=== PATIENT | male | born 1960 | race Caucasian/White ===

== ENCOUNTER 2020-07-24 04:03 | Outpatient (CLI) | payer MEDICARE, SELFPAY ==
[2020-07-24 19:05] LABS: SARS-CoV-2 RNA PCR Negative
== END 2020-07-24 04:04 | disposition home or self-care (01) ==
LOC: ANHCOVIDDT 04:03
PROVIDERS: PCP Family Medicine; Visit Provider Internal Medicine Gastroenterology
DX: Z01.812 Encounter for preprocedural laboratory examination (principal); Z20.828 Contact with and (suspected) exposure to other viral communicable diseases
CPT/HCPCS: 87635; C9803; U0003

== ENCOUNTER 2020-07-26 02:56 | Day surgery (SDC) | payer MEDICARE, SELFPAY ==
[2020-07-19 09:53] VITALS: BMI 23.1
[2020-07-26 07:46] VITALS: BP 167/80; PULSE 61; RESP 18; TEMP 36.8; O2SAT 99; BMI 22.6
--- NOTE | 2020-07-26 07:49 | WPDANESEPPF ---
Anes - Initial Pre Proc Eval Procedure: Operation Date: 07/26/20 08:30 Proposed Procedures p Esophagogastroduodenoscopy - Rey Abdul MD Date/Time: 07/26/20 07:49 Surgeon: Rey Abdul MD Pre Op Diagnosis: abd pain Patient Data Age: 60 Gender: M Height: 1.73 m Weight: 67.7 kg Last Vital Signs Temp 36.8 C 07/26/20 07:46 Pulse 61 07/26/20 07:46 Resp 18 07/26/20 07:46 BP 167/80 H 07/26/20 07:46 Pulse Ox 99 07/26/20 07:46 Allergies Allergy/AdvReac Type Severity Reaction Status Date / Time No Known Allergies Allergy Verified 07/26/20 07:44 Home Medications Medication Instructions Recorded Confirmed Type tramadol 50 mg tablet 50 mg PO Q6-8H PRN #90 tablet 10/03/19 07/19/20 Rx diltiazem HCl 240 mg capsule,24 240 mg PO DAILY #90 cap 10/16/19 07/19/20 Rx hr,extended release rivaroxaban 20 mg tablet 20 mg PO DAILY #90 tablet 10/16/19 07/26/20 Rx umeclidinium 62.5 mcg-vilanterol 1 inhalation INHALATION Q24H #60 12/19/19 07/19/20 Rx 25 mcg/actuation powdr for each inhalation amiodarone 200 mg tablet 200 mg PO DAILY #90 tablet 01/24/20 07/19/20 Rx albuterol sulfate 2.5 mg INHALATION Q6H PRN 04/22/20 07/26/20 History albuterol sulfate 90 mcg/actuation 2 puff INHALATION Q6H PRN gm 04/22/20 07/19/20 History aerosol inhaler ondansetron HCl 4 mg tablet 4 mg PO Q8H PRN #90 tablet 07/11/20 07/19/20 Rx alprazolam 0.5 mg PO BID PRN 07/19/20 07/19/20 History mometasone 2 spray NASAL DAILY PRN 07/19/20 07/19/20 History Patient hx anesthesia problems: none Family hx anesthesia problems: none PMFSH Past Medical History Medical History (Updated 07/03/20 @ 11:35 by Rey Abdul MD) Atrial fibrillation Colon cancer screening COPD (chronic obstructive pulmonary disease) Dyspepsia External bleeding hemorrhoids Hemorrhoid Hyperlipidemia Hypertension Surgical History Surgical History H/O mitral valve replacement History of appendectomy History of hernia repair History of tonsillectomy Family History Family History Mother Family history of chronic obstructive pulmonary disease Social History Social History Smoking packs per day: 2 Smoking cigarettes per day: 40.0 Years smoked: 25 Smoking pack-years: 50.00 Smoking status: Former smoker Tobacco type: cigarettes Second hand tobacco smoke exposure: No Smoking end date: 10/04/02 Alcohol intake: current Drinks per week: 16 Alcohol use details: BEERS Substance use: never Substance use type: does not use Living arrangements: with family Gender identity (if verbalized by the patient): Male Spiritual care concerns: No Anes - Eval Final PreProcedure Day of Procedure 07/26/20 07:49 Patient weight: obese Heart: regular rate and rhythm Lungs: clear to auscultation and normal air movement Airway: Mallampati scale class II Neurological: alert and oriented Last oral intake: >/= 8 hours ASA classification: III Emergent: no Anesthetic plan: proceed Anesthesia type and monitoring: general GIVS Informed Consent: The patient's anesthetic plan and its attendant risks and benefits were discussed with the patient/family/POA. Questions were solicited and answers provided to the satisfaction of the patient/family/POA.
[2020-07-26] MEDS: LACTATED RINGERS 1,000 ML 150 ML IV CONT (07:57)
[2020-07-26] MEDS: AMPICILLIN 2 GM/NS 100 ML 2 GM/100 ML BAG IVPB (07:58)
[2020-07-26] MEDS: GENTAMICIN 80MG/SOD CHL 50 ML 80 MG/50 ML BAG 100 MG IVPB (08:29)
--- NOTE | 2020-07-26 08:41 | WPDHPUPDATE1 ---
History and Physical Update Update Date/Time: 07/26/20 08:41 History and Physical has been reviewed, including an updated exam of the patient. There are NO changes in the patient's condition. Risks, benefits, and alternatives have been discussed and questions answered. Patient agrees to proceed with procedure.
[2020-07-26 09:01] VITALS: BP 116/69; PULSE 52; RESP 16; O2SAT 98
[2020-07-26 09:11] VITALS: BP 144/83; PULSE 57; RESP 16; O2SAT 100
[2020-07-26 09:19] VITALS: BP 141/80; PULSE 57; RESP 18; O2SAT 100
== END 2020-07-26 09:33 | disposition home or self-care (01) ==
PROVIDERS: PCP Family Medicine; Visit Provider Internal Medicine Gastroenterology
PROC: 0DJ08ZZ Inspection of Upper Intestinal Tract, Via Natural or Artificial Opening Endoscopic (ICD-10-PCS; CPT 43235; principal; 2020-07-26 08:30)
DX: K22.70 Barrett's esophagus without dysplasia (principal); K44.9 Diaphragmatic hernia without obstruction or gangrene; K29.50 Unspecified chronic gastritis without bleeding; K21.9 Gastro-esophageal reflux disease without esophagitis; I48.91 Unspecified atrial fibrillation; I10 Essential (primary) hypertension; E78.5 Hyperlipidemia, unspecified; J44.9 Chronic obstructive pulmonary disease, unspecified; Z79.01 Long term (current) use of anticoagulants; Z95.4 Presence of other heart-valve replacement; Z87.891 Personal history of nicotine dependence
CPT/HCPCS: 43239; 88305; J0290; J1580; J2704; J7120

== ENCOUNTER 2020-08-27 06:52 | Outpatient (NON) | payer MEDICARE, SELFPAY ==
[2020-08-28 02:00] LABS: SARS-CoV-2 RNA PCR Negative
== END 2020-08-27 06:53 ==
LOC: ANHCOVIDDT 06:57
PROVIDERS: PCP Family Medicine; Visit Provider Family Medicine
DX: R68.89 Other general symptoms and signs (principal); Z20.828 Contact with and (suspected) exposure to other viral communicable diseases
CPT/HCPCS: 87635; C9803; U0003

== ENCOUNTER 2020-09-25 15:03 | Emergency (ER) | payer MEDICARE, SELFPAY ==
--- NOTE | ~2020-09-25 | XR_ITS ---
EXAMINATION: XR esophogram water soluble DATE: 09/25/2020 16:08 INFORMATION SYSTEMS OPERATOR INDICATION: Dysphagia TECHNIQUE: Water-soluble contrast was administered orally. Fluoroscopic images of the esophagus were obtained in various projections. The hypopharynx was also examined. Thereafter, overhead images of t he thoracic esophagrus were performed. Fluroscopy time 0.6Dap 2.1 FINDINGS: The esophagus is normal in caliber, without mucosal lesions or strictures. There is normal esophageal peristalsis. There is no hiatal hernia. No discreet episode of gastroesophageal reflux i s seen during the course of this study. IMPRESSION: 1. Normal esophagram. Reviewed, dictated and finalized at location A. RMATION SYSTEMS OPERATOR IMPRESSION: 1. Normal esophagram.
[2020-09-25 15:29] VITALS: BP 148/68; PULSE 65; RESP 18; TEMP 36.6; O2SAT 99
[2020-09-25 16:01] VITALS: BP 164/80
[2020-09-25] MEDS: LIDOCAINE HCL 2% VISC SOLN 15 ML UDC PO (16:35)
[2020-09-25 16:45] VITALS: O2SAT 100
--- NOTE | 2020-09-25 17:02 | PC.NURSE ---
Pt states he thinks he is feeling better. No drooling observed.
[2020-09-25 17:04] VITALS: O2SAT 100
--- NOTE | 2020-09-25 17:10 | ED.GENADULT ---
HPI - General Adult General Chief complaint: Unspecified Stated complaint: choking Time Seen by Provider: 09/25/20 15:15 History of Present Illness HPI narrative: Patient is a 60-year-old male who presents ER with pain with swallowing. Reports he is eating some salami and thinks he got stuck in the back of his throat. He has been able to swallow water and is able to belch. He has not had a food impaction in the past. Reports he feels discomfort in the back of his throat anytime he swallows. Related Data Home Medications Medication Instructions Recorded Confirmed albuterol sulfate 2.5 mg INHALATION Q6H PRN 04/22/20 07/26/20 albuterol sulfate 90 mcg/actuation 2 puff INHALATION Q6H PRN gm 04/22/20 07/19/20 aerosol inhaler alprazolam 0.5 mg PO BID PRN 07/19/20 07/19/20 mometasone 2 spray NASAL DAILY PRN 07/19/20 07/19/20 Allergies Allergy/AdvReac Type Severity Reaction Status Date / Time No Known Allergies Allergy Verified 09/25/20 15:36 Review of Systems Constitutional: Constitutional: Denies chills, Denies fever(s) and Denies weakness ENT: Reports dysphagia, Denies hoarseness and Denies mouth pain Respiratory: Respiratory: Denies cough, Denies dyspnea and Denies stridor PMF Past Medical History Medical History (Updated 09/25/20 @ 17:13 by Edgar Carey MD) Atrial fibrillation Colon cancer screening COPD (chronic obstructive pulmonary disease) Dyspepsia External bleeding hemorrhoids Hemorrhoid Hyperlipidemia Hypertension Surgical History Surgical History H/O mitral valve replacement History of appendectomy History of hernia repair History of tonsillectomy Family History Family History Mother Family history of chronic obstructive pulmonary disease Social History Social History Smoking packs per day: 2 Smoking cigarettes per day: 40.0 Years smoked: 25 Smoking pack-years: 50.00 Smoking status: Former smoker Tobacco type: cigarettes Second hand tobacco smoke exposure: No Smoking end date: 10/04/02 Alcohol intake: current Drinks per week: 16 Substance use: never Substance use type: does not use Gender identity (if verbalized by the patient): Male Spiritual care concerns: No Exam Narrative: Exam Narrative: GENERAL: Well-appearing, well-nourished, and in no acute distress. HEAD: Normocephalic, atraumatic. ENT: Mucous membranes moist. Lacks dentition. Tolerating oral secretions. NECK: Supple. CHEST: Clear to auscultation. No respiratory distress. HEART: Regular rate and rhythm. Normal peripheral pulses. ABDOMEN: Soft, nontender, nondistended. EXTREMITIES: Normal range of motion. No edema. NEURO: Alert and oriented x3. Course Course Emergency Course: Patient able to drink without issue. Symptoms improved with lidocaine. Vital Signs Vital signs: Vital Signs Temperature 97.8 F 09/25/20 15:29 Pulse Rate 65 09/25/20 15:29 Respiratory Rate 18 09/25/20 15:29 Blood Pressure 148/68 H 09/25/20 15:29 Pulse Oximetry 99 09/25/20 15:29 Temperature 97.8 F 09/25/20 15:29 Pulse Rate 65 09/25/20 15:29 Respiratory Rate 18 09/25/20 15:29 Blood Pressure 164/80 H 09/25/20 16:01 Pulse Oximetry 100 09/25/20 17:04 Medical Decision Making Vital Signs Vital Signs: Vital Signs Temperature 97.8 F 09/25/20 15:29 Pulse Rate 65 09/25/20 15:29 Respiratory Rate 18 09/25/20 15:29 Blood Pressure 148/68 H 09/25/20 15:29 Pulse Oximetry 99 09/25/20 15:29 Temperature 97.8 F 09/25/20 15:29 Pulse Rate 65 09/25/20 15:29 Respiratory Rate 18 09/25/20 15:29 Blood Pressure 164/80 H 09/25/20 16:01 Pulse Oximetry 100 09/25/20 17:04 Imaging Data Radiologist's impression: ITS Impressions Esophagus X-Ray 09/25/20 16:08 IMPRESSION: 1. Normal esophagra
[2020-09-25 17:40] VITALS: BP 134/74; PULSE 62; RESP 18; O2SAT 98
== END 2020-09-25 17:45 | disposition home or self-care (01) ==
PROVIDERS: Emergency Provider Emergency Medicine; PCP Family Medicine
DX: R07.0 Pain in throat (principal); I48.91 Unspecified atrial fibrillation; J44.9 Chronic obstructive pulmonary disease, unspecified; E78.5 Hyperlipidemia, unspecified; I10 Essential (primary) hypertension; Z95.2 Presence of prosthetic heart valve; Z87.891 Personal history of nicotine dependence
CPT/HCPCS: 74220; 99283

== ENCOUNTER → 2020-12-14 01:18 | Outpatient (CLI) | payer MEDICARE, SELFPAY ==
[2020-12-14 18:54] LABS: SARS-CoV-2 RNA PCR Negative
== END ==
PROVIDERS: PCP Family Medicine; Visit Provider Internal Medicine Gastroenterology
DX: Z01.812 Encounter for preprocedural laboratory examination (principal); Z20.822 Contact with and (suspected) exposure to COVID-19
CPT/HCPCS: C9803; U0003; U0005

== ENCOUNTER 2020-12-18 00:33 | Day surgery (SDC) | payer MEDICARE, SELFPAY ==
[2020-12-03 11:17] VITALS: BMI 22.1
[2020-12-18] MEDS: LACTATED RINGERS 1,000 ML 150 ML IV CONT (08:29)
[2020-12-18] MEDS: GENTAMICIN 80MG/SOD CHL 50 ML 80 MG/50 ML BAG 100 MG IVPB (08:30)
--- NOTE | 2020-12-18 08:30 | WPDANESEPPF ---
Anes - Initial Pre Proc Eval Procedure: Operation Date: 12/18/20 09:30 Proposed Procedures p Esophagogastroduodenoscopy - Rey Abdul MD Date/Time: 12/18/20 08:30 Surgeon: Rey Abdul MD Pre Op Diagnosis: Dysphagia Patient Data Age: 60 Gender: M Height: 1.73 m Weight: 66 kg Allergies Allergy/AdvReac Type Severity Reaction Status Date / Time No Known Allergies Allergy Verified 12/18/20 08:16 Home Medications Medication Instructions Recorded Confirmed Type diltiazem HCl 240 mg capsule,24 240 mg PO DAILY #90 cap 10/16/19 12/03/20 Rx hr,extended release rivaroxaban 20 mg tablet 20 mg PO DAILY #90 tablet 10/16/19 12/03/20 Rx umeclidinium 62.5 mcg-vilanterol 1 inhalation INHALATION Q24H #60 12/19/19 12/03/20 Rx 25 mcg/actuation powdr for each inhalation albuterol sulfate 2.5 mg INHALATION Q6H PRN 04/22/20 12/03/20 History albuterol sulfate 90 mcg/actuation 2 puff INHALATION Q6H PRN gm 04/22/20 12/03/20 History aerosol inhaler mometasone 2 spray NASAL DAILY PRN 07/19/20 12/03/20 History omeprazole 20 mg capsule,delayed 20 mg PO DAILY #30 cap 07/26/20 12/03/20 Rx release amiodarone 200 mg tablet See Rx Instructions .ROUTE 08/07/20 12/03/20 Rx .COMPLEX #90 tablet alprazolam 0.5 mg tablet 0.5 mg PO BID PRN #60 tablet 10/14/20 12/03/20 Rx losartan 100 mg tablet 100 mg PO DAILY #30 tablet 10/24/20 12/03/20 Rx tramadol 50 mg tablet 50 mg PO Q6-8H PRN #90 tablet 11/22/20 12/03/20 Rx Patient hx anesthesia problems: none Family hx anesthesia problems: none PMFSH Past Medical History Medical History (Updated 12/18/20 @ 08:31 by Ariel Wells MD) Alcohol abuse Atrial fibrillation Barretts esophagus Chronic anxiety Colon cancer screening COPD (chronic obstructive pulmonary disease) Current use of [facility] anticoagulation Dyspepsia Edentulous External bleeding hemorrhoids Gastritis Globus sensation Hemorrhoid Hyperlipidemia Hypertension Thoracic aortic aneurysm 4.4 cm Surgical History Surgical History (Reviewed 11/06/20 @ 13:29 by Nicole Burns [facility] [address]) H/O mitral valve replacement History of appendectomy History of hernia repair History of tonsillectomy Family History Family History Mother Family history of chronic obstructive pulmonary disease Social History Social History (Reviewed 11/06/20 @ 13:29 by Nicole Burns [facility]) Social History: Smoking packs per day: 2 Smoking cigarettes per day: 40.0 Years smoked: 25 Smoking pack-years: 50.00 Smoking status: Former smoker Tobacco type: cigarettes Second hand tobacco smoke exposure: No Smoking end date: 10/04/02 Alcohol intake: current Drinks per week: 8 Substance use: never Substance use type: does not use Living arrangements: with family Additional occupation/education comments: Disabled Gender identity (if verbalized by the patient): Male Spiritual care concerns: No Anes - Eval Final PreProcedure Day of Procedure 12/18/20 08:30 Patient weight: normal Heart: regular rate and rhythm Lungs: clear to auscultation and normal air movement Airway: Mallampati scale class II Neurological: alert and oriented Last oral intake: >/= 8 hours ASA classification: IV Emergent: no Anesthetic plan: proceed Anesthesia type and monitoring: general GIVS Informed Consent: The patient's anesthetic plan and its attendant risks and benefits were discussed with the patient/family/POA. Questions were solicited and answers provided to the satisfaction of the patient/family/POA.
[2020-12-18 08:31] VITALS: BP 161/79; PULSE 65; RESP 16; TEMP 36.5; O2SAT 99; BMI 22.4
[2020-12-18] MEDS: AMPICILLIN 2 GM/NS 100 ML 2 GM/100 ML BAG IVPB (08:57)
--- NOTE | 2020-12-18 09:55 | PM.HPGS ---
History of Present Illness History of Present Illness Consent: Risks, benefits, and alternatives have been discussed and questions answered. Patient agrees to proceed with procedure. Chief complaint: Dysphagia Narrative: Milton Minor is a 60 year old male with dysphagia but improved since last office visit, also using omeprazole helping gerd symptoms Review of Systems Constitutional: Constitutional: Denies headache(s) and Denies weakness Eyes: Eyes: Denies blurry vision ENT: Reports Normal hearing present, Denies headache(s) and Denies neck pain Cardiovascular: Cardiovascular: Denies chest pain and Denies dyspnea Respiratory: Respiratory: Denies dyspnea Gastrointestinal: Gastrointestinal: Reports no additional gastrointestinal complaints Genitourinary: Genitourinary: Denies dysuria Musculoskeletal: Musculoskeletal: Denies neck pain Integumentary/Breasts: Skin/Breast: Denies dry skin Neurologic: Reports Normal hearing present, Denies headache(s) and Denies weakness Psychiatric: Psychiatric: Denies anxiety Endocrine: Endocrine: Denies change in body appearance Hematologic/Lymphatic: Hematologic/Lymphatic: Denies easy bleeding Allergic/Immunologic: Allergic/Immunologic: Denies urticaria PMF Past Medical History Medical History (Updated 12/18/20 @ 08:31 by Ariel Wells MD) Alcohol abuse Atrial fibrillation Barretts esophagus Chronic anxiety Colon cancer screening COPD (chronic obstructive pulmonary disease) Current use of residential anticoagulation Dyspepsia Edentulous External bleeding hemorrhoids Gastritis Globus sensation Hemorrhoid Hyperlipidemia Hypertension Thoracic aortic aneurysm 4.4 cm Surgical History Surgical History H/O mitral valve replacement History of appendectomy History of hernia repair History of tonsillectomy Family History Family History Mother Family history of chronic obstructive pulmonary disease Social History Social History Social History: Smoking packs per day: 2 Smoking cigarettes per day: 40.0 Years smoked: 25 Smoking pack-years: 50.00 Smoking status: Former smoker Tobacco type: cigarettes Second hand tobacco smoke exposure: No Smoking end date: 10/04/02 Alcohol intake: current Drinks per week: 8 Substance use: never Substance use type: does not use Living arrangements: with family Additional occupation/education comments: Disabled Gender identity (if verbalized by the patient): Male Spiritual care concerns: No Meds Home Medications and Allergies Home Medications Medication Instructions Recorded Confirmed Type diltiazem HCl 240 mg capsule,24 240 mg PO DAILY #90 cap 10/16/19 12/03/20 Rx hr,extended release rivaroxaban 20 mg tablet 20 mg PO DAILY #90 tablet 10/16/19 12/03/20 Rx umeclidinium 62.5 mcg-vilanterol 1 inhalation INHALATION Q24H #60 12/19/19 12/03/20 Rx 25 mcg/actuation powdr for each inhalation albuterol sulfate 2.5 mg INHALATION Q6H PRN 04/22/20 12/03/20 History albuterol sulfate 90 mcg/actuation 2 puff INHALATION Q6H PRN gm 04/22/20 12/03/20 History aerosol inhaler mometasone 2 spray NASAL DAILY PRN 07/19/20 12/03/20 History omeprazole 20 mg capsule,delayed 20 mg PO DAILY #30 cap 07/26/20 12/03/20 Rx release amiodarone 200 mg tablet See Rx Instructions .ROUTE 08/07/20 12/03/20 Rx .COMPLEX #90 tablet alprazolam 0.5 mg tablet 0.5 mg PO BID PRN #60 tablet 10/14/20 12/03/20 Rx losartan 100 mg tablet 100 mg PO DAILY #30 tablet 10/24/20 12/03/20 Rx tramadol 50 mg tablet 50 mg PO Q6-8H PRN #90 tablet 11/22/20 12/03/20 Rx Allergies Allergy/AdvReac Type Severity Reaction Status Date / Time No Known Allergies Allergy Verified 12/18/20 08:16 Vital Signs Vital Signs - 24 hr
[2020-12-18] MEDS: BENZOCAINE (*SP) 60 ML SPRAY CAN (HURRICAINE) 1 SPRAY MUCOUS MEM (09:57)
[2020-12-18 10:08] VITALS: BP 123/76; PULSE 53; RESP 17; O2SAT 97
[2020-12-18 10:18] VITALS: BP 125/80; PULSE 53; RESP 15; O2SAT 96
[2020-12-18 10:28] VITALS: BP 130/75; PULSE 52; RESP 12; O2SAT 98
== END 2020-12-18 10:46 | disposition home or self-care (01) ==
PROVIDERS: PCP Internal Medicine; Visit Provider Internal Medicine Gastroenterology
PROC: 0DJ08ZZ Inspection of Upper Intestinal Tract, Via Natural or Artificial Opening Endoscopic (ICD-10-PCS; CPT 43235; principal; 2020-12-18 09:30)
DX: R13.10 Dysphagia, unspecified (principal); K21.00 Gastro-esophageal reflux disease with esophagitis, without bleeding; K22.70 Barrett's esophagus without dysplasia; K44.9 Diaphragmatic hernia without obstruction or gangrene; K29.50 Unspecified chronic gastritis without bleeding; I10 Essential (primary) hypertension; I71.2 Thoracic aortic aneurysm, without rupture; I48.91 Unspecified atrial fibrillation; E78.5 Hyperlipidemia, unspecified; J44.9 Chronic obstructive pulmonary disease, unspecified; F41.9 Anxiety disorder, unspecified; Z79.01 Long term (current) use of anticoagulants; Z79.51 Long term (current) use of inhaled steroids; Z87.891 Personal history of nicotine dependence
CPT/HCPCS: 43239; 88305; C9803; J0290; J1580; J2001; J2704; J7120; U0003; U0005

== ENCOUNTER 2021-02-05 07:30 | Outpatient (CLI) | payer MEDICARE, SELFPAY ==
--- NOTE | ~2021-02-05 | CT_ITS ---
EXAMINATION: CTA chest DATE: 02/05/2021 08:12 INDICATION: Thoracic aortic aneurysm without rupture TECHNIQUE: Computed tomographic angiography (CTA) of the chest was performed with 100 mL Omnipque-350 intravenous contrast. Maximum intensity projection 3D-reconstructions of the aorta and other arterie s were constructed by the technologist on a separate workstation. The dose-length product (DLP) was 2 99.20 mGy-cm. Automated exposure control and iterative reconstruction technique were employed. COMPARISON: 01/23/2019 FINDINGS: The ascending aorta measures 4.6 cm at the sinuses of Valsalva and 3.5 cm at the level of t he main pulmonary artery. There is no aortic dissection. There are surgical changes involving the diego ral and tricuspid valves. The heart size is normal. There are no pathologically enlarged thoracic lym ph nodes. There is scarring in the lung apices. Moderate emphysema is noted. The lungs are free of fo mahnaz airspace opacities. Right thyroid nodules measure up to 9 mm. IMPRESSION: 1. Ascending aorta measuring 4.6 cm at the sinuses of Valsalva, no dissection. Reviewed, dictated and finalized at location A.
[2021-02-05 14:52] LABS: Estimated Glomerular Filt Rate > 60
== END 2021-02-05 07:31 | disposition home or self-care (01) ==
LOC: ANHIMG 07:31
PROVIDERS: PCP Internal Medicine; Visit Provider Internal Medicine Cardiovascular Disease
DX: I71.2 Thoracic aortic aneurysm, without rupture (principal)
CPT/HCPCS: 71275; Q9967

== ENCOUNTER 2022-01-21 07:35 | Outpatient (CLI) | payer MEDICARE, MEDICAID, SELFPAY ==
--- NOTE | 2022-01-21 07:43 | ECHO_ITS ---
Patient Info Name: Milton Minor Age: 61 years : 1960 Gender: Male Ht: 68 in Wt: 155 lbs BSA: 1.84 m2 BP: 169 / 105 mmHg Technical Quality: Good Exam Date: 01/21/2022 8:13 AM Exam Location: [facility] Patient Status: Outpatient Admit Date: 01/21/2022 Staff Ordering Physician: John Park DO Communications Assistant: Ro Norton RDCS Attending Provider: John Park DO Exam Type: CA echo doppler color flow Study Info Indications Z95.2 - Presence of prosthetic heart valve Complete two-dimensional, color flow and Doppler transthoracic echocardiogram is performed. Summary 1. Complete two-dimensional, color flow and Doppler transthoracic echocardiogram is performed. 2. Left ventricular chamber dimension is normal. 3. Left ventricular systolic function is normal, estimated at 55-60%. 4. The left ventricular diastolic function is grade II diastolic dysfunction. 5. E/e' 33 is elevated. 6. Left atrial chamber dimension is moderately enlarged. 7. There is mild aortic valve sclerosis. 8. There is no stenosis of the bioprosthetic mitral valve. 9. Evidence of tricuspid valve repair and annuloplasty ring. 10. There is mild tricuspid valve regurgitation. 11. No pulmonary hypertension, estimated pulmonary arterial systolic pressure is 39 mmHg. 12. There is trace pulmonic regurgitation. 13. The aortic root size at the sinus of Valsalva is mildly dilated at 4.3 cm.. Left Ventricle E/e' 33 is elevated. Left ventricular chamber dimension is normal. Left ventricular systolic function is normal, estimated at 55-60%. The left ventricular diastolic function is grade II diastolic dysfunction. Right Ventricle Right ventricular chamber dimension is normal. Right ventricular systolic function is normal. Left Atria Left atrial chamber dimension is moderately enlarged. Right Atria Right atrial chamber dimension is normal. Aortic Valve The aortic valve is trileaflet. There is mild aortic valve sclerosis. There is no aortic valve stenosis. There is no aortic valve regurgitation. Pulmonic Valve There is trace pulmonic regurgitation. Mitral Valve There is no stenosis of the bioprosthetic mitral valve. There is no regurgitation of the bioprosthetic mitral valve. Tricuspid Valve The tricuspid valve leaflets are mildly thickened. Evidence of tricuspid valve repair and annuloplasty ring. There is mild tricuspid valve regurgitation. No pulmonary hypertension, estimated pulmonary arterial systolic pressure is 39 mmHg. Pericardium/Pleural There is no pericardial effusion. Inferior Vena Cava Normal inferior vena cava with >50% collapse upon inspiration consistent with normal right atrial pressure, 5 mmHg. Aorta The aortic root size at the sinus of Valsalva is mildly dilated at 4.3 cm.. Left Ventricular Outflow Tract Name Value Normal LVOT 2D LVOT Diameter 2.0 cm LVOT Doppler LVOT Peak Gradient 3 mmHg LVOT Mean Gradient 1 mmHg LVOT VTI 18 cm LVOT VTI/AV VTI Ratio 0.5 LV
== END 2022-01-21 07:36 | disposition home or self-care (01) ==
LOC: ANHCARD 07:38
PROVIDERS: Visit Provider Internal Medicine Cardiovascular Disease
DX: I36.1 Nonrheumatic tricuspid (valve) insufficiency (principal); Z95.2 Presence of prosthetic heart valve
CPT/HCPCS: 93306

== ENCOUNTER 2023-02-23 20:24 | Emergency (ER) | payer MEDICARE, MEDICAID, SELFPAY ==
--- NOTE | ~2023-02-23 | CT_ITS ---
EXAMINATION: CT abdomen pelvis w con DATE: 02/24/2023 00:47 INDICATION: Low abdominal pain. Nausea. TECHNIQUE: Computed tomography (CT) of the abdomen and pelvis was performed with 100 mL Omnipaque 350 intravenous contrast. Automated exposure control and iterative reconstruction technique were employe d. The dose-length product was 325.53 mGy-cm. COMPARISON: Chest CTA 02/05/2021 FINDINGS: The visualized portions of the lung bases demonstrate mild atelectasis. No pleural effusion . Cardiomegaly is noted. No pericardial effusion. There are surgical changes of the mitral and tricus pid valves. The liver and spleen are normal. There is a gallstone in the gallbladder, which is normal in size. The pancreas and adrenal glands are normal. There is cortical thinning of the kidneys. Ther e is mild bilateral hydronephrosis and hydroureter. The bladder is markedly distended. There is a div erticulum on the left side of the bladder. The prostate is moderately enlarged. There is a moderate v olume of stool in the colon. There are no dilated loops of bowel. There are changes of appendectomy. There is calcified atherosclerosis of the aorta and many of the other arteries. There are no patholog ically enlarged lymph nodes. There is no free intraperitoneal fluid. There are changes of bilateral i nguinal hernia repairs. There is severe lumbar spondylosis. There are chronic compression fractures o f L2 and L4. IMPRESSION: 1. Markedly distended bladder with mild bilateral hydronephrosis and hydroureter. 2. Cholelithiasis. Reviewed, dictated and finalized at location A. IMPRESSION: 1. Markedly distended bladder with mild bilateral hydronephrosis and hydrourete r. 2. Cholelithiasis.
--- NOTE | ~2023-02-23 | XR_ITS ---
EXAMINATION: XR chest 2V Exam Date/Time: 02/23/2023 20:57 CDT HISTORY: weakness, LIGHTHEADED FOR 1 DAY, COPD, HTN, SURGERY 2013 Comparison: CTA chest 02/05/2021. RESULT: Lines, tubes, and devices: Median sternotomy wires, one of which is fractured but remains in expecte d position. Valve replacements. Lungs and pleura: Left basilar scar/atelectasis, otherwise clear. Cardiomediastinal silhouette: Stable. Other: No acute osseous or upper abdominal finding. IMPRESSION: No acute cardiopulmonary process. Reviewed, dictated and finalized at location K.
--- NOTE | 2023-02-23 20:30 | ECG_ITS ---
Measurements Intervals [place] Rate: 83 P: 78 CO: 210 QRS: -21 QRSD: 153 T: 81 QT: 395 QTc: 466 Interpretive Statements SINUS RHYTHM WITH FIRST DEGREE AV BLOCK LEFT BUNDLE BRANCH BLOCK BASELINE ARTIFACT- I, AVR ABNORMAL ECG NO PREVIOUS ECG AVAILABLE FOR COMPARISON Electronically Signed On 02-24-2023 8:00:16 CDT by John Park D.O.
[2023-02-23 20:38] VITALS: BP 165/79; PULSE 84; RESP 14; TEMP 36.8; O2SAT 97
[2023-02-23 20:54] LABS: Basophils Percent Auto 0.5 % (0.2-1.2); Eosinophils Absolute Auto 0.1 K/mm3 (0-0.3); Eosinophils Percent Auto 1.7 % (0-4.4); Hemoglobin 13.4 g/dL (14.0-18.0); Immature Granulocyte Absolute 0.03 K/mm3 (0.00-0.031); Immature Granulocyte Percent A 0.4 % (0-0.5); Lymphocytes Absolute Auto 1.29 K/mm3 (0.9-3.2); Lymphocytes Percent Auto 15.9 % (18.3-44.2); Mean Corpuscular HGB Conc 36.2 g/dl (32-36); Mean Corpuscular Hemoglobin 32.1 pg (26-34); Mean Corpuscular Volume 88.7 fl (80-100); Mean Platelet Volume 7.9 fl (7.4-10.4); Monocytes Absolute Auto 1.3 K/mm3 (0.1-0.6); Monocytes Percent Auto 15.4 % (2.6-8.5); Neutrophils Absolute Auto 5.4 K/mm3 (1.3-6.7); Neutrophils Percent Auto 66.1 % (45.5-73.1); Platelet Count Result 208 k/mm3 (150-375); Red Blood Count 4.17 M/mm3 (4.6-6.20); Red Cell Distribution Width 12.5 % (11.5-14.5); White Blood Count 8.1 K/mm3 (4.5-10.0)
[2023-02-23 21:00] LABS: Alanine Aminotransferase 83 U/L (6-50); Albumin Level 4.7 g/dL (3.5-5.1); Alkaline Phosphatase 98 U/L (38-126); Anion Gap 9 mmol/L (8-16); Aspartate Amino Transferase 87 U/L (17-59); Bilirubin,Total 0.5 mg/dL (0.2-1.3); Blood Urea Nitrogen 10 mg/dL (9-20); Calcium 9.1 mg/dL (8.4-10.2); Carbon Dioxide 26 mmol/L (22-30); Chloride 94 mmol/L (98-107); Estimated CRCL calculation 70 ml/min; Estimated Glomerular Filt Rate > 60; Glucose 104 mg/dL (65-110); Potassium 3.9 mmol/L (3.4-5.0); Sodium 129 mmol/L (137-145)
[2023-02-23 23:26] LABS: Troponin I < 0.012 ng/mL (0.000-0.034)
[2023-02-23 23:35] VITALS: PULSE 86; RESP 17; O2SAT 99
[2023-02-23 23:49] VITALS: BP 180/93; PULSE 84; O2SAT 98
[2023-02-23 23:52] VITALS: PULSE 84
[2023-02-24] VITALS (9 sets, daily range): BP systolic 169; BP diastolic 74; PULSE 83–97; RESP 12–20; O2SAT 94–98
--- NOTE | 2023-02-24 00:08 | ED.GENADULT ---
HPI - General Adult General Chief complaint: Weakness Stated complaint: weakness Time Seen by Provider: 02/23/23 23:37 Source: patient Mode of arrival: ambulatory Limitations: no limitations History of Present Illness HPI narrative: This is a 63-year-old male with PMH of mitral valve repair, endocarditis, COPD, anxiety who presents to the ED with chief complaint of weakness onset x3 days. Patient states he is feeling generally weak and tired. Patient states they were camping on Wednesday night and he had to come home early because he was starting to not feel well. Reports he just does not feel right. He reports some lower abdominal discomfort. Also reports some nausea without vomiting. States his last bowel movement was 2 days ago. States he has been able to eat and drink but feels that he does not drink enough water. Denies chest pain, shortness of breath, cough,urinary symptoms, neurologic symptoms, LOC, bloody stools or dark stools. Denies viral URI symptoms. Related Data Home Medications Medication Instructions Recorded Confirmed albuterol sulfate 2.5 mg/3 mL 2.5 mg inhalation Q6H PRN 04/22/20 10/06/22 (0.083 %) solution for nebulization Shortness Of Breath Or Wheezing albuterol sulfate 90 mcg/actuation 2 puff inhalation Q6H PRN 04/22/20 10/06/22 aerosol inhaler Shortness Of Breath Or Wheezing mometasone 50 mcg/actuation nasal 2 spray intranasal DAILY PRN 07/19/20 10/06/22 spray Congestion atorvastatin 10 mg tablet 10 mg PO DAILY 10/06/22 10/06/22 prochlorperazine maleate 10 mg 10 mg PO Q8H PRN 10/06/22 10/06/22 tablet tiotropium 2.5 mcg-olodaterol 2.5 2 puff inhalation DAILY 10/06/22 10/06/22 mcg/actuation mist for inhalation (Stiolto Respimat) Allergies Allergy/AdvReac Type Severity Reaction Status Date / Time No Known Allergies Allergy Verified 02/23/23 20:27 Review of Systems Review of Systems: CONSTITUTIONAL: See HPI EYES: Denies visual changes, redness, or discharge. ENT: Denies rhinorrhea, congestion, sore throat, or otalgia. CARDIOVASCULAR: Denies chest pain, palpitations, or edema. RESPIRATORY: Denies cough or dyspnea. GASTROINTESTINAL: See HPI GENITOURINARY: Denies dysuria or hematuria. SKIN: Denies rash or itching. MUSCULOSKELETAL: Denies back pain, joint pain, or myalgia. NEUROLOGIC: Denies headache, numbness, dizziness, or weakness. PSYCHIATRIC: Denies anxiety or depression. [facility] Past Medical History Medical History Alcohol abuse Atrial fibrillation Barretts esophagus Chronic anxiety Colon cancer screening COPD (chronic obstructive pulmonary disease) Current use of careers adviser anticoagulation Dyspepsia Edentulous External bleeding hemorrhoids Gastritis Globus sensation Hemorrhoid Hyperlipidemia Hypertension Thoracic aortic aneurysm 4.4 cm Surgical History Surgical History H/O mitral valve replacement History of appendectomy History of hernia repair History of tonsillectomy Family History Family History Mother Family history of chronic obstructive pulmonary disease Social History Social History Social History: Smoking packs per day: 2 Smoking cigarettes per day: 40.0 Years smoked: 25 Smoking pack-years: 50.00 Smoking status: Former smoker Tobacco type: cigarettes Second hand tobacco smoke exposure: No Smoking end date: 10/04/02 Alcohol intake: current Drinks per week: 8 Alcohol use details: BEERS Substance use: never Substance use type: does not use Living arrangements: with family Occupation/Education: unemployed Additional occupation/education comments: Disabled Gender identity (if verbalized by the patient): Male Sexual Orientation (if Verbalized by the Patient): Straight or Heterosexual
[2023-02-24 00:18] LABS: Appearance Urine Clear (Clear); Bacteria Urine None Seen /hpf; Bilirubin Urine Negative (Negative); Color Urine Yellow (Yellow); Glucose Urine UA Negative (Negative); Ketones Urine Negative (Negative); Leukocyte Esterase Ur Negative LEU/UL (Negative); Nitrate Urine Negative (Negative); Non Pathogenic Casts 0-2; Protein Urine 1+ mg/dL (Negative); RBC Urine 0-2 /hpf (0-2); Specific Grav Ur 1.007 (1.001-1.035); Squamous Epithelial Cell Urine None seen /hpf (Few); Urobilinogen Urine 0.2 mg/dL (<2.0); WBC Urine 0-5 /hpf
[2023-02-24 00:21] LABS: Add Urine Microscopic? NO
[2023-02-24] MEDS: ONDANSETRON INJ 4 MG/2 ML VIAL IV PUSH (00:29)
[2023-02-24] MEDS: SODIUM CHLORIDE 0.9% IV 1,000 ML 999 ML IV CONT (00:30)
== END 2023-02-24 02:15 | disposition home or self-care (01) ==
PROVIDERS: Emergency Medicine; Emergency Provider Physician Assistant
DX: R53.1 Weakness (principal); J44.9 Chronic obstructive pulmonary disease, unspecified; I38 Endocarditis, valve unspecified; I48.91 Unspecified atrial fibrillation; E78.5 Hyperlipidemia, unspecified; I10 Essential (primary) hypertension; K22.70 Barrett's esophagus without dysplasia; F41.9 Anxiety disorder, unspecified; Z95.2 Presence of prosthetic heart valve; Z87.891 Personal history of nicotine dependence; Z79.01 Long term (current) use of anticoagulants
CPT/HCPCS: 36415; 71046; 74177; 80053; 81003; 84484; 85025; 93005; 96361; 96374; 99284; J2405; J7030; Q9967

== ENCOUNTER 2023-04-08 16:04 | Observation (INO) | payer MEDICARE, MEDICAID, SELFPAY ==
[2023-04-08] VITALS (9 sets, daily range): BP systolic 133–184; BP diastolic 92–104; PULSE 80–91; RESP 13–16; TEMP 36.2–36.7; O2SAT 97–99
--- NOTE | ~2023-04-08 | US_ITS ---
EXAMINATION: US carotid duplex BI DATE: 04/09/2023 09:24 INDICATION: Dizziness. TECHNIQUE: Grayscale, color Doppler, and pulsed Doppler images of the cervical carotid arteries were obtained. The degree of vessel stenosis is placed in one of the following categories: normal, <50%, 5 0-69%, >=70% but less than near-occlusion, near-occlusion, or total occlusion. Note that percent sten osis relative to normal distal artery lumen diameter is indirectly measured from velocity measurement s as described by Marciano, et al. Radiology 2003; 229:[id number]. COMPARISON: None. FINDINGS: RIGHT: The right common carotid artery (CCA) peak systolic velocity (PSV) is 59 cm/s. The right internal car otid artery (ICA) PSV is 62 cm/s. The right ICA end-diastolic velocity (EDV) is 14 cm/s. The right IC A/CCA PSV ratio is 1.1. Grayscale and color Doppler images yield an estimate of <50% diameter reducti on from plaque in the ICA. There is antegrade flow in the right vertebral artery. LEFT: The left CCA PSV is 57 cm/s. The left ICA PSV is 39 cm/s. The left ICA EDV is 9 cm/s. The left ICA/CC A PSV ratio is 0.7. Grayscale and color Doppler images yield an estimate of <50% diameter reduction f rom plaque in the ICA. There is antegrade flow in the left vertebral artery. IMPRESSION: 1. <50% stenosis in the right internal carotid artery. 2. <50% stenosis in the left internal carotid artery. Reviewed, dictated and finalized at location A.
--- NOTE | ~2023-04-08 | XR_ITS ---
XR chest 2V DATE: 04/08/2023 17:05 INDICATION: Dizziness TECHNIQUE: 2 views COMPARISON: 02/23/2023 PA and lateral chest FINDINGS: Status post sternotomy and mitral and tricuspid valve replacement. Heart size is within upp er normal range. Is mild aortic unfolding. No hilar or mediastinal enlargement. Bilateral hyperinflation, suggesting obstructive airways disease. Bibasilar discoid atelectasis or sc arring; otherwise no pulmonary consolidation, pleural effusion, pulmonary vascular congestion or pneu mothorax is detected. Osteopenia. IMPRESSION: Status post sternotomy and mitral and tricuspid valve replacement Bilateral hyperinflation suggesting obstructive airways disease Mild discoid atelectasis or scarring in the lung bases; otherwise no active pulmonary disease Reviewed, dictated and finalized at location A. IMPRESSION: Status post sternotomy and mitral and tricuspid valve replacement Bilateral hyperinflation suggesting obstructive airways disease Mild discoid atelectasis or scarring in the lung bases; otherwise no active pul monary disease
--- NOTE | ~2023-04-08 | CT_ITS ---
Non-contrast Head CT History: Dizziness Technique: Axial non-contrast imaging of the brain was performed. Dose reduction technique was used on this scan by utilizing automated exposure control and iterative reconstruction technique. The dose -length product (DLP) was 605.33 mGy-cm. Findings: There is no evidence of intracranial hemorrhage, mass lesion, or acute infarct. Brain par enchyma appears normal. The ventricles and subarachnoid spaces are normal in size. The calvarium ap pears normal. The visualized paranasal sinuses and mastoid air cells are clear. Impression: No significant abnormality seen. Reviewed, dictated and finalized at location . Impression: No significant abnormality seen.
--- NOTE | ~2023-04-08 | US_ITS ---
US abdomen limited DATE: 04/08/2023 19:16 INDICATION: Elevated liver enzymes TECHNIQUE: Real-time imaging of liver, gallbladder, pancreas COMPARISON: 02/20/2023 CT abdomen pelvis FINDINGS: No hepatic or pancreatic space-occupying mass lesion is detected. No bile duct or pancreati c duct dilatation. The common bile duct measures 4.3 mm, normal. Normal hepatopedal portal venous flow direction. No gallbladder wall thickening. There is a small stone in the neck of the gallbladder. Negative sonog raphic Rahman's sign. IMPRESSION: Small gallstone; no gallbladder wall thickening, negative sonographic Rahman sign Reviewed, dictated and finalized at Location A. Reviewed, dictated and finalized at location A. IMPRESSION: Small gallstone; no gallbladder wall thickening, negative sonograph ic Rahman sign
--- NOTE | 2023-04-08 16:50 | ECG_ITS ---
Measurements Intervals [place] Rate: 90 P: 82 HI: 184 QRS: -7 QRSD: 146 T: 119 QT: 362 QTc: 444 Interpretive Statements SINUS RHYTHM LEFT BUNDLE BRANCH BLOCK BASELINE ARTIFACT- II, III, AVR, AVL, AVF ABNORMAL ECG COMPARED TO ECG 02/23/2023 20:32:08 NO SIGNIFICANT CHANGES Electronically Signed On 04-08-2023 20:19:33 CDT by John Park D.O.
[2023-04-08 17:36] LABS: Basophils Absolute Auto 0.1 K/mm3 (0.0-0.1); Basophils Percent Auto 0.5 % (0.2-1.2); Eosinophils Percent Auto 0.3 % (0-4.4); Hematocrit 39.6 % (42.0-52.0); Hemoglobin 14.3 g/dL (14.0-18.0); Immature Granulocyte Absolute 0.04 K/mm3 (0.00-0.031); Immature Granulocyte Percent A 0.4 % (0-0.5); Lymphocytes Percent Auto 8.3 % (18.3-44.2); Mean Corpuscular HGB Conc 36.1 g/dl (32-36); Mean Corpuscular Hemoglobin 31.9 pg (26-34); Mean Corpuscular Volume 88.4 fl (80-100); Mean Platelet Volume 8.2 fl (7.4-10.4); Monocytes Absolute Auto 1.2 K/mm3 (0.1-0.6); Monocytes Percent Auto 10.6 % (2.6-8.5); Neutrophils Absolute Auto 8.7 K/mm3 (1.3-6.7); Neutrophils Percent Auto 79.9 % (45.5-73.1); Platelet Count Result 205 k/mm3 (150-375); Red Blood Count 4.48 M/mm3 (4.6-6.20); Red Cell Distribution Width 12.4 % (11.5-14.5); White Blood Count 10.8 K/mm3 (4.5-10.0)
[2023-04-08 17:43] LABS: Alanine Aminotransferase 217 U/L (6-50); Albumin Level 4.5 g/dL (3.5-5.1); Alkaline Phosphatase 103 U/L (38-126); Anion Gap 8 mmol/L (8-16); Aspartate Amino Transferase 123 U/L (17-59); Bilirubin,Total 0.6 mg/dL (0.2-1.3); Blood Urea Nitrogen 8 mg/dL (9-20); Calcium 9.1 mg/dL (8.4-10.2); Carbon Dioxide 26 mmol/L (22-30); Chloride 93 mmol/L (98-107); Estimated CRCL calculation 95 ml/min; Estimated Glomerular Filt Rate > 60; Glucose 120 mg/dL (65-110); Magnesium 1.8 mg/dL (1.6-2.3); Potassium 3.6 mmol/L (3.4-5.0); Sodium 127 mmol/L (137-145)
[2023-04-08 17:45] LABS: Prothrombin Time 23.9 Seconds (11.1-14.7)
[2023-04-08 17:46] LABS: Partial Thromboplastin Time 33.3 SECONDS (22.3-36.8)
[2023-04-08] MEDS: ONDANSETRON INJ 4 MG/2 ML VIAL IV PUSH (17:46)
[2023-04-08] MEDS: SODIUM CHLORIDE 0.9% IV 1,000 ML 999 ML IV CONT (18:25)
[2023-04-08 18:35] LABS: Appearance Urine Clear (Clear); Bilirubin Urine Negative (Negative); Blood Urine Negative (Negative); Color Urine Yellow (Yellow); Glucose Urine UA Negative (Negative); Ketones Urine Negative (Negative); Leukocyte Esterase Ur Negative LEU/UL (Negative); Nitrate Urine Negative (Negative); Protein Urine Negative (Negative); Specific Grav Ur 1.007 (1.001-1.035); Urobilinogen Urine 0.2 mg/dL (<2.0)
--- NOTE | 2023-04-08 18:42 | ED.DIZZY ---
HPI - Dizziness General Chief Complaint: Dizziness Stated Complaint: dizzy/lightheaded/htn Time Seen by Provider: 04/08/23 16:31 Source: patient, RN notes reviewed and old records reviewed Mode of arrival: ambulatory Limitations: no limitations History of Present Illness HPI Narrative: This is a 63 year old male who presents for evaluation of dizziness. Patient states that he developed dizziness today. He states he is dizzy at rest and he is unsure if worse with standing. He states it feels like he is off. He denies any difficulty walking. He reports nausea that has been worse over past 5 days. He reports chronic issues with nausea and GI complaints. He denies abdominal pain. He reports he had abdominal US today at [facility]. He is being followed there for gallstones and elevated lfts. He denies chest pain, shortness of breath, vomiting or diarrhea. He states his statin medications was stopped today as possible cause of his nausea and abnormal liver enzymes Related Data Home Medications Medication Instructions Recorded Confirmed albuterol sulfate 2.5 mg/3 mL 2.5 mg inhalation Q6H PRN 04/22/20 04/08/23 (0.083 %) solution for nebulization Shortness Of Breath Or Wheezing albuterol sulfate 90 mcg/actuation 2 puff inhalation Q6H PRN 04/22/20 04/08/23 aerosol inhaler Shortness Of Breath Or Wheezing mometasone 50 mcg/actuation nasal 2 spray intranasal DAILY PRN 07/19/20 04/08/23 spray Congestion prochlorperazine maleate 10 mg 10 mg PO Q8H PRN Nausea And 10/06/22 04/08/23 tablet Vomiting tiotropium 2.5 mcg-olodaterol 2.5 2 puff inhalation DAILY 10/06/22 04/08/23 mcg/actuation mist for inhalation (Stiolto Respimat) amiodarone 200 mg tablet 200 mg PO DAILY 04/08/23 04/08/23 cyclosporine 0.05 % eye drops in a 1 drp EACH EYE BID 04/08/23 04/08/23 dropperette (Restasis) diltiazem HCl 240 mg capsule,24 240 mg PO DAILY 04/08/23 04/08/23 hr,extended release methocarbamol 500 mg tablet 500 mg PO Q6H PRN muscle spasms 04/08/23 04/08/23 polyethylene glycol 17 g PO DAILY 04/08/23 04/08/23 Allergies Allergy/AdvReac Type Severity Reaction Status Date / Time No Known Allergies Allergy Verified 04/08/23 16:15 Review of Systems Constitutional: Constitutional: Denies weakness Cardiovascular: Cardiovascular: Denies syncope, Denies rapid heart rate, Denies irregular heart rhythm, Denies leg edema and Denies dyspnea Respiratory: Respiratory: Denies chest congestion, Denies hemoptysis, Denies excessive phlegm production and Denies dyspnea Gastrointestinal: Gastrointestinal: Denies abdominal pain, Denies hematochezia, Denies diarrhea, Reports nausea and Denies vomiting Genitourinary: Genitourinary: Denies hematuria, Denies dysuria, Denies penile discharge and Denies testicular pain Musculoskeletal: Musculoskeletal: Denies joint swelling, Denies loss of height and Denies muscle weakness Neurologic: Reports dizziness, Denies syncope, Denies headache(s), Denies focal weakness and Denies weakness PMFSH Past Medical History Medical History Alcohol abuse Atrial fibrillation Barretts esophagus Chronic anxiety Colon cancer screening COPD (chronic obstructive pulmonary disease) Current use of jail anticoagulation Dyspepsia Edentulous External bleeding hemorrhoids Gastritis Globus sensation Hemorrhoid Hyperlipidemia Hypertension Thoracic aortic aneurysm 4.4 cm Surgical History Surgical History H/O mitral valve replacement History of appendectomy History of hernia repair History of tonsillectomy Family History Family History Mother Family history of chronic obstructive pulmonary disease Social History Social History Social History: Smoking packs per day: 2 Smoking cigarettes per day: 40.
[2023-04-08 18:50] LABS: Add Urine Microscopic? NO
[2023-04-08] MEDS: ALPRAZolam (*CRX) 0.25 MG TABLET PO (19:58)
--- NOTE | 2023-04-08 21:41 | PM.IMHP ---
H&P: HPI History of Present Illness Date/Time: 04/08/23 21:41 Chief Complaint: Dizziness Narrative: This is a 63-year-old male patient who came in with complaints of dizziness. The patient has chronic nausea and vomiting and upset stomach for at least 3 years. The patient has been seeing a GI specialist elsewhere for elevated liver enzymes and chronic nausea. The patient stated that he has had endoscopies and reportedly they are negative. The patient reports any abdominal ultrasound today at [facility]. The patient has been following there for elevated liver enzymes and gallstones. The patient denies any chest pain or shortness of breath. The patient was recently taken off of his statin for possible causes of nausea and abnormal liver enzymes. His white counts 10.8. His sodium level was 127. Previous his sodium was 129. The patient stated that he used to drink alcohol but no longer drinks. AST is 123 and ALT is 217. Abdominal ultrasound shows small gallstone no gallbladder wall thickening negative sonographic Rahman sign. The patient was given Zofran and Xanax and IV fluids in the emergency room. The patient is being admitted to observation status on the date of service of 04/08/2023. Review of Systems Review of Systems: All systems reviewed & are unremarkable except as noted in HPI and below Constitutional: Constitutional: Reports as per HPI and Reports no additional constitutional complaints Eyes: Eyes: Reports as per HPI and Reports no additional eye complaints ENT: Reports system reviewed and no additional complaints, except as documented and Reports Normal hearing present Cardiovascular: Cardiovascular: Reports no additional cardiovascular complaints Respiratory: Respiratory: Reports no additional respiratory complaints and Reports no additional respiratory complaints Gastrointestinal: Gastrointestinal: Reports as per HPI and Reports no additional gastrointestinal complaints Musculoskeletal: Musculoskeletal: Reports no additional musculoskeletal complaints Integumentary/Breasts: Skin/Breast: Reports system reviewed and no additional complaints, except as docu and Reports as per HPI Neurologic: Reports system reviewed and no additional complaints, except as documented, Reports as per HPI and Reports Normal hearing present Psychiatric: Psychiatric: Reports no additional psychiatric complaints and Reports as per HPI Endocrine: Endocrine: Reports no additional endocrine complaints Hematologic/Lymphatic: Hematologic/Lymphatic: Reports no additional hematologic/lymphatic complaints Allergic/Immunologic: Allergic/Immunologic: Reports no additional allergic/immunologic complaints [facility] Past Medical History Medical History Alcohol abuse Atrial fibrillation Barretts esophagus Chronic anxiety Colon cancer screening COPD (chronic obstructive pulmonary disease) Current use of retirement anticoagulation Dyspepsia Edentulous External bleeding hemorrhoids Gastritis Globus sensation Hemorrhoid Hyperlipidemia Hypertension Thoracic aortic aneurysm 4.4 cm Surgical History Surgical History (Updated 04/08/23 @ 23:53 by Ellen Ji NP) H/O colonoscopy with polypectomy H/O mitral valve replacement History of appendectomy History of hernia repair History of tonsillectomy Family History Family History Mother Family history of chronic obstructive pulmonary disease Social History Social History (Updated 04/08/23 @ 23:54 by Ellen Ji NP) Social History: The patient is and lives with his . He is a former smoker. He is a former drinker. Patient is retired from [employer]. The patient has 2 children. His is the durable power of energy attorney for healthcare. Code status full code Smoking packs per day: 2 Smoking cigarettes per day: 40.0 Years smoked: 25 Smoking pack-y
[2023-04-08] MEDS: hydrALAZINE HCL 20 MG/ML VIAL 10 MG IV PUSH (22:49)
[2023-04-08] MEDS: ALPRAZolam (*CRX) 0.5 MG TABLET PO (23:58)
[2023-04-09] VITALS (14 sets, daily range): BP systolic 94–145; BP diastolic 63–88; PULSE 60–88; RESP 12–18; TEMP 35.7–36.2; O2SAT 96–99
--- NOTE | 2023-04-09 | ECHO_ITS ---
Patient Info Name: Milton Minor Age: 63 years : 1960 Gender: Male Ht: 68 in Wt: 146 lbs BSA: 1.78 m2 HR: 60 bpm BP: 136 / 77 mmHg Heart Rhythm: Sinus Rhythm Technical Quality: Good Exam Date: 04/09/2023 11:22 AM Exam Location: [facility] Patient Status: Outpatient Admit Date: 04/08/2023 Staff Ordering Physician: Ellen Ji NP Blade Sharpener: Mai Ferrari RDCS Attending Provider: Laurence Sidhu MD Referring Physician: Margy IRIZARRY; Exam Type: CA echo doppler color flow Study Info Indications - dizziness Complete two-dimensional, color flow and Doppler transthoracic echocardiogram is performed. Summary 1. Complete two-dimensional, color flow and Doppler transthoracic echocardiogram is performed. 2. Left ventricular chamber dimension is mildly enlarged. 3. Left ventricular systolic function is normal, estimated at 55-60%. 4. There is mild concentric increased left ventricular wall thickness. 5. The left ventricular diastolic function is abnormal. 6. E/e' 36 is significantly elevated. 7. Left atrial chamber dimension is moderately enlarged. 8. There is mild aortic valve sclerosis. 9. The bioprosthetic mitral valve leaflets not well seen. 10. There is mild stenosis of the bioprosthetic mitral valve with peak gradient 9 mmHg and mean gradient 5 mmHg. 11. Tricuspid valve repair and annuloplasty ring. 12. There is mild tricuspid valve regurgitation. 13. No pulmonary hypertension, estimated pulmonary arterial systolic pressure is 19 mmHg. 14. The aortic root size at the sinus of Valsalva is borderline dilated at 4.0 cm. Left Ventricle E/e' 36 is significantly elevated. Left ventricular chamber dimension is mildly enlarged. Left ventricular systolic function is normal, estimated at 55-60%. There is mild concentric increased left ventricular wall thickness. The left ventricular diastolic function is abnormal. Right Ventricle Right ventricular chamber dimension is normal. Right ventricular systolic function is normal. Left Atria Left atrial chamber dimension is moderately enlarged. Right Atria Right atrial chamber dimension is normal. Aortic Valve The aortic valve is trileaflet. There is mild aortic valve sclerosis. There is no aortic valve stenosis. There is no aortic valve regurgitation. Pulmonic Valve There is no pulmonic regurgitation. Mitral Valve The bioprosthetic mitral valve leaflets not well seen. There is mild stenosis of the bioprosthetic mitral valve with peak gradient 9 mmHg and mean gradient 5 mmHg. There is no regurgitation of the bioprosthetic mitral valve. Tricuspid Valve Tricuspid valve repair and annuloplasty ring. There is mild tricuspid valve regurgitation. No pulmonary hypertension, estimated pulmonary arterial systolic pressure is 19 mmHg. Pericardium/Pleural There is no pericardial effusion. Inferior Vena Cava Normal inferior vena cava with >50% collapse upon inspiration consistent with normal right atrial pressure, 5 mmHg. Aorta The aortic root size at the sinus of Valsalva is borderline dilated at 4.0 cm. Left Ventricular Outflow Tract Name Value Normal LVOT 2D LVOT Diameter 2.0 cm LVOT Doppler LVOT Peak Gradient
[2023-04-09 01:35] LABS: Anion Gap 5 mmol/L (8-16); Blood Urea Nitrogen 8 mg/dL (9-20); Calcium 8.7 mg/dL (8.4-10.2); Carbon Dioxide 28 mmol/L (22-30); Chloride 94 mmol/L (98-107); Estimated CRCL calculation 83 ml/min; Estimated Glomerular Filt Rate > 60; Glucose 107 mg/dL (65-110); Potassium 3.5 mmol/L (3.4-5.0); Sodium 127 mmol/L (137-145)
[2023-04-09 05:57] LABS: Basophils Percent Auto 0.5 % (0.2-1.2); Eosinophils Absolute Auto 0.1 K/mm3 (0-0.3); Eosinophils Percent Auto 0.6 % (0-4.4); Hematocrit 38.9 % (42.0-52.0); Hemoglobin 13.9 g/dL (14.0-18.0); Immature Granulocyte Absolute 0.03 K/mm3 (0.00-0.031); Immature Granulocyte Percent A 0.4 % (0-0.5); Lymphocytes Absolute Auto 0.91 K/mm3 (0.9-3.2); Mean Corpuscular HGB Conc 35.7 g/dl (32-36); Mean Corpuscular Hemoglobin 32.1 pg (26-34); Mean Corpuscular Volume 89.8 fl (80-100); Monocytes Absolute Auto 1.1 K/mm3 (0.1-0.6); Monocytes Percent Auto 13.8 % (2.6-8.5); Neutrophils Absolute Auto 6.1 K/mm3 (1.3-6.7); Neutrophils Percent Auto 73.7 % (45.5-73.1); Platelet Count Result 184 k/mm3 (150-375); Red Blood Count 4.33 M/mm3 (4.6-6.20); Red Cell Distribution Width 12.4 % (11.5-14.5); White Blood Count 8.2 K/mm3 (4.5-10.0)
[2023-04-09 06:05] LABS: Lactic Acid Reflex 0.8 mmol/L (0.7-2.0)
[2023-04-09 06:06] LABS: Alanine Aminotransferase 201 U/L (6-50); Albumin Level 4.2 g/dL (3.5-5.1); Alkaline Phosphatase 95 U/L (38-126); Anion Gap 7 mmol/L (8-16); Aspartate Amino Transferase 110 U/L (17-59); Bilirubin,Total 0.7 mg/dL (0.2-1.3); Blood Urea Nitrogen 8 mg/dL (9-20); Calcium 8.8 mg/dL (8.4-10.2); Carbon Dioxide 23 mmol/L (22-30); Chloride 95 mmol/L (98-107); Estimated CRCL calculation 83 ml/min; Estimated Glomerular Filt Rate > 60; Glucose 119 mg/dL (65-110); Magnesium 1.8 mg/dL (1.6-2.3); Potassium 3.7 mmol/L (3.4-5.0); Sodium 125 mmol/L (137-145)
[2023-04-09 06:18] LABS: Sodium Urine Random 106 meq/L
[2023-04-09 07:01] LABS: Thyroid Stimulating Hormone Reflex < 0.015 uIU/mL (0.465-4.68)
[2023-04-09 07:56] LABS: Free T4 Free Thyroxine Reflex 2.92 ng/dL (0.78-2.19)
[2023-04-09] MEDS: UMECLIDINIUM/VILANTEROL 62.5-25 MCG ELLIPTA 1 PUFF INHALATION (08:19)
[2023-04-09] MEDS: ONDANSETRON INJ 4 MG/2 ML VIAL IV PUSH ×2 (08:53→15:21)
[2023-04-09] MEDS: ALPRAZolam (*CRX) 0.5 MG TABLET PO ×2 (08:53→16:45)
--- NOTE | 2023-04-09 09:25 | PM.IMPN ---
Progress Note: A&P Assessment and Plan (1) Dizziness: Code(s): R42 - Dizziness and giddiness Status: Acute Assessment and Plan: Chest x-ray showing chronic findings acute findings. Carotid Dopplers showing less than 50% stenosis in the bilateral internal carotid arteries. Is normal antegrade flow the bilateral vertebral arteries. Echocardiogram has been ordered. UA is not consistent with UTI. He has a chronic hyponatremia although we only have 1 value from February to confirm this. Could be dehydration related. Could be related to the hyperthyroidism. Check B12 folate. Will check CT the brain. Further evaluation as course dictates. (2) Hyponatremia: Code(s): E87.1 - Hypo-osmolality and hyponatremia Status: Acute Assessment and Plan: Sodium was 129 in February. No prior sodium values to compare. Urine sodium is 106 to suggest SIADH. This could be related to his nausea. Hyperthyroidism also could be contributing to his hyponatremia. Patient states he no longer drinks alcohol. Patient has had a recent EGD for evaluation nausea. Continue Zofran as needed. He is on Protonix. Will fluid restrict. Check serial sodium levels. (3) Hyperthyroidism: Code(s): E05.90 - Thyrotoxicosis, unspecified without thyrotoxic crisis or storm Status: Acute Assessment and Plan: TSH is undetectable. Free T4 is 2.9 with upper limits of normal being 2.2. This is probably related to his amiodarone. He states that his doctor is aware of this finding and is monitoring this. This may be unrelated to his hyponatremia. Will hold on starting methimazole at this time. May be beneficial to wean down his amiodarone if felt appropriate by his regional marketing director. (4) Transaminitis: Code(s): R74.01 - Elevation of levels of liver transaminase levels Status: Acute Assessment and Plan: Patient with mildly elevated liver enzymes. Patient states he no longer drinks alcohol. He was on statin therapy but this has been stopped recently. The patient sees a GI specialist at [facility] and it was recommended that the patient stop taking his statin. Upper quadrant ultrasound shows small gallstones but no gallbladder wall thickening or other findings to suggest cholecystitis. Liver appears normal. Liver enzymes are trending downward. Continue to monitor. Check hepatitis panel (5) Benign essential HTN: Code(s): I10 - Essential (primary) hypertension Status: Acute Assessment and Plan: Patient's blood pressure was reviewed on 04/08 Blood pressure elevated at times but overall controlled. Will continue current medications. (6) PAF (paroxysmal atrial fibrillation): Code(s): I48.0 - Paroxysmal atrial fibrillation Status: Acute Assessment and Plan: EKG shows normal sinus rhythm with left bundle branch block. Bundle branch block is chronic. Echo is pending. Continue diltiazem and amiodarone. Continue Xarelto. (7) Hyperlipidemia: Code(s): E78.5 - Hyperlipidemia, unspecified Status: Acute Assessment and Plan: Patient recently taken off his statin therapy due elevated liver enzymes. Defer to his primary care doctor for further evaluation and treatment (8) COPD (chronic obstructive pulmonary disease): Qualifiers: COPD type: unspecified COPD Qualified Code(s): J44.9 - Chronic obstructive pulmonary disease, unspecified Code(s): J44.9 - Chronic obstructive pulmonary disease, unspecified Status: Acute Assessment and Plan: No wheezing. Continue to monitor. Continue Anoro. (9) Chronic anxiety: Code(s): F41.9 - Anxiety disorder, unspecified Status: Acute Assessment and Plan: Mood stable. He is complain of anxiety although appears calm. Continue with home alprazolam. (10) Thoracic aortic aneurysm: Code(s): I71.2 - Thoracic aortic aneurysm, without rupture Status: Acu
[2023-04-09 12:11] LABS: Sodium 125 mmol/L (137-145)
[2023-04-09] MEDS: PROCHLORPERAZINE MALEATE 5 MG TABLET 10 MG PO (12:15)
[2023-04-09] MEDS: cycloSPORINE 0.4 ML OPHTH SOLUTION 1 DROP EACH EYE ×2 (12:15→16:43)
[2023-04-09] MEDS: PANTOPRAZOLE SODIUM IV 40 MG VIAL IV PUSH ×2 (12:15→21:17)
[2023-04-09] MEDS: AMIODARONE HCL 200 MG TABLET PO (12:16)
[2023-04-09] MEDS: polyethylene glycoL 3350 17 GM POWD.PACK PO (12:16)
[2023-04-09 12:55] LABS: Hepatitis B Surface Antigen Negative (Negative)
[2023-04-09 13:01] LABS: HAV RESULT Negative (Negative); Hepatitis B Core IgM Result Negative (Negative)
[2023-04-09 13:13] LABS: Hepatitis C Virus Antibody Negative (Negative)
[2023-04-09 13:22] LABS: Folic Acid 16.4 ng/mL (2.76->20)
--- NOTE | 2023-04-09 14:05 | PCCCNOTE ---
On 04/09/23, the student, [Amanda Rodriguez], provided care and completed [facility] documentation on this patient. I have reviewed the student's documentation and agree with the findings.
[2023-04-09] MEDS: RIVAROXABAN 20 MG TABLET PO (16:43)
[2023-04-09 18:49] LABS: Sodium 128 mmol/L (137-145)
[2023-04-10] VITALS (10 sets, daily range): BP systolic 94–110; BP diastolic 61–72; PULSE 54–88; RESP 14–18; TEMP 36.3–36.8; O2SAT 97–98
[2023-04-10] MEDS: ALPRAZolam (*CRX) 0.5 MG TABLET PO ×2 (00:26→08:53)
[2023-04-10 00:42] LABS: Sodium 128 mmol/L (137-145)
[2023-04-10 06:33] LABS: Hematocrit 35.8 % (42.0-52.0); Hemoglobin 12.7 g/dL (14.0-18.0); Mean Corpuscular HGB Conc 35.5 g/dl (32-36); Mean Corpuscular Hemoglobin 31.8 pg (26-34); Mean Corpuscular Volume 89.5 fl (80-100); Mean Platelet Volume 8.3 fl (7.4-10.4); Platelet Count Result 165 k/mm3 (150-375); Red Cell Distribution Width 12.3 % (11.5-14.5); White Blood Count 7.9 K/mm3 (4.5-10.0)
[2023-04-10 06:50] LABS: Alanine Aminotransferase 183 U/L (6-50); Albumin Level 3.7 g/dL (3.5-5.1); Anion Gap 6 mmol/L (8-16); Aspartate Amino Transferase 93 U/L (17-59); Bilirubin,Total 0.6 mg/dL (0.2-1.3); Blood Urea Nitrogen 17 mg/dL (9-20); Calcium 8.6 mg/dL (8.4-10.2); Carbon Dioxide 25 mmol/L (22-30); Chloride 97 mmol/L (98-107); Estimated CRCL calculation 65 ml/min; Estimated Glomerular Filt Rate > 60; Glucose 104 mg/dL (65-110); Potassium 4.1 mmol/L (3.4-5.0); Sodium 128 mmol/L (137-145)
[2023-04-10 06:51] LABS: Alkaline Phosphatase 82 U/L (38-126)
[2023-04-10] MEDS: UMECLIDINIUM/VILANTEROL 62.5-25 MCG ELLIPTA 1 PUFF INHALATION (08:10)
[2023-04-10] MEDS: polyethylene glycoL 3350 17 GM POWD.PACK PO (08:41)
[2023-04-10] MEDS: PANTOPRAZOLE SODIUM IV 40 MG VIAL IV PUSH (08:41)
[2023-04-10] MEDS: cycloSPORINE 0.4 ML OPHTH SOLUTION 1 DROP EACH EYE (08:42)
[2023-04-10] MEDS: AMIODARONE HCL 200 MG TABLET PO (13:57)
--- NOTE | 2023-04-10 14:00 | PM.DS ---
DS: Admitting Diagnosis Discharge Date 04/10/23 Admitting Diagnosis Dizziness DS: Discharge Diagnosis Discharge Diagnosis (1) Dizziness: Code(s): R42 - Dizziness and giddiness Status: Acute (2) Hyponatremia: Code(s): E87.1 - Hypo-osmolality and hyponatremia Status: Acute (3) Hyperthyroidism: Code(s): E05.90 - Thyrotoxicosis, unspecified without thyrotoxic crisis or storm Status: Acute (4) Transaminitis: Code(s): R74.01 - Elevation of levels of liver transaminase levels Status: Acute (5) Benign essential HTN: Code(s): I10 - Essential (primary) hypertension Status: Acute (6) PAF (paroxysmal atrial fibrillation): Code(s): I48.0 - Paroxysmal atrial fibrillation Status: Acute (7) Hyperlipidemia: Code(s): E78.5 - Hyperlipidemia, unspecified Status: Acute Assessment and Plan: Patient recently taken off his statin therapy due elevated liver enzymes. Defer to his primary care doctor for further evaluation and treatment (8) COPD (chronic obstructive pulmonary disease): Qualifiers: COPD type: unspecified COPD Qualified Code(s): J44.9 - Chronic obstructive pulmonary disease, unspecified Code(s): J44.9 - Chronic obstructive pulmonary disease, unspecified Status: Acute (9) Chronic anxiety: Code(s): F41.9 - Anxiety disorder, unspecified Status: Acute (10) Thoracic aortic aneurysm: Code(s): I71.2 - Thoracic aortic aneurysm, without rupture Status: Acute (11) H/O mitral valve replacement: Code(s): Z95.2 - Presence of prosthetic heart valve Status: Acute DS: Summary Hospital Course Reason for hospitalization: 63yo male with hx of alcohol abuse, AFib, Barretts, COPD HTN and anxiety her for dizziness. Please see H&P for details. Hospital Course: Patient presents with dizziness. Chest x-ray showing chronic findings but no acute findings.? Carotid Dopplers showing less than 50% stenosis in the bilateral internal carotid arteries with normal antegrade flow the bilateral vertebral arteries.? Echo showing EF 55-60% with diastolic dysfunction and mild mitral stenosis.? UA is not consistent with UTI.? Sodium was 129 in February.? No prior sodium values to compare.? Urine sodium is 106 to suggest SIADH.? This could be related to his nausea.? Hyperthyroidism also could be contributing to his hyponatremia.?TSH is undetectable.? Free T4 is 2.9 with upper limits of normal being 2.2.? This is probably related to his amiodarone.? He states that his doctor is aware of this finding and is monitoring this.? This may be unrelated to his hyponatremia.? Will hold on starting methimazole at this time.? 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 He was placed on fluid restriction. Patient states he no longer drinks alcohol.? Patient has had a recent EGD for evaluation nausea.? He was treated with Zofran prm and Protonix.? Serial sodium levels low but stable at 128. Patient with mildly elevated liver enzymes.? He was on statin therapy but this was stopped recently.? The patient sees a GI specialist at [facility] and it was recommended that the patient stop taking his statin.? Upper quadrant ultrasound shows small gallstones but no gallbladder wall thickening or other findings to suggest cholecystitis.? Liver appears normal.? Liver enzymes are trending downward.?Hepatitis panel negative as well. EKG shows normal sinus rhythm with left bundle branch block.? Bundle branch block is chronic.? We continued his amiodarone but had to hold his diltiazem due to soft BP. SBP 90-110 off his diltiazem. He has lost about 12# recently which could be from the hyperthyroidism. The weight loss may be contributing to lower BP.?We continued Xarelto.?Patient feels much better. No longer dizzy. No longer nauseous and eating normally. He overall did well and was able to be discharged home on 04/10/23. h
[2023-04-11 21:36] LABS: Osmolality, Urine 325 mOsm/kg (50-1200)
== END 2023-04-10 16:00 | disposition home or self-care (01) ==
LOC: ANHED 19:05 → ANH3MEDSUR 04-09 04:25
PROVIDERS: Nurse Practitioner; Admitting Provider Hospitalist; Emergency Provider General Practice; Visit Provider Internal Medicine
DX: R42 Dizziness and giddiness (principal); E87.1 Hypo-osmolality and hyponatremia; E05.90 Thyrotoxicosis, unspecified without thyrotoxic crisis or storm; R74.01 Elevation of levels of liver transaminase levels; I10 Essential (primary) hypertension; I48.0 Paroxysmal atrial fibrillation; E78.5 Hyperlipidemia, unspecified; J44.9 Chronic obstructive pulmonary disease, unspecified; F41.9 Anxiety disorder, unspecified; I71.20 Thoracic aortic aneurysm, without rupture, unspecified; Z95.2 Presence of prosthetic heart valve; K80.20 Calculus of gallbladder without cholecystitis without obstruction; R06.02 Shortness of breath; R09.89 Other specified symptoms and signs involving the circulatory and respiratory systems; R11.2 Nausea with vomiting, unspecified; F10.10 Alcohol abuse, uncomplicated; R94.31 Abnormal electrocardiogram [ECG] [EKG]; Z79.01 Long term (current) use of anticoagulants; Z79.51 Long term (current) use of inhaled steroids; Z79.899 Other long term (current) drug therapy; Z87.891 Personal history of nicotine dependence
CPT/HCPCS: 36415; 70450; 71046; 76705; 80048; 80053; 80074; 81003; 82533; 82607; 82746; 83605; 83735; 83935; 84295; 84300; 84439; 84443; 85025; 85027; 85610; 85730; 93005; 93306; 93880; 94640; 96361; 96374; 96375; 96376; 99285; A9270; C9113; G0378; J0360; J2405; J7030

== ENCOUNTER 2023-04-12 10:19 | Outpatient (CLI) | payer MEDICARE, MEDICAID, SELFPAY ==
[2023-04-12 12:04] LABS: Thyroid Stimulating Hormone Reflex 0.327 uIU/mL (0.465-4.68)
[2023-04-12 13:25] LABS: Free T4 Free Thyroxine Reflex 0.77 ng/dL (0.78-2.19)
== END 2023-04-12 10:20 | disposition home or self-care (01) ==
PROVIDERS: Visit Provider Internal Medicine
DX: E05.90 Thyrotoxicosis, unspecified without thyrotoxic crisis or storm (principal)
CPT/HCPCS: 36415; 84439; 84443

== ENCOUNTER 2023-04-16 14:44 | Emergency (ER) | payer MEDICARE, MEDICAID, SELFPAY ==
[2023-04-16] VITALS (7 sets, daily range): BP systolic 112–177; BP diastolic 80–105; PULSE 89–102; RESP 11–18; TEMP 36.6; O2SAT 98–99
--- NOTE | 2023-04-16 15:21 | ECG_ITS ---
Measurements Intervals [place] Rate: 90 P: 92 RI: 202 QRS: -2 QRSD: 146 T: 84 QT: 376 QTc: 460 Interpretive Statements SINUS RHYTHM BORDERLINE AV CONDUCTION DELAY LEFT BUNDLE BRANCH BLOCK BASELINE ARTIFACT- I, II, AVR, AVF ABNORMAL ECG COMPARED TO ECG 04/08/2023 16:12:01 NO SIGNIFICANT CHANGES Electronically Signed On 04-16-2023 15:49:57 CDT by John Park D.O.
--- NOTE | 2023-04-16 15:21 | PC.NURSE ---
patient complaining of being lightheaded at this time. EKG obtained.
[2023-04-16 15:46] LABS: Basophils Percent Auto 0.4 % (0.2-1.2); Eosinophils Percent Auto 0.1 % (0-4.4); Hematocrit 38.5 % (42.0-52.0); Hemoglobin 13.8 g/dL (14.0-18.0); Immature Granulocyte Absolute 0.04 K/mm3 (0.00-0.031); Immature Granulocyte Percent A 0.5 % (0-0.5); Lymphocytes Absolute Auto 0.91 K/mm3 (0.9-3.2); Lymphocytes Percent Auto 10.9 % (18.3-44.2); Mean Corpuscular HGB Conc 35.8 g/dl (32-36); Mean Corpuscular Hemoglobin 31.7 pg (26-34); Mean Corpuscular Volume 88.3 fl (80-100); Mean Platelet Volume 8.4 fl (7.4-10.4); Monocytes Absolute Auto 1.2 K/mm3 (0.1-0.6); Monocytes Percent Auto 13.8 % (2.6-8.5); Neutrophils Absolute Auto 6.2 K/mm3 (1.3-6.7); Neutrophils Percent Auto 74.3 % (45.5-73.1); Platelet Count Result 190 k/mm3 (150-375); Red Blood Count 4.36 M/mm3 (4.6-6.20); Red Cell Distribution Width 12.4 % (11.5-14.5); White Blood Count 8.4 K/mm3 (4.5-10.0)
[2023-04-16 15:52] LABS: Alanine Aminotransferase 215 U/L (6-50); Albumin Level 4.5 g/dL (3.5-5.1); Alkaline Phosphatase 92 U/L (38-126); Anion Gap 8 mmol/L (8-16); Aspartate Amino Transferase 143 U/L (17-59); Bilirubin,Total 0.6 mg/dL (0.2-1.3); Blood Urea Nitrogen 10 mg/dL (9-20); Carbon Dioxide 23 mmol/L (22-30); Chloride 97 mmol/L (98-107); Estimated CRCL calculation 84 ml/min; Estimated Glomerular Filt Rate > 60; Glucose 126 mg/dL (65-110); Potassium 3.8 mmol/L (3.4-5.0); Sodium 128 mmol/L (137-145)
[2023-04-16] MEDS: ONDANSETRON INJ 4 MG/2 ML VIAL IV PUSH (17:37)
[2023-04-16] MEDS: SODIUM CHLORIDE 0.9% IV 1,000 ML 999 ML IV CONT (17:42)
--- NOTE | 2023-04-16 18:20 | ED.GENADULT ---
HPI - General Adult General Chief complaint: Recheck/Abnormal Lab/Rx Stated complaint: elevated bp Time Seen by Provider: 04/16/23 17:04 History of Present Illness HPI narrative: Patient is a 63-year-old male who presents ER with multiple concerns. Patient reports he mainly came in today because his blood pressure has been spiking high and he has been feeling shaky. He reports that he has known anxiety and he has been having increased stressors. He was recently diagnosed with H. pylori after having chronic nausea and epigastric discomfort over the last couple of years. He is prescribed multiple antibiotics and omeprazole however he was told to wait to take his antibiotics due to having some elevated liver enzymes. He reports that that has been chronic and he is being referred to a liver specialist. He also took some this meth yesterday and then today his stool was dark and he is concerned that he is bleeding internally. He has no chest pain or chest pressure. No hematemesis. No loss consciousness. Reports some chronic hyponatremia which has been stable. Recently he had his amiodarone discontinued in hopes that would improve his hyponatremia as well. Related Data Home Medications Medication Instructions Recorded Confirmed albuterol sulfate 2.5 mg/3 mL 2.5 mg inhalation Q6H PRN 04/22/20 04/12/23 (0.083 %) solution for nebulization Shortness Of Breath Or Wheezing albuterol sulfate 90 mcg/actuation 2 puff inhalation Q6H PRN 04/22/20 04/12/23 aerosol inhaler Shortness Of Breath Or Wheezing mometasone 50 mcg/actuation nasal 2 spray intranasal DAILY PRN 07/19/20 04/12/23 spray Congestion prochlorperazine maleate 10 mg 10 mg PO Q8H PRN Nausea And 10/06/22 04/12/23 tablet Vomiting tiotropium 2.5 mcg-olodaterol 2.5 2 puff inhalation DAILY 10/06/22 04/12/23 mcg/actuation mist for inhalation (Stiolto Respimat) cyclosporine 0.05 % eye drops in a 1 drp EACH EYE BID 04/08/23 04/12/23 dropperette (Restasis) diltiazem HCl 240 mg capsule,24 240 mg PO DAILY 04/08/23 04/12/23 hr,extended release methocarbamol 500 mg tablet 500 mg PO Q6H PRN muscle spasms 04/08/23 04/12/23 polyethylene glycol 17 g PO DAILY 04/08/23 04/12/23 Allergies Allergy/AdvReac Type Severity Reaction Status Date / Time No Known Allergies Allergy Verified 04/12/23 09:18 Review of Systems Review of Systems: All systems reviewed & are unremarkable except as noted in HPI and below Constitutional: Constitutional: Denies chills, Reports fatigue and Denies fever(s) ENT: Denies nasal congestion and Denies sore throat Cardiovascular: Cardiovascular: Denies chest pain, Denies rapid heart rate and Denies radiating jaw, neck or arm pain Respiratory: Respiratory: Denies cough and Denies dyspnea Gastrointestinal: Gastrointestinal: Reports abdominal pain, Reports heartburn, Denies diarrhea, Denies nausea and Denies vomiting Comments: Dark stools Neurologic: Reports dizziness, Denies syncope and Denies headache(s) Psychiatric: Psychiatric: Reports anxiety [facility] Past Medical History Medical History Alcohol abuse Atrial fibrillation Barretts esophagus Chronic anxiety Colon cancer screening COPD (chronic obstructive pulmonary disease) 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
[2023-04-16] MEDS: LORazepam INJ (*CRX) 2 MG/ML VIAL 0.5 MG IV PUSH (18:35)
== END 2023-04-16 19:31 | disposition home or self-care (01) ==
PROVIDERS: Emergency Medicine; Emergency Provider Emergency Medicine
DX: F41.9 Anxiety disorder, unspecified (principal); I48.91 Unspecified atrial fibrillation; J44.9 Chronic obstructive pulmonary disease, unspecified; E78.5 Hyperlipidemia, unspecified; K22.70 Barrett's esophagus without dysplasia; Z95.2 Presence of prosthetic heart valve; Z87.891 Personal history of nicotine dependence; Z79.01 Long term (current) use of anticoagulants; I44.7 Left bundle-branch block, unspecified; R94.31 Abnormal electrocardiogram [ECG] [EKG]
CPT/HCPCS: 36415; 80053; 85025; 93005; 96361; 96374; 96375; 99284; J2060; J2405; J7030

== ENCOUNTER 2023-04-19 07:53 | Outpatient (CLI) | payer MEDICARE, MEDICAID, SELFPAY ==
[2023-04-19 08:45] LABS: Alanine Aminotransferase 199 U/L (6-50); Albumin Level 4.1 g/dL (3.5-5.1); Alkaline Phosphatase 96 U/L (38-126); Anion Gap 7 mmol/L (8-16); Aspartate Amino Transferase 115 U/L (17-59); Bilirubin,Total 0.5 mg/dL (0.2-1.3); Blood Urea Nitrogen 8 mg/dL (9-20); Calcium 8.8 mg/dL (8.4-10.2); Carbon Dioxide 26 mmol/L (22-30); Chloride 96 mmol/L (98-107); Estimated Glomerular Filt Rate > 60; Glucose 102 mg/dL (65-110); Sodium 129 mmol/L (137-145)
== END 2023-04-19 07:54 | disposition home or self-care (01) ==
DX: R74.01 Elevation of levels of liver transaminase levels (principal)
CPT/HCPCS: 36415; 80053

== ENCOUNTER 2023-04-23 13:52 | Outpatient (CLI) | payer MEDICARE, MEDICAID, SELFPAY ==
[2023-04-23 16:58] LABS: Thyroid Stimulating Hormone < 0.015 uIU/mL (0.465-4.680); Total Triiodothyronine (T3) 1.87 NG/ML (0.97-1.69)
[2023-04-27 18:58] LABS: Thyrotropin Receptor Antibody <1.00 IU/L (<=2.00)
[2023-04-28 14:31] LABS: Thyroid Stimulating Immunoglob <89 % baseline (<140)
== END 2023-04-23 13:53 | disposition home or self-care (01) ==
PROVIDERS: Visit Provider Internal Medicine
DX: E05.90 Thyrotoxicosis, unspecified without thyrotoxic crisis or storm (principal)
CPT/HCPCS: 36415; 83519; 84443; 84445; 84480

== ENCOUNTER 2023-04-23 19:54 | Emergency (ER) | payer MEDICARE, MEDICAID, SELFPAY ==
[2023-04-23 19:55] VITALS: BP 176/89; PULSE 61; RESP 16; TEMP 36.6; O2SAT 98
--- NOTE | 2023-04-23 20:06 | ECG_ITS ---
Measurements Intervals [place] Rate: 59 P: 90 CA: 186 QRS: 11 QRSD: 137 T: 126 QT: 489 QTc: 485 Interpretive Statements SINUS BRADYCARDIA LEFT BUNDLE BRANCH BLOCK BASELINE ARTIFACT- I, II, III, AVR, AVL, AVF, V1-V6 ABNORMAL ECG COMPARED TO ECG 04/16/2023 15:24:33 SINUS BRADYCARDIA NOW PRESENT Electronically Signed On 04-23-2023 20:21:26 CDT by John Park D.O.
--- NOTE | 2023-04-23 20:54 | ED.GENADULT ---
HPI - General Adult General Chief complaint: Recheck/Abnormal Lab/Rx Stated complaint: high blood pressure Time Seen by Provider: 04/23/23 20:02 History of Present Illness HPI narrative: Patient is a 63-year-old male who presents to the ER with reports of elevated blood pressures. Patient been doing well throughout the day and has been taking some new antianxiety medication. He is currently on Ativan 3 times a day and is also taking propanolol. He got home a little late in the doctor's appointment and had an upset stomach. He is currently also being treated for H. pylori. He then became anxious and they decided to take his blood pressure. The systolic number was in the 200s. He is having no chest pain or chest pressure. He is not having any headache or change in vision. He ambulated with a steady gait and had no focal weakness of an arm or leg. Upon arrival here patient's blood pressures in the 170s, and on recheck it is gone down into the 140s systolic. Patient has no complaints at this time. Related Data Home Medications Medication Instructions Recorded Confirmed albuterol sulfate 2.5 mg/3 mL 2.5 mg inhalation Q6H PRN 04/22/20 04/12/23 (0.083 %) solution for nebulization Shortness Of Breath Or Wheezing albuterol sulfate 90 mcg/actuation 2 puff inhalation Q6H PRN 04/22/20 04/12/23 aerosol inhaler Shortness Of Breath Or Wheezing mometasone 50 mcg/actuation nasal 2 spray intranasal DAILY PRN 07/19/20 04/12/23 spray Congestion prochlorperazine maleate 10 mg 10 mg PO Q8H PRN Nausea And 10/06/22 04/12/23 tablet Vomiting tiotropium 2.5 mcg-olodaterol 2.5 2 puff inhalation DAILY 10/06/22 04/12/23 mcg/actuation mist for inhalation (Stiolto Respimat) cyclosporine 0.05 % eye drops in a 1 drp EACH EYE BID 04/08/23 04/12/23 dropperette (Restasis) diltiazem HCl 240 mg capsule,24 240 mg PO DAILY 04/08/23 04/12/23 hr,extended release methocarbamol 500 mg tablet 500 mg PO Q6H PRN muscle spasms 04/08/23 04/12/23 polyethylene glycol 17 g PO DAILY 04/08/23 04/12/23 lorazepam 1 mg tablet 1 mg PO QHS PRN 04/23/23 propranolol 10 mg tablet See Rx Instructions PO DAILY 04/23/23 Allergies Allergy/AdvReac Type Severity Reaction Status Date / Time No Known Allergies Allergy Verified 04/23/23 12:55 Review of Systems Review of Systems: All systems reviewed & are unremarkable except as noted in HPI and below Constitutional: Constitutional: Denies chills and Denies fever(s) Cardiovascular: Cardiovascular: Denies chest pain, Denies rapid heart rate and Denies radiating jaw, neck or arm pain Respiratory: Respiratory: Denies cough and Denies dyspnea Gastrointestinal: Gastrointestinal: Reports abdominal pain, Denies nausea and Denies vomiting Neurologic: Denies syncope, Denies headache(s), Denies focal weakness and Denies numbness Psychiatric: Psychiatric: Reports anxiety [facility] Past Medical History Medical History Alcohol abuse Atrial fibrillation Barretts esophagus Chronic anxiety Colon cancer screening COPD (chronic obstructive pulmonary disease) Current use of snf anticoagulation Dyspepsia Edentulous External bleeding hemorrhoids Gastritis Globus sensation Hemorrhoid Hyperlipidemia Hypertension Thoracic aortic aneurysm 4.4 cm Surgical History Surgical History H/O colonoscopy with polypectomy H/O mitral valve replacement History of appendectomy History of hernia repair History of tonsillectomy Family History Family History Mother Family history of chronic obstructive pulmonary disease Social History Social History Social History: The patient is and lives with his . He is a former smoker. He is a former drinker. Patient is retired from [employer]
[2023-04-23 21:10] VITALS: BP 131/83; PULSE 58; RESP 14; O2SAT 98
== END 2023-04-23 21:23 | disposition home or self-care (01) ==
PROVIDERS: Emergency Provider Emergency Medicine
DX: F41.9 Anxiety disorder, unspecified (principal); I10 Essential (primary) hypertension; I48.91 Unspecified atrial fibrillation; K22.70 Barrett's esophagus without dysplasia; J44.9 Chronic obstructive pulmonary disease, unspecified; E78.5 Hyperlipidemia, unspecified; Z95.2 Presence of prosthetic heart valve; Z87.891 Personal history of nicotine dependence; Z79.01 Long term (current) use of anticoagulants; I44.7 Left bundle-branch block, unspecified; R00.1 Bradycardia, unspecified
CPT/HCPCS: 36415; 83519; 84443; 84445; 84480; 93005; 99283

== ENCOUNTER 2023-05-03 08:41 | Outpatient (CLI) | payer MEDICARE, MEDICAID, SELFPAY ==
[2023-05-03 09:34] LABS: Alanine Aminotransferase 145 U/L (6-50); Albumin Level 4.1 g/dL (3.5-5.1); Alkaline Phosphatase 71 U/L (38-126); Anion Gap 7 mmol/L (8-16); Aspartate Amino Transferase 99 U/L (17-59); Bilirubin,Total 0.6 mg/dL (0.2-1.3); Blood Urea Nitrogen 16 mg/dL (9-20); Calcium 8.8 mg/dL (8.4-10.2); Carbon Dioxide 27 mmol/L (22-30); Chloride 94 mmol/L (98-107); Estimated Glomerular Filt Rate > 60; Glucose 159 mg/dL (65-110); Potassium 4.1 mmol/L (3.4-5.0); Sodium 128 mmol/L (137-145)
[2023-05-03 10:10] LABS: Free T4 Free Thyroxine 3.02 ng/mL (0.78-2.19)
[2023-05-06 03:53] LABS: Thyroid Peroxidase Antibodies <1 IU/mL (<9)
== END 2023-05-03 08:42 | disposition home or self-care (01) ==
PROVIDERS: Visit Provider Internal Medicine
DX: E05.90 Thyrotoxicosis, unspecified without thyrotoxic crisis or storm (principal); R94.6 Abnormal results of thyroid function studies; Z92.29 Personal history of other drug therapy; R74.01 Elevation of levels of liver transaminase levels
CPT/HCPCS: 36415; 80053; 84439; 86376

== ENCOUNTER 2023-05-07 07:40 | Outpatient (CLI) | payer MEDICARE, MEDICAID, SELFPAY ==
[2023-05-07 08:47] LABS: Sodium Urine Random 63 meq/L
[2023-05-07 08:57] LABS: Alanine Aminotransferase 141 U/L (6-50); Albumin Level 4.1 g/dL (3.5-5.1); Alkaline Phosphatase 63 U/L (38-126); Anion Gap 6 mmol/L (8-16); Aspartate Amino Transferase 109 U/L (17-59); Bilirubin,Total 0.8 mg/dL (0.2-1.3); Blood Urea Nitrogen 12 mg/dL (9-20); Carbon Dioxide 29 mmol/L (22-30); Chloride 94 mmol/L (98-107); Estimated Glomerular Filt Rate > 60; Glucose 105 mg/dL (65-110); Potassium 4.5 mmol/L (3.4-5.0); Sodium 129 mmol/L (137-145)
[2023-05-11 18:24] LABS: Osmolality, Urine 339 mOsm/kg (50-1200)
== END 2023-05-07 07:41 | disposition home or self-care (01) ==
PROVIDERS: Visit Provider Internal Medicine
DX: E87.1 Hypo-osmolality and hyponatremia (principal); R74.01 Elevation of levels of liver transaminase levels
CPT/HCPCS: 36415; 80053; 82533; 83935; 84300

== ENCOUNTER 2023-05-12 13:32 | Outpatient (CLI) | payer MEDICARE, MEDICAID, SELFPAY ==
--- NOTE | ~2023-05-12 | NM_ITS ---
EXAMINATION: NM thyroid scan w uptake DATE: 05/13/2023 15:02 INDICATION: Abnormal results of thyroid function studies. COMPARISON: None. TECHNIQUE: 0.403 mCi I-123 was administered orally. Scintigraphic images of the thyroid gland were o btained at 24 hours. Thyroid uptake was calculated by the technologist. FINDINGS: The thyroid uptake is 0.8% (normal 10-30%), with the right lobe measuring 0.4% uptake and the left 0. 4%. There is no focal area of decreased or increased activity to suggest hypofunctioning or hyperfunc tioning nodule. IMPRESSION: 1. Low 24-hour iodine uptake. This result may be seen with iodine overload (especially radiographic contrast), medication effects, subacute or autoimmune thyroiditis, hypothyroidism, or thyroid hormone therapy. Reviewed, dictated and finalized at location A. IMPRESSION: 1. Low 24-hour iodine uptake. This result may be seen with iodine overload (es pecially radiographic contrast), medication effects, subacute or autoimmune thy roiditis, hypothyroidism, or thyroid hormone therapy.
== END 2023-05-12 13:33 | disposition home or self-care (01) ==
PROVIDERS: Visit Provider Internal Medicine
DX: R94.6 Abnormal results of thyroid function studies (principal); Z92.29 Personal history of other drug therapy
CPT/HCPCS: 78014; A9516

== ENCOUNTER 2023-05-27 10:21 | Outpatient (CLI) | payer MEDICARE, MEDICAID, SELFPAY ==
[2023-05-27 16:59] LABS: Sodium 128 mmol/L (137-145)
[2023-05-27 17:15] LABS: Free T4 Free Thyroxine 4.14 ng/mL (0.78-2.19)
== END 2023-05-27 10:22 | disposition home or self-care (01) ==
LOC: ANHWCLAB 10:23
PROVIDERS: Visit Provider Internal Medicine
DX: E05.90 Thyrotoxicosis, unspecified without thyrotoxic crisis or storm (principal); E87.1 Hypo-osmolality and hyponatremia
CPT/HCPCS: 36415; 84295; 84439; 84480

== ENCOUNTER 2023-07-07 09:31 | Outpatient (CLI) | payer MEDICARE, MEDICAID, SELFPAY ==
[2023-07-07 10:44] LABS: Sodium 127 mmol/L (137-145)
[2023-07-07 10:51] LABS: Alanine Aminotransferase 74 U/L (6-50); Albumin Level 3.8 g/dL (3.5-5.1); Alkaline Phosphatase 82 U/L (38-126); Anion Gap 7 mmol/L (8-16); Aspartate Amino Transferase 106 U/L (17-59); Bilirubin,Total 0.8 mg/dL (0.2-1.3); Blood Urea Nitrogen 14 mg/dL (9-20); Calcium 8.9 mg/dL (8.4-10.2); Carbon Dioxide 24 mmol/L (22-30); Chloride 97 mmol/L (98-107); Cholesterol 180 mg/dL (0-200); Estimated Glomerular Filt Rate > 60; Glucose 98 mg/dL (65-110); HDL Direct 71 mg/dL; Magnesium 1.9 mg/dL (1.6-2.3); Potassium 4.8 mmol/L (3.4-5.0); Sodium 128 mmol/L (137-145); Triglycerides 71 mg/dL (<150)
[2023-07-07 11:02] LABS: LDL Cholesterol Direct 86 mg/dL
[2023-07-07 11:19] LABS: Thyroid Stimulating Hormone < 0.015 uIU/mL (0.465-4.680); Total Triiodothyronine (T3) 2.64 NG/ML (0.97-1.69)
[2023-07-07 11:24] LABS: Free T4 Free Thyroxine 4.47 ng/mL (0.78-2.19)
== END 2023-07-07 09:32 | disposition home or self-care (01) ==
PROVIDERS: Referring Provider Internal Medicine; Visit Provider Internal Medicine Cardiovascular Disease
DX: R94.6 Abnormal results of thyroid function studies (principal); E05.90 Thyrotoxicosis, unspecified without thyrotoxic crisis or storm; E87.1 Hypo-osmolality and hyponatremia; Z01.810 Encounter for preprocedural cardiovascular examination; I10 Essential (primary) hypertension
CPT/HCPCS: 36415; 80053; 80061; 83735; 84295; 84439; 84443; 84480

== ENCOUNTER 2023-07-27 08:48 | Outpatient (CLI) | payer MEDICARE, MEDICAID, SELFPAY ==
--- NOTE | 2023-07-27 | EST_ITS ---
Patient Info Name: Milton Minor Age: 63 years : 1960 Gender: Male Ht: 68 in Wt: 139 lbs BSA: 1.74 m2 HR: 48 bpm BP: 150 / 79 mmHg Heart Rhythm: Sinus Rhythm Exam Date: 07/27/2023 9:42 AM Exam Location: [facility] Patient Status: Outpatient Admit Date: 07/27/2023 Staff Ordering Physician: John Park DO Attending Provider: John Park DO Exercise Technologist: Sofia Perez CT Exercise Physician: John Park DO Exam Type: [place] stress haroon w NM Study Info Indications R06.09 - Other forms of dyspnea A regadenoson stress test was performed. Summary 1. 1. Negative lexiscan stress test for ischemic ST changes by ECG criteria. 2. 2. Baseline hypertension. 3. 3. Nuclear scan to follow and will be reported separately. Please correlate with it. 4. 4. Patient informed of the above results. Protocol: Lexiscan Stress ECG Details Stage: REST Duration (min): 1 min : 58 sec HR (bpm): 56 SBP (mmHg): 150 DBP (mmHg): 79 Stage: REST Duration (min): 10 min : 6 sec HR (bpm): 57 SBP (mmHg): 150 DBP (mmHg): 79 Stage: STAGE 1 Duration (min): 1 min : 0 sec HR (bpm): 57 SBP (mmHg): 172 DBP (mmHg): 88 Stage: RECOVERY Duration (min): 1 min : 0 sec HR (bpm): 66 SBP (mmHg): 172 DBP (mmHg): 88 Stage: RECOVERY Duration (min): 2 min : 0 sec HR (bpm): 66 SBP (mmHg): 172 DBP (mmHg): 88 Stage: RECOVERY Duration (min): 3 min : 0 sec HR (bpm): 64 SBP (mmHg): 131 DBP (mmHg): 83 Stage: RECOVERY Duration (min): 3 min : 15 sec HR (bpm): 63 SBP (mmHg): 131 DBP (mmHg): 83 Rest HR: 57 bpm Peak HR: 67 bpm Rest Sys BP: 150 mmHg Peak Sys BP: 172 mmHg Max Pred HR: 156 bpm % Max Pred HR: 43 % Target HR: 133 bpm Max RPP: 11,524 bpm*mmHg Termination Reason: Completed protocol Cardiac Symptoms: Shortness of breath Total Time: 1 min : 0 sec Rest Baker BP: 79 mmHg Peak Baker BP: 88 mmHg Total Dose: 0.4 mg Resting ECG Sinus bradycardia, IVCD, delayed precordial R/S transition, ST-T wave abnormality in inferior and lateral leads- consider ischemia. Stress ECG No further ST abnormality. Arrhythmias None. Report Signatures
--- NOTE | ~2023-07-27 | NM_ITS ---
EXAMINATION: NM haroon stress w perfusion DATE: 07/27/2023 10:48 INDICATION: Other forms of dyspnea TECHNIQUE: Rest images were obtained following intravenous administration of 9.2 mCi Tc99m tetrofosmi n (Myoview). The patient was infused intravenously with Lexiscan (Regadenoson). Then, 30.5 mCi Tc99m tetrofosmin (Myoview) was administered intravenously, and stress images were obtained in both supine and prone positions. Data was reconstructed into short axis and horizontal and vertical long axis SPE CT images. Gated SPECT images were also obtained. COMPARISON: None. FINDINGS: There is a large moderate severity nonreversible perfusion defect consistent with infarct i nvolving the apical lateral, mid anterolateral and mid basal lateral segments. There is a second smal l mild nonreversible infarct involving the apical septal segment. No reversible ischemia. There is no rmal left ventricular chamber size, wall motion and ejection fraction. Left ventricular ejection fra ction measures 52%. IMPRESSION: 1. Moderate-sized moderate severity infarct in the left anterior descending coronary artery distribut ion involving the apical lateral, mid anterolateral and mid inferolateral segments and second small m ild infarct at the apical septal segment. No reversible ischemia. 2. Left ventricular ejection fraction measuring >70%. Reviewed, dictated and finalized at location A. IMPRESSION: 1. Moderate-sized moderate severity infarct in the left anterior descending cor onary artery distribution involving the apical lateral, mid anterolateral and m id inferolateral segments and second small mild infarct at the apical septal se gment. No reversible ischemia. 2. Left ventricular ejection fraction measuring >70%.
== END 2023-07-27 08:49 | disposition home or self-care (01) ==
LOC: ANHCARD 08:53
PROVIDERS: Visit Provider Internal Medicine Cardiovascular Disease
DX: R06.09 Other forms of dyspnea (principal)
CPT/HCPCS: 78452; 93017; A9502; J2785

== ENCOUNTER 2023-08-02 07:50 | Outpatient (CLI) | payer MEDICARE, MEDICAID, SELFPAY ==
--- NOTE | ~2023-08-02 | US_ITS ---
EXAMINATION: US thyroid DATE: 08/02/2023 08:29 INDICATION: Personal history of other drug therapy. Hypothyroidism. TECHNIQUE: Multiple ultrasound images of the thyroid were obtained. COMPARISON: None. FINDINGS: The right thyroid lobe measures 4.7 x 1.8 x 1.9 cm. The left thyroid lobe measures 5.2 x 2.2 x 2.0 c m. In the right thyroid lobe, there is an 8 mm cyst (TI-RADS TR1). In the right thyroid lobe, there is a 7 mm solid, very hypoechoic, wider than tall nodule with smooth margin without echogenic foci (T R4). In the left thyroid lobe, there is a 6 mm mixed cystic and solid, isoechoic, wider than tall nod ule with smooth margin without echogenic foci (TR2). IMPRESSION: 1. Small thyroid nodules, likely not clinically significant. No follow-up is needed. Reviewed, dictated and finalized at location E. IMPRESSION: 1. Small thyroid nodules, likely not clinically significant. No follow-up is ne eded.
== END 2023-08-02 07:51 | disposition home or self-care (01) ==
PROVIDERS: Visit Provider Internal Medicine
DX: E87.1 Hypo-osmolality and hyponatremia (principal); E05.90 Thyrotoxicosis, unspecified without thyrotoxic crisis or storm; Z92.29 Personal history of other drug therapy; E04.2 Nontoxic multinodular goiter
CPT/HCPCS: 76536

== ENCOUNTER 2023-09-10 09:56 | Outpatient (CLI) | payer MEDICARE, MEDICAID, SELFPAY ==
[2023-09-10 10:25] LABS: Alanine Aminotransferase 35 U/L (6-50); Albumin Level 3.9 g/dL (3.5-5.1); Alkaline Phosphatase 92 U/L (38-126); Aspartate Amino Transferase 60 U/L (17-59); Bilirubin,Total 0.8 mg/dL (0.2-1.3)
[2023-09-10 10:56] LABS: Thyroid Stimulating Hormone < 0.015 uIU/mL (0.465-4.680)
[2023-09-10 11:56] LABS: Free T4 Free Thyroxine 2.32 ng/mL (0.78-2.19)
== END 2023-09-10 09:57 | disposition home or self-care (01) ==
PROVIDERS: Visit Provider Internal Medicine
DX: E05.90 Thyrotoxicosis, unspecified without thyrotoxic crisis or storm (principal); Z92.29 Personal history of other drug therapy
CPT/HCPCS: 36415; 80076; 84439; 84443

== ENCOUNTER 2023-11-25 11:57 | Emergency (ER) | payer MEDICARE, MEDICAID, SELFPAY ==
[2023-11-25 12:10] VITALS: BP 143/75; PULSE 54; RESP 16; TEMP 36.2; O2SAT 98
--- NOTE | 2023-11-25 12:14 | ED.SKABFB ---
HPI - Skin/Abscess/Foreign Bdy General Chief complaint: Skin/Abscess/Foreign Body Stated complaint: Skin Irriation Source: patient Mode of arrival: ambulatory Limitations: no limitations History of Present Illness HPI narrative: 63-year-old male presented for complaint of itching and dry skin over body surface for about 2 weeks. He states he had changed his soap, and has since thrown it out about a week ago. Denies lip, tongue, or throat swelling, shortness of breath or wheezing. Denies changes to detergent, lotion, or any other exposures. No one else in the house or any contacts with similar symptoms. Using CeraVe ointment which relieves the symptoms. Related Data Home Medications Medication Instructions Recorded Confirmed tiotropium 2.5 mcg-olodaterol 2.5 2 puff inhalation DAILY 10/06/22 11/25/23 mcg/actuation mist for inhalation (Stiolto Respimat) propranolol 10 mg tablet See Rx Instructions PO DAILY 04/23/23 11/25/23 alprazolam 0.5 mg tablet (Xanax) 0.5 mg PO DAILY PRN anxiety] 07/28/23 11/25/23 Allergies Allergy/AdvReac Type Severity Reaction Status Date / Time No Known Allergies Allergy Verified 11/25/23 12:05 Review of Systems Review of Systems: CONSTITUTIONAL: Denies body aches, fever, chills, or sweats. EYES: Denies visual changes, redness, or discharge. ENT: Denies rhinorrhea, congestion CARDIOVASCULAR: Denies chest pain, palpitations, or edema. RESPIRATORY: Denies cough or dyspnea. GASTROINTESTINAL: Denies abdominal pain, nausea, vomiting, or diarrhea. SKIN: reports itchy dry skin MUSCULOSKELETAL: Denies back pain, joint pain, or myalgia. NEUROLOGIC: Denies headache, numbness, tingling, or weakness. [facility] Past Medical History Medical History Alcohol abuse Atrial fibrillation Barretts esophagus Chronic anxiety Colon cancer screening COPD (chronic obstructive pulmonary disease) Current use of penitentiary anticoagulation Dyspepsia Edentulous External bleeding hemorrhoids Gastritis Globus sensation Hemorrhoid Hyperlipidemia Hypertension Hyperthyroidism Thoracic aortic aneurysm 4.4 cm Surgical History Surgical History H/O colonoscopy with polypectomy H/O mitral valve replacement History of appendectomy History of hernia repair History of tonsillectomy Family History Family History Mother Family history of chronic obstructive pulmonary disease Social History Social History Social History: The patient is and lives with his . He is a former smoker. He is a former drinker. Patient is retired from [employer]. The patient has 2 children. 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 Code status full code Smoking packs per day: 2 Smoking cigarettes per day: 40.0 Years smoked: 25 Smoking pack-years: 50.00 Smoking status: Former smoker Tobacco type: cigarettes Second hand tobacco smoke exposure: No Smoking end date: 10/04/02 Alcohol intake: current Drinks per week: 8 Alcohol use details: BEERS Substance use: never Substance use type: does not use Lack of Transportation: No Lack of Food: Never True Current Housing: I Have Housing Concerned About Future Housing: No Difficulty Paying Gas/Electric Bills: No Difficulty Paying for Meds: No Currently Unemployed: No Education: High School Diploma/GED Difficulty w/ Childcare or Family Care: No Living arrangements: with family Occupation/Education: unemployed Additional occupation/education comments: Disabled Gender identity (if verbalized by the patient): Male Sexual Orientation (if Verbalized by the Patient): Straight or Heterosexual Spiritual care concerns: No Comments At time of signature, I have reviewed and agree with n
== END 2023-11-25 12:30 | disposition home or self-care (01) ==
PROVIDERS: Emergency Provider Nurse Practitioner Family
DX: L85.3 Xerosis cutis (principal); I48.91 Unspecified atrial fibrillation; J44.9 Chronic obstructive pulmonary disease, unspecified; E78.5 Hyperlipidemia, unspecified; I10 Essential (primary) hypertension; Z79.899 Other long term (current) drug therapy; Z87.891 Personal history of nicotine dependence
CPT/HCPCS: 99213; G0463

== ENCOUNTER 2023-12-13 10:33 | Outpatient (CLI) | payer MEDICARE, MEDICAID, SELFPAY ==
[2023-12-13 13:24] LABS: Alanine Aminotransferase 27 U/L (6-50); Albumin Level 4.3 g/dL (3.5-5.1); Alkaline Phosphatase 85 U/L (38-126); Anion Gap 6 mmol/L (8-16); Aspartate Amino Transferase 56 U/L (17-59); Bilirubin,Total 0.7 mg/dL (0.2-1.3); Blood Urea Nitrogen 11 mg/dL (9-20); Calcium 8.9 mg/dL (8.4-10.2); Carbon Dioxide 23 mmol/L (22-30); Chloride 92 mmol/L (98-107); Estimated Glomerular Filt Rate > 60; Glucose 102 mg/dL (65-110); Potassium 3.9 mmol/L (3.4-5.0); Sodium 121 mmol/L (137-145)
== END 2023-12-13 10:34 | disposition home or self-care (01) ==
LOC: ANHWCLAB 10:34
PROVIDERS: Visit Provider Internal Medicine
DX: I48.91 Unspecified atrial fibrillation (principal); E05.90 Thyrotoxicosis, unspecified without thyrotoxic crisis or storm
CPT/HCPCS: 36415; 80053; 84439; 84443

== ENCOUNTER 2023-12-22 10:20 | Outpatient (CLI) | payer MEDICARE, MEDICAID, SELFPAY ==
[2023-12-22 11:53] LABS: Anion Gap 6 mmol/L (8-16); Blood Urea Nitrogen 13 mg/dL (9-20); Calcium 9.1 mg/dL (8.4-10.2); Carbon Dioxide 24 mmol/L (22-30); Chloride 99 mmol/L (98-107); Estimated Glomerular Filt Rate > 60; Glucose 89 mg/dL (65-110); Sodium 129 mmol/L (137-145)
[2023-12-24 22:29] LABS: Osmolality, Urine 488 mOsm/kg (50-1200)
== END 2023-12-22 10:21 | disposition home or self-care (01) ==
PROVIDERS: Visit Provider Internal Medicine
DX: E87.1 Hypo-osmolality and hyponatremia (principal)
CPT/HCPCS: 36415; 80048; 83935

== ENCOUNTER 2024-01-17 14:22 | Outpatient (CLI) | payer MEDICARE, MEDICAID, SELFPAY ==
[2024-01-17 17:11] LABS: Creatinine Urine 43.1 mg/dL; Total Protein Urine Random 13 mg/dL
[2024-01-17 17:17] LABS: Sodium Urine Random 11 meq/L
[2024-01-17 17:26] LABS: Free T4 Free Thyroxine 1.36 ng/mL (0.78-2.19)
[2024-01-17 17:31] LABS: Albumin Level 4.5 g/dL (3.5-5.1); Anion Gap 5 mmol/L (4-12); Blood Urea Nitrogen 11 mg/dL (9-20); Calcium 9.1 mg/dL (8.4-10.2); Carbon Dioxide 26 mmol/L (22-30); Chloride 88 mmol/L (98-107); Estimated Glomerular Filt Rate > 60; Glucose 92 mg/dL (65-110); Phosphorus 4.1 mg/dL (2.5-4.5); Potassium 4.8 mmol/L (3.4-5.0); Sodium 119 mmol/L (137-145)
[2024-01-17 21:41] LABS: Cortisol Random 9.56 ug/dL
[2024-01-19 13:59] LABS: Alpha 1 Globulin 0.3; Alpha 2 Globulin 0.7; Beta 1 Globulin 0.5; Gamma Globulin 0.8; Protein, Total 6.7
[2024-01-19 14:23] LABS: Creatinine, Random Urine 42 mg/dL (20-320); Total Protein/Creatinine Ratio 95 mg/g creat (25-148)
[2024-01-19 15:08] LABS: Osmolality, Urine 194 mOsm/kg (50-1200)
== END 2024-01-17 14:23 | disposition home or self-care (01) ==
LOC: ANHWCLAB 14:24
PROVIDERS: Referring Provider Internal Medicine Nephrology; Visit Provider Internal Medicine
DX: E87.1 Hypo-osmolality and hyponatremia (principal); I48.91 Unspecified atrial fibrillation
CPT/HCPCS: 36415; 80069; 82533; 82570; 83930; 83935; 84155; 84156; 84165; 84166; 84300; 84439; 84443; 84481

== ENCOUNTER 2024-03-08 09:48 | Outpatient (CLI) | payer MEDICARE, MEDICAID, SELFPAY ==
[2024-03-08 13:31] LABS: Free T4 Free Thyroxine 0.64 ng/mL (0.78-2.19)
[2024-03-08 13:34] LABS: Total Triiodothyronine (T3) 0.89 NG/ML (0.97-1.69)
== END 2024-03-08 09:49 | disposition home or self-care (01) ==
LOC: ANHWCLAB 09:54
PROVIDERS: Visit Provider Internal Medicine
DX: E05.90 Thyrotoxicosis, unspecified without thyrotoxic crisis or storm (principal); R94.6 Abnormal results of thyroid function studies; I48.91 Unspecified atrial fibrillation; Z92.29 Personal history of other drug therapy
CPT/HCPCS: 36415; 84439; 84443; 84480

== ENCOUNTER 2024-04-19 13:28 | Outpatient (RCR) | payer MEDICARE, MEDICAID, SELFPAY ==
[2024-04-19 20:30] LABS: Albumin Level 4.3 g/dL (3.5-5.1); Anion Gap 10 mmol/L (4-12); Blood Urea Nitrogen 14 mg/dL (9-20); Calcium 8.9 mg/dL (8.4-10.2); Carbon Dioxide 26 mmol/L (22-30); Chloride 87 mmol/L (98-107); Estimated Glomerular Filt Rate > 60; Glucose 111 mg/dL (65-110); Phosphorus 4.2 mg/dL (2.5-4.5); Potassium 4.9 mmol/L (3.4-5.0); Sodium 123 mmol/L (137-145)
[2024-04-19 20:34] LABS: Free T4 Free Thyroxine 1.24 ng/mL (0.78-2.19)
== END 2024-07-18 23:59 | disposition home or self-care (01) ==
LOC: ANHGOSHLAB 13:28
PROVIDERS: Internal Medicine Nephrology; Visit Provider Internal Medicine
DX: I48.91 Unspecified atrial fibrillation (principal); E87.1 Hypo-osmolality and hyponatremia; E05.90 Thyrotoxicosis, unspecified without thyrotoxic crisis or storm
CPT/HCPCS: 36415; 80069; 84439; 84443

== ENCOUNTER 2024-06-19 11:33 | Outpatient (CLI) | payer MEDICARE, MEDICAID, SELFPAY ==
[2024-06-19 13:38] LABS: Total Triiodothyronine (T3) 0.89 NG/ML (0.97-1.69)
[2024-06-19 13:54] LABS: Free T4 Free Thyroxine 0.99 ng/mL (0.78-2.19)
== END 2024-06-19 11:34 | disposition home or self-care (01) ==
LOC: ANHGOSHLAB 11:35
PROVIDERS: Visit Provider Internal Medicine
DX: I48.91 Unspecified atrial fibrillation (principal); E87.1 Hypo-osmolality and hyponatremia; E05.90 Thyrotoxicosis, unspecified without thyrotoxic crisis or storm; Z92.29 Personal history of other drug therapy
CPT/HCPCS: 36415; 84439; 84443; 84480

== ENCOUNTER 2024-08-23 10:07 | Outpatient (CLI) | payer MEDICARE, MEDICAID, SELFPAY ==
[2024-08-23 16:53] LABS: Free T4 Free Thyroxine 1.33 ng/mL (0.78-2.19)
[2024-08-24 15:44] LABS: Triiodothyronine T3 Free 3.7 pg/mL (2.3-4.2)
== END 2024-08-23 10:08 | disposition home or self-care (01) ==
LOC: ANHGOSHLAB 10:09
PROVIDERS: Visit Provider Internal Medicine
DX: E05.90 Thyrotoxicosis, unspecified without thyrotoxic crisis or storm (principal); I48.0 Paroxysmal atrial fibrillation; I48.91 Unspecified atrial fibrillation
CPT/HCPCS: 36415; 84439; 84443; 84481

== ENCOUNTER 2024-08-26 09:09 | Emergency (ER) | payer MEDICARE, MEDICAID, SELFPAY ==
[2024-08-26 09:17] VITALS: BP 122/75; PULSE 59; RESP 16; TEMP 36.4; O2SAT 98
--- NOTE | 2024-08-26 10:06 | ED_ITS ---
HPI - URI/Sore Throat General Chief Complaint: Upper Respiratory Infection Stated Complaint: Cough Time Seen by Provider: 08/26/24 10:06 Source: patient Mode of arrival: ambulatory Limitations: no limitations History of Present Illness HPI Narrative: 64 yo M with hx of COPD presents today with c/o cough for 1 wk. Using inhalers more than usual. Used neb machine last night. Afebrile. States i got bronchitis . Pt states he feels good, no fever, bodyaches or chills. just can't stop coughing. Feels more SOB than usual. All systems reviewed and negative except as noted above. Related Data Home Medications Medication Instructions Recorded Confirmed tiotropium 2.5 mcg-olodaterol 2.5 2 puff inhalation DAILY 10/06/22 08/26/24 mcg/actuation mist for inhalation (Stiolto Respimat) alprazolam 0.5 mg tablet (Xanax) 0.5 mg PO DAILY PRN anxiety] 07/28/23 08/26/24 omeprazole 20 mg capsule,delayed 40 mg PO BID 01/06/24 08/26/24 release propranolol 80 mg capsule,24 80 mg PO DAILY 01/06/24 08/26/24 hr,extended release methimazole 5 mg tablet See Rx Instructions .Route .COMPLEX 03/10/24 08/26/24 scopolamine base 1 mg over 3 days 1 mg transdermal DIRECTED 08/26/24 08/26/24 transdermal patch Allergies Allergy/AdvReac Type Severity Reaction Status Date / Time No Known Allergies Allergy Verified 08/26/24 09:29 Review of Systems Review of Systems: CONSTITUTIONAL: Denies fever, chills, or sweats. EYES: Denies visual changes, redness, or discharge. ENT: Denies rhinorrhea, congestion, sore throat, or otalgia. CARDIOVASCULAR: Denies chest pain, palpitations, or edema. RESPIRATORY: Reports cough and dyspnea with exertion. GASTROINTESTINAL: Denies abdominal pain, nausea, vomiting, or diarrhea. GENITOURINARY: Denies dysuria or hematuria. SKIN: Denies rash or itching. MUSCULOSKELETAL: Denies back pain, joint pain, or myalgia. NEUROLOGIC: Denies headache, numbness, or weakness. PSYCHIATRIC: Denies anxiety or depression. All other systems reviewed are negative, except as documented in HPI. [facility] Past Medical History Medical History Alcohol abuse Atrial fibrillation Barretts esophagus Chronic anxiety Colon cancer screening COPD (chronic obstructive pulmonary disease) Current use of [facility] anticoagulation Dyspepsia Edentulous External bleeding hemorrhoids Gastritis Globus sensation Hemorrhoid Hyperlipidemia Hypertension Hyperthyroidism Thoracic aortic aneurysm 4.4 cm Surgical History Surgical History H/O colonoscopy with polypectomy H/O mitral valve replacement History of appendectomy History of hernia repair History of tonsillectomy Family History Family History Mother Family history of chronic obstructive pulmonary disease Social History Social History Social History: The patient is and lives with his . He is a former smoker. He is a former drinker. Patient is retired from [employer]. The patient has 2 children. His is the durable power of insurance attorney for healthcare. Code status full code Smoking packs per day: 2 Smoking cigarettes per day: 40.0 Years smoked: 25 Smoking pack-years: 50.00 Smoking status: Former smoker Tobacco type: cigarettes Second hand tobacco smoke exposure: No Smoking end date: 10/04/02 Alcohol intake: current Drinks per week: 8 Alcohol use details: BEERS Substance use: never Substance use type: does not use Lack of Transportation: No Lack of Food: Never True Current Housing: I Have Housing Concerned About Future Housing: No Difficulty Paying Gas/Electric Bills: No Difficulty Paying for Meds: No Currently Unemployed: No Education: High School Diploma/GED Difficulty w/ Childcare or Family Care: No Living arrangements: with family Occupation/Education: unemployed Additional occupation/education comments: Disabled Gender identity (if verbalized by the patient): Male Sexual Orientation (if Verbalized by the Patient): Straight or Heterosexual Spiritual care concerns: No Comments At time of signature, agree with nursing past medical, surgical, social and family history. There is no relevant family history pertinent to the presenting complaint. Exam Narrative: GENERAL: This is a well-nourished, well-developed patient, in no apparent distress. HEAD: normocephalic, atraumatic. EYES: PERRL. Sclera clear/white. Vision is grossly intact. EARS: External ears normal, auditory canals clear and without drainage, TMs normal without perforation. Hearing grossly intact. NOSE: External nose normal with no obvious nasal discharge, nares without redness, no rhinorrhea. THROAT: Mucous membranes moist, posterior pharynx clear. NECK: Neck supple, non-tender without lymphadenopathy, masses or thyromegaly. CARDIOVASCULAR: Regular rate and rhythm without murmurs, gallops, or rubs. RESPIRATORY: Decreased throughout all lung [place]. Breath sounds equal bilaterally. No wheezes, rales, or rhonchi. SKIN: warm, Dry, intact with no suspicious lesions or rash, good texture and turgor. NEURO: awake, alert, and oriented to person, place and time. There were no obvious focal neurologic abnormalities. EXTREMITIES: No joint tenderness, effusion, or edema noted. Course Course Level of Care: Express Care Visit Vital Signs Vital signs: Vital Signs Temperature 36.4 C 08/26/24 09:17 Pulse Rate 59 L 08/26/24 09:17 Respiratory Rate 16 08/26/24 09:17 Blood Pressure 122/75 08/26/24 09:17 Pulse Oximetry 98 08/26/24 09:17 Temperature 36.4 C 08/26/24 09:17 Pulse Rate 59 L 08/26/24 09:17 Respiratory Rate 16 08/26/24 09:17 Blood Pressure 122/75 08/26/24 09:17 Pulse Oximetry 98 08/26/24 09:17 Reviewed MDM - URI/Sore Throat MDM Narrative Medical decision making narrative: Will prescribe antibiotic today due to patient's comorbidities. Patient is aware of diagnosis, understands and agrees to treatment plan. Anticipatory guidance given. Patient agrees to follow-up as directed and is aware of reasons to seek care at the emergency department. Portions of this record may have been created with voice recognition software Differential Diagnosis Differential diagnosis: Likely upper respiratory infection, viral infection, bronchitis and other (COPD exacerbation, pneumonia) Discharge Plan Discharge Clinical Impression: COPD with acute exacerbation Patient Disposition: Home, Self-Care Condition: Stable Instructions: Antibiotic Form, COPD (Chronic Obstructive Pulmonary Disease) (ED) Additional Instructions: Take medications as prescribed. Continue using inhalers as prescribed. Drink plenty of water and rest. See your doctor if symptoms not improving. For any worsening of symptoms go to the ER. Prescriptions: New doxycycline hyclate 100 mg capsule 100 mg PO BID 7 Days Qty: 14 0RF prednisone 20 mg tablet 40 mg PO DAILY 5 Days Qty: 10 0RF No Action scopolamine base 1 mg over 3 days patch 3 day 1 mg transdermal DIRECTED alprazolam [Xanax] 0.5 mg tablet 0.5 mg PO DAILY PRN (Reason: anxiety]) Stiolto Respimat 2.5-2.5 mcg/actuation mist 2 puff inhalation DAILY methimazole 5 mg tablet See Rx Instructions .ROUTE .COMPLEX Dose Instruction: TAKE 2 TABLETS BY MOUTH EVERY MORNING AND 2 TABLETS EVERY EVENING Rx Instructions: 5 mg one tablet m- propranolol 80 mg capsule,extended release 24hr 80 mg PO DAILY omeprazole 20 mg capsule,delayed release(DR/EC) 40 mg PO BID losartan 100 mg tablet See Rx Instructions .ROUTE .COMPLEX Qty: 90 2RF Dose Instruction: TAKE 1 TABLET BY MOUTH DAILY Rx Instructions: TAKE 1 TABLET BY MOUTH DAILY Multaq 400 mg tablet See Rx Instructions .ROUTE .COMPLEX Qty: 180 2RF Dose Instruction: TAKE 1 TABLET BY MOUTH EVERY 12 HOURS Rx Instructions: TAKE 1 TABLET BY MOUTH EVERY 12 HOURS Xarelto 20 mg tablet See Rx Instructions .ROUTE .COMPLEX Qty: 90 2RF Dose Instruction: TAKE 1 TABLET BY MOUTH DAILY Rx Instructions: TAKE 1 TABLET BY MOUTH DAILY Follow-up/Referrals: PHYSICIAN,REACH LIFT TRUCK DRIVER [Primary Care Provider] - Time of Disposition: 10:13
== END 2024-08-26 10:16 | disposition home or self-care (01) ==
PROVIDERS: Emergency Provider Nurse Practitioner Family
DX: J44.1 Chronic obstructive pulmonary disease with (acute) exacerbation (principal); J44.9 Chronic obstructive pulmonary disease, unspecified; E78.5 Hyperlipidemia, unspecified; I10 Essential (primary) hypertension; I48.91 Unspecified atrial fibrillation; Z87.891 Personal history of nicotine dependence; Z79.899 Other long term (current) drug therapy
CPT/HCPCS: 99213; G0463

== ENCOUNTER 2024-10-16 09:58 | Inpatient (IN) | payer MEDICARE, MEDICAID, SELFPAY ==
[2024-10-16] VITALS (26 sets, daily range): BP systolic 79–125; BP diastolic 45–80; PULSE 58–99; RESP 8–20; TEMP 36.5–36.6; O2SAT 89–100; BMI 23.0
--- NOTE | ~2024-10-16 | XR_ITS ---
Exam: Abdominal obstructive series HISTORY: Ileus/small-bowel obstruction COMPARISON: 10/21/2024 TECHNIQUE: Multiple upright views of the abdomen FINDINGS: Nasogastric tube extends below the left hemidiaphragm. Bilateral pleural effusions, large on the right and small on the left. Sternal wires and mediastinal clips are identified, the wires are midline and intact. The heart is enlarged, unchanged. Dilated loops of colon and likely small bowel without visualization of the pelvis for further evaluat ion. IMPRESSION: Limited view of the abdomen for which cross-sectional imaging is recommended, IV contrast enhanced (i f patient is clinically able) evaluation of the abdomen and pelvis. Reviewed, dictated and finalized at location A. ATOR REPAIRER APPRENTICE IMPRESSION: Limited view of the abdomen for which cross-sectional imaging is recommended, I V contrast enhanced (if patient is clinically able) evaluation of the abdomen a nd pelvis.
--- NOTE | ~2024-10-16 | XR_ITS ---
EXAMINATION: XR abdomen obstructive series DATE: 10/21/2024 10:53 INDICATION: Septic shock. TECHNIQUE: Upright and supine views of the abdomen on 3 radiographs were obtained. COMPARISON: CT abdomen and pelvis 02/24/2023, abdomen radiograph 10/20/2024 FINDINGS: The transverse colon is distended. The small bowel is normal in caliber. There are surgical clips from inguinal hernia repairs. There is a catheter in the bladder. The nasogastric tube tip is in the stomach. There are changes of heart valve replacement. There is a moderate-sized right pleural effusion. There are airspace opacities in the lungs bilaterally. IMPRESSION: 1. Distended transverse colon, likely adynamic ileus. 2. Stable moderate-sized right pleural effusion. 3. Diffuse lung disease, consistent with pulmonary edema versus pneumonia. Reviewed, dictated and finalized at location A. L SHARPENER
--- NOTE | ~2024-10-16 | XR_ITS ---
XR chest 1V portable 10/19/2024 18:02 Indication: Difficulty breathing Procedure: AP portable chest Comparison: 10/16/2024 Findings: Status post median sternotomy for CABG. Cardiomegaly. Diffuse bilateral airspace disease wh ich may represent edema or pneumonia. Small right pleural effusion. Trace left pleural effusion. Impression: 1: Cardiomegaly with diffuse bilateral airspace disease, edema versus pneumonia. 2: Bilateral pleural effusions, right greater than left. Reviewed, dictated and finalized at location A. ASSESSMENT ANALYST Impression: 1: Cardiomegaly with diffuse bilateral airspace disease, edema versus pneumonia . 2: Bilateral pleural effusions, right greater than left.
--- NOTE | ~2024-10-16 | XR_ITS ---
EXAMINATION: XR abdomen gastric tube insert DATE: 10/20/2024 11:15 INDICATION: Nasogastric tube placement. TECHNIQUE: A semiupright view of the abdomen was obtained. COMPARISON: None. FINDINGS: The lower abdomen is not included. The transverse colon is distended. There is dilated smal l bowel in left abdomen. The nasogastric tube tip is in the stomach. There is a small right pleural e ffusion. IMPRESSION: 1. Nasogastric tube tip in the stomach. 2. Distended transverse colon and small bowel, consistent with adynamic ileus or less likely obstruct ion. 3. Small right pleural effusion. Reviewed, dictated and finalized at location A. MBLER CARDS AND ANNOUNCEMENTS IMPRESSION: 1. Nasogastric tube tip in the stomach. 2. Distended transverse colon and small bowel, consistent with adynamic ileus o r less likely obstruction. 3. Small right pleural effusion.
--- NOTE | ~2024-10-16 | XR_ITS ---
CHEST RADIOGRAPH CLINICAL HISTORY: Pneumonia, mechanical ventilator . COMPARISON: 10/21/2024 TECHNIQUE: Single portable view of the chest. FINDINGS Sternal wires and mediastinal clips are identified, the wires are midline and intact. Small bore catheter originating in the right upper extremity with its tip projecting over the cavoatr ial junction. Endotracheal tube is identified with its tip projecting approximately 3 cm above the base of the elvira na. Nasogastric tube identified with its tip extending below the left hemidiaphragm, presumably within th e stomach. The remainder of the cardiomediastinal silhouette is otherwise unremarkable. Large right and moderate left-sided pleural effusions, increased from previous days examination. IMPRESSION: Large right and moderate left-sided pleural effusions, increased from previous days study. Supportive lines and tubes in good radiographic position. Reviewed, dictated and finalized at location A. T END UI DEVELOPER
--- NOTE | ~2024-10-16 | XR_ITS ---
EXAMINATION: XR abdomen/kub 1V DATE: 10/20/2024 05:42 INDICATION: Dilated bowel. TECHNIQUE: A supine view of the abdomen on 2 radiographs was obtained. COMPARISON: Abdomen radiographs 10/19/2024 FINDINGS: There are dilated loops of small bowel. The colon is decompressed. There are surgical clips from hernia repairs. There are surgical clips in right abdomen. There are changes of heart valve rep lacements. There is a small right pleural effusion. There are airspace opacities at the lung bases, r ight worse than left. IMPRESSION: 1. Persistently dilated small bowel, consistent with adynamic ileus versus small bowel obstruction. 2. Stable small right pleural effusion. 3. Stable airspace opacities at the lung bases, consistent with atelectasis versus pneumonia. Reviewed, dictated and finalized at location A. STORAGE MANAGER IMPRESSION: 1. Persistently dilated small bowel, consistent with adynamic ileus versus smal l bowel obstruction. 2. Stable small right pleural effusion. 3. Stable airspace opacities at the lung bases, consistent with atelectasis danisha tyree pneumonia.
--- NOTE | ~2024-10-16 | US_ITS ---
EXAM: ABDOMEN ULTRASOUND HISTORY: Elevated bilirubin and LFTs COMPARISON: 04/08/2023 FINDINGS: LIVER: The liver is increased in echogenicity. The portal vein is patent demonstrating hepatopedal flow. GALLBLADDER: Pericholecystic fluid detected along the fundus of the gallbladder, with gallbladder wal l thickening. BILE DUCTS: Common bile duct measures 6.1mm. PANCREAS: Limited evaluation of the pancreas secondary to overlying bowel gas IMPRESSION: Limited examination (secondary to patient's condition) demonstrating fatty infiltration of the liver, with likely pericholecystic fluid and gallbladder wall thickening. Reviewed, dictated and finalized at location A. F CLOTH FINISHING RANGE OPERATOR IMPRESSION: Limited examination (secondary to patient's condition) demonstrating fatty infi ltration of the liver, with likely pericholecystic fluid and gallbladder wall t hickening.
--- NOTE | ~2024-10-16 | XR_ITS ---
EXAMINATION: XR chest ET placement DATE: 10/20/2024 11:15 INDICATION: Endotracheal tube placement TECHNIQUE: frontal view of the chest was obtained. COMPARISON: Chest radiograph dated 10/20/2024 FINDINGS: Endotracheal tube tip 4.5 cm above the марина. Nasogastric tube extends below the left hemidiaphragm with distal tip collimated off the study. Right upper extremity peripherally inserted central venous catheter (PICC) tip at the caudal superior vena cava. Gradient of basilar predominant hazy airspace opacities in the bilateral mid and lower lung zones and blunting at costophrenic angles, right greater than left, consistent with small left and small to mo derate sized right posterior layering pleural effusions with associated basilar atelectasis and/or pn eumonia. Mild diffuse increased interstitial pattern consistent with mild pulmonary edema. No pneumot horax. Cardiomegaly. Median sternotomy wires and pair of cardiac valve repairs, likely tricuspid and mitral. IMPRESSION: 1. Lines and tubes in expected positions as detailed above. 2. Likely congestive heart failure with cardiomegaly and mild pulmonary edema. Persistent small left and small to moderate-sized right pleural effusions with associated basilar atelectasis and/or pneumo latesha. Reviewed, dictated and finalized at location B. AND BEVERAGE ASSISTANT IMPRESSION: 1. Lines and tubes in expected positions as detailed above. 2. Likely congestive heart failure with cardiomegaly and mild pulmonary edema. Persistent small left and small to moderate-sized right pleural effusions with associated basilar atelectasis and/or pneumonia.
--- NOTE | ~2024-10-16 | US_ITS ---
EXAMINATION:US venous doppler LE BI INDICATION:Bilateral lower extremity edema TECHNIQUE: Multiple grayscale, color flow and Doppler images of the right and left lower extremity de ep venous systems were obtained and reviewed. COMPARISON:No prior studies for comparison. FINDINGS: The common femoral, superficial femoral and popliteal veins demonstrate normal respiratory variation, augmentation and compressibility. Color flow is also seen within the posterior tibial, pe roneal, greater saphenous and profunda veins. IMPRESSION: 1: No lower extremity deep venous thrombosis. Reviewed, dictated and finalized at location A. VALVE REPAIRER
--- NOTE | ~2024-10-16 | XR_ITS ---
EXAMINATION: XR chest PICC line DATE: 10/20/2024 08:54 INDICATION: Central line placement. TECHNIQUE: A single frontal view of the chest was obtained. COMPARISON: Chest single view 10/19/2024 FINDINGS: There is a moderate-sized right pleural effusion. There is a diffuse interstitial pattern i n the lungs, consistent with pulmonary edema. There are airspace opacities at the lung bases. No pneu mothorax. Cardiomegaly is noted. There are changes of heart valve replacements. A right upper extremi ty peripherally inserted central venous catheter (PICC) is seen with tip in the superior vena cava. IMPRESSION: 1. PICC tip in the superior vena cava. 2. Stable diffuse lung disease, consistent with pulmonary edema and basilar atelectasis versus pneumo latesha. 3. Stable moderate-sized right pleural effusion. 4. Cardiomegaly. Reviewed, dictated and finalized at location A. RELATIONS PROFESSOR IMPRESSION: 1. PICC tip in the superior vena cava. 2. Stable diffuse lung disease, consistent with pulmonary edema and basilar ate lectasis versus pneumonia. 3. Stable moderate-sized right pleural effusion. 4. Cardiomegaly.
--- NOTE | ~2024-10-16 | XR_ITS ---
XR chest 2V Ordering provider: Kylah Erickson MD History: 64 years Male with . dyspnea COPD . Comparison: April 08, 2023 FINDINGS: MEDIASTINUM: The cardiac silhouette is slightly enlarged. Postoperative changes in the mediastinum. Prominent chance. LUNGS: No pneumothorax. Opacification in the lower lobes and perihilar areas suggestive of pneumonia. Underlying emphysematous changes. Blunting of the left costophrenic angle which may indicate minimal effusion. OTHER: No free air under the diaphragm. IMPRESSION: Bilateral perihilar and lower lobe pneumonia. Underlying pulmonary edema cannot be excluded. Minimal left pleural effusion. Reviewed, dictated and finalized at location A. RIAL ASSEMBLER
--- NOTE | ~2024-10-16 | XR_ITS ---
EXAMINATION: XR chest 1V portable DATE: 10/21/2024 05:51 INDICATION: Pneumonia. Mechanical ventilation. TECHNIQUE: A single frontal view of the chest was obtained. COMPARISON: Chest single view 10/20/2024, CT abdomen and pelvis 02/24/2023 FINDINGS: There is a moderate-sized right pleural effusion. There are airspace and interstitial opaci ties in all lung zones bilaterally, right worse than left. No pneumothorax. Cardiomegaly is noted. Th ere are changes of heart valve replacements. The endotracheal tube tip is 4.2 cm above the марина. Th e nasogastric tube tip is beyond the inferior margin of the radiograph, but at least to the stomach. A right upper extremity peripherally inserted central venous catheter (PICC) is seen with tip in the superior vena cava. IMPRESSION: 1. Stable diffuse lung disease, consistent with moderate pulmonary edema without or with superimposed pneumonia. 2. Stable moderate-sized right pleural effusion. 3. Cardiomegaly. Reviewed, dictated and finalized at location A. ICAL THERAPY MANAGER IMPRESSION: 1. Stable diffuse lung disease, consistent with moderate pulmonary edema withou t or with superimposed pneumonia. 2. Stable moderate-sized right pleural effusion. 3. Cardiomegaly.
--- NOTE | ~2024-10-16 | XR_ITS ---
EXAMINATION: XR abdomen/kub 1V DATE: 10/19/2024 15:06 INDICATION: Abdominal cramping. Bloating. TECHNIQUE: A supine view of the abdomen on 2 radiographs was obtained. COMPARISON: CT abdomen and pelvis 02/24/2023 FINDINGS: There are changes of heart valve replacements. There is a small right pleural effusion. The re is dilated small bowel in left abdomen. The colon is normal in caliber. There are surgical clips f rom hernia repair. IMPRESSION: 1. Dilated small bowel in left abdomen, consistent with adynamic ileus versus obstruction. 2. Small right pleural effusion. Reviewed, dictated and finalized at location A. CUTTER IMPRESSION: 1. Dilated small bowel in left abdomen, consistent with adynamic ileus versus o bstruction. 2. Small right pleural effusion.
--- NOTE | 2024-10-16 10:05 | ECG_ITS ---
Test Date: 2024-10-16 10:11:19 Measurements Intervals [place] Rate: 64 P: 87 IN: 212 QRS: 79 QRSD: 130 T: -40 QT: 472 QTc: 487 Interpretive Statements SINUS RHYTHM WITH FIRST DEGREE AV BLOCK LATERAL MYOCARDIAL INFARCTION , OF INDETERMINATE AGE [40+ ms Q WAVE AND/OR ST/T ABNORMALITY IN I/aVL/V5/V6] MODERATE T-WAVE ABNORMALITY, CONSIDER ANTERIOR ISCHEMIA [-0.1+ mV T WAVE IN V3/V4] MODERATE T-WAVE ABNORMALITY, CONSIDER INFERIOR ISCHEMIA [-0.1+ mV T WAVE IN II/aVF] No previous ECG available for comparison Electronically Signed On 10-16-2024 13:10:31 CAREER MANAGER by Brooke Patricia M.D.
[2024-10-16 10:26] LABS: Basophils Percent Auto 0.6 % (0.2-1.2); Eosinophils Percent Auto 0.4 % (0-4.4); Hematocrit 33.6 % (42.0-52.0); Hemoglobin 11.9 g/dL (14.0-18.0); Immature Granulocyte Absolute 0.05 K/mm3 (0.00-0.031); Immature Granulocyte Percent A 0.7 % (0-0.5); Lymphocytes Percent Auto 8.8 % (18.3-44.2); Mean Corpuscular HGB Conc 35.4 g/dl (32-36); Mean Corpuscular Hemoglobin 31.5 pg (26-34); Mean Corpuscular Volume 88.9 fl (80-100); Monocytes Absolute Auto 0.5 K/mm3 (0.1-0.6); Monocytes Percent Auto 6.6 % (2.6-8.5); Neutrophils Absolute Auto 5.6 K/mm3 (1.3-6.7); Neutrophils Percent Auto 82.9 % (45.5-73.1); Platelet Count Result 177 k/mm3 (150-375); Red Blood Count 3.78 M/mm3 (4.6-6.20); Red Cell Distribution Width 13.5 % (11.5-14.5); White Blood Count 6.8 K/mm3 (4.5-10.0)
[2024-10-16 10:42] LABS: Alanine Aminotransferase 19 U/L (6-50); Alkaline Phosphatase 92 U/L (38-126); Anion Gap 8 mmol/L (4-12); Aspartate Amino Transferase 30 U/L (17-59); Bilirubin,Total 1.3 mg/dL (0.2-1.3); Blood Urea Nitrogen 18 mg/dL (9-20); Calcium 8.6 mg/dL (8.4-10.2); Carbon Dioxide 24 mmol/L (22-30); Chloride 87 mmol/L (98-107); Estimated CRCL calculation 73 ml/min; Estimated Glomerular Filt Rate > 60; Glucose 115 mg/dL (65-110); Potassium 4.6 mmol/L (3.4-5.0); Sodium 119 mmol/L (137-145)
[2024-10-16 10:50] LABS: NT Pro B Type Natriuretic Pept 11400 pg/mL (19.9-100); Troponin I 0.018 ng/mL (0.000-0.034)
[2024-10-16 11:02] LABS: Influenza A QL RT-PCR Negative (Negative); Influenza B QL RT-PCR Negative (Negative); SARS-CoV-2 RNA PCR Negative (Negative)
--- NOTE | 2024-10-16 11:10 | PC.NURSE ---
Received report and introduced self to patient and
--- NOTE | 2024-10-16 11:17 | ED_ITS ---
HPI - SOB/Dyspnea General Chief Complaint: Shortness of Breath/Dyspnea Stated Complaint: short of breath, hemoptysis Time Seen by Provider: 10/16/24 11:16 Source: patient Mode of arrival: ambulatory Limitations: no limitations History of Present Illness HPI Narrative: 64 years old white male came to the ED from home with his complaining of productive cough in the last 3 days with specks of blood in it. Patient currently on Xarelto for atrial fibrillation. He denies any fever or chills or nausea or vomiting or chest pain or back pain or abdominal pain. Did History of COPD, atrial fibrillation, MITRAL VALVE REPLACEMENT, hypertension, hypothyroidism, patient is not on oxygen supplement, does not smoke or use drugs, drinks alcohol occasionally Related Data Home Medications ?Medication ?Instructions ?Recorded ?Confirmed ?Last Taken ?Type tiotropium 2.5 mcg-olodaterol 2.5 2 puff inhalation DAILY 10/06/22 10/16/24 10/16/24 History mcg/actuation mist for inhalation (Stiolto Respimat) alprazolam 0.5 mg tablet (Xanax) 0.5 mg PO DAILY PRN anxiety] 07/28/23 10/16/24 10/16/24 History omeprazole 20 mg capsule,delayed 40 mg PO BID 01/06/24 10/16/24 10/16/24 History release propranolol 80 mg capsule,24 20 mg PO BID 01/06/24 10/16/24 10/16/24 History hr,extended release methimazole 5 mg tablet See Rx Instructions .Route .COMPLEX 08/28/24 10/16/24 10/16/24 History Allergies Allergy/AdvReac Type Severity Reaction Status Date / Time No Known Allergies Allergy Verified 10/16/24 10:57 Review of Systems 2 Review of Systems: All systems reviewed & are unremarkable except as noted in HPI and below PMFSH Past Medical History Medical History Hyperthyroidism Current use of [facility] antico[facility] Alcohol abuse Edentulous Chronic anxiety Globus sensation Gastritis Barretts esophagus Dyspepsia Colon cancer screening Thoracic aortic aneurysm 4.4 cm External bleeding hemorrhoids Atrial fibrillation Hyperlipidemia Hypertension COPD (chronic obstructive pulmonary disease) Hemorrhoid Surgical History Surgical History H/O colonoscopy with polypectomy History of appendectomy History of hernia repair History of tonsillectomy H/O mitral valve replacement Family History Family History Mother Family history of chronic obstructive pulmonary disease Social History Social History Social History: The patient is and lives with his . He is a former smoker. He is a former drinker. Patient is retired from [employer]. The patient has 2 children. His is the durable power of contracts attorney for healthcare. Code status full code Smoking packs per day: 2 Smoking cigarettes per day: 40.0 Years smoked: 25 Smoking pack-years: 50.00 Smoking status: Former smoker Tobacco type: cigarettes Second hand tobacco smoke exposure: No Smoking end date: 10/04/02 Alcohol intake: current Drinks per week: 8 Alcohol use details: BEERS Substance use: never Substance use type: does not use Lack of Transportation: No Lack of Food: Never True Current Housing: I Have Housing Concerned About Future Housing: No Difficulty Paying Gas/Electric Bills: No Difficulty Paying for Meds: No Currently Unemployed: No Education: High School Diploma/GED Difficulty w/ Childcare or Family Care: No Living arrangements: with family Occupation/Education: unemployed Additional occupation/education comments: Disabled Gender identity (if verbalized by the patient): Male Sexual Orientation (if Verbalized by the Patient): Straight or Heterosexual Spiritual care concerns: No Exam 2 Narrative: General appearance: Well-developed, well-nourished Skin: Normal color Head: Normocephalic, nontraumatic Eyes: Clear conjunctiva ENT: Oropharynx normal, ears normal, nose normal Neck: Supple, nontender Chest and respiratory: Airway patent, no respiratory distress, no accessory muscle use Heart: Regular rate/rhythm Abdomen: Soft, nontender, no organomegaly, quiet bowel sounds Vascular: Normal peripheral pulses, normal capillary refill. Musculoskeletal: Normal range of motion, nontender back Neurologic: Alert and oriented ?3, PLASTICS REPAIRER is normal as tested, no gross motor deficit Course Vital Signs Vital signs: Vital Signs Temperature 36.6 C 10/16/24 10:01 Pulse Rate 72 10/16/24 10:01 Respiratory Rate 20 10/16/24 10:01 Blood Pressure 99/54 L 10/16/24 10:01 Pulse Oximetry 95 10/16/24 10:01 Oxygen Delivery Room Air 10/16/24 10:01 Temperature 36.6 C 10/16/24 10:01 Pulse Rate 61 10/16/24 11:30 Respiratory Rate 10 L 10/16/24 11:30 Blood Pressure 100/70 10/16/24 11:30 Pulse Oximetry 99 10/16/24 11:30 Oxygen Delivery Room Air 10/16/24 10:49 MDM - SOB/Dyspnea MDM Narrative Medical decision making narrative: Patient came to the ED with productive cough over the last 3 days containing specks of blood Vital signs showing blood pressure 99/54 otherwise insignificant Physical examination is insignificant Differential diagnosis include bronchitis, pneumonia, COPD exacerbation, lung mass, coagulopathy Blood workup today includes CBC, CMP, PT PTT showed sodium of 119, PATIENT REPORT HAVING HISTORY OF CHRONIC HYPONATREMIA FOR YEARS, chloride 87 glucose 115 pro BNP 11,400 Chest x-ray showed pneumonia, PULMONARY EDEMA EKG on arrival showed normal sinus rhythm at 64 beats per minute with first- degree heart block, ADMIT TO HOSPITALIST WITH A DIAGNOSIS OF PNEUMONIA, PULMONARY EDEMA Differential Diagnosis Differential diagnosis: Likely other (As above) Medical Records Attestation: I reviewed the patient's medical records. Lab Data Attestation: I reviewed the patient's lab results. 10/16/24 10:18 10/16/24 10:18 Labs: Lab Results 10/16/24 10/16/24 Range/Units 10:18 11:56 WBC 6.8 (4.5-10.0) K/mm3 RBC 3.78 L (4.6-6.20) M/mm3 Hgb 11.9 L (14.0-18.0) g/dL Hct 33.6 L (42.0-52.0) % MCV 88.9 (80-100) fl MCH 31.5 (26-34) pg MCHC 35.4 (32-36) g/dl RDW 13.5 (11.5-14.5) % Plt Count 177 (150-375) k/mm3 MPV 9.0 (7.4-10.4) fl Immature Gran % (Auto) 0.7 H (0-0.5) % Neut % (Auto) 82.9 H (45.5-73.1) % Lymph % (Auto) 8.8 L (18.3-44.2) % [place] % (Auto) 6.6 (2.6-8.5) % Eos % (Auto) 0.4 (0-4.4) % Baso % (Auto) 0.6 (0.2-1.2) % Lymph # (Auto) 0.60 L (0.9-3.2) K/mm3 [place] # (Auto) 0.5 (0.1-0.6) K/mm3 Eos # (Auto) 0.0 (0-0.3) K/mm3 Baso # (Auto) 0.0 (0.0-0.1) K/mm3 Abs Immat Gran (auto) 0.05 H (0.00-0.031) K/mm3 Absolute Neuts (auto) 5.6 (1.3-6.7) K/mm3 Absolute Nucleated RBC 0.000 (0.0-0.012) K/mm3 Nucleated RBC % 0.0 (0.0-0.2) % PT 25.5 H (11.1-14.7) Seconds INR 2.2 APTT 38.2 H (22.3-36.8) Seconds Sodium 119 L* (137-145) mmol/L Potassium 4.6 (3.4-5.0) mmol/L Chloride 87 L (98-107) mmol/L Carbon Dioxide 24 (22-30) mmol/L Anion Gap 8 (4-12) mmol/L BUN 18 (9-20) mg/dL Creatinine 0.85 (0.7-1.3) mg/dL Estim Creat Clear Calc 73 ml/min Estimated GFR > 60 (59 - ) Glucose 115 H (65-110) mg/dL Lactic Acid 2.1 H (0.7-2.0) mmol/L Calcium 8.6 (8.4-10.2) mg/dL Total Bilirubin 1.3 (0.2-1.3) mg/dL AST 30 (17-59) U/L ALT 19 (6-50) U/L Alkaline Phosphatase 92 (38-126) U/L Troponin I 0.018 (0.000-0.034) ng/mL C-Reactive Protein 4.3 H (<1.0) mg/dL NT-Pro-B Natriuret Pep 00126 H (19.9-100) pg/mL Total Protein 7.0 (6.3-8.2) g/dL Albumin 4.0 (3.5-5.1) g/dL Influenza A (RT-PCR) Negative (Negative) Influenza B (RT-PCR) Negative (Negative) SARS-CoV-2 RNA (RT-PCR) Negative (Negative) Imaging Data Radiologist's impression: Impressions Chest X-Ray 10/16/24 10:28 IMPRESSION: Bilateral perihilar and lower lobe pneumonia. Underlying pulmonary edema cannot be excluded. Minimal left pleural effusion. ECG Data EKG #1: Attestation: I personally reviewed and interpreted this ECG as follows: ECG completion date: 10/16/24 Interpretation: NORMAL SINUS RHYTHM WITH FIRST-DEGREE HEART BLOCK AT 64 BEATS PER MINUTE, LATERAL MYOCARDIAL INFARCTION OF INDETERMINATE AGE, NONSPECIFIC ST T-WAVE ABNORMALITY, NO PREVIOUS EKG AVAILABLE FOR COMPARISON Critical Care Time Critical Care Time Critical Care Time: No Discharge Plan Discharge Clinical Impression: Pneumonia, CHF (congestive heart failure), Acute hyponatremia, Chronic hyponatremia Patient Disposition: Still a Patient Condition: Stable Additional Instructions: ADMIT TO HOSPITALIST Patient Language: [place] Prescriptions: No Action alprazolam [Xanax] 0.5 mg tablet 0.5 mg PO DAILY PRN (Reason: anxiety]) Stiolto Respimat 2.5-2.5 mcg/actuation mist 2 puff inhalation DAILY propranolol 80 mg capsule,extended release 24hr 20 mg PO BID omeprazole 20 mg capsule,delayed release(DR/EC) 40 mg PO BID Multaq 400 mg tablet See Rx Instructions .ROUTE .COMPLEX Qty: 180 2RF Dose Instruction: TAKE 1 TABLET BY MOUTH EVERY 12 HOURS Rx Instructions: TAKE 1 TABLET BY MOUTH EVERY 12 HOURS Xarelto 20 mg tablet See Rx Instructions .ROUTE .COMPLEX Qty: 90 2RF Dose Instruction: TAKE 1 TABLET BY MOUTH DAILY Rx Instructions: TAKE 1 TABLET BY MOUTH DAILY methimazole 5 mg tablet See Rx Instructions .ROUTE .COMPLEX Dose Instruction: TAKE 2 TABLETS BY MOUTH EVERY MORNING AND 2 TABLETS EVERY EVENING Rx Instructions: 5 mg once daily Wednesday to Wednesday, Skip Wednesday losartan 50 mg tablet 50 mg PO DAILY Qty: 90 2RF Follow-up/Referrals: PHYSICIAN NOT ON STAFF,NONSTAFF [Non-Staff] -
[2024-10-16 11:57] LABS: INR 2.2; Prothrombin Time 25.5 Seconds (11.1-14.7)
[2024-10-16 11:58] LABS: Partial Thromboplastin Time 38.2 Seconds (22.3-36.8)
[2024-10-16] MEDS: SODIUM CHLORIDE 0.9% IV 1,000 ML 250 ML IV CONT (12:03)
[2024-10-16 12:04] LABS: CRP 4.3 mg/dL (<1.0)
[2024-10-16 12:18] LABS: Lactic Acid Reflex 2.1 mmol/L (0.7-2.0)
[2024-10-16] MEDS: AZITHROMYCIN 500 MG/NS 250 ML 500 MG/250 ML BAG 250 MG IVPB (12:32)
--- NOTE | 2024-10-16 12:50 | P.HP_ITS ---
H&P: HPI History of Present Illness Date/Time: 10/16/24 12:50 Chief Complaint: Coughing up blood. 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 The patient provides the following history. He endorses a mostly nonproductive cough over the last few weeks however in the past 3 days he has been coughing up phlegm admixed with bright red blood. He is also feeling generally unwell with decrease in energy and appetite with a decrease in oral intake. He had diarrhea 1 day late last week in large quantities but that has since resolved. He has not had any nose bleeds and denies coughing with any force. He also denies Fever, headache, sore throat, vomiting, melena, hematochezia, chest pain, pleuritic pain, lower extremity edema, calf pain, and weight loss. In the ED: He was afebrile on arrival with a blood pressure of 99/54 and an SpO2 of 95% on room air. Labs are significant for WBC count of 6.8, hemoglobin 11.9, PT 25.5, INR 2.2, PTT 38.2, sodium 119, chloride 87, BUN 18, creatinine 0.80, lactic acid 2.1, CRP 4.3, proBNP 32154, troponin 0.018. He tested negative for influenza and COVID. Chest x-ray showed bilateral perihilar and lower lobe pneumonia (underlying pulmonary edema cannot be excluded) and minimal left pleural effusion. EKG showed sinus rhythm with first-degree AV block, mild depression or flattening of the ST segment in the lateral leads with T-wave inversion in V3. He received ceftriaxone 1 gm, azithromycin 500 mg, and 250 mL of normal saline. He is being admitted in this setting for further treatment and evaluation. Review of Systems Review of Systems: 12 systems were reviewed and are negativ e except for as per HPI. [facility] Past Medical History Medical History Combined systolic and diastolic congestive heart failure Chronic obstructive pulmonary disease Paroxysmal atrial fibrillation Hyperthyroidism Current use of emt intermediate anticoagulation Alcohol abuse Chronic anxiety Gastritis Barretts esophagus Thoracic aortic aneurysm 4.4 cm Hyperlipidemia Hypertension Surgical History Surgical History History of colonoscopy with polypectomy History of mitral valve replacement with bioprosthetic valve (2013) History of appendectomy History of hernia repair History of tonsillectomy Family History Family History Mother Family history of chronic obstructive pulmonary disease Social History Social History Social History: Surrogate medical decision maker: Yuliana Minor, spouse. Code status: Full code. Smoking packs per day: 2 Smoking cigarettes per day: 40.0 Years smoked: 25 Smoking pack-years: 50.00 Smoking status: Former smoker Tobacco type: cigarettes Second hand tobacco smoke exposure: No Smoking end date: 10/04/02 Alcohol intake: current Drinks per week: 8 Alcohol use details: BEERS Substance use: never Substance use type: does not use Lack of Transportation: No Lack of Food: Never True Current Housing: I Have Housing Concerned About Future Housing: No Difficulty Paying Gas/Electric Bills: No Difficulty Paying for Meds: No Currently Unemployed: No Education: High School Diploma/GED Difficulty w/ Childcare or Family Care: No Living arrangements: with family Occupation/Education: unemployed Spiritual care concerns: No Meds Home Medications and Allergies Home Medications ?Medication ?Instructions ?Recorded ?Confirmed ?Type tiotropium 2.5 mcg-olodaterol 2.5 2 puff inhalation DAILY 10/06/22 10/16/24 History mcg/actuation mist for inhalation (Stiolto Respimat) alprazolam 0.5 mg tablet (Xanax) 0.5 mg PO DAILY PRN anxiety] 07/28/23 10/16/24 History omeprazole 20 mg capsule,delayed 40 mg PO BID 01/06/24 10/16/24 History release propranolol 80 mg capsule,24 20 mg PO BID 01/06/24 10/16/24 History hr,extended release dronedarone 400 mg tablet (Multaq) See Rx Instructions .Route 03/14/24 10/16/24 Rx .COMPLEX #180 tabs rivaroxaban 20 mg tablet (Xarelto) See Rx Instructions .Route 08/17/24 10/16/24 Rx .COMPLEX #90 tabs methimazole 5 mg tablet See Rx Instructions .Route .COMPLEX 08/28/24 10/16/24 History losartan 50 mg tablet 50 mg PO DAILY #90 tabs 10/16/24 10/16/24 Rx Allergies Allergy/AdvReac Type Severity Reaction Status Date / Time No Known Allergies Allergy Verified 10/16/24 10:57 Vital Signs Vital Signs - 24 hr 10/16/24 10:01 10/16/24 10:49 10/16/24 10:49 Temperature 97.9 F Pulse Rate 72 66 Respiratory Rate 20 Blood Pressure 99/54 L Pulse Oximetry 95 96 Oxygen Delivery Room Air Room Air 10/16/24 10:49 10/16/24 11:30 10/16/24 12:38 Temperature Pulse Rate 64 61 61 Respiratory Rate 12 10 L 10 L Blood Pressure 104/77 100/70 101/71 Pulse Oximetry 96 99 100 Oxygen Delivery Exam Narrative: General: Well-developed, nontoxic-appearing gentleman sitting up in bed eating a lunch tray in no acute distress. He is in good spirits. Weight: 67.9 kg. BMI: 22.8. HEENT: PERRL, EOMI. Sclera anicteric. Nares patent bilaterally. Tacky mucous membranes. Oropharynx is clear. Neck: Supple. No JVD or lymphadenopathy. Respiratory: Respirations are nonlabored and he is speaking in full sentences. Lung sounds are diminished at the bases with scattered crackles. Cardiovascular: Regular rate and rhythm with S1-S2. No murmur, rub, or gallop. Gastrointestinal: Abdomen is soft, nontender, and nondistended with positive bowel sounds. Skin: Warm and dry. No rash or lesions on limited exam. Extremities: No cyanosis, clubbing, or edema. Radial and pedal pulses intact. Neurological: Alert. Cranial nerves 2-12 are grossly intact. No gross focal deficits to casual conversation. Psychiatric: Pleasant and cooperative with normal mood and affect. Judgment and insight intact. H&P: Results Labs Labs: Short CBC 10/16/24 Range/Units 10:18 WBC 6.8 (4.5-10.0) K/mm3 Hgb 11.9 L (14.0-18.0) g/dL Hct 33.6 L (42.0-52.0) % Plt Count 177 (150-375) k/mm3 BMP 10/16/24 10:18 Sodium 119 L* Potassium 4.6 Chloride 87 L Carbon Dioxide 24 BUN 18 Creatinine 0.85 Glucose 115 H Calcium 8.6 Cardiac Enzymes 10/16/24 Range/Units 10:18 Troponin I 0.018 (0.000-0.034) ng/mL Liver Function 10/16/24 Range/Units 10:18 Total Bilirubin 1.3 (0.2-1.3) mg/dL AST 30 (17-59) U/L ALT 19 (6-50) U/L Alkaline Phosphatase 92 (38-126) U/L Albumin 4.0 (3.5-5.1) g/dL Impressions Chest X-Ray 10/16/24 10:28 IMPRESSION: Bilateral perihilar and lower lobe pneumonia. Underlying pulmonary edema cannot be excluded. Minimal left pleural effusion. Assessment and Plan Assessment and plan (1) Pneumonia: Code(s): J18.9 - Pneumonia, unspecified organism Status: Acute Assessment and Plan: Chest x-ray showed bilateral perihilar and lower lobe pneumonia. * Doxycycline and ceftriaxone started 10/16/2024. * Attempt sputum for culture. * Check Legionella pneumococcal antigens as well as mycoplasma IgM. * [facility] p.r.n[facility] (2) Hemoptysis: Code(s): R04.2 - Hemoptysis Status: Acute Assessment and Plan: Most likely related to pneumonia in the setting of anticoagulation. No masses or nodules noted on chest x-ray. * Hold rivaroxaban for now and continue to monitor. * Consider chest CT if no improvement with antibiotics. 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 He does not drink fluids in excess because of this history and he feels that he may be dehydrated from poor oral intake the last several days. Pneumonia could be a precipitating factor as well. * Check urine sodium, urine and serum osmolalities, and TSH. * Pending the above tests, we will initiate fluid restriction or IV fluids. * Sodium will be monitored closely to ensure that is correcting at an appropriate rate. (4) Abnormal EKG: Code(s): R94.31 - Abnormal electrocardiogram [ECG] [EKG] Status: Acute Assessment and Plan: EKG showed mild flattening of the ST segment in the lateral leads with T-wave inversion in V3; he has had no chest pain. * Dr. Park requested per patient request. * Echocardiogram has been ordered. (5) Hypertension: Qualifiers: Hypertension type: essential hypertension Qualified Code(s): I10 - Essential (primary) hypertension Code(s): I10 - Essential (primary) hypertension Status: Acute Assessment and Plan: Blood pressures have been running at the lower end of normal and antihypertensives are currently on hold. (6) Paroxysmal atrial fibrillation: Code(s): I48.0 - Paroxysmal atrial fibrillation Status: Acute Assessment and Plan: Currently in a sinus rhythm. Per patient report, his propranolol is being weaned down due to episodes of bradycardia. * Continue dronedarone. * Hold rivaroxaban given hemoptysis as above. (7) Hyperthyroidism: Code(s): E05.90 - Thyrotoxicosis, unspecified without thyrotoxic crisis or storm Status: Acute Assessment and Plan: Continue methimazole; TSH and T4 within normal limits. (8) Combined systolic and diastolic congestive heart failure: Code(s): I50.40 - Unspecified combined systolic (congestive) and diastolic (congestive) heart failure Status: Acute Assessment and Plan: He appears clinically compensated if not a bit dry though his proBNP is elevated. * Avoid over-hydration. * Echocardiogram pending. L Quality VTE Prophylaxis VTE prophylaxis: mechanical ordered If No VTE Prophylaxis Answer both mechanical and pharmacologic: Reason no pharmacologic proph: medical contraindication (hemoptysis) The patient has been admitted under observation status. Hospitalist MIPS Advance Care Plan I have confirmed that the patient's Advanced Care Plan is present, code status is documented, or surrogate decision maker is listed in patient medical record.: Yes Medication Reconciliation I have utilized all available resources to obtain, update and review the patients current medications (includes all prescriptions, OTC, herbals, cannabis, and nutritional supplements).: Yes
[2024-10-16] MEDS: IPRATROPIUM 0.5 MG/ALBUTEROL SULFATE 2.5 MG AMPUL.NEB 3 ML INHALATION ×2 (13:02→21:01)
[2024-10-16 14:18] LABS: Lactic Acid Reflex 1.7 mmol/L (0.7-2.0)
[2024-10-16 14:36] LABS: Procalcitonin 0.1 ng/mL
--- NOTE | 2024-10-16 15:00 | PC.NURSE ---
Patient encouraged to stand at bedside to give urine
[2024-10-16 15:03] LABS: Reflex Lactic Acid Yes or No Add Lactic
[2024-10-16 15:19] LABS: Free T4 Free Thyroxine Reflex 1.89 ng/dL (0.78-2.19); MRSA (PCR) NOT DETECTED (NOT DETECTE)
[2024-10-16 15:49] LABS: Creatinine Urine 110.9 mg/dL
[2024-10-16 15:52] LABS: Sodium Urine Random 14 meq/L
[2024-10-16 16:03] LABS: Total Triiodothyronine (T3) 0.94 NG/ML (0.97-1.69)
[2024-10-16 18:27] LABS: Lactic Acid 1.6 mmol/L (0.7-2.0)
[2024-10-16 18:28] LABS: Anion Gap 6 mmol/L (4-12); Blood Urea Nitrogen 17 mg/dL (9-20); Calcium 7.2 mg/dL (8.4-10.2); Carbon Dioxide 20 mmol/L (22-30); Chloride 95 mmol/L (98-107); Estimated CRCL calculation 80 ml/min; Estimated Glomerular Filt Rate > 60; Glucose 107 mg/dL (65-110); Potassium 3.6 mmol/L (3.4-5.0); Sodium 121 mmol/L (137-145)
[2024-10-16] MEDS: SODIUM CHLORIDE 0.9% IV 1,000 ML 75 ML IV CONT (18:39)
[2024-10-16 19:29] LABS: Sodium 121 mmol/L (137-145)
[2024-10-16 19:45] LABS: Troponin I 0.017 ng/mL (0.000-0.034)
[2024-10-16] MEDS: DOXYCYCLINE HYCLATE 100 MG TABLET PO (21:47)
[2024-10-16 22:25] LABS: Sodium 119 mmol/L (137-145)
[2024-10-16 23:05] LABS: Urea Random Urine 924 MG/DL
--- NOTE | 2024-10-16 23:51 | ADMGEN ---
This patient, Milton Minor, was admitted to Medical Room 249-01. Patient/family oriented to hospital policies and general routines including ID bracelet, bed and alarms, visiting hours, pain management, procedures, bathroom and other care routines, personal items, smoking policy, room service/diet, and visiting hours. Information on how to activate the Rapid Response Team has been discussed. Patient/Family are encouraged to report perceived risks to care and to ask questions if they do not understand what they are told or what they should do.
[2024-10-17] VITALS (19 sets, daily range): BP systolic 98–108; BP diastolic 58–76; PULSE 67–91; RESP 16–20; TEMP 36.2–36.5; O2SAT 90–95
--- NOTE | 2024-10-17 | ECHO_ITS ---
Patient Info Name: Milton Minor Age: 64 years : 1960 Gender: Male Ht: 68 in Wt: 149 lbs BSA: 1.80 m2 HR: 83 bpm BP: 108 / 58 mmHg Technical Quality: Poor Exam Date: 10/17/2024 4:19 PM Exam Location: Echo Lab Patient Status: Outpatient Admit Date: 10/16/2024 Staff Ordering Physician: Kaylah Marcelino PA-C Band Master: Jessica Tavarez RDCS Attending Provider: Ella Sotomayor MD Referring Physician: Chari RODARTE; Exam Type: CA echo dop color flow w con Study Info Indications - EKG CHANGES - VALVULAR DISEASE - PULMONARY EDEMA Complete two-dimensional, color flow and Doppler transthoracic echocardiogram is performed with contrast to opacify the left ventricle and to improve the deliniation of the left ventricle endocardial borders. Contrast/Agitated Saline Contrast/Ag. Saline: Definity Amount: 2.00 ml Existing IV Access: Yes Reason for Poor Study: poor echocardiographic windows Summary 1. Left ventricular chamber dimension is normal. 2. Left ventricular systolic function is normal, estimated at 55-60%. 3. There is mild concentric increased left ventricular wall thickness. 4. The left ventricular diastolic function is abnormal. 5. Tissue doppler E/e' was not assessed. 6. Right ventricular chamber dimension is mildly enlarged. 7. Right ventricular systolic function is moderately reduced and with abnormal TAPSE 0.9 cm. 8. Left atrial chamber dimension is severely enlarged. 9. Right atrial chamber dimension is mildly enlarged. 10. There is trace aortic valve regurgitation. 11. The bioprosthetic mitral valve leaflets is not well seen. 12. Inadequate assessment of mitral valve stenosis as no valve area from continuity equation and no gradients provided. 13. Tricuspid valve repair with annuloplasty ring. 14. There is mild to moderate tricuspid valve regurgitation. 15. Severe pulmonary hypertension, estimated pulmonary arterial systolic pressure is 62 mmHg. 16. There is trace pulmonic regurgitation. Left Ventricle Tissue doppler E/e' was not assessed. Left ventricular chamber dimension is normal. Left ventricular systolic function is normal, estimated at 55-60%. There is mild concentric increased left ventricular wall thickness. The left ventricular diastolic function is abnormal. Right Ventricle Right ventricular systolic function is moderately reduced and with abnormal TAPSE 0.9 cm. Right ventricular chamber dimension is mildly enlarged. Left Atria Left atrial chamber dimension is severely enlarged. Right Atria Right atrial chamber dimension is mildly enlarged. Aortic Valve The aortic valve is trileaflet. There is no aortic valve stenosis. There is trace aortic valve regurgitation. Pulmonic Valve There is trace pulmonic regurgitation. Mitral Valve The bioprosthetic mitral valve leaflets is not well seen. Inadequate assessment of mitral valve stenosis as no valve area from continuity equation and no gradients provided. There is no regurgitation of the bioprosthetic mitral valve. Tricuspid Valve Tricuspid valve repair with annuloplasty ring. There is mild to moderate tricuspid valve regurgitation. Severe pulmonary hypertension, estimated pulmonary arterial systolic pressure is 62 mmHg. Pericardium/Pleural There is no pericardial effusion. Inferior Vena Cava Normal inferior vena cava with >50% collapse upon inspiration consistent with normal right atrial pressure, 5 mmHg. Aorta The aortic root size at the sinus of Valsalva is normal. Left Ventricular Outflow Tract Name Value Normal LVOT 2D LVOT Diameter 1.76 cm LVOT Doppler LVOT Peak Gradient 3 mmHg LVOT Mean Gradient 2 mmHg LVOT VTI 14.54 cm LVOT VTI/AV VTI Ratio 0.89 LVOT Stroke Volume 35.51 ml Pulmonic Valve Name Value Normal RVOT Doppler RVOT Peak Gradient 1 mmHg PV Doppler PV Peak Gradient 2 mmHg Mitral Valve Name Value Normal MV Doppler MV Decel [place] 861.53 cm/s2 MV PHT 0 s MV Area (PHT) 12.94 cm2 4.00-5.00 MV Diastolic Function MV E Peak Velocity 50.50 cm/s MV A Peak Velocity 49.77 cm/s MV E/A 1.01 MV Decel Time 0 s Tricuspid Valve Name Value Normal TV Regurgitation Doppler TR Peak Velocity 377.73 cm/s TR Peak Gradient 57 mmHg Estimated PAP/RSVP RA Pressure 5 mmHg <=5 PA Systolic Pressure 62 mmHg <36 RV Systolic Pressure 62 mmHg <36 Aorta Name Value Normal Ascending Aorta Ao Root Diameter (MM) 3.40 cm Ao Root Diam Index (MM) 1.88 cm/m2 Aortic Valve Name Value Normal AV Doppler AV Peak Velocity 112.19 cm/s AV Peak Gradient 4 mmHg AV Mean Gradient 2 mmHg AV VTI 16.30 cm AV Area (Cont Eq VTI) 2.18 cm2 >=3.00 AV Area (Cont Eq Ricco) 2.04 cm2 AV Regurgitation 2D LVOT Area 2.44 cm2 AV Regurgitation Doppler AR Decel Time 3 s AR Decel [place] 85.08 cm/s2 AR PHT 1 s Ventricles Name Value Normal LV Dimensions 2D/MM IVS Diastolic Thickness (2D) 1.54 cm 0.60-1.00 LVID Diastole (2D) 3.08 cm 4.20-5.80 LVIW Diastolic Thickness (2D) 1.56 cm 0.60-1.00 LVID Systole (2D) 2.42 cm 2.50-4.00 LVOT Diameter 1.76 cm LV Mass (2D Cubed) 173.02 g 88.00-224.00 LV Mass Index (2D Cubed) 0.01 g/cm2 0.00-0.01 Relative Wall Thickness (2D) 1.01 LV Fractional Shortening/Ejection Fraction 2D/MM LV Fractional Shortening (2D) 24 % 25-43 LV EF (2D Teicholz) 49 % 52-72 LV Diastolic Volume (4C MOD) 44.38 ml LV EF (4C MOD) 41 % LV Diastolic Volume (2C MOD) 51.80 ml LV EF (2C MOD) 45 % LV Diastolic Volume (BP MOD) 47.68 ml 62.00-150.00 LV Diastolic Volume Index (BP MOD) 0.03 l/m2 0.03-0.07 LV Systolic Volume (BP MOD) 28.75 ml 21.00-61.00 LV Systolic Volume Index (BP MOD) 0.02 l/m2 0.01-0.03 LV EF (BP MOD) 40 % 52-72 LV Diastolic Length (4C) 6.73 cm LV Systolic Length (4C) 6.43 cm LV Stroke Volume (4C MOD) 18.37 ml Atria Name Value Normal LA Dimensions LA Dimension (MM) 6.31 cm 3.00-4.10 LA Volume (4C A-L) 169.76 ml LA Volume (BP A-L) 170.10 ml RA Dimensions RA Area (4C) 20.38 cm2 <=18.00 Report Signatures
[2024-10-17] MEDS: ALPRAZolam (*CRX) 0.5 MG TABLET PO ×3 (00:03→20:36)
[2024-10-17] MEDS: DRONEDARONE HCL 400 MG TABLET BY MOUTH ×3 (00:03→20:39)
[2024-10-17] MEDS: IPRATROPIUM 0.5 MG/ALBUTEROL SULFATE 2.5 MG AMPUL.NEB 3 ML INHALATION ×4 (02:03→19:53)
[2024-10-17 02:08] LABS: Sodium 120 mmol/L (137-145)
[2024-10-17 06:26] LABS: Basophils Percent Auto 0.3 % (0.2-1.2); Eosinophils Percent Auto 0.1 % (0-4.4); Hematocrit 31.8 % (42.0-52.0); Immature Granulocyte Absolute 0.06 K/mm3 (0.00-0.031); Immature Granulocyte Percent A 0.6 % (0-0.5); Lymphocytes Absolute Auto 0.63 K/mm3 (0.9-3.2); Mean Corpuscular HGB Conc 34.6 g/dl (32-36); Mean Corpuscular Hemoglobin 31.3 pg (26-34); Mean Corpuscular Volume 90.6 fl (80-100); Mean Platelet Volume 9.2 fl (7.4-10.4); Monocytes Absolute Auto 0.7 K/mm3 (0.1-0.6); Monocytes Percent Auto 7.1 % (2.6-8.5); Neutrophils Percent Auto 85.9 % (45.5-73.1); Platelet Count Result 171 k/mm3 (150-375); Red Blood Count 3.51 M/mm3 (4.6-6.20); Red Cell Distribution Width 13.4 % (11.5-14.5); White Blood Count 10.4 K/mm3 (4.5-10.0)
[2024-10-17 06:37] LABS: Anion Gap 5 mmol/L (4-12); Blood Urea Nitrogen 19 mg/dL (9-20); Calcium 8.3 mg/dL (8.4-10.2); Carbon Dioxide 23 mmol/L (22-30); Chloride 93 mmol/L (98-107); Estimated CRCL calculation 76 ml/min; Estimated Glomerular Filt Rate > 60; Glucose 114 mg/dL (65-110); Potassium 4.6 mmol/L (3.4-5.0); Sodium 121 mmol/L (137-145)
[2024-10-17] MEDS: SODIUM CHLORIDE 0.9% IV 1,000 ML 75 ML IV CONT (06:56)
--- NOTE | 2024-10-17 07:50 | PM.CNCAR ---
Assessment and Plan Assessment and plan (1) Pneumonia: Code(s): J18.9 - Pneumonia, unspecified organism Status: Acute Assessment and Plan: On antibiotics as per hospitalist. (2) Hemoptysis: Code(s): R04.2 - Hemoptysis Status: Acute Assessment and Plan: Probably due to pneumonia. Holding Xarelto until OK to resume. (3) PAF (paroxysmal atrial fibrillation): Code(s): I48.0 - Paroxysmal atrial fibrillation Status: Acute Assessment and Plan: In Sinus rhythm. On Multaq. Holding Xarelto due to hemoptysis. Reviewed EKG it is nonspecific changes only. Echo ordered. If normal, no further cardiac workup is needed. (4) Hypertension: Qualifiers: Hypertension type: essential hypertension Qualified Code(s): I10 - Essential (primary) hypertension Code(s): I10 - Essential (primary) hypertension Status: Acute Assessment and Plan: Stable. (5) H/O mitral valve replacement: Code(s): Z95.2 - Presence of prosthetic heart valve Status: Acute History of Present Illness History of Present Illness Consult date/time: 10/17/24 07:50 Reason For Visit: PNEUMONIA/PULMONARY EDEMA/HYPONATREMIA Narrative: 64 yr old man who is my regular cardiology patient presents to ER with cough.He has a history of PAF (On Multaq), MVR with bioprosthetic valve, COPD, chronic systolic heart failure, hypertension (lisinopril causes dry cough), thoracic aortic aneurysm. Reports for last 3 days he had cough with sputum production and mixed with some blood, sob, fatigue. No fever or chills. He has gallstones but does not need to have surgery for it. He is not having palpitations on Multaq. He reports intermittent sob. He is limited with GOMEZ at walking 1 block. Denies chest pain, orthopnea, PND, edema. CARDIOVASCULAR PROCEDURES CV/SURGERY: CV Surgery ([place], [place]: Bioprosthetic mitral valve replacement for endocarditis with a #31 [employer] bioprosthesis; TV repair with #34 remodeling reduction annuloplasty ring.) - 05/03/2014 ECHO/MUGA: 04/09/23 Echo: EF 55-60%, mild LVH, diastolic dysfunction (E/e' 36), mod LAE, TV repair and annuloplasty ring, mild TR, bioprosthetic MV, mild MS (mean 5 mmHg), aortic root 4.0 cm. 01/21/22 Echo: EF 55-60%, grade II diastolic dysfunction (E/e' 33), mod LAE, TV repair and annuloplasty ring, bioprosthetic MV, mild TR, trace PI, Aortic root 4.3 cm. Echo (EF 45-50%, mild LVE, mild LVH, TAPSE 1.4 cm s/o mild RV systolic dysfunction, mod LAE, mild THIEN, bioprosthetic MV with mean gradient 7 mmHg, trace TR, TV annuloplasty, trace TR, Aortic root 4.3 cm.) - 12/05/2018 ELECTROPHYSIOLOGY: 09/21/24 EKG: Sinus bradycardia at 46 bpm, borderline AV conduction delay, IVCD, QTc 490 ms. 03/10/24 EKG:Sinus bradycardia at 54 bpm, IVCD, QTc 490 ms. 07/02/23 EKG: Sinus bradycardia at 52 bpm, LBBB, QTc 479 ms. 04/08/23 EKG: Sinus rhythm, LBBB. 02/23/23 EKG: Sinus rhythm, first degree AV block, LBBB. 12/25/21 EKG: Sinus rhythm, first degree AV block, IVCD, delayed precordial R/S transition, QTc 442 ms. 10/24/20 EKG: Sinus rhythm, IVCD, delayed R/S transition, QTc 423 ms. EKG (Sinus rhythm at 68 bpm, QTc 451 ms.) - 06/07/2019 EKG (Sinus rhythm at 64 bpm, first degree AV block, IVCD, QTc 469 ms.) - 01/26/2019 EKG (Atrial fibrillation at 103 bpm.) - 01/19/2019 EVR (18 day event monitor: Sinus rhythm, HR range 45-120 bpm; average 62 bpm; 1 PVC.) - 09/09/2018 EKG (Sinus rhythm at 63 bpm with first degree AV block, QTc 464 ms.) - 05/11/2018 EKG (Sinus rhythm, borderline AV conduction delay, IVCD.) - 08/04/2017 VASCULAR: 11/27/22 [facility]A chest at [facility]: No thoracic aneurysm. 02/05/21 CTA chest: Ascending aortic aneurysm at 4.6 cm. Thoracic Ao CTA (Mildly dilated aortic root at 4.4 cm. Mild emphysema.) - 01/23/2019 Thoracic Ao CTA (Aortic root 4.4 cm. Mild emphysema.) - 01/23/2019 STRESS: 07/27/23 Lexiscan myoview: No ischemia. Moderate fixed defects in LAD distribution. EF>70%. Review of Systems Review of Systems: All systems reviewed & are unremarkable except as noted in HPI and below Constitutional: Constitutional: Reports as per HPI, Denies chills, Reports fatigue and Denies fever(s) Cardiovascular: Cardiovascular: Reports as per HPI, Denies chest pain and Denies irregular heart rhythm Respiratory: Respiratory: Reports as per HPI, Reports hemoptysis, Reports excessive phlegm production and Reports dyspnea Gastrointestinal: Gastrointestinal: Reports as per HPI and Denies abdominal pain Genitourinary: Genitourinary: Reports as per HPI and Denies dysuria Musculoskeletal: Musculoskeletal: Reports as per HPI Neurologic: Reports as per HPI, Denies dizziness and Denies syncope [facility] Past Medical History Medical History Combined systolic and diastolic congestive heart failure Chronic obstructive pulmonary disease Paroxysmal atrial fibrillation Hyperthyroidism Current use of watermelon inspector anticoagulation Alcohol abuse Chronic anxiety Gastritis Barretts esophagus Thoracic aortic aneurysm 4.4 cm Hyperlipidemia Hypertension Surgical History Surgical History History of colonoscopy with polypectomy History of mitral valve replacement with bioprosthetic valve (2013) History of appendectomy History of hernia repair History of tonsillectomy Family History Family History Mother Family history of chronic obstructive pulmonary disease Social History Social History Social History: Surrogate medical decision maker: Yuliana Minor, spouse. Code status: Full code. Smoking packs per day: 2 Smoking cigarettes per day: 40.0 Years smoked: 25 Smoking pack-years: 50.00 Smoking status: Former smoker Tobacco type: cigarettes Second hand tobacco smoke exposure: No Smoking end date: 10/04/02 Alcohol intake: former Drinks per week: 8 Alcohol use details: BEERS Substance use: never Substance use type: does not use Do You Feel Safe in your Home?: Yes Lack of Transportation: No Lack of Food: Never True Current Housing: I Have Housing Concerned About Future Housing: No Difficulty Paying Gas/Electric Bills: No Difficulty Paying for Meds: No Currently Unemployed: No Education: High School Diploma/GED Difficulty w/ Childcare or Family Care: No Living arrangements: with family Occupation/Education: unemployed Spiritual care concerns: No Meds Home Medications and Allergies Home Medications ?Medication ?Instructions ?Recorded ?Confirmed ?Type tiotropium 2.5 mcg-olodaterol 2.5 2 puff inhalation DAILY 10/06/22 10/16/24 History mcg/actuation mist for inhalation (Stiolto Respimat) alprazolam 0.5 mg tablet (Xanax) 0.5 mg PO QHS PRN anxiety] 07/28/23 10/16/24 History omeprazole 20 mg capsule,delayed 40 mg PO BID 01/06/24 10/16/24 History release propranolol 80 mg capsule,24 20 mg PO BID 01/06/24 10/16/24 History hr,extended release dronedarone 400 mg tablet (Multaq) See Rx Instructions .Route 03/14/24 10/16/24 Rx .COMPLEX #180 tabs rivaroxaban 20 mg tablet (Xarelto) See Rx Instructions .Route 08/17/24 10/16/24 Rx .COMPLEX #90 tabs methimazole 5 mg tablet See Rx Instructions .Route .COMPLEX 08/28/24 10/16/24 History albuterol sulfate 2.5 mg/3 mL 2.5 mg inhalation QID PRN 10/16/24 10/16/24 History (0.083 %) solution for nebulization shortness of breath or wheezing albuterol sulfate 90 mcg/actuation 2 puff inhalation Q6H PRN 10/16/24 10/16/24 History aerosol inhaler shortness of breath or wheezing losartan 50 mg tablet 50 mg PO DAILY #90 tabs 10/16/24 10/16/24 Rx prochlorperazine maleate 10 mg 10 mg PO DAILY PRN nausea and 10/16/24 10/16/24 History tablet vomiting Allergies Allergy/AdvReac Type Severity Reaction Status Date / Time No Known Allergies Allergy Verified 10/16/24 10:57 Vital Signs Vital Signs - 24 hr 10/16/24 10:01 10/16/24 10:49 10/16/24 10:49 Temperature 97.9 F Pulse Rate 72 66 Respiratory Rate 20 Blood Pressure 99/54 L Pulse Oximetry 95 96 Oxygen Delivery Room Air Room Air Oxygen Flow Rate 10/16/24 10:49 10/16/24 11:01 10/16/24 11:16 Temperature Pulse Rate 64 59 L 58 L Respiratory Rate 12 8 L 9 L Blood Pressure 104/77 106/76 96/71 L Pulse Oximetry 96 100 97 Oxygen Delivery Oxygen Flow Rate 10/16/24 11:30 10/16/24 12:15 10/16/24 12:38 Temperature Pulse Rate 61 63 61 Respiratory Rate 10 L 11 L 10 L Blood Pressure 100/70 101/71 Pulse Oximetry 99 100 100 Oxygen Delivery Oxygen Flow Rate 10/16/24 13:00 10/16/24 13:02 10/16/24 13:06 Temperature Pulse Rate 66 64 Respiratory Rate 9 L 16 Blood Pressure 93/73 L Pulse Oximetry 98 97 Oxygen Delivery Room Air Oxygen Flow Rate 10/16/24 13:08 10/16/24 13:23 10/16/24 13:31 Temperature Pulse Rate 64 64 72 Respiratory Rate 20 10 L 13 Blood Pressure 97/77 L 88/69 L Pulse Oximetry 98 Oxygen Delivery Oxygen Flow Rate 10/16/24 14:01 10/16/24 15:30 10/16/24 17:07 Temperature Pulse Rate 69 69 70 Respiratory Rate 14 12 13 Blood Pressure 79/61 L 82/61 L Pulse Oximetry 99 94 95 Oxygen Delivery Oxygen Flow Rate 10/16/24 17:39 10/16/24 18:35 10/16/24 19:00 Temperature Pulse Rate 74 72 79 Respiratory Rate 15 15 14 Blood Pressure 79/45 L 102/63 94/60 L Pulse Oximetry 94 98 97 Oxygen Delivery Oxygen Flow Rate 10/16/24 20:46 10/16/24 21:00 10/16/24 21:02 Temperature Pulse Rate 83 83 86 Respiratory Rate 15 18 18 Blood Pressure 86/59 L Pulse Oximetry 89 L 93 Oxygen Delivery Oxygen Flow Rate 10/16/24 21:07 10/16/24 23:02 10/16/24 23:38 Temperature 97.7 F Pulse Rate 99 Respiratory Rate 20 Blood Pressure 110/72 125/80 Pulse Oximetry 98 90 Oxygen Delivery Nasal Cannula Oxygen Flow Rate 2 10/16/24 23:50 10/17/24 00:00 10/17/24 00:00 Temperature Pulse Rate 94 91 Respiratory Rate Blood Pressure Pulse Oximetry 93 Oxygen Delivery Nasal Cannula Oxygen Flow Rate 2 10/17/24 00:03 10/17/24 02:06 10/17/24 02:15 Temperature Pulse Rate 88 88 89 Respiratory Rate 20 20 Blood Pressure Pulse Oximetry Oxygen Delivery Oxygen Flow Rate 10/17/24 04:00 10/17/24 05:35 Temperature 97.7 F Pulse Rate 90 83 Respiratory Rate 18 Blood Pressure 108/58 L Pulse Oximetry 90 Oxygen Delivery Oxygen Flow Rate Exam Const: General: cooperative, healthy appearing and comfortable Resp: Auscultation: crackles, no rhonchi, no wheezes and diminished lung sounds Cardio: Rate: regular rate Rhythm: regular rhythm Heart sounds: no murmurs Peripheral pulses: dorsalis pedis present GI: GI Palp: No abdominal tenderness and Yes Soft to palpation Neuro: General: oriented to person, oriented to place and oriented to time Extrem: Right lower extremity: no edema Left lower extremity: no edema Results Labs and Meds 10/17/24 05:32 10/17/24 05:32 Lab results: Cardiac Enzymes 10/16/24 10/16/24 10/16/24 Range/Units 10:18 17:37 21:40 AST 30 (17-59) U/L Troponin I 0.018 0.017 0.020 (0.000-0.034) ng/mL Coagulation 10/16/24 Range/Units 10:18 PT 25.5 H (11.1-14.7) Seconds APTT 38.2 H (22.3-36.8) Seconds CBC 10/16/24 10/17/24 Range/Units 10:18 05:32 WBC 6.8 10.4 H (4.5-10.0) K/mm3 RBC 3.78 L 3.51 L (4.6-6.20) M/mm3 Hgb 11.9 L 11.0 L (14.0-18.0) g/dL Hct 33.6 L 31.8 L (42.0-52.0) % Plt Count 177 171 (150-375) k/mm3 Lymph # (Auto) 0.60 L 0.63 L (0.9-3.2) K/mm3 [place] # (Auto) 0.5 0.7 H (0.1-0.6) K/mm3 Eos # (Auto) 0.0 0.0 (0-0.3) K/mm3 Baso # (Auto) 0.0 0.0 (0.0-0.1) K/mm3 Comprehensive Metabolic Panel 10/16/24 10/16/24 10/16/24 Range/Units 10:18 17:37 17:41 Sodium 119 L* 121 L 121 L (137-145) mmol/L Potassium 4.6 3.6 (3.4-5.0) mmol/L Chloride 87 L 95 L (98-107) mmol/L Carbon Dioxide 24 20 L (22-30) mmol/L BUN 18 17 (9-20) mg/dL Creatinine 0.85 0.77 (0.7-1.3) mg/dL Glucose 115 H 107 (65-110) mg/dL Calcium 8.6 7.2 L (8.4-10.2) mg/dL AST 30 (17-59) U/L ALT 19 (6-50) U/L Alkaline Phosphatase 92 (38-126) U/L Total Protein 7.0 (6.3-8.2) g/dL Albumin 4.0 (3.5-5.1) g/dL 10/16/24 10/17/24 10/17/24 Range/Units 21:40 01:51 05:32 Sodium 119 L* 120 L 121 L (137-145) mmol/L Potassium 4.6 (3.4-5.0) mmol/L Chloride 93 L (98-107) mmol/L Carbon Dioxide 23 (22-30) mmol/L BUN 19 (9-20) mg/dL Creatinine 0.82 (0.7-1.3) mg/dL Glucose 114 H (65-110) mg/dL Calcium 8.3 L (8.4-10.2) mg/dL AST (17-59) U/L ALT (6-50) U/L Alkaline Phosphatase (38-126) U/L Total Protein (6.3-8.2) g/dL Albumin (3.5-5.1) g/dL Intake and Output 10/16/24 10/16/24 10/17/24 15:59 23:59 07:59 Intake Total 1175.0 474 921.2 Output Total 250 Balance 1175.0 474 671.2 Intake: IV 1175.0 921.2 Sodium Chloride 0.9% IV 1,000 1000.0 921.2 ml @ 75 mls/hr IV CONT .[id number] [facility] Rx#:[id number] Azithromycin 500 mg/Ns 250 ml 125.0 500 mg In 250 ml @ 250 mls/hr IVPB Q24H [facility] Rx#:[id number] cefTRIAXone 1 GM/NS 50 ML 1 gm 50 In 50 ml @ 100 mls/hr IVPB Q24H [facility] Rx#:[id number] Oral 474 0 Output: Urine 250 Patient Weight 10/17/24 23:59 Weight 68.7 kg
[2024-10-17] MEDS: DOXYCYCLINE HYCLATE 100 MG TABLET PO ×2 (08:11→20:35)
[2024-10-17] MEDS: PANTOPRAZOLE 40 MG TABLET PO ×2 (08:12→20:36)
[2024-10-17 09:37] LABS: Sodium 122 mmol/L (137-145)
[2024-10-17] MEDS: methiMAzole 5 MG TAB BY MOUTH (11:48)
--- NOTE | 2024-10-17 12:32 | PHAR ---
HOME MED VERIFIED = [facility] RX [id number] PROPRANOLOL 10 MG TABS. DIRECTIONS FOR 2 TABS TWICE A DAY FOR 7 DAYS (5 DAYS GIVEN), 1 TAB Q12HR FOR 7 DAYS THEN 1 TAB HS X7 DAYS.
[2024-10-17 13:37] LABS: Sodium 122 mmol/L (137-145)
[2024-10-17] MEDS: PERFLUTREN LIPID MICROSPHERES 1.5 ML VIAL DILUTED TO 10 ML TOTAL VOLUME IV PUSH (15:00)
--- NOTE | 2024-10-17 17:00 | IVDEFINITY ---
Prior to administration of IV Definity the patient was educated on the risks and benefits of the imaging enhancing agent including potential adverse side effects. The patient verbalized understanding. Allergies were verified. No exclusion criteria were identified and at least one of the following inclusion criteria were met: 1) physician request, 2) patient technically difficult to image (per the [place] [employer] guidelines of two or more segments not discernable within the apical view), or 3) questionable left ventricular function. ?
--- NOTE | 2024-10-17 17:25 | P.PNIM_ITS ---
Progress Note: A&P Assessment and Plan (1) Pneumonia: Code(s): J18.9 - Pneumonia, unspecified organism Status: Acute Assessment and Plan: Chest x-ray showed bilateral perihilar and lower lobe pneumonia. * Doxycycline and ceftriaxone started 10/16/2024. * Sputum culture pending. * Check Legionella pneumococcal antigens as well as mycoplasma IgM. * Continue scheduled bronchodilators and updrafts p.r.n. * Currently on good O2 sats > 90 % on RA. (2) Hemoptysis: Code(s): R04.2 - Hemoptysis Status: Acute Assessment and Plan: Most likely related to pneumonia in the setting of anticoagulation. No masses or nodules noted on chest x-ray. * Hold rivaroxaban for now and continue to monitor. * Consider chest CT if no improvement with antibiotics. 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 He does not drink fluids in excess because of this history and he feels that he may be dehydrated from poor oral intake the last several days. Pneumonia could be a precipitating factor as well. * Check urine sodium, urine and serum osmolalities, and TSH. * Discontinue IV fluids with possible pulmonary edema on CXR. * Currently asymptomatic and we'll continue to monitor closely. * Consider salt tabs and nephro consult if no significant improvement. (4) Abnormal EKG: Code(s): R94.31 - Abnormal electrocardiogram [ECG] [EKG] Status: Acute Assessment and Plan: EKG showed mild flattening of the ST segment in the lateral leads with T-wave inversion in V3; - No chest pain or SOB. - Troponin negative. * General Manager [employer] consulted per patient request. * Echocardiogram pending results. * Appreciate inventory and pricing associate assistance. (5) Hypertension: Qualifiers: Hypertension type: essential hypertension Qualified Code(s): I10 - Essential (primary) hypertension Code(s): I10 - Essential (primary) hypertension Status: Acute Assessment and Plan: Blood pressures running low and antihypertensives held for now. Monitor closely. (6) Paroxysmal atrial fibrillation: Code(s): I48.0 - Paroxysmal atrial fibrillation Status: Acute Assessment and Plan: Currently in sinus rhythm. Per patient report, his propranolol is being weaned down due to episodes of bradycardia. * Continue dronedarone. * Hold rivaroxaban given hemoptysis. * Appreciate inventory and pricing associate assistance. (7) Hyperthyroidism: Code(s): E05.90 - Thyrotoxicosis, unspecified without thyrotoxic crisis or storm Status: Acute Assessment and Plan: Continue methimazole; TSH and T4 within normal limits. 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 * Avoid over-hydration. * Echocardiogram pending. * Monitor closely for decompensation. Plan - Continue IV abx for PNA treatment as we follow cultures. Continue to monitor hemoptysis. Diet: Heart Healthy. DVT PPx: SCD's. Disposition: Pending clinical symptoms and activity. Time Spent With Patient Time with patient: 15 - 25 minutes Subjective Date/time seen: 10/17/24 17:25 Patient states he feels alright and has no pain or other distressful symptoms. States he still has episodes of hemoptysis. Interval history: Patient calm seated bedside and looks to be in no acute distress. Review of Systems Review of Systems: All systems reviewed & are unremarkable except as noted in HPI and below Exam Narrative: General: Well-developed, nontoxic-appearing gentleman in no acute distress. HEENT: PERRL, EOMI. Sclera anicteric. Oropharynx is clear. Neck: Supple. No JVD or lymphadenopathy. Respiratory: Respirations are nonlabored and he is speaking in full sentences. Lung sounds are diminished with scattered coarse sounds. Cardiovascular: Regular rate and rhythm with S1-S2. Gastrointestinal: Abdomen is soft, nontender, and nondistended with positive bowel sounds. Skin: Warm and dry. No rash or lesions. Extremities: No cyanosis, clubbing, or edema. Radial and pedal pulses intact. Neurological: Alert. Cranial nerves II-XII are grossly intact. No gross focal neuro deficits. Psychiatric: Pleasant and cooperative with normal mood and affect. Objective Data Vital Signs Vital Signs: Vital Signs - 24 hr 10/16/24 17:39 10/16/24 18:35 10/16/24 19:00 Temperature Pulse Rate 74 72 79 Respiratory Rate 15 15 14 Blood Pressure 79/45 L 102/63 94/60 L Pulse Oximetry 94 98 97 Oxygen Delivery Oxygen Flow Rate 10/16/24 20:46 10/16/24 21:00 10/16/24 21:02 Temperature Pulse Rate 83 83 86 Respiratory Rate 15 18 18 Blood Pressure 86/59 L Pulse Oximetry 89 L 93 Oxygen Delivery Oxygen Flow Rate 10/16/24 21:07 10/16/24 23:02 10/16/24 23:38 Temperature 97.7 F Pulse Rate 99 Respiratory Rate 20 Blood Pressure 110/72 125/80 Pulse Oximetry 98 90 Oxygen Delivery Nasal Cannula Oxygen Flow Rate 2 10/16/24 23:50 10/17/24 00:00 10/17/24 00:00 Temperature Pulse Rate 94 91 Respiratory Rate Blood Pressure Pulse Oximetry 93 Oxygen Delivery Nasal Cannula Oxygen Flow Rate 2 10/17/24 00:03 10/17/24 02:06 10/17/24 02:15 Temperature Pulse Rate 88 88 89 Respiratory Rate 20 20 Blood Pressure Pulse Oximetry Oxygen Delivery Oxygen Flow Rate 10/17/24 04:00 10/17/24 05:35 10/17/24 08:09 Temperature 97.7 F 97.2 F L Pulse Rate 90 83 82 Respiratory Rate 18 18 Blood Pressure 108/58 L 106/69 Pulse Oximetry 90 91 Oxygen Delivery Oxygen Flow Rate 10/17/24 08:11 10/17/24 08:11 10/17/24 08:12 Temperature Pulse Rate 85 83 Respiratory Rate Blood Pressure Pulse Oximetry 94 Oxygen Delivery Room Air Oxygen Flow Rate 10/17/24 08:43 10/17/24 08:43 10/17/24 08:54 Temperature Pulse Rate 79 79 75 Respiratory Rate 20 20 20 Blood Pressure Pulse Oximetry 94 Oxygen Delivery Room Air Oxygen Flow Rate 10/17/24 12:00 10/17/24 14:05 10/17/24 14:05 Temperature Pulse Rate 91 68 68 Respiratory Rate 20 20 Blood Pressure Pulse Oximetry 93 Oxygen Delivery Room Air Oxygen Flow Rate 10/17/24 14:20 10/17/24 16:00 10/17/24 16:00 Temperature 97.6 F Pulse Rate 75 67 77 Respiratory Rate 20 16 Blood Pressure 100/76 Pulse Oximetry 95 Oxygen Delivery Oxygen Flow Rate Intake/Output Intake/Output: Intake & Output 10/14/24 10/15/24 10/16/24 10/17/24 23:59 23:59 23:59 23:59 Intake Total 1649.0 1383.2 Output Total 250 Balance 1649.0 1133.2 Meds/Results Medications: Active Medications Generic Name Dose Route Start Last Admin Trade Name Freq PRN Reason Stop Dose Admin Acetaminophen 650 mg 10/16/24 12:34 Acetaminophen 325 Mg Tablet PO Q4H PRN Mild Pain (1-3) or Fever Albuterol/Ipratropium 3 ml 10/16/24 14:00 10/17/24 14:05 Ipratropium 0.5 Mg/Albuterol Sulfate 2.5 Mg Ampul.Neb 3 Ml INHALATION 3 ml Q6HRT CROW Administration Alprazolam 0.5 mg 10/16/24 21:47 10/17/24 14:24 Alprazolam (*Crx) 0.5 Mg Tablet PO 0.5 mg DAILY PRN Administration anxiety] Alprazolam 0.5 mg 10/17/24 21:00 Alprazolam (*Crx) 0.5 Mg Tablet PO [facility] Doxycycline Hyclate 100 mg 10/16/24 21:00 10/17/24 08:11 Doxycycline Hyclate 100 Mg Tablet PO 100 mg Q12HR CROW Administration Dronedarone 400 mg 10/16/24 09:00 10/17/24 08:12 Dronedarone Hcl 400 Mg Tablet BY MOUTH 400 mg Q12HR CROW Administration Home Med 2 each 10/17/24 12:30 10/17/24 12:46 Home Medication - Propranolol 10 Mg Tab PO 10/18/24 21:01 Not Given Q12HR [facility] Home Med 1 each 10/19/24 09:00 Home Medication - Propranolol 10 Mg Tab PO 10/25/24 21:01 Q12HR CROW Home Med 1 each 10/26/24 21:00 Home Medication - Propranolol 10 Mg Tab PO 11/01/24 21:01 HS CROW Ceftriaxone Sodium 1 gm in 50 mls @ 100 mls/hr 10/16/24 12:00 10/17/24 11:43 Rocephin 1 Gm/Ns 50 Ml IVPB 100 mls/hr Q24H CROW Administration Sodium Chloride 1,000 mls @ 75 mls/hr 10/16/24 18:35 10/17/24 06:56 Normal Saline Iv IV CONT 75 mls/hr .[id number] CROW Administration Methimazole 5 mg 10/17/24 09:00 10/17/24 11:48 Methimazole 5 Mg Tab BY MOUTH 5 mg [id number] CROW Administration Pantoprazole Sodium 40 mg 10/17/24 09:00 10/17/24 08:12 Pantoprazole 40 Mg Tablet PO 40 mg Q12HR CROW Administration Umeclidinium/Vilanterol 1 puff 10/17/24 08:00 Umeclidinium/Vilanterol 62.5-25 Mcg Ellipta INHALATION DAILYRT [facility] Radiology Results: ITS Impressions Chest X-Ray 10/16/24 10:28 IMPRESSION: Bilateral perihilar and lower lobe pneumonia. Underlying pulmonary edema cannot be excluded. Minimal left pleural effusion. Labs Labs: Laboratory Results - last 24 hr 10/16/24 10/16/24 10/16/24 15:12 17:37 17:40 WBC RBC Hgb Hct MCV MCH MCHC RDW Plt Count MPV Immature Gran % (Auto) Neut % (Auto) Lymph % (Auto) [place] % (Auto) Eos % (Auto) Baso % (Auto) Lymph # (Auto) [place] # (Auto) Eos # (Auto) Baso # (Auto) Abs Immat Gran (auto) Absolute Neuts (auto) Absolute Nucleated RBC Nucleated RBC % Sodium 121 L Potassium Chloride Carbon Dioxide Anion Gap BUN Creatinine Estim Creat Clear Calc Estimated GFR Glucose Lactic Acid 1.6 Calcium Troponin I 0.017 Ur Random Urea 924 10/16/24 10/16/24 10/17/24 17:41 21:40 01:51 WBC RBC Hgb Hct MCV MCH MCHC RDW Plt Count MPV Immature Gran % (Auto) Neut % (Auto) Lymph % (Auto) [place] % (Auto) Eos % (Auto) Baso % (Auto) Lymph # (Auto) [place] # (Auto) Eos # (Auto) Baso # (Auto) Abs Immat Gran (auto) Absolute Neuts (auto) Absolute Nucleated RBC Nucleated RBC % Sodium 121 L 119 L* 120 L Potassium 3.6 Chloride 95 L Carbon Dioxide 20 L Anion Gap 6 BUN 17 Creatinine 0.77 Estim Creat Clear Calc 80 Estimated GFR > 60 Glucose 107 Lactic Acid Calcium 7.2 L Troponin I 0.020 Ur Random Urea 10/17/24 10/17/24 10/17/24 05:32 09:21 13:18 WBC 10.4 H RBC 3.51 L Hgb 11.0 L Hct 31.8 L MCV 90.6 MCH 31.3 MCHC 34.6 RDW 13.4 Plt Count 171 MPV 9.2 Immature Gran % (Auto) 0.6 H Neut % (Auto) 85.9 H Lymph % (Auto) 6.0 L [place] % (Auto) 7.1 Eos % (Auto) 0.1 Baso % (Auto) 0.3 Lymph # (Auto) 0.63 L [place] # (Auto) 0.7 H Eos # (Auto) 0.0 Baso # (Auto) 0.0 Abs Immat Gran (auto) 0.06 H Absolute Neuts (auto) 9.0 H Absolute Nucleated RBC 0.000 Nucleated RBC % 0.0 Sodium 121 L 122 L 122 L Potassium 4.6 Chloride 93 L Carbon Dioxide 23 Anion Gap 5 BUN 19 Creatinine 0.82 Estim Creat Clear Calc 76 Estimated GFR > 60 Glucose 114 H Lactic Acid Calcium 8.3 L Troponin I Ur Random Urea Quality VTE Prophylaxis VTE prophylaxis: mechanical ordered Hospitalist MIPS Advance Care Plan I have confirmed that the patient's Advanced Care Plan is present, code status is documented, or surrogate decision maker is listed in patient medical record.: Yes Medication Reconciliation I have utilized all available resources to obtain, update and review the patients current medications (includes all prescriptions, OTC, herbals, cannabis, and nutritional supplements).: Yes
[2024-10-17] MEDS: PHARMACIST COMMUNICATION ORDER 1 EACH XX (20:40)
[2024-10-17] MEDS: PROPRANOLOL 10 MG 2 EACH PO (20:41)
[2024-10-18] VITALS (19 sets, daily range): BP systolic 90–100; BP diastolic 46–67; PULSE 74–89; RESP 18–20; TEMP 36.4–36.6; O2SAT 92–96
--- NOTE | 2024-10-18 | ECHOL_ITS ---
Patient Info Name: Milton Minor Age: 64 years : 1960 Gender: Male Ht: 68 in Wt: 151 lbs BSA: 1.82 m2 HR: 86 bpm BP: 99 / 46 mmHg Technical Quality: Fair Exam Date: 10/18/2024 12:12 PM Exam Location: Echo Lab Patient Status: Outpatient Admit Date: 10/16/2024 Staff Ordering Physician: John Park DO Operators Teacher: Jessica Tavarez RDCS Attending Provider: Ella Sotomayor MD Referring Physician: Xavier MOLINA; Exam Type: CA echo limited Study Info Indications - REASSESS MV Limited two-dimensional transthoracic echocardiogram is performed. Summary 1. Limited echocardiogram to assess mitral valve. 2. Bioprosthetic mitral valve noted and not well seen. 3. 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 Bioprosthetic mitral valve noted and not well seen. Limited echocardiogram to assess mitral valve. There is no regurgitation of the bioprosthetic mitral valve. Mitral Valve Name Value Normal MV Doppler MV Peak Gradient 9 mmHg MV Mean Gradient 5 mmHg MV Decel Page 319 cm/s2 MV PHT 37 ms MV Area (PHT) 6.0 cm2 4.0-5.0 MV Diastolic Function MV E Peak Velocity 40 cm/s MV A Peak Velocity 37 cm/s MV E/A 1.1 MV Decel Time 126 ms Report Signatures
[2024-10-18] MEDS: SODIUM CHLORIDE 0.9% IV 1,000 ML 75 ML IV CONT ×2 (00:45→13:53)
[2024-10-18] MEDS: IPRATROPIUM 0.5 MG/ALBUTEROL SULFATE 2.5 MG AMPUL.NEB 3 ML INHALATION ×3 (02:57→20:11)
[2024-10-18] MEDS: DRONEDARONE HCL 400 MG TABLET BY MOUTH ×2 (08:58→20:28)
[2024-10-18] MEDS: DOXYCYCLINE HYCLATE 100 MG TABLET PO ×2 (08:58→20:28)
[2024-10-18] MEDS: methiMAzole 5 MG TAB BY MOUTH (08:58)
[2024-10-18] MEDS: PANTOPRAZOLE 40 MG TABLET PO ×2 (08:58→20:28)
--- NOTE | 2024-10-18 09:18 | P.PNIM_ITS ---
Progress Note: A&P Assessment and Plan (1) Pneumonia: Code(s): J18.9 - Pneumonia, unspecified organism Status: Acute Assessment and Plan: Chest x-ray showed bilateral perihilar and lower lobe pneumonia. * Doxycycline and ceftriaxone started 10/16/2024. * Sputum culture pending. * Check Legionella pneumococcal antigens as well as mycoplasma IgM. * Continue scheduled bronchodilators and updrafts p.r.n. * Currently on good O2 sats > 90 % on RA. * wean oxygen off if able (2) Hemoptysis: Code(s): R04.2 - Hemoptysis Status: Acute Assessment and Plan: Most likely related to pneumonia in the setting of anticoagulation. No masses or nodules noted on chest x-ray. * Hold rivaroxaban for now and continue to monitor. * Consider chest CT if no improvement with antibiotics. 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 He does not drink fluids in excess because of this history and he feels that he may be dehydrated from poor oral intake the last several days. Pneumonia could be a precipitating factor as well. * Check urine sodium, urine and serum osmolalities, and TSH. * Discontinue IV fluids with possible pulmonary edema on CXR. * Currently asymptomatic and we'll continue to monitor closely. * Consider salt tabs and nephro consult if no significant improvement. (4) Abnormal EKG: Code(s): R94.31 - Abnormal electrocardiogram [ECG] [EKG] Status: Acute Assessment and Plan: EKG showed mild flattening of the ST segment in the lateral leads with T-wave inversion in V3; - No chest pain or SOB. - Troponin negative. * Job Coach/Job Developer consulted per patient request. * Echocardiogram pending results. * Appreciate extruding press adjuster assistance. (5) Hypertension: Qualifiers: Hypertension type: essential hypertension Qualified Code(s): I10 - Essential (primary) hypertension Code(s): I10 - Essential (primary) hypertension Status: Acute Assessment and Plan: Blood pressures running low and antihypertensives held for now. Monitor closely. (6) Paroxysmal atrial fibrillation: Code(s): I48.0 - Paroxysmal atrial fibrillation Status: Acute Assessment and Plan: Currently in sinus rhythm. Per patient report, his propranolol is being weaned down due to episodes of bradycardia. * Continue dronedarone. * Hold rivaroxaban given hemoptysis. * Appreciate extruding press adjuster assistance. (7) Hyperthyroidism: Code(s): E05.90 - Thyrotoxicosis, unspecified without thyrotoxic crisis or storm Status: Acute Assessment and Plan: Continue methimazole; TSH and T4 within normal limits. 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 * Avoid over-hydration. * Echocardiogram pending. * Monitor closely for decompensation. Plan - Continue IV abx for PNA treatment as we follow cultures. Continue to monitor hemoptysis. Diet: Heart Healthy. DVT PPx: SCD's. Disposition: Pending clinical symptoms and activity. Time Spent With Patient Time with patient: 25 - 35 minutes Subjective Date/time seen: 10/18/24 09:18 Interval history: Patient is seen and examined. Nephrology was consulted as Na improved only to 122.Pt is alert, clM AND IN NO DISTRESS. Reports cough and it is somewhat difficult to bring phlegm up. Review of Systems Review of Systems: 12 systems were reviewed and are negativ e except for as per HPI. All systems reviewed & are unremarkable except as noted in HPI and below Exam Narrative: General: Well-developed, nontoxic-appearing gentleman in no acute distress. HEENT: PERRL, EOMI. Sclera anicteric. Oropharynx is clear. Neck: Supple. No JVD or lymphadenopathy. Respiratory: Respirations are nonlabored and he is speaking in full sentences. Lung sounds are diminished with scattered coarse sounds. Cardiovascular: Regular rate and rhythm with S1-S2. Gastrointestinal: Abdomen is soft, nontender, and nondistended with positive bowel sounds. Skin: Warm and dry. No rash or lesions. Extremities: No cyanosis, clubbing, or edema. Radial and pedal pulses intact. Neurological: Alert. Cranial nerves II-XII are grossly intact. No gross focal neuro deficits. Psychiatric: Pleasant and cooperative with normal mood and affect. Objective Data Vital Signs Vital Signs: Vital Signs - 24 hr 10/17/24 12:00 10/17/24 14:05 10/17/24 14:05 Temperature Pulse Rate 91 68 68 Respiratory Rate 20 20 Blood Pressure Pulse Oximetry 93 Oxygen Delivery Room Air Fraction of Inspired Oxygen 10/17/24 14:20 10/17/24 16:00 10/17/24 16:00 Temperature 97.6 F Pulse Rate 75 67 77 Respiratory Rate 20 16 Blood Pressure 100/76 Pulse Oximetry 95 Oxygen Delivery Fraction of Inspired Oxygen 10/17/24 19:53 10/17/24 19:53 10/17/24 20:00 Temperature Pulse Rate 84 Respiratory Rate 20 Blood Pressure Pulse Oximetry 92 Oxygen Delivery Room Air Room Air Fraction of Inspired Oxygen 21 10/17/24 20:00 10/17/24 20:03 10/17/24 20:39 Temperature Pulse Rate 84 85 Respiratory Rate 20 Blood Pressure 98/70 L Pulse Oximetry Oxygen Delivery Fraction of Inspired Oxygen 10/17/24 20:39 10/18/24 00:00 10/18/24 00:00 Temperature 97.5 F L Pulse Rate 85 79 76 Respiratory Rate 18 Blood Pressure 97/67 L Pulse Oximetry 94 Oxygen Delivery Fraction of Inspired Oxygen 10/18/24 02:58 10/18/24 03:05 10/18/24 04:00 Temperature Pulse Rate 75 74 74 Respiratory Rate 20 20 Blood Pressure Pulse Oximetry Oxygen Delivery Fraction of Inspired Oxygen 10/18/24 06:02 10/18/24 08:55 10/18/24 08:58 Temperature 97.8 F Pulse Rate 77 86 86 Respiratory Rate 18 Blood Pressure 90/65 L 99/46 L Pulse Oximetry 92 Oxygen Delivery Fraction of Inspired Oxygen Intake/Output Intake/Output: Intake & Output 10/15/24 10/16/24 10/17/24 10/18/24 23:59 23:59 23:59 23:59 Intake Total 1649.0 2623.2 Output Total 805 0 Balance 1649.0 1818.2 0 Meds/Results Medications: Active Medications Generic Name Dose Route Start Last Admin Trade Name Freq PRN Reason Stop Dose Admin Acetaminophen 650 mg 10/16/24 12:34 Acetaminophen 325 Mg Tablet PO Q4H PRN Mild Pain (1-3) or Fever Albuterol/Ipratropium 3 ml 10/16/24 14:00 10/18/24 09:05 Ipratropium 0.5 Mg/Albuterol Sulfate 2.5 Mg Ampul.Neb 3 Ml INHALATION Not Given Q6HRT [facility] Alprazolam 0.5 mg 10/16/24 21:47 10/17/24 14:24 Alprazolam (*Crx) 0.5 Mg Tablet PO 0.5 mg DAILY PRN Administration anxiety] Alprazolam 0.5 mg 10/17/24 21:00 10/17/24 20:36 Alprazolam (*Crx) 0.5 Mg Tablet PO 0.5 mg HS CROW Administration Doxycycline Hyclate 100 mg 10/16/24 21:00 10/18/24 08:58 Doxycycline Hyclate 100 Mg Tablet PO 100 mg Q12HR CROW Administration Dronedarone 400 mg 10/16/24 09:00 10/18/24 08:58 Dronedarone Hcl 400 Mg Tablet BY MOUTH 400 mg Q12HR CROW Administration Home Med 2 each 10/17/24 12:30 10/17/24 20:41 Home Medication - Propranolol 10 Mg Tab PO 10/18/24 21:01 2 each Q12HR CROW Administration Home Med 1 each 10/19/24 09:00 Home Medication - Propranolol 10 Mg Tab PO 10/25/24 21:01 Q12HR CROW Home Med 1 each 10/26/24 21:00 Home Medication - Propranolol 10 Mg Tab PO 11/01/24 21:01 HS [facility] Ceftriaxone Sodium 1 gm in 50 mls @ 100 mls/hr 10/16/24 12:00 10/17/24 11:43 Rocephin 1 Gm/Ns 50 Ml IVPB 100 mls/hr Q24H CROW Administration Sodium Chloride 1,000 mls @ 75 mls/hr 10/16/24 18:35 10/18/24 00:45 Normal Saline Iv IV CONT 75 mls/hr .[id number] CROW Administration Methimazole 5 mg 10/17/24 09:00 10/18/24 08:58 Methimazole 5 Mg Tab BY MOUTH 5 mg [id number] CROW Administration Pantoprazole Sodium 40 mg 10/17/24 09:00 10/18/24 08:58 Pantoprazole 40 Mg Tablet PO 40 mg Q12HR CROW Administration Umeclidinium/Vilanterol 1 puff 10/17/24 08:00 Umeclidinium/Vilanterol 62.5-25 Mcg Ellipta INHALATION DAILYRT [facility] Radiology Results: ITS Impressions Chest X-Ray 10/16/24 10:28 IMPRESSION: Bilateral perihilar and lower lobe pneumonia. Underlying pulmonary edema cannot be excluded. Minimal left pleural effusion. Labs Labs: Laboratory Results - last 24 hr 10/17/24 10/17/24 09:21 13:18 Sodium 122 L 122 L Quality VTE Prophylaxis VTE prophylaxis: mechanical ordered
[2024-10-18] MEDS: ACETAMINOPHEN 325 MG TABLET 650 MG PO (11:25)
[2024-10-18] MEDS: ALPRAZolam (*CRX) 0.5 MG TABLET PO ×2 (11:25→20:28)
[2024-10-18] MEDS: UMECLIDINIUM/VILANTEROL 62.5-25 MCG ELLIPTA 1 PUFF INHALATION (14:43)
[2024-10-18 15:54] LABS: Osmolality, Urine 475 mOsm/kg (50-1200)
--- NOTE | 2024-10-18 16:13 | P.CONNP_ITS ---
Assessment and Plan Assessment and plan (1) Hyponatremia: Code(s): E87.1 - Hypo-osmolality and hyponatremia Status: Acute Assessment and Plan: * chronic issue at baseline * multiple risk factors: * known history of COPD * CHF * thyroid disease * PPI use * nausea * distant history alcohol abuse * possibly exacerbated by #2 * asymptomatic * sodium usually runs around 123 - 129mmol/L since as far back as 2016 if not longer * history suggests SIADH with previous outpatient work-up (January 2024) noted: * prerenal urine electrolytes * known history of hyperthyroidism * cortisol okay * SPE and UPE negative * urine osmo > serum osmo * previous CXR with COPD changes * previous CT of head negative * only mild improvement with IVFs * will recheck work-up to ensure nothing has changed * started on salt tabs and fluid restriction (has not been doing this despite instructions to do so previously) * follow trend of sodium (2) Pneumonia: Code(s): J18.9 - Pneumonia, unspecified organism Status: Acute Assessment and Plan: * imaging with bilateral perihilar and lower lobe pneumonia * on supplemental oxygen and nebulizer treatment * on antibiotics therapy * follow cultures * wean oxygen (3) Hypertension: Qualifiers: Hypertension type: essential hypertension Qualified Code(s): I10 - Essential (primary) hypertension Code(s): I10 - Essential (primary) hypertension Status: Acute Assessment and Plan: * running on the lower side of normal * BP medications on hold * follow trend of hemodynamics (4) Paroxysmal atrial fibrillation: Code(s): I48.0 - Paroxysmal atrial fibrillation Status: Acute Assessment and Plan: * in sinus rhythm * holding anticoagulation due to issues with hemoptysis on admission * Cardiology following (5) Hyperthyroidism: Code(s): E05.90 - Thyrotoxicosis, unspecified without thyrotoxic crisis or storm Status: Acute Assessment and Plan: * continue methimazole * TSH and T4 within range I will continue to follow the patient with you while he remains hospitalized and make further recommendations as deemed necessary. Thank you for allowing me to participate in the care of this patient. L History of Present Illness Reason for Consult Consult date: 10/18/24 Reason for consult: hyponatremia Chief Complaint Chief complaint: PNEUMONIA/PULMONARY EDEMA/HYPONATREMIA History of Present Illness Narrative: The patient is a 64-year-old male with a past medical history as outlined below who presented to [facility] Emergency Room with hemoptysis. The patient reports that he had a nonproductive cough over the last few weeks. However, he has noticed in the past 3 days prior to presentation to the ER this been coughing up phlegm mixed with bright red blood. Furthermore, he feels quite weak and fatigued with poor oral intake and just a general sensation of not feeling well. He denies any issues with epistaxis or forceful coughing and denies any fevers, chills, headache, sore throat, nausea, vomiting, melena, hematochezia, or abdominal pain. However, given the symptoms as mentioned and his generalized feeling of feeling quite poorly, he came to the emergency room for further assessment Workup and evaluation emergency room demonstrated the patient to be relatively hypotensive with systolic BP in the high 90s to 100s but otherwise afebrile and with stable oxygen saturations on room air. Routine blood work was significant for a CBC with white cell count 6.8 hemoglobin 11.9 normal platelet count, hyponatremia with a sodium 119, INR 2.2, normal renal function[place] [address]. Viral testing for influenza, RSV, and COVID were negative and his chest x-ray showed bilateral perihilar and lower lobe pneumonia but underlying pulmonary edema could not be excluded. Given his symptoms, laboratory findings, and imaging studies, appropriate cultures were obtained and he was started on antibiotics for presumed community-acquired pneumonia. He was given a IV fluid bolus given his low blood pressure as well as his hyponatremia. He was subsequently admitted to the hospital for further evaluation therapy. Since his admission, his sodium level has improved somewhat but has not normalized. His breathing and respiratory status seemed to be doing somewhat better with interventions to date including antibiotics, supplemental oxygen, nebulizer treatments, and bronchodilators. However, he still reports his breathing is not back to baseline. Renal consultation was requested due to his known history of chronic hyponatremia. The patient is somewhat familiar to me as I saw him about a year ago for evaluation of his chronic hyponatremia. An extensive workup and evaluation was ordered/ done but the patient never followed up with me in the office for further management of his low sodium levels as he felt that his other physicians can handle it. From review his records and discussion with the patient, he has had issues/problems with hyponatremia since as far back as 2016 if not longer with his baseline sodium level running anywhere from 123-129 millimoles per L. there are times where it has worsened in compare this baseline as well. Interestingly, despite his significant hyponatremia at baseline, he remains completely asymptomatic from it and has had no other neurological sequelae since he has known about his low sodium levels. At 1 point time, he was on salt tablets 3 times a day in conjunction with the fluid restriction but the patient admits that in the last few years he has cut back on salt tablets as well as fluid restriction as it sometimes gets tiring for him to continue to do this in general. Currently, at the time my evaluation, he appears to be in no acute distress. COUNT INCLUDES THE [facility] Past Medical History Medical History Combined systolic and diastolic congestive heart failure Chronic obstructive pulmonary disease Paroxysmal atrial fibrillation Hyperthyroidism Current use of snf anticoagulation Alcohol abuse Chronic anxiety Gastritis Barretts esophagus Thoracic aortic aneurysm 4.4 cm Hyperlipidemia Hypertension Surgical History Surgical History History of colonoscopy with polypectomy History of mitral valve replacement with bioprosthetic valve (2013) History of appendectomy History of hernia repair History of tonsillectomy Family History Family History Mother Family history of chronic obstructive pulmonary disease Social History Social History Social History: Surrogate medical decision maker: Yuliana Minor, spouse. Code status: Full code. Smoking packs per day: 2 Smoking cigarettes per day: 40.0 Years smoked: 25 Smoking pack-years: 50.00 Smoking status: Former smoker Tobacco type: cigarettes Second hand tobacco smoke exposure: No Smoking end date: 10/04/02 Alcohol intake: former Drinks per week: 8 Alcohol use details: BEERS Substance use: never Substance use type: does not use Do You Feel Safe in your Home?: Yes Lack of Transportation: No Lack of Food: Never True Current Housing: I Have Housing Concerned About Future Housing: No Difficulty Paying Gas/Electric Bills: No Difficulty Paying for Meds: No Currently Unemployed: No Education: High School Diploma/GED Difficulty w/ Childcare or Family Care: No Living arrangements: with family Occupation/Education: unemployed Spiritual care concerns: No Meds Home Medications and Allergies Home Medications ?Medication ?Instructions ?Recorded ?Confirmed ?Type tiotropium 2.5 mcg-olodaterol 2.5 2 puff inhalation DAILY 10/06/22 10/16/24 History mcg/actuation mist for inhalation (Stiolto Respimat) alprazolam 0.5 mg tablet (Xanax) 0.5 mg PO QHS PRN anxiety] 07/28/23 10/16/24 History omeprazole 20 mg capsule,delayed 40 mg PO BID 01/06/24 10/16/24 History release propranolol 80 mg capsule,24 20 mg PO BID 01/06/24 10/16/24 History hr,extended release dronedarone 400 mg tablet (Multaq) See Rx Instructions .Route 03/14/24 10/16/24 Rx .COMPLEX #180 tabs rivaroxaban 20 mg tablet (Xarelto) See Rx Instructions .Route 08/17/24 10/16/24 Rx .COMPLEX #90 tabs methimazole 5 mg tablet See Rx Instructions .Route .COMPLEX 08/28/24 10/16/24 History albuterol sulfate 2.5 mg/3 mL 2.5 mg inhalation QID PRN 10/16/24 10/16/24 History (0.083 %) solution for nebulization shortness of breath or wheezing albuterol sulfate 90 mcg/actuation 2 puff inhalation Q6H PRN 10/16/24 10/16/24 History aerosol inhaler shortness of breath or wheezing losartan 50 mg tablet 50 mg PO DAILY #90 tabs 10/16/24 10/16/24 Rx prochlorperazine maleate 10 mg 10 mg PO DAILY PRN nausea and 10/16/24 10/16/24 History tablet vomiting Allergies Allergy/AdvReac Type Severity Reaction Status Date / Time No Known Allergies Allergy Verified 10/16/24 10:57 Vital Signs Vital Signs Temp Pulse Resp BP Pulse Ox O2 Del Method O2 Flow Rate 10/18/24 16:00 76 10/18/24 16:00 97.7 F 80 18 100/65 96 10/18/24 14:51 89 20 10/18/24 14:44 84 20 10/18/24 14:43 94 Room Air 10/18/24 12:00 83 10/18/24 09:00 92 Nasal Cannula 2 10/18/24 08:58 86 10/18/24 08:55 86 99/46 L 10/18/24 08:00 77 10/18/24 06:02 97.8 F 77 18 90/65 L 92 10/18/24 04:00 74 10/18/24 03:05 74 20 10/18/24 02:58 75 20 10/18/24 00:00 76 10/18/24 00:00 97.5 F L 79 18 97/67 L 94 10/17/24 20:39 85 10/17/24 20:39 98/70 L 10/17/24 20:03 85 20 10/17/24 20:00 84 10/17/24 20:00 Room Air 10/17/24 19:53 84 20 10/17/24 19:53 92 Room Air Results Lab Results 10/19/24 19:17 10/19/24 18:33 Lab results: Most recent lab results Calcium 8.3 mg/dL (8.4-10.2) L 10/17/24 05:32 Urine Creatinine 110.9 mg/dL 10/16/24 15:12
[2024-10-18] MEDS: SODIUM CHLORIDE 1 GM TABLET PO (18:24)
[2024-10-18] MEDS: guaiFENesin 12 HR 600 MG TABCR 1200 MG PO (20:28)
[2024-10-18] MEDS: PROPRANOLOL 10 MG 2 EACH PO (20:29)
[2024-10-19] VITALS (24 sets, daily range): BP systolic 80–115; BP diastolic 40–90; PULSE 75–96; RESP 18–36; TEMP 36.2–36.5; O2SAT 88–100
[2024-10-19] MEDS: SODIUM CHLORIDE 0.9% IV 1,000 ML 75 ML IV CONT ×3 (03:30→21:27)
[2024-10-19 07:01] LABS: Hematocrit 29.7 % (42.0-52.0); Mean Corpuscular HGB Conc 33.7 g/dl (32-36); Mean Corpuscular Hemoglobin 31.2 pg (26-34); Mean Corpuscular Volume 92.5 fl (80-100); Mean Platelet Volume 9.4 fl (7.4-10.4); Platelet Count Result 138 k/mm3 (150-375); Red Blood Count 3.21 M/mm3 (4.6-6.20); Red Cell Distribution Width 14.3 % (11.5-14.5); White Blood Count 9.3 K/mm3 (4.5-10.0)
[2024-10-19 07:15] LABS: Alanine Aminotransferase 265 U/L (6-50); Albumin Level 3.5 g/dL (3.5-5.1); Alkaline Phosphatase 96 U/L (38-126); Anion Gap 8 mmol/L (4-12); Aspartate Amino Transferase 250 U/L (17-59); Bilirubin,Total 1.2 mg/dL (0.2-1.3); Blood Urea Nitrogen 28 mg/dL (9-20); Calcium 8.4 mg/dL (8.4-10.2); Carbon Dioxide 17 mmol/L (22-30); Chloride 99 mmol/L (98-107); Estimated CRCL calculation 70 ml/min; Estimated Glomerular Filt Rate > 60; Glucose 123 mg/dL (65-110); Potassium 5.5 mmol/L (3.4-5.0); Sodium 124 mmol/L (137-145)
[2024-10-19] MEDS: guaiFENesin 12 HR 600 MG TABCR 1200 MG PO (08:14)
[2024-10-19] MEDS: methiMAzole 5 MG TAB BY MOUTH (08:14)
[2024-10-19] MEDS: PANTOPRAZOLE 40 MG TABLET PO (08:14)
[2024-10-19] MEDS: DOXYCYCLINE HYCLATE 100 MG TABLET PO (08:14)
[2024-10-19] MEDS: SODIUM CHLORIDE 1 GM TABLET PO (08:14)
[2024-10-19] MEDS: DRONEDARONE HCL 400 MG TABLET BY MOUTH (08:14)
[2024-10-19] MEDS: PROCHLORPERAZINE MALEATE 5 MG TABLET 10 MG PO (08:15)
[2024-10-19 08:36] LABS: Lymphocytes Absolute Manual 0.18 K/mm3 (1.1-4.5); Lymphocytes Percent Manual 2 % (18-44); Monocytes Absolute Manual 0.18 K/mm3 (0.1-0.90); Monocytes Percent Manual 2 % (3-9); Neutrophils Percent Manual 96 % (46-73); Platelet Estimate Decreased (Adequate); Schistocytes None Seen; Total Cells Counted 100
[2024-10-19] MEDS: LOSARTAN POTASSIUM 50 MG TABLET PO (10:23)
--- NOTE | 2024-10-19 10:32 | P.PNIM_ITS ---
Progress Note: A&P Assessment and Plan (1) Pneumonia: Code(s): J18.9 - Pneumonia, unspecified organism Status: Acute Assessment and Plan: Chest x-ray showed bilateral perihilar and lower lobe pneumonia. * Doxycycline and ceftriaxone started 10/16/2024. * Sputum culture pending. * Check Legionella pneumococcal antigens as well as mycoplasma IgM. * Continue scheduled bronchodilators and updrafts p.r.n. * Currently on good O2 sats > 90 % on RA. * wean oxygen off if able- on RA today (10/19) (2) Hemoptysis: Code(s): R04.2 - Hemoptysis Status: Acute Assessment and Plan: Most likely related to pneumonia in the setting of anticoagulation. No masses or nodules noted on chest x-ray. * Hold rivaroxaban for now and continue to monitor. * Consider chest CT if no improvement with antibiotics- improving (3) Hyponatremia: Code(s): E87.1 - Hypo-osmolality and hyponatremia Status: Acute Assessment and Plan: He has chronic hyponatremia and has been hospitalized before with sodiums under 120, felt to be due to SIADH. He does not drink fluids in excess because of this history and he feels that he may be dehydrated from poor oral intake the last several days. Pneumonia could be a precipitating factor as well. * Check urine sodium, urine and serum osmolalities, and TSH. * Discontinue IV fluids with possible pulmonary edema on CXR. * Currently asymptomatic and we'll continue to monitor closely. * Consider salt tabs and nephro consult if no significant improvement. -nephrology consulted- appreciate recommendations (4) Abnormal EKG: Code(s): R94.31 - Abnormal electrocardiogram [ECG] [EKG] Status: Acute Assessment and Plan: EKG showed mild flattening of the ST segment in the lateral leads with T-wave inversion in V3; - No chest pain or SOB. - Troponin negative. * [employer] consulted per patient request. * Echocardiogram pending results. * Appreciate syrup maker assistance. (5) Hypertension: Qualifiers: Hypertension type: essential hypertension Qualified Code(s): I10 - Essential (primary) hypertension Code(s): I10 - Essential (primary) hypertension Status: Acute Assessment and Plan: Blood pressures running low and antihypertensives held for now. Monitor closely. hold losartan for now as K is high today (6) Paroxysmal atrial fibrillation: Code(s): I48.0 - Paroxysmal atrial fibrillation Status: Acute Assessment and Plan: Currently in sinus rhythm. Per patient report, his propranolol is being weaned down due to episodes of bradycardia. * Continue dronedarone. * Hold rivaroxaban given hemoptysis. * Appreciate syrup maker assistance. (7) Hyperthyroidism: Code(s): E05.90 - Thyrotoxicosis, unspecified without thyrotoxic crisis or storm Status: Acute Assessment and Plan: Continue methimazole; TSH and T4 within normal limits. (8) Combined systolic and diastolic congestive heart failure: Code(s): I50.40 - Unspecified combined systolic (congestive) and diastolic (congestive) heart failure Status: Acute Assessment and Plan: - Appears clinically compensated, possibly a bit dry despite elevated BNP 46050. * Avoid over-hydration. * Echocardiogram pending. * Monitor closely for decompensation. (9) Nausea: Code(s): R11.0 - Nausea Status: Acute Assessment and Plan: has compazine ordered for nausea will order kub abd is soft and bS + no bm for couple of days- will order miralax x 1 now and then daily prn Plan - Continue IV abx for PNA treatment as we follow cultures. Continue to monitor hemoptysis. Diet: Heart Healthy. DVT PPx: SCD's. Time Spent With Patient Time with patient: 25 - 35 minutes Subjective Date/time seen: 10/19/24 10:32 Interval history: Patient is seen and examined. Nephrology was consulted -following. Pt is alert. Reported cough yesterday- Mucinex was ordered. Nausea but no vomiting. Compazine prn available Review of Systems Review of Systems: 12 systems were reviewed and are negativ e except for as per HPI. All systems reviewed & are unremarkable except as noted in HPI and below Exam Narrative: General: Well-developed, nontoxic-appearing gentleman in no acute distress. HEENT: PERRL, EOMI. Sclera anicteric. Oropharynx is clear. Neck: Supple. No JVD or lymphadenopathy. Respiratory: Respirations are nonlabored and he is speaking in full sentences. Lung sounds are diminished with scattered coarse sounds. Cardiovascular: Regular rate and rhythm with S1-S2. Gastrointestinal: Abdomen is soft, nontender, and nondistended with positive bowel sounds. Skin: Warm and dry. No rash or lesions. Extremities: No cyanosis, clubbing, or edema. Radial and pedal pulses intact. Neurological: Alert. Cranial nerves II-XII are grossly intact. No gross focal neuro deficits. Psychiatric: Pleasant and cooperative with normal mood and affect. Objective Data Vital Signs Vital Signs: Vital Signs - 24 hr 10/18/24 12:00 10/18/24 14:43 10/18/24 14:44 Temperature Pulse Rate 83 84 Respiratory Rate 20 Blood Pressure Pulse Oximetry 94 Oxygen Delivery Room Air Oxygen Flow Rate 10/18/24 14:51 10/18/24 16:00 10/18/24 16:00 Temperature 97.7 F Pulse Rate 89 80 76 Respiratory Rate 20 18 Blood Pressure 100/65 Pulse Oximetry 96 Oxygen Delivery Oxygen Flow Rate 10/18/24 20:00 10/18/24 20:00 10/18/24 20:12 Temperature Pulse Rate 79 80 Respiratory Rate 20 Blood Pressure Pulse Oximetry 93 Oxygen Delivery Nasal Cannula Oxygen Flow Rate 2 10/18/24 20:14 10/18/24 20:21 10/18/24 20:28 Temperature Pulse Rate 82 84 Respiratory Rate 20 Blood Pressure Pulse Oximetry 93 Oxygen Delivery Nasal Cannula Oxygen Flow Rate 2 10/19/24 00:00 10/19/24 00:00 10/19/24 04:00 Temperature 97.7 F Pulse Rate 80 75 87 Respiratory Rate 18 Blood Pressure 104/54 L Pulse Oximetry 90 Oxygen Delivery Oxygen Flow Rate 10/19/24 06:40 10/19/24 08:13 10/19/24 08:14 Temperature 97.2 F L Pulse Rate 77 81 81 Respiratory Rate 18 Blood Pressure 110/71 106/64 Pulse Oximetry 90 Oxygen Delivery Oxygen Flow Rate 10/19/24 09:07 Temperature Pulse Rate Respiratory Rate Blood Pressure Pulse Oximetry 93 Oxygen Delivery Room Air Oxygen Flow Rate Intake/Output Intake/Output: Intake & Output 10/16/24 10/17/24 10/18/24 10/19/24 23:59 23:59 23:59 23:59 Intake Total 1649.0 2673.2 1705 1240 Output Total 805 400 0 Balance 1649.0 1868.2 1305 1240 Meds/Results Medications: Active Medications Generic Name Dose Route Start Last Admin Trade Name Freq PRN Reason Stop Dose Admin Acetaminophen 650 mg 10/16/24 12:34 10/18/24 11:25 Acetaminophen 325 Mg Tablet PO 650 mg Q4H PRN Administration Mild Pain (1-3) or Fever Albuterol 2.5 mg 10/18/24 14:45 Albuterol Sulfate Neb 2.5 Mg/3 Ml Inh INHALATION QID PRN shortness of breath or wheezing Albuterol 2 puff 10/18/24 14:45 Albuterol Sulfate (*Sp) Aerosol 1 Puff INHALATION Q6H PRN shortness of breath or wheezing Albuterol/Ipratropium 3 ml 10/16/24 14:00 10/19/24 09:06 Ipratropium 0.5 Mg/Albuterol Sulfate 2.5 Mg Ampul.Neb 3 Ml INHALATION Not Given Q6HRT [facility] Alprazolam 0.5 mg 10/16/24 21:47 10/18/24 11:25 Alprazolam (*Crx) 0.5 Mg Tablet PO 0.5 mg DAILY PRN Administration anxiety] Alprazolam 0.5 mg 10/17/24 21:00 10/18/24 20:28 Alprazolam (*Crx) 0.5 Mg Tablet PO 0.5 mg HS CROW Administration Doxycycline Hyclate 100 mg 10/16/24 21:00 10/19/24 08:14 Doxycycline Hyclate 100 Mg Tablet PO 100 mg Q12HR CROW Administration Dronedarone 400 mg 10/16/24 09:00 10/19/24 08:14 Dronedarone Hcl 400 Mg Tablet BY MOUTH 400 mg Q12HR CROW Administration Guaifenesin 1,200 mg 10/18/24 21:00 10/19/24 08:14 Guaifenesin 12 Hr 600 Mg Tabcr PO 1,200 mg Q12HR CROW Administration Home Med 1 each 10/19/24 09:00 10/19/24 10:10 Home Medication - Propranolol 10 Mg Tab PO 10/25/24 21:01 Not Given Q12HR CROW Home Med 1 each 10/26/24 21:00 Home Medication - Propranolol 10 Mg Tab PO 11/01/24 21:01 HS CROW Ceftriaxone Sodium 1 gm in 50 mls @ 100 mls/hr 10/16/24 12:00 10/18/24 11:26 Rocephin 1 Gm/Ns 50 Ml IVPB 100 mls/hr Q24H CROW Administration Sodium Chloride 1,000 mls @ 75 mls/hr 10/16/24 18:35 10/19/24 03:30 Normal Saline Iv IV CONT 75 mls/hr .[id number] CROW Administration Losartan Potassium 50 mg 10/19/24 09:00 10/19/24 10:23 Losartan Potassium 50 Mg Tablet PO 50 mg DAILY CROW Administration Methimazole 5 mg 10/17/24 09:00 10/19/24 08:14 Methimazole 5 Mg Tab BY MOUTH 5 mg [email or web address] CROW Administration Miscellaneous Information 0 each 10/18/24 00:01 Albuterol Inhaler Has Same Prn Indication As Albuterol Nebs. Please Clarify When To Use XX 11/17/24 00:00 CLARIFY CROW Pantoprazole Sodium 40 mg 10/17/24 09:00 10/19/24 08:14 Pantoprazole 40 Mg Tablet PO 40 mg Q12HR CROW Administration Perflutren Lipid Microsphere 0 ml 10/18/24 09:56 Perflutren Lipid Microspheres 1.5 Ml Vial Diluted To 10 Ml Total Volume IV PUSH 10/21/24 09:56 ONCE PRN adequate visualization Protocol Polyethylene Glycol 17 gm 10/18/24 14:46 Polyethylene Glycol 3350 17 Gm Powd.Pack PO QAM PRN Constipation Prochlorperazine Maleate 10 mg 10/18/24 14:45 10/19/24 08:15 Prochlorperazine Maleate 5 Mg Tablet PO 10 mg DAILY PRN Administration nausea and vomiting Sodium Chloride 1 gm 10/18/24 18:15 10/19/24 08:14 Sodium Chloride 1 Gm Tablet PO 1 gm BID CROW Administration Umeclidinium/Vilanterol 1 puff 10/17/24 08:00 10/19/24 09:07 Umeclidinium/Vilanterol 62.5-25 Mcg Ellipta INHALATION Not Given DAILYRT [facility] Radiology Results: ITS Impressions Chest X-Ray 10/16/24 10:28 IMPRESSION: Bilateral perihilar and lower lobe pneumonia. Underlying pulmonary edema cannot be excluded. Minimal left pleural effusion. Labs Labs: Laboratory Results - last 24 hr 10/16/24 10/16/24 10/19/24 13:23 15:12 06:39 WBC 9.3 RBC 3.21 L Hgb 10.0 L Hct 29.7 L MCV 92.5 MCH 31.2 MCHC 33.7 RDW 14.3 Plt Count 138 L MPV 9.4 Immature Gran % (Auto) Not Reportable Neut % (Auto) Not Reportable Lymph % (Auto) Not Reportable [place] % (Auto) Not Reportable Eos % (Auto) Not Reportable Baso % (Auto) Not Reportable Lymph # (Auto) Not Reportable [place] # (Auto) Not Reportable Eos # (Auto) Not Reportable Baso # (Auto) Not Reportable Abs Immat Gran (auto) Not Reportable Absolute Neuts (auto) Not Reportable Absolute Nucleated RBC Not Reportable Total Counted 100 Neutrophils % (Manual) 96 H Lymphocytes % (Manual) 2 L Monocytes % (Manual) 2 L Nucleated RBC % Not Reportable Abs Lymphs (Manual) 0.18 L Abs Monocytes (Manual) 0.18 Platelet Estimate Decreased Schistocytes None seen Sodium 124 L Potassium 5.5 H Chloride 99 Carbon Dioxide 17 L Anion Gap 8 BUN 28 H Creatinine 0.87 Estim Creat Clear Calc 70 Estimated GFR > 60 Glucose 123 H Serum Osmolality 260 L Calcium 8.4 Total Bilirubin 1.2 AST 250 H ALT 265 H Alkaline Phosphatase 96 Total Protein 6.0 L Albumin 3.5 Random Cortisol 58.70 Urine Osmolality 475 Quality VTE Prophylaxis VTE prophylaxis: mechanical ordered
[2024-10-19 12:00] LABS: Creatinine Urine 223.4 mg/dL; Total Protein Urine Random 57 mg/dL; Ur Ttl Prot Creatinine Ratio 0.26 mg/mg (0-0.20)
[2024-10-19 12:10] LABS: Sodium Urine Random 12 meq/L
[2024-10-19] MEDS: DICYCLOMINE HCL 10 MG CAPSULE 20 MG PO (14:11)
[2024-10-19] MEDS: polyethylene glycoL 3350 17 GM POWD.PACK PO (14:12)
--- NOTE | 2024-10-19 14:27 | PM.PNNEP ---
Progress Note: A&P Assessment and Plan (1) Hyponatremia: Code(s): E87.1 - Hypo-osmolality and hyponatremia Status: Acute Assessment and Plan: chronic issue at baseline multiple risk factors: known history of COPD CHF thyroid disease PPI use nausea distant history alcohol abuse possibly precipitated/worsened by #2 asymptomatic sodium usually runs around 123 - 129mmol/L since as far back as 2017 if not longer history suggests SIADH with previous outpatient work-up noted: prerenal urine electrolytes known history of hyperthyroidism cortisol okay SPE and UPE negative urine osmo > serum osmo previous CXR with COPD changes previous CT of head negative only mild improvement with IVFs repeat evaluation noted on this admission: TSH and cortisol okay urine electrolytes prerena SPE/UPE and serum/urine osmo pending on salt tabs and fluid restriction may need to consider adding low dose loop diuretics as well follow trend of sodium (2) Pneumonia: Code(s): J18.9 - Pneumonia, unspecified organism Status: Acute Assessment and Plan: imaging with bilateral perihilar and lower lobe pneumonia on supplemental oxygen and nebulizer treatment on antibiotics therapy follow cultures wean oxygen (3) Hypertension: Qualifiers: Hypertension type: essential hypertension Qualified Code(s): I10 - Essential (primary) hypertension Code(s): I10 - Essential (primary) hypertension Status: Acute Assessment and Plan: running on the lower side of normal BP medications on hold follow trend of hemodynamics (4) Paroxysmal atrial fibrillation: Code(s): I48.0 - Paroxysmal atrial fibrillation Status: Acute Assessment and Plan: in sinus rhythm holding anticoagulation due to issues with hemoptysis on admission Cardiology following (5) Hyperthyroidism: Code(s): E05.90 - Thyrotoxicosis, unspecified without thyrotoxic crisis or storm Status: Acute Assessment and Plan: continue methimazole TSH and T4 within range Will continue to follow. Subjective Date/time seen: 10/19/24 14:27 Interval history: Follow-up for chronic hyponatremia Breathing/respiratory status seems to be stable if not improving although he feels it is still not back to baseline; restarted on salt tabs and fluid restriction (was not really doing this as an outpatient even though this was prescribed) yesterday; no acute distress noted at the time of my visit but reports on/off nausea. Exam Narrative: General: elderly but WD/WN male in NAD Heart: normal S1 and S2; no rub Lungs: coarse breath sounds; diminished at bases Abdomen: soft, nontender, nondistended, positive bowel sounds Extremities: no cyanosis or clubbing; no edema Skin: warm and dry Objective Data Vital Signs Vital Signs: Vital Signs Temp Pulse Resp BP Pulse Ox O2 Del Method O2 Flow Rate 10/19/24 14:20 94 24 H 95 Nasal Cannula 2 10/19/24 12:00 78 10/19/24 09:07 93 Room Air 10/19/24 08:15 93 Nasal Cannula 2 10/19/24 08:14 81 10/19/24 08:13 81 106/64 10/19/24 08:00 78 10/19/24 06:40 97.2 F L 77 18 110/71 90 10/19/24 04:00 87 10/19/24 00:00 97.7 F 75 18 104/54 L 90 10/19/24 00:00 80 10/18/24 20:28 84 10/18/24 20:21 82 20 10/18/24 20:14 93 Nasal Cannula 2 10/18/24 20:12 80 20 10/18/24 20:00 79 10/18/24 20:00 93 Nasal Cannula 2 Intake/Output Intake/Output: Intake & Output 10/16/24 10/17/24 10/18/24 10/19/24 23:59 23:59 23:59 23:59 Intake Total 1649.0 2673.2 1755 1410 Output Total 805 400 0 Balance 1649.0 1868.2 1355 1410 Meds/Results Medications: Active Medications Generic Name Dose Route Start Last Admin Trade Name Freq PRN Reason Stop Dose Admin Acetaminophen 650 mg 10/16/24 12:34 10/18/24 11:25 Acetaminophen 325 Mg Tablet PO 650 mg Q4H PRN Administration Mild Pain (1-3) or Fever Albuterol 2.5 mg 10/18/24 14:45 Albuterol Sulfate Neb 2.5 Mg/3 Ml Inh INHALATION QID PRN shortness of breath or wheezing Albuterol 2 puff 10/18/24 14:45 Albuterol Sulfate (*Sp) Aerosol 1 Puff INHALATION Q6H PRN shortness of breath or wheezing Albuterol/Ipratropium 3 ml 10/16/24 14:00 10/19/24 14:28 Ipratropium 0.5 Mg/Albuterol Sulfate 2.5 Mg Ampul.Neb 3 Ml INHALATION 3 ml Q6HRT CROW Administration Alprazolam 0.5 mg 10/16/24 21:47 10/18/24 11:25 Alprazolam (*Crx) 0.5 Mg Tablet PO 0.5 mg DAILY PRN Administration anxiety] Alprazolam 0.5 mg 10/17/24 21:00 10/18/24 20:28 Alprazolam (*Crx) 0.5 Mg Tablet PO 0.5 mg HS CROW Administration Dicyclomine HCl 20 mg 10/19/24 14:03 10/19/24 14:11 Dicyclomine Hcl 10 Mg Capsule PO 20 mg QID PRN Administration Abdominal Cramping Doxycycline Hyclate 100 mg 10/16/24 21:00 10/19/24 08:14 Doxycycline Hyclate 100 Mg Tablet PO 100 mg Q12HR CORW Administration Dronedarone 400 mg 10/16/24 09:00 10/19/24 08:14 Dronedarone Hcl 400 Mg Tablet BY MOUTH 400 mg Q12HR CROW Administration Guaifenesin 1,200 mg 10/18/24 21:00 10/19/24 08:14 Guaifenesin 12 Hr 600 Mg Tabcr PO 1,200 mg Q12HR CROW Administration Home Med 1 each 10/19/24 09:00 10/19/24 10:10 Home Medication - Propranolol 10 Mg Tab PO 10/25/24 21:01 Not Given Q12HR [facility] Home Med 1 each 10/26/24 21:00 Home Medication - Propranolol 10 Mg Tab PO 11/01/24 21:01 HS [facility] Ceftriaxone Sodium 1 gm in 50 mls @ 100 mls/hr 10/16/24 12:00 10/19/24 12:52 Rocephin 1 Gm/Ns 50 Ml IVPB Infused Q24H CROW Infusion Sodium Chloride 1,000 mls @ 75 mls/hr 10/16/24 18:35 10/19/24 03:30 Normal Saline Iv IV CONT 75 mls/hr .[id number] CROW Administration Losartan Potassium 50 mg 10/19/24 09:00 10/19/24 10:23 Losartan Potassium 50 Mg Tablet PO 50 mg DAILY CROW Administration Methimazole 5 mg 10/17/24 09:00 10/19/24 08:14 Methimazole 5 Mg Tab BY MOUTH 5 mg [id number] CROW Administration Miscellaneous Information 0 each 10/18/24 00:01 Albuterol Inhaler Has Same Prn Indication As Albuterol Nebs. Please Clarify When To Use XX 11/17/24 00:00 CLARIFY CROW Pantoprazole Sodium 40 mg 10/17/24 09:00 10/19/24 08:14 Pantoprazole 40 Mg Tablet PO 40 mg Q12HR CROW Administration Perflutren Lipid Microsphere 0 ml 10/18/24 09:56 Perflutren Lipid Microspheres 1.5 Ml Vial Diluted To 10 Ml Total Volume IV PUSH 10/21/24 09:56 ONCE PRN adequate visualization Protocol Polyethylene Glycol 17 gm 10/18/24 14:46 10/19/24 14:12 Polyethylene Glycol 3350 17 Gm Powd.Pack PO 17 gm QAM PRN Administration Constipation Polyethylene Glycol 17 gm 10/19/24 12:20 Polyethylene Glycol 3350 17 Gm Powd.Pack PO QAM PRN Constipation Prochlorperazine Maleate 10 mg 10/18/24 14:45 10/19/24 08:15 Prochlorperazine Maleate 5 Mg Tablet PO 10 mg DAILY PRN Administration nausea and vomiting Sodium Chloride 1 gm 10/18/24 18:15 10/19/24 08:14 Sodium Chloride 1 Gm Tablet PO 1 gm BID CROW Administration Umeclidinium/Vilanterol 1 puff 10/17/24 08:00 10/19/24 09:07 Umeclidinium/Vilanterol 62.5-25 Mcg Ellipta INHALATION Not Given DAILYRT [facility] Radiology Results: ITS Impressions Chest X-Ray 10/16/24 10:28 IMPRESSION: Bilateral perihilar and lower lobe pneumonia. Underlying pulmonary edema cannot be excluded. Minimal left pleural effusion. Labs Labs: Laboratory Tests 10/19/24 06:39 10/19/24 06:39 Calcium 8.4 Total Bilirubin 1.2 AST 250 H ALT 265 H Alkaline Phosphatase 96 Microbiology 10/17/24 02:15 Sputum Sputum Culture - Final
[2024-10-19] MEDS: IPRATROPIUM 0.5 MG/ALBUTEROL SULFATE 2.5 MG AMPUL.NEB 3 ML INHALATION ×2 (14:28→20:23)
[2024-10-19 16:38] LABS: Pneumococcal Antigen Urine NOT DETECTED
[2024-10-19] MEDS: BISACODYL 10 MG SUPPOSITORY RECTAL (17:31)
[2024-10-19 17:49] LABS: Glucose Point of Care 111 mg/dl (65-105)
[2024-10-19 17:57] LABS: Base Excess ABG -12.9 mEq/l (+/-2.0); Fractional Inspired Oxygen 44 %; HCO3 ABG 11.8 mEq/l (22.0-26.0); Oxygen Content ABG 13.6 %vol (16.0-22.0); Oxygen Saturation ABG 93.3 % (95.0-100.0); Oxyhemoglobin 91.1 % THb (90.0-100.0); PCO2 ABG 24.1 mmHg (35.0-45.0); PO2 ABG 71.3 mmHg (80.0-100.0); PO2 FiO2 Ratio Arterial Blood 1.62 %; Total Hemoglobin 10.6 g/dL (12.0-18.0); pH ABG 7.306 (7.350-7.450)
[2024-10-19 17:58] LABS: Device NASAL CANNULA; Modified Allen's Test Pass; Site Drawn LEFT RADIAL
[2024-10-19] MEDS: ALBUTEROL SULFATE NEB 2.5 MG/3 ML INH INHALATION (18:00)
--- NOTE | 2024-10-19 18:13 | ECG_ITS ---
Test Date: 2024-10-19 18:13:41 Measurements Intervals [place] Rate: 77 P: 92 OK: 171 QRS: 89 QRSD: 117 T: 206 QT: 423 QTc: 480 Interpretive Statements SINUS RHYTHM LOW QRS VOLTAGE IN EXTREMITY LEADS [QRS DEFLECTION < 0.5 mV IN LIMB LEADS] POSSIBLE LATERAL MYOCARDIAL INFARCTION [30 ms Q WAVE IN I/aVL/V5/V6], OF INDETERMINATE AGE NONSPECIFIC ST AND T WAVE ABNORMALITY Compared to ECG 10/16/2024 10:11:19 T WAVE ABNORMALITY IN LEAD V3 NO LONGER PRESENT Electronically Signed On 10-20-2024 14:31:46 [employer] by Maureen Brower M.D.
--- NOTE | 2024-10-19 18:40 | PC.NURSE ---
This patient, Milton Minor, was received from [facility] on 10/19/24 at 1810. Patient/family oriented to unit policies and routines. Patient placed on bipap upon entry to room. Patient blood pressure at 1810 was 104/76.
--- NOTE | 2024-10-19 18:43 | P.PNCROSS_ITS ---
Event Note Event Note Event Note: A rapid response was initiated after the patient presented with worsening resp iratory distress, hypotension, and findings consistent with fluid overload on chest x-ray that was repeated during the rapid. An ABG was completed and metabolic acidosis/reduced bicarb level was noted, sodium bicarbonate IV push was ordered. BiPAP was initiated for respiratory support. Patient responded well with improved mentation and improved blood pressure (however remains soft, map greater than 65), will continue at this time. Antibiotics were upgraded to vancomycin and cefepime due to concerns for more severe pneumonia, replacing prior oral antibiotics. Albumin 25 G x2 administered to support oncotic pressure/pressure support. The patient was transition to the ICU due to initial concern he would require a central line and Levophed initiation. The radio time sales supervisor was consulted, Herberth TUCKER. The provider was in agreeance with these interventions. The patient is now more verbal and respiratory distress has decreased. Of note, the patient's abdominal x-ray was suggestive of an ileus versus bowel obstruction, the patient will remain NPO until further evaluation/management of this issue. Will continue to monitor the patient's respiratory status, hemodynamic stability, acid-base balance, and response to current interventions. Critical Care Time: I personally spent 40 minutes of direct patient care including (but not limited to) the physical examination, decision-making, bedside evaluation, review of medical records, review of labs and imaging, discussion with nursing staff and other providers for collaborative, critical care management of this patient.
[2024-10-19 18:52] LABS: INR 1.6; Partial Thromboplastin Time 29.1 Seconds (22.3-36.8); Prothrombin Time 19.3 Seconds (11.1-14.7)
[2024-10-19 18:57] LABS: Anion Gap 12 mmol/L (4-12); Blood Urea Nitrogen 32 mg/dL (9-20); Calcium 8.4 mg/dL (8.4-10.2); Carbon Dioxide 13 mmol/L (22-30); Chloride 100 mmol/L (98-107); Estimated CRCL calculation 67 ml/min; Estimated Glomerular Filt Rate > 60; Glucose 110 mg/dL (65-110); Magnesium 2.3 mg/dL (1.6-2.3); Phosphorus 4.6 mg/dL (2.5-4.5); Potassium 5.5 mmol/L (3.4-5.0); Sodium 125 mmol/L (137-145)
[2024-10-19] MEDS: SODIUM BICARBONATE 8.4% 50 MEQ/50 ML SYRINGE IV PUSH (19:04)
[2024-10-19 19:14] LABS: Troponin I 0.127 ng/mL (0.000-0.034)
[2024-10-19 19:27] LABS: Basophils Percent Auto 0.1 % (0.2-1.2); Hematocrit 27.9 % (42.0-52.0); Hemoglobin 9.2 g/dL (14.0-18.0); Immature Granulocyte Absolute 0.08 K/mm3 (0.00-0.031); Immature Granulocyte Percent A 0.9 % (0-0.5); Immature Platelet Fraction Pct 3.6 % (0.9-11.2); Lymphocytes Absolute Auto 0.39 K/mm3 (0.9-3.2); Lymphocytes Percent Auto 4.4 % (18.3-44.2); Mean Corpuscular Hemoglobin 31.6 pg (26-34); Mean Corpuscular Volume 95.9 fl (80-100); Mean Platelet Volume 9.7 fl (7.4-10.4); Monocytes Absolute Auto 0.7 K/mm3 (0.1-0.6); Monocytes Percent Auto 8.4 % (2.6-8.5); Neutrophils Absolute Auto 7.6 K/mm3 (1.3-6.7); Neutrophils Percent Auto 86.2 % (45.5-73.1); Platelet Count Result 95 k/mm3 (150-375); Red Blood Count 2.91 M/mm3 (4.6-6.20); Red Cell Distribution Width 14.4 % (11.5-14.5); White Blood Count 8.8 K/mm3 (4.5-10.0)
[2024-10-19 19:56] LABS: Lactic Acid Reflex 5.2 mmol/L (0.7-2.0)
[2024-10-19] MEDS: LACTATED RINGERS 500 ML IV CONT (20:00)
[2024-10-19] MEDS: ALBUMIN HUMAN 25% 25 GM/100 ML 100 ML IVPB (20:00)
[2024-10-19 20:13] LABS: MRSA (PCR) NOT DETECTED (NOT DETECTE)
--- NOTE | 2024-10-19 20:30 | PC.NURSE ---
Updated spouse, Yuliana, on patient condition and plan of care.
[2024-10-19 21:48] LABS: Troponin I 0.145 ng/mL (0.000-0.034)
[2024-10-19] MEDS: CEFEPIME 2 GM/NS 50 ML 2 GM/50 ML BAG IVPB (21:53)
[2024-10-19] MEDS: VANCOMYCIN 1,750 MG/NS 500 ML 1,750 MG/500 ML BAG 250 MG IVPB (21:53)
[2024-10-19 22:20] LABS: Reflex Lactic Acid Yes or No Add Lactic
[2024-10-19 22:59] LABS: Lactic Acid 4.5 mmol/L (0.7-2.0)
[2024-10-20] VITALS (80 sets, daily range): BP systolic 77–129; BP diastolic 46–103; PULSE 74–95; RESP 14–32; TEMP 36.4–37.9; O2SAT 97–100; BMI 22.2
[2024-10-20] MEDS: ALBUMIN HUMAN 25% 25 GM/100 ML 100 ML IVPB ×3 (01:13→13:06)
[2024-10-20] MEDS: IPRATROPIUM 0.5 MG/ALBUTEROL SULFATE 2.5 MG AMPUL.NEB 3 ML INHALATION ×5 (01:36→22:29)
[2024-10-20] MEDS: PHENYLEPHRINE HCL INJ 50 MG in DEXTROSE 5% IN WATER 250 ML/245 ML BAG 12 ML IV CONT (02:25)
[2024-10-20 03:12] LABS: Troponin I 0.195 ng/mL (0.000-0.034)
[2024-10-20] MEDS: CEFEPIME 2 GM/NS 50 ML 2 GM/50 ML BAG IVPB ×3 (04:16→20:02)
[2024-10-20 04:47] LABS: Estimated CRCL calculation 59 ml/min; Estimated Glomerular Filt Rate > 60
[2024-10-20 05:14] LABS: Alveolar/Arterial O2 Gradient 96.1 mmHg; Base Excess ABG -8.3 mEq/l (+/-2.0); Carboxyhemoglobin 0.6 % THb (0-2.0); Fractional Inspired Oxygen 30 %; HCO3 ABG 13.9 mEq/l (22.0-26.0); Methemoglobin ABG 0.2 %THb (0-1.5); Oxygen Content ABG 12.7 %vol (16.0-22.0); Oxygen Saturation ABG 97.8 % (95.0-100.0); Oxyhemoglobin 96.3 % THb (90.0-100.0); PO2 ABG 94.7 mmHg (80.0-100.0); PO2 FiO2 Ratio Arterial Blood 3.16 %; Reduced Hemoglobin 2.9 %THb (0-5.0); Total Hemoglobin 9.3 g/dL (12.0-18.0); pH ABG 7.465 (7.350-7.450)
[2024-10-20 05:16] LABS: PCO2 ABG 19.7 mmHg (35.0-45.0)
[2024-10-20 05:17] LABS: Device NON-INVASIVE VENT; Modified Allen's Test Pass; Non-Invasive Expiratory Pressure 5 CMH2O; Non-Invasive Inspiratory Pressure 10 CMH2O; Non-Invasive Vent Rate 8 /MIN; Site Drawn LEFT RADIAL
[2024-10-20 05:54] LABS: Protein, Total 6.1 g/dL (6.1-8.1)
[2024-10-20] MEDS: SODIUM BICARBONATE 8.4% 50 MEQ/50 ML SYRINGE 100 MEQ IV PUSH (06:18)
[2024-10-20 06:47] LABS: Lactic Acid Reflex 4.2 mmol/L (0.7-2.0)
[2024-10-20] MEDS: UMECLIDINIUM/VILANTEROL 62.5-25 MCG ELLIPTA 1 PUFF INHALATION (07:10)
[2024-10-20 07:52] LABS: Basophils Percent Auto 0.1 % (0.2-1.2); Hematocrit 25.6 % (42.0-52.0); Hemoglobin 8.6 g/dL (14.0-18.0); Immature Granulocyte Absolute 0.07 K/mm3 (0.00-0.031); Immature Granulocyte Percent A 0.6 % (0-0.5); Immature Platelet Fraction Pct 3.6 % (0.9-11.2); Lymphocytes Absolute Auto 0.48 K/mm3 (0.9-3.2); Lymphocytes Percent Auto 4.1 % (18.3-44.2); Mean Corpuscular HGB Conc 33.6 g/dl (32-36); Mean Corpuscular Hemoglobin 31.2 pg (26-34); Mean Corpuscular Volume 92.8 fl (80-100); Mean Platelet Volume 10.3 fl (7.4-10.4); Monocytes Absolute Auto 0.6 K/mm3 (0.1-0.6); Monocytes Percent Auto 5.1 % (2.6-8.5); Neutrophils Absolute Auto 10.6 K/mm3 (1.3-6.7); Neutrophils Percent Auto 90.1 % (45.5-73.1); Nucleated Red Blood Cells Perc 0.2 % (0.0-0.2); Platelet Count Result 79 k/mm3 (150-375); Red Blood Count 2.76 M/mm3 (4.6-6.20); Red Cell Distribution Width 14.5 % (11.5-14.5); White Blood Count 11.7 K/mm3 (4.5-10.0)
[2024-10-20 08:23] LABS: INR 1.8; Prothrombin Time 21.1 Seconds (11.1-14.7)
[2024-10-20 08:24] LABS: Alanine Aminotransferase 561 U/L (6-50); Albumin Level 3.4 g/dL (3.5-5.1); Alkaline Phosphatase 79 U/L (38-126); Anion Gap 11 mmol/L (4-12); Aspartate Amino Transferase 600 U/L (17-59); Bilirubin,Total 1.4 mg/dL (0.2-1.3); Blood Urea Nitrogen 38 mg/dL (9-20); Calcium 8.2 mg/dL (8.4-10.2); Carbon Dioxide 14 mmol/L (22-30); Chloride 102 mmol/L (98-107); Estimated CRCL calculation 60 ml/min; Estimated Glomerular Filt Rate > 60; Glucose 115 mg/dL (65-110); Phosphorus 4.6 mg/dL (2.5-4.5); Potassium 5.5 mmol/L (3.4-5.0); Sodium 127 mmol/L (137-145)
[2024-10-20 08:25] LABS: Partial Thromboplastin Time 32.3 Seconds (22.3-36.8)
[2024-10-20] MEDS: LIDOCAINE 1% PF INJ 5 ML VIAL INFILTRATE (08:30)
[2024-10-20] MEDS: NOREPINEPHRINE 8 MG/D5W 250 ML 8 MG/250 ML BAG 9.38 MG IV CONT (09:00)
[2024-10-20] MEDS: SODIUM BICARBONATE 8.4% 150 MEQ in DEXTROSE 5% 1,000 ML 950 ML 100 MEQ IV CONT (09:10)
--- NOTE | 2024-10-20 09:20 | P.CONIN_ITS ---
Assessment and Plan Assessment and plan (1) Septic shock: Code(s): A41.9 - Sepsis, unspecified organism; R65.21 - Severe sepsis with septic shock Status: Acute Assessment and Plan: 10/19: Patient was transferred from the medical floor with hypotension, worsening respiratory distress, metabolic acidosis, hyperkalemia -chest x-ray showed bilateral infiltrates/pneumonia -patient was started on cefepime, vancomycin (10/19) -IV fluids were given cautiously given history of systolic and diastolic heart failure -started on albumin for intravascular volume expansion -overnight patient was started on phenylephrine drip peripheral access -PICC line was inserted on 10/20 -started on Levophed, will maintain SBP > 100 mmHg -10/16: Blood cultures negative x2 -10/17: Sputum culture showed growth of normal oropharyngeal patricia -10/20: Will repeat blood cultures given septic shock -started patient on bicarb infusion -continue monitor urine output and renal function (2) Acute respiratory failure: Code(s): J96.00 - Acute respiratory failure, unspecified whether with hypoxia or hypercapnia Status: Acute Assessment and Plan: Acute respiratory failure likely related to pneumonia, COPD exacerbation, CHF exacerbation -currently on BiPAP -continue bronchodilators -continue antibiotics as above -will try to alternate between BiPAP and high-flow therapy -discussed with patient and his spouse and they were agreeable for intubation if it comes to that (3) Pneumonia: Code(s): J18.9 - Pneumonia, unspecified organism Status: Acute Assessment and Plan: Chest x-ray showed diffuse airspace disease, edema versus pneumonia, given hypotension, septic shock, treating patient with antibiotics as above (4) Hyponatremia: Code(s): E87.1 - Hypo-osmolality and hyponatremia Status: Acute Assessment and Plan: Hyponatremia is chronic, nephrology following -multifactorial, could be related to pneumonia, COPD, CHF, thyroid disease, SIADH -nephrology to monitor and treat (5) Electrolyte abnormality: Code(s): E87.8 - Other disorders of electrolyte and fluid balance, not elsewhere classified Status: Acute Assessment and Plan: Hyperkalemia likely related to metabolic acidosis -will treat with calcium, insulin, D50, albuterol nebulizer -hold Lokelma as patient has ileus (6) Paroxysmal atrial fibrillation: Code(s): I48.0 - Paroxysmal atrial fibrillation Status: Acute Assessment and Plan: History of paroxysmal AFib on rivaroxaban (Xarelto) at home -currently in sinus rhythm, rate controlled -patient presented with productive cough with specks of blood/hemoptysis on admission. Anticoagulation was held for now -platelet counts also are low, continue to hold anticoagulation (7) COPD (chronic obstructive pulmonary disease): Qualifiers: COPD type: unspecified COPD Qualified Code(s): J44.9 - Chronic obstructive pulmonary disease, unspecified Code(s): J44.9 - Chronic obstructive pulmonary disease, unspecified Status: Acute Assessment and Plan: Continue antibiotics, BiPAP, bronchodilators (8) Combined systolic and diastolic congestive heart failure: Code(s): I50.40 - Unspecified combined systolic (congestive) and diastolic (congestive) heart failure Status: Acute Assessment and Plan: Patient has history of heart failure -currently being cautious with IV fluids 10/17/2024: Echocardiogram Summary 1. Left ventricular chamber dimension is normal. 2. Left ventricular systolic function is normal, estimated at 55-60%. 3. There is mild concentric increased left ventricular wall thickness. 4. The left ventricular diastolic function is abnormal. 5. Tissue doppler E/e' was not assessed. 6. Right ventricular chamber dimension is mildly enlarged. 7. Right ventricular systolic function is moderately reduced and with abnormal TAPSE 0.9 cm. 8. Left atrial chamber dimension is severely enlarged. 9. Right atrial chamber dimension is mildly enlarged. 10. There is trace aortic valve regurgitation. 11. The bioprosthetic mitral valve leaflets is not well seen. 12. Inadequate assessment of mitral valve stenosis as no valve area from continuity equation and no gradients provided. 13. Tricuspid valve repair with annuloplasty ring. 14. There is mild to moderate tricuspid valve regurgitation. 15. Severe pulmonary hypertension, estimated pulmonary arterial systolic pressure is 62 mmHg. 16. There is trace pulmonic regurgitation. (9) Ileus: Code(s): K56.7 - Ileus, unspecified Status: Acute Assessment and Plan: 10/20: Obstructive series: Persistently dilated small bowel, consistent with adynamic ileus versus small bowel obstruction. -Bowel rest, IV fluids -will get Surgery and GI on board (10) Thrombocytopenia: Code(s): D69.6 - Thrombocytopenia, unspecified Status: Acute Assessment and Plan: Likely multifactorial, could be related to septic shock, patient also on Xarelto at home, consumptive thrombocytopenia -no acute bleeding noted -will check stool for occult blood -transfuse as needed Plan DVT prophylaxis: SCDs, no chemoprophylaxis due to hemoptysis and thrombocytopenia Stress ulcer prophylaxis: Protonix Nutrition: NPO for now as patient has ileus/small small-bowel obstruction Code Status: Full code Critical Care Time Spent: 51 minute Discussed with patient's spouse at bedside updated with patient's condition and plan of care. Due to a high probability of clinically significant, life threatening deterioration, the patient required my highest level of preparedness to intervene emergently and I personally spent this critical care time directly and personally managing the patient. This critical care time included obtaining a history; examining the patient; pulse oximetry; ordering and review of studies; arranging urgent treatment with development of a management plan; evaluation of patient's response to treatment; frequent reassessment; and discussions with other providers. It was exclusive of separately billable procedures and treating other patients and teaching time. Please see Assessment and Plan section and the rest of the note for further information on patient assessment and treatment This dictation may have been done utilizing a voice recognition system. Attempts have been made to correct errors. However, there may be uncorrected grammatical, spelling, and recognitions errors present. [employer] Consult Note Consult date: 10/20/24 Reason for consult: Acute respiratory failure, septic shock, metabolic acidosis/lactic acidosis pneumonia HPI: Milton Minor is a 64 year old male with history of COPD, paroxysmal AFib on chronic anticoagulation, severe pulmonary hypertension, systolic and diastolic heart failure, hypothyroidism, hypertension, bioprosthetic mitral valve replacement following endocarditis in 2013, Darby's esophagus, presented the ED on 10/16/2024 with complains of shortness of breath, productive cough with specks of blood, patient is on Xarelto for his atrial fibrillation, he denies any chills, fevers, nausea, vomiting, chest pain at that time. He also denied smoking, alcohol or illicit drug use. His stated that he had been on losartan which caused his blood pressures to drop, suggested to him to decrease the dose by 50% which she did and despite which his blood pressures were borderline, he was in bed most of the time with generalized weakness, myalgias and shallow breathing. In the ER chest x-ray showed bilateral lower lobe pneumonias, started on ceftriaxone, azithromycin. 10/19: Patient transferred from the medical floor with hypotension, worsening respiratory distress and possible fluid overload. The elevated lactic acid and significant metabolic acidosis. Patient was placed on BiPAP, started on phenylephrine via peripheral IV overnight. Patient was started on vancomycin, cefepime 10/20/2024: Patient seen and examined the ICU, is awake, alert, answers to questions and follows simple commands. Remains on BiPAP 10/5, 30% FiO2, in no acute distress, states his breathing is okay at this time, denies any chest pain, abdominal pain, nausea, vomiting. Abdominal x-ray showed ileus or small- bowel obstruction. PICC line was inserted this morning and patient started on Levophed will be no phenylephrine for now. Patient was given IV fluid cautiously overnight, 500 IV fluid bolus and started on albumin. He also received multiple doses of bicarb pushes for his severe metabolic acidosis. Lebron catheter was inserted with 500 mL of dark urine output Review of Systems 2 Review of Systems: All systems reviewed & are unremarkable except as noted in HPI and below PMFSH Past Medical History Medical History Combined systolic and diastolic congestive heart failure Chronic obstructive pulmonary disease Paroxysmal atrial fibrillation Hyperthyroidism Current use of watermaster anticoagulation Alcohol abuse Chronic anxiety Gastritis Barretts esophagus Thoracic aortic aneurysm 4.4 cm Hyperlipidemia Hypertension Surgical History Surgical History History of colonoscopy with polypectomy History of mitral valve replacement with bioprosthetic valve (2013) History of appendectomy History of hernia repair History of tonsillectomy Family History Family History Mother Family history of chronic obstructive pulmonary disease Social History Social History Social History: Surrogate medical decision maker: Yuliana Minor, spouse. Code status: Full code. Smoking packs per day: 2 Smoking cigarettes per day: 40.0 Years smoked: 25 Smoking pack-years: 50.00 Smoking status: Former smoker Tobacco type: cigarettes Second hand tobacco smoke exposure: No Smoking end date: 10/04/02 Alcohol intake: former Drinks per week: 8 Alcohol use details: BEERS Substance use: never Substance use type: does not use Do You Feel Safe in your Home?: Yes Lack of Transportation: No Lack of Food: Never True Current Housing: I Have Housing Concerned About Future Housing: No Difficulty Paying Gas/Electric Bills: No Difficulty Paying for Meds: No Currently Unemployed: No Education: High School Diploma/GED Difficulty w/ Childcare or Family Care: No Living arrangements: with family Occupation/Education: unemployed Spiritual care concerns: No Meds Home Medications and Allergies Home Medications ?Medication ?Instructions ?Recorded ?Confirmed ?Type tiotropium 2.5 mcg-olodaterol 2.5 2 puff inhalation DAILY 10/06/22 10/16/24 History mcg/actuation mist for inhalation (Stiolto Respimat) alprazolam 0.5 mg tablet (Xanax) 0.5 mg PO QHS PRN anxiety] 07/28/23 10/16/24 History omeprazole 20 mg capsule,delayed 40 mg PO BID 01/06/24 10/16/24 History release propranolol 80 mg capsule,24 20 mg PO BID 01/06/24 10/16/24 History hr,extended release dronedarone 400 mg tablet (Multaq) See Rx Instructions .Route 03/14/24 10/16/24 Rx .COMPLEX #180 tabs rivaroxaban 20 mg tablet (Xarelto) See Rx Instructions .Route 08/17/24 10/16/24 Rx .COMPLEX #90 tabs methimazole 5 mg tablet See Rx Instructions .Route .COMPLEX 08/28/24 10/16/24 History albuterol sulfate 2.5 mg/3 mL 2.5 mg inhalation QID PRN 10/16/24 10/16/24 History (0.083 %) solution for nebulization shortness of breath or wheezing albuterol sulfate 90 mcg/actuation 2 puff inhalation Q6H PRN 10/16/24 10/16/24 History aerosol inhaler shortness of breath or wheezing losartan 50 mg tablet 50 mg PO DAILY #90 tabs 10/16/24 10/16/24 Rx prochlorperazine maleate 10 mg 10 mg PO DAILY PRN nausea and 10/16/24 10/16/24 History tablet vomiting Allergies Allergy/AdvReac Type Severity Reaction Status Date / Time No Known Allergies Allergy Verified 10/16/24 10:57 Vital Signs Vital Signs - 24 hr 10/19/24 12:00 10/19/24 14:29 10/19/24 14:30 Temperature Pulse Rate 78 94 Respiratory Rate 24 H Blood Pressure Pulse Oximetry 95 Oxygen Delivery Nasal Cannula Oxygen Flow Rate 2 Fraction of Inspired Oxygen 10/19/24 14:38 10/19/24 16:00 10/19/24 16:00 Temperature 97.5 F L Pulse Rate 95 84 77 Respiratory Rate 24 H 18 Blood Pressure 115/90 Pulse Oximetry 99 Oxygen Delivery Oxygen Flow Rate Fraction of Inspired Oxygen 10/19/24 18:18 10/19/24 20:00 10/19/24 20:00 Temperature Pulse Rate 78 96 Respiratory Rate 22 H 19 Blood Pressure Pulse Oximetry 100 100 Oxygen Delivery BiPAP BiPAP Oxygen Flow Rate Fraction of Inspired Oxygen 40 10/19/24 20:13 10/19/24 20:23 10/19/24 20:23 Temperature Pulse Rate 86 80 80 Respiratory Rate 36 H 21 H 21 H Blood Pressure 80/40 L Pulse Oximetry 88 L 100 Oxygen Delivery BiPAP Oxygen Flow Rate Fraction of Inspired Oxygen 10/19/24 20:44 10/19/24 20:45 10/19/24 22:00 Temperature Pulse Rate 79 78 Respiratory Rate 22 H Blood Pressure Pulse Oximetry 100 Oxygen Delivery BiPAP Oxygen Flow Rate Fraction of Inspired Oxygen 40 10/19/24 22:19 10/19/24 23:02 10/19/24 23:14 Temperature Pulse Rate 79 78 Respiratory Rate 18 20 Blood Pressure 92/52 L Pulse Oximetry 100 100 100 Oxygen Delivery BiPAP BiPAP Oxygen Flow Rate Fraction of Inspired Oxygen 30 10/19/24 23:57 10/20/24 00:00 10/20/24 00:00 Temperature 97.6 F Pulse Rate 81 83 Respiratory Rate 18 20 Blood Pressure 90/65 L Pulse Oximetry 100 100 Oxygen Delivery BiPAP Oxygen Flow Rate Fraction of Inspired Oxygen 30 10/20/24 01:36 10/20/24 01:36 10/20/24 01:44 Temperature Pulse Rate 85 85 81 Respiratory Rate 22 H 22 H 20 Blood Pressure Pulse Oximetry 100 Oxygen Delivery BiPAP Oxygen Flow Rate Fraction of Inspired Oxygen 10/20/24 01:46 10/20/24 02:00 10/20/24 02:00 Temperature Pulse Rate 81 79 82 Respiratory Rate 23 H 21 H Blood Pressure 77/61 L Pulse Oximetry 100 100 Oxygen Delivery Oxygen Flow Rate Fraction of Inspired Oxygen 10/20/24 02:01 10/20/24 02:25 10/20/24 02:46 Temperature Pulse Rate 82 85 79 Respiratory Rate 20 20 Blood Pressure 97/74 L 97/74 L 86/68 L Pulse Oximetry 99 100 Oxygen Delivery Oxygen Flow Rate Fraction of Inspired Oxygen 10/20/24 03:01 10/20/24 03:16 10/20/24 03:31 Temperature Pulse Rate 79 79 79 Respiratory Rate 19 20 20 Blood Pressure 90/63 L 83/62 L 90/68 L Pulse Oximetry 100 100 99 Oxygen Delivery Oxygen Flow Rate Fraction of Inspired Oxygen 10/20/24 03:46 10/20/24 04:00 10/20/24 04:00 Temperature Pulse Rate 95 95 Respiratory Rate 32 H 20 Blood Pressure 105/84 120/103 H Pulse Oximetry 98 100 Oxygen Delivery BiPAP Oxygen Flow Rate Fraction of Inspired Oxygen 30 10/20/24 04:00 10/20/24 05:09 10/20/24 06:00 Temperature 97.6 F Pulse Rate 94 89 76 Respiratory Rate 20 Blood Pressure 79/59 L Pulse Oximetry 98 98 Oxygen Delivery Oxygen Flow Rate Fraction of Inspired Oxygen 10/20/24 06:00 10/20/24 06:00 10/20/24 06:30 Temperature Pulse Rate 77 77 84 Respiratory Rate Blood Pressure 80/61 L 78/46 L Pulse Oximetry Oxygen Delivery Oxygen Flow Rate Fraction of Inspired Oxygen 10/20/24 07:10 10/20/24 07:10 10/20/24 07:20 Temperature Pulse Rate 78 78 81 Respiratory Rate 20 20 20 Blood Pressure Pulse Oximetry 100 Oxygen Delivery BiPAP Oxygen Flow Rate Fraction of Inspired Oxygen 10/20/24 08:00 10/20/24 08:00 10/20/24 08:00 Temperature 97.8 F Pulse Rate 82 82 Respiratory Rate 27 H Blood Pressure 93/67 L 93/67 L Pulse Oximetry 98 98 Oxygen Delivery BiPAP Oxygen Flow Rate Fraction of Inspired Oxygen 30 10/20/24 09:00 10/20/24 09:16 Temperature 100.3 F H Pulse Rate 78 78 Respiratory Rate 21 H Blood Pressure 91/71 L 94/72 L Pulse Oximetry 100 Oxygen Delivery Oxygen Flow Rate Fraction of Inspired Oxygen Exam 2 Narrative: General: Pleasant gentleman in no acute distress HEENT:? Pupils equal reactive, sclera is clear go BiPAP mask in place Neck:? Supple Respiratory:? Coarse breath sounds bilaterally, decreased at bases, no wheezing, adequate air entry Cardiac:? S1-S2 is normal, regular rate and rhythm Abdomen:? Soft, tympanic, mildly distended, nontender, hypoactive bowel sounds Extremities:? No edema, palpable pedal pulses Neuro:? Patient is awake, alert, oriented, nonfocal Skin:? Warm and dry Psych:? Normal mentation and affect Results Labs 10/20/24 04:21 10/20/24 04:25 Labs: Short CBC 10/19/24 10/20/24 Range/Units 19:17 04:21 WBC 8.8 11.7 H (4.5-10.0) K/mm3 Hgb 9.2 L 8.6 L (14.0-18.0) g/dL Hct 27.9 L 25.6 L (42.0-52.0) % Plt Count 95 L 79 L (150-375) k/mm3 BMP 10/19/24 10/20/24 10/20/24 18:33 04:21 04:25 Sodium 125 L 127 L Potassium 5.5 H 5.5 H Chloride 100 102 Carbon Dioxide 13 L 14 L BUN 32 H 38 H Creatinine 0.91 1.01 1.03 Glucose 110 115 H Calcium 8.4 8.2 L Cardiac Enzymes 10/19/24 10/19/24 10/20/24 Range/Units 18:33 21:19 01:30 Troponin I 0.127 H* 0.145 H* 0.195 H* D (0.000-0.034) ng/mL Liver Function 10/20/24 Range/Units 04:21 Total Bilirubin 1.4 H (0.2-1.3) mg/dL AST 600 H (17-59) U/L ALT 561 H (6-50) U/L Alkaline Phosphatase 79 (38-126) U/L Albumin 3.4 L (3.5-5.1) g/dL Quality VTE Prophylaxis VTE prophylaxis: mechanical ordered If No VTE Prophylaxis Answer both mechanical and pharmacologic: Reason no pharmacologic proph: medical contraindication thrombocytopenia Hospitalist MIPS Advance Care Plan I have confirmed that the patient's Advanced Care Plan is present, code status is documented, or surrogate decision maker is listed in patient medical record.: Yes Medication Reconciliation I have utilized all available resources to obtain, update and review the patients current medications (includes all prescriptions, OTC, herbals, cannabis, and nutritional supplements).: Yes
[2024-10-20] MEDS: DOXYCYCLINE 100 MG/NS 100 ML 100 MG/100 ML BAG IVPB ×2 (09:50→20:20)
[2024-10-20] MEDS: DEXTROSE 50% 25 GM/50 ML SYRINGE IV PUSH (10:03)
[2024-10-20] MEDS: SODIUM BICARBONATE 8.4% 50 MEQ/50 ML SYRINGE IV PUSH (10:05)
[2024-10-20] MEDS: INSULIN HUMAN REGULAR (*BKC) 100 UNITS/ML 10 UNITS IV PUSH (10:08)
[2024-10-20 10:22] LABS: Glucose Point of Care 92 mg/dl (65-105)
--- NOTE | 2024-10-20 10:23 | P.PNNP_ITS ---
Progress Note: A&P Assessment and Plan (1) Hyponatremia: Code(s): E87.1 - Hypo-osmolality and hyponatremia Status: Acute Assessment and Plan: * chronic issue at baseline * multiple risk factors: * known history of COPD * CHF * thyroid disease * PPI use * nausea * distant history alcohol abuse * possibly exacerbated by #2 * asymptomatic * sodium usually runs around 123 - 129mmol/L since as far back as 2016 if not longer * history suggests SIADH with previous outpatient work-up (January 2024) noted: * prerenal urine electrolytes * known history of hyperthyroidism * cortisol okay * SPE and UPE negative * urine osmo > serum osmo * previous CXR with COPD changes * previous CT of head negative * Sodium is a little bit better today, up to 127. * Improving at a good rate. * Potassium is also a bit high. He has metabolic acidosis he is getting a bicarb drip to help the acidosis which should help the potassium as well. The patient has an ileus so can not get Lokelma. If the bicarb drip does not bring the potassium down then we can use Kayexalate per rectum. * The patient has a lactic acidosis. Anion gap is 11 and the lactic acid level is four. Most likely most of the metabolic acidosis is from non anion gap causes, possibly dilution? There does not seem to be any issue with diarrhea. (2) Pneumonia: Code(s): J18.9 - Pneumonia, unspecified organism Status: Acute Assessment and Plan: * imaging with bilateral perihilar and lower lobe pneumonia * on supplemental oxygen and nebulizer treatment * on antibiotics therapy * Blood cultures negative to date. * He is on BiPAP now. (3) Hypertension: Qualifiers: Hypertension type: essential hypertension Qualified Code(s): I10 - Essential (primary) hypertension Code(s): I10 - Essential (primary) hypertension Status: Acute Assessment and Plan: * Off antihypertensives because of the hypotension (4) Paroxysmal atrial fibrillation: Code(s): I48.0 - Paroxysmal atrial fibrillation Status: Acute Assessment and Plan: * in sinus rhythm * holding anticoagulation due to issues with hemoptysis on admission * Heart rate okay * Cardiology following (5) Hyperthyroidism: Code(s): E05.90 - Thyrotoxicosis, unspecified without thyrotoxic crisis or storm Status: Acute Assessment and Plan: * continue methimazole * TSH and T4 within range (6) Septic shock: Code(s): A41.9 - Sepsis, unspecified organism; R65.21 - Severe sepsis with septic shock Status: Acute Assessment and Plan: Sepsis. Due to infection plus-minus ileus Getting antibiotics and pressors Subjective Date/time seen: 10/20/24 10:23 Interval history: Patient is in bed on BiPAP. Getting enough air he says. Not very much abdominal discomfort. Exam Narrative: General: elderly but WD/WN male in NAD Heart: normal S1 and S2; no rub or gallop Lungs: coarse breath sounds; diminished at bases Abdomen: soft, nontender, nondistended, positive bowel sounds Extremities: no cyanosis or clubbing; no edema Skin: warm and dry without rash Objective Data Vital Signs Vital Signs: Vital Signs - 24 hr 10/19/24 12:00 10/19/24 14:29 10/19/24 14:30 Temperature Pulse Rate 78 94 Respiratory Rate 24 H Blood Pressure Pulse Oximetry 95 Oxygen Delivery Nasal Cannula Oxygen Flow Rate 2 Fraction of Inspired Oxygen 10/19/24 14:38 10/19/24 16:00 10/19/24 16:00 Temperature 97.5 F L Pulse Rate 95 84 77 Respiratory Rate 24 H 18 Blood Pressure 115/90 Pulse Oximetry 99 Oxygen Delivery Oxygen Flow Rate Fraction of Inspired Oxygen 10/19/24 18:18 10/19/24 20:00 10/19/24 20:00 Temperature Pulse Rate 78 96 Respiratory Rate 22 H 19 Blood Pressure Pulse Oximetry 100 100 Oxygen Delivery BiPAP BiPAP Oxygen Flow Rate Fraction of Inspired Oxygen 40 10/19/24 20:13 10/19/24 20:23 10/19/24 20:23 Temperature Pulse Rate 86 80 80 Respiratory Rate 36 H 21 H 21 H Blood Pressure 80/40 L Pulse Oximetry 88 L 100 Oxygen Delivery BiPAP Oxygen Flow Rate Fraction of Inspired Oxygen 10/19/24 20:44 10/19/24 20:45 10/19/24 22:00 Temperature Pulse Rate 79 78 Respiratory Rate 22 H Blood Pressure Pulse Oximetry 100 Oxygen Delivery BiPAP Oxygen Flow Rate Fraction of Inspired Oxygen 40 10/19/24 22:19 10/19/24 23:02 10/19/24 23:14 Temperature Pulse Rate 79 78 Respiratory Rate 18 20 Blood Pressure 92/52 L Pulse Oximetry 100 100 100 Oxygen Delivery BiPAP BiPAP Oxygen Flow Rate Fraction of Inspired Oxygen 30 10/19/24 23:57 10/20/24 00:00 10/20/24 00:00 Temperature 97.6 F Pulse Rate 81 83 Respiratory Rate 18 20 Blood Pressure 90/65 L Pulse Oximetry 100 100 Oxygen Delivery BiPAP Oxygen Flow Rate Fraction of Inspired Oxygen 30 10/20/24 01:36 10/20/24 01:36 10/20/24 01:44 Temperature Pulse Rate 85 85 81 Respiratory Rate 22 H 22 H 20 Blood Pressure Pulse Oximetry 100 Oxygen Delivery BiPAP Oxygen Flow Rate Fraction of Inspired Oxygen 10/20/24 01:46 10/20/24 02:00 10/20/24 02:00 Temperature Pulse Rate 81 79 82 Respiratory Rate 23 H 21 H Blood Pressure 77/61 L Pulse Oximetry 100 100 Oxygen Delivery Oxygen Flow Rate Fraction of Inspired Oxygen 10/20/24 02:01 10/20/24 02:25 10/20/24 02:46 Temperature Pulse Rate 82 85 79 Respiratory Rate 20 20 Blood Pressure 97/74 L 97/74 L 86/68 L Pulse Oximetry 99 100 Oxygen Delivery Oxygen Flow Rate Fraction of Inspired Oxygen 10/20/24 03:01 10/20/24 03:16 10/20/24 03:31 Temperature Pulse Rate 79 79 79 Respiratory Rate 19 20 20 Blood Pressure 90/63 L 83/62 L 90/68 L Pulse Oximetry 100 100 99 Oxygen Delivery Oxygen Flow Rate Fraction of Inspired Oxygen 10/20/24 03:46 10/20/24 04:00 10/20/24 04:00 Temperature Pulse Rate 95 95 Respiratory Rate 32 H 20 Blood Pressure 105/84 120/103 H Pulse Oximetry 98 100 Oxygen Delivery BiPAP Oxygen Flow Rate Fraction of Inspired Oxygen 30 10/20/24 04:00 10/20/24 05:09 10/20/24 06:00 Temperature 97.6 F Pulse Rate 94 89 76 Respiratory Rate 20 Blood Pressure 79/59 L Pulse Oximetry 98 98 Oxygen Delivery Oxygen Flow Rate Fraction of Inspired Oxygen 10/20/24 06:00 10/20/24 06:00 10/20/24 06:30 Temperature Pulse Rate 77 77 84 Respiratory Rate Blood Pressure 80/61 L 78/46 L Pulse Oximetry Oxygen Delivery Oxygen Flow Rate Fraction of Inspired Oxygen 10/20/24 07:10 10/20/24 07:10 10/20/24 07:20 Temperature Pulse Rate 78 78 81 Respiratory Rate 20 20 20 Blood Pressure Pulse Oximetry 100 Oxygen Delivery BiPAP Oxygen Flow Rate Fraction of Inspired Oxygen 10/20/24 08:00 10/20/24 08:00 10/20/24 08:00 Temperature 97.8 F Pulse Rate 82 82 Respiratory Rate 27 H Blood Pressure 93/67 L 93/67 L Pulse Oximetry 98 98 Oxygen Delivery BiPAP Oxygen Flow Rate Fraction of Inspired Oxygen 30 10/20/24 09:00 10/20/24 09:15 10/20/24 09:15 Temperature Pulse Rate 78 79 76 Respiratory Rate Blood Pressure 91/71 L 94/72 L 94/72 L Pulse Oximetry Oxygen Delivery Oxygen Flow Rate Fraction of Inspired Oxygen 10/20/24 09:16 10/20/24 09:30 10/20/24 09:30 Temperature 100.3 F H Pulse Rate 78 75 76 Respiratory Rate 21 H Blood Pressure 94/72 L 98/79 L 98/79 L Pulse Oximetry 100 Oxygen Delivery Oxygen Flow Rate Fraction of Inspired Oxygen 10/20/24 09:33 10/20/24 10:00 10/20/24 10:01 Temperature 100.3 F H Pulse Rate 76 76 77 Respiratory Rate 22 H 22 H Blood Pressure 102/86 Pulse Oximetry 100 100 Oxygen Delivery BiPAP Oxygen Flow Rate Fraction of Inspired Oxygen Intake/Output Intake/Output: Intake & Output 10/17/24 10/18/24 10/19/24 10/20/24 23:59 23:59 23:59 23:59 Intake Total 2673.2 1755 3151.3 428.9 Output Total 805 400 1 500 Balance 1868.2 1355 3150.3 -71.1 Meds/Results Medications: Active Medications Generic Name Dose Route Start Last Admin Trade Name Freq PRN Reason Stop Dose Admin Acetaminophen 650 mg 10/16/24 12:34 10/18/24 11:25 Acetaminophen 325 Mg Tablet PO 650 mg Q4H PRN Administration Mild Pain (1-3) or Fever Albuterol 2.5 mg 10/18/24 14:45 Albuterol Sulfate Neb 2.5 Mg/3 Ml Inh INHALATION QID PRN shortness of breath or wheezing Albuterol/Ipratropium 3 ml 10/16/24 14:00 10/20/24 07:10 Ipratropium 0.5 Mg/Albuterol Sulfate 2.5 Mg Ampul.Neb 3 Ml INHALATION 3 ml Q6HRT CROW Administration Alprazolam 0.5 mg 10/16/24 21:47 10/18/24 11:25 Alprazolam (*Crx) 0.5 Mg Tablet PO 0.5 mg DAILY PRN Administration anxiety] Alprazolam 0.5 mg 10/17/24 21:00 10/19/24 22:13 Alprazolam (*Crx) 0.5 Mg Tablet PO Not Given HS CROW Dicyclomine HCl 20 mg 10/19/24 14:03 10/19/24 14:11 Dicyclomine Hcl 10 Mg Capsule PO 20 mg QID PRN Administration Abdominal Cramping Dronedarone 400 mg 10/16/24 09:00 10/20/24 09:33 Dronedarone Hcl 400 Mg Tablet BY MOUTH Not Given Q12HR [facility] Etomidate 20 mg 10/20/24 10:20 Etomidate 20 Mg/10 Ml Ampul IV PUSH 10/20/24 10:21 ONCE ONE Guaifenesin 1,200 mg 10/18/24 21:00 10/20/24 09:33 Guaifenesin 12 Hr 600 Mg Tabcr PO Not Given Q12HR [facility] Home Med 1 each 10/19/24 09:00 10/20/24 09:33 Home Medication - Propranolol 10 Mg Tab PO 10/25/24 21:01 Not Given Q12HR [facility] Home Med 1 each 10/26/24 21:00 Home Medication - Propranolol 10 Mg Tab PO 11/01/24 21:01 HS CROW Cefepime HCl 2 gm in 50 mls @ 100 mls/hr 10/19/24 20:00 10/20/24 05:00 Maxipime 2 Gm/Ns 50 Ml IVPB Infused Q8H CROW Infusion Vancomycin HCl 1,250 mg in 250 mls @ 166.667 mls/hr 10/20/24 15:00 Vancomycin 1,250 Mg/Ns 250 Ml IVPB Q18H CROW Albumin Human 100 mls @ 60 mls/hr 10/19/24 20:00 10/20/24 09:31 Albutein IVPB 10/20/24 15:39 60 mls/hr Q6H CROW Administration Phenylephrine HCl 50 mg/ 250 ml in 250 mls @ 18 mls/hr 10/20/24 02:25 10/20/24 09:30 Dextrose IV CONT 10/20/24 16:18 60 mcg/min .[id number] ONE 18 mls/hr Titration Protocol 60 MCG/MIN Sodium Bicarbonate 150 meq/ 1,100 mls @ 100 mls/hr 10/20/24 07:35 10/20/24 09:10 Dextrose IV CONT 10/20/24 17:34 100 mls/hr .Q11H CROW Administration Doxycycline Hyclate 100 mg in 100 mls @ 100 mls/hr 10/20/24 09:00 10/20/24 09:26 Vibramycin 100 Mg/Ns 100 Ml IVPB 10/21/24 23:59 Infused Q12H CROW Infusion Norepinephrine Bitartrate 8 mg in 250 mls @ 13.125 mls/hr 10/20/24 09:00 10/20/24 09:30 Levophed 8 Mg/D5w 250 Ml IV CONT 7 mcg/min .Q19H3M CROW 13.13 mls/hr Titration Protocol 7 MCG/MIN Phenylephrine HCl 50 mg/ 250 mls @ 18 mls/hr 10/20/24 11:00 Sodium Chloride IV CONT 10/21/24 00:53 .[id number] ONE Protocol 60 MCG/MIN Fentanyl Citrate 2,500 mcg in 250 mls @ 2.5 mls/hr 10/20/24 10:20 Fentanyl 2,500 Mcg/Ns 250 Ml IV CONT .Q72H CROW Protocol 25 MCG/HR Midazolam HCl 100 mg in 100 mls @ 1 mls/hr 10/20/24 10:20 Versed 100 Mg/Ns 100 Ml IV CONT .Q72H CROW Protocol 1 MG/HR Losartan Potassium 50 mg 10/19/24 09:00 10/19/24 10:23 Losartan Potassium 50 Mg Tablet PO 50 mg DAILY [facility] Administration Methimazole 5 mg 10/17/24 09:00 10/20/24 09:33 Methimazole 5 Mg Tab BY MOUTH Not Given [email or web address] [facility] Miscellaneous Information 1 each 10/19/24 18:45 Pharmacist Communication Order XX 10/19/24 18:46 ONCE ONE Multi-Ingred Cream/Lotion/Oil/Oint 1 applic 10/20/24 21:00 Mineral Oil/White Petrolatum Ointment EACH EYE Q12HR [facility] Ondansetron HCl 4 mg 10/20/24 07:35 Ondansetron Inj 4 Mg/2 Ml Vial IV PUSH Q4H PRN Nausea And Vomiting Pantoprazole Sodium 40 mg 10/20/24 21:00 Pantoprazole Sodium Iv 40 Mg Vial IV PUSH Q12HR [facility] Perflutren Lipid Microsphere 0 ml 10/18/24 09:56 Perflutren Lipid Microspheres 1.5 Ml Vial Diluted To 10 Ml Total Volume IV PUSH 10/21/24 09:56 ONCE PRN adequate visualization Protocol Polyethylene Glycol 17 gm 10/19/24 12:20 Polyethylene Glycol 3350 17 Gm Powd.Pack PO QAM PRN Constipation Rocuronium [place] 50 mg 10/20/24 10:20 Rocuronium [place] 50 Mg/5 Ml Vial IV PUSH 10/20/24 10:21 ONCE ONE Sodium Chloride 1 gm 10/18/24 18:15 10/20/24 09:34 Sodium Chloride 1 Gm Tablet PO Not Given BID [facility] Sodium Chloride 20 ml 10/20/24 08:59 Central Line Flush IV PUSH PRN PRN after blood draws Sodium Chloride 10 ml 10/20/24 08:59 Central Line Flush IV PUSH PRN PRN with TPN bag changes Sodium Chloride 10 ml 10/20/24 14:00 Central Line Flush IV PUSH Q8HR [facility] Umeclidinium/Vilanterol 1 puff 10/17/24 08:00 10/20/24 07:10 Umeclidinium/Vilanterol 62.5-25 Mcg Ellipta INHALATION 1 puff DAILYRT [facility] Administration Radiology Results: ITS Impressions Abdomen X-Ray 10/20/24 06:24 IMPRESSION: 1. Persistently dilated small bowel, consistent with adynamic ileus versus small bowel obstruction. 2. Stable small right pleural effusion. 3. Stable airspace opacities at the lung bases, consistent with atelectasis versus pneumonia. Venous Doppler Study 10/20/24 08:31 IMPRESSION: 1: No lower extremity deep venous thrombosis. Chest X-Ray 10/20/24 08:55 IMPRESSION: 1. PICC tip in the superior vena cava. 2. Stable diffuse lung disease, consistent with pulmonary edema and basilar atelectasis versus pneumonia. 3. Stable moderate-sized right pleural effusion. 4. Cardiomegaly. Labs Labs: Laboratory Results - last 24 hr 10/16/24 10/19/24 10/19/24 15:12 06:39 11:33 WBC RBC Hgb Hct MCV MCH MCHC RDW Plt Count MPV Immature Gran % (Auto) Neut % (Auto) Lymph % (Auto) [place] % (Auto) Eos % (Auto) Baso % (Auto) Lymph # (Auto) [place] # (Auto) Eos # (Auto) Baso # (Auto) Abs Immat Gran (auto) Absolute Neuts (auto) Absolute Nucleated RBC Nucleated RBC % % Immature Plt Fraction PT INR APTT Puncture Site ABG pH ABG pCO2 ABG pO2 ABG PO2/FiO2 Ratio ABG HCO3 ABG O2 Saturation ABG O2 Content ABG Base Excess A-a Gradient Oxyhemoglobin Carboxyhemoglobin Methemoglobin Reduced Hemoglobin Total Hemoglobin O2 Delivery Device O2 Liters/Min Vent Rate FiO2 Expiratory Pressure Inspiratory Pressure Sodium Potassium Chloride Carbon Dioxide Anion Gap BUN Creatinine Estim Creat Clear Calc Estimated GFR Glucose POC Capillary Glucose Lactic Acid Calcium Phosphorus Magnesium Total Bilirubin AST ALT Alkaline Phosphatase Troponin I Total Protein 6.1 Albumin U Random Total Protein 57 Ur Random Sodium Urine Total Volume Urine Creatinine Protein/Creat Ratio 2 Nasal MRSA (PCR) Urine Pneumococcal Ag Not detected 10/19/24 10/19/24 10/19/24 11:33 11:33 17:46 WBC RBC Hgb Hct MCV MCH MCHC RDW Plt Count MPV Immature Gran % (Auto) Neut % (Auto) Lymph % (Auto) [place] % (Auto) Eos % (Auto) Baso % (Auto) Lymph # (Auto) [place] # (Auto) Eos # (Auto) Baso # (Auto) Abs Immat Gran (auto) Absolute Neuts (auto) Absolute Nucleated RBC Nucleated RBC % % Immature Plt Fraction PT INR APTT Puncture Site ABG pH ABG pCO2 ABG pO2 ABG PO2/FiO2 Ratio ABG HCO3 ABG O2 Saturation ABG O2 Content ABG Base Excess A-a Gradient Oxyhemoglobin Carboxyhemoglobin Methemoglobin Reduced Hemoglobin Total Hemoglobin O2 Delivery Device O2 Liters/Min Vent Rate FiO2 Expiratory Pressure Inspiratory Pressure Sodium Potassium Chloride Carbon Dioxide Anion Gap BUN Creatinine Estim Creat Clear Calc Estimated GFR Glucose POC Capillary Glucose 111 H Lactic Acid Calcium Phosphorus Magnesium Total Bilirubin AST ALT Alkaline Phosphatase Troponin I Total Protein Albumin U Random Total Protein Cancelled Ur Random Sodium 12 Urine Total Volume Cancelled Urine Creatinine 223.4 Cancelled Protein/Creat Ratio 2 0.26 H Nasal MRSA (PCR) Urine Pneumococcal Ag 10/19/24 10/19/24 10/19/24 17:52 18:33 18:52 WBC RBC Hgb Hct MCV MCH MCHC RDW Plt Count MPV Immature Gran % (Auto) Neut % (Auto) Lymph % (Auto) [place] % (Auto) Eos % (Auto) Baso % (Auto) Lymph # (Auto) [place] # (Auto) Eos # (Auto) Baso # (Auto) Abs Immat Gran (auto) Absolute Neuts (auto) Absolute Nucleated RBC Nucleated RBC % % Immature Plt Fraction PT 19.3 H D INR 1.6 APTT 29.1 Puncture Site Left radial ABG pH 7.306 L ABG pCO2 24.1 L ABG pO2 71.3 L ABG PO2/FiO2 Ratio 1.62 ABG HCO3 11.8 L ABG O2 Saturation 93.3 L ABG O2 Content 13.6 L ABG Base Excess -12.9 A-a Gradient 215.0 Oxyhemoglobin 91.1 Carboxyhemoglobin Methemoglobin Reduced Hemoglobin Total Hemoglobin 10.6 L O2 Delivery Device Nasal cannula O2 Liters/Min 6.0 Vent Rate FiO2 44 Expiratory Pressure Inspiratory Pressure Sodium 125 L Potassium 5.5 H Chloride 100 Carbon Dioxide 13 L Anion Gap 12 BUN 32 H Creatinine 0.91 Estim Creat Clear Calc 67 Estimated GFR > 60 Glucose 110 POC Capillary Glucose Lactic Acid Calcium 8.4 Phosphorus 4.6 H Magnesium 2.3 Total Bilirubin AST ALT Alkaline Phosphatase Troponin I 0.127 H* Total Protein Albumin U Random Total Protein Ur Random Sodium Urine Total Volume Urine Creatinine Protein/Creat Ratio 2 Nasal MRSA (PCR) Not detected Urine Pneumococcal Ag 10/19/24 10/19/24 10/20/24 19:17 21:19 01:30 WBC 8.8 RBC 2.91 L Hgb 9.2 L Hct 27.9 L MCV 95.9 MCH 31.6 MCHC 33.0 RDW 14.4 Plt Count 95 L MPV 9.7 Immature Gran % (Auto) 0.9 H Neut % (Auto) 86.2 H Lymph % (Auto) 4.4 L [place] % (Auto) 8.4 Eos % (Auto) 0.0 Baso % (Auto) 0.1 L Lymph # (Auto) 0.39 L [place] # (Auto) 0.7 H Eos # (Auto) 0.0 Baso # (Auto) 0.0 Abs Immat Gran (auto) 0.08 H Absolute Neuts (auto) 7.6 H Absolute Nucleated RBC 0.000 Nucleated RBC % 0.0 % Immature Plt Fraction 3.6 PT INR APTT Puncture Site ABG pH ABG pCO2 ABG pO2 ABG PO2/FiO2 Ratio ABG HCO3 ABG O2 Saturation ABG O2 Content ABG Base Excess A-a Gradient Oxyhemoglobin Carboxyhemoglobin Methemoglobin Reduced Hemoglobin Total Hemoglobin O2 Delivery Device O2 Liters/Min Vent Rate FiO2 Expiratory Pressure Inspiratory Pressure Sodium Potassium Chloride Carbon Dioxide Anion Gap BUN Creatinine Estim Creat Clear Calc Estimated GFR Glucose POC Capillary Glucose Lactic Acid 5.2 H* 4.5 H* Calcium Phosphorus Magnesium Total Bilirubin AST ALT Alkaline Phosphatase Troponin I 0.145 H* 0.195 H* D Total Protein Albumin U Random Total Protein Ur Random Sodium Urine Total Volume Urine Creatinine Protein/Creat Ratio 2 Nasal MRSA (PCR) Urine Pneumococcal Ag 10/20/24 10/20/24 10/20/24 04:21 04:25 05:02 WBC 11.7 H RBC 2.76 L Hgb 8.6 L Hct 25.6 L MCV 92.8 MCH 31.2 MCHC 33.6 RDW 14.5 Plt Count 79 L MPV 10.3 Immature Gran % (Auto) 0.6 H Neut % (Auto) 90.1 H Lymph % (Auto) 4.1 L [place] % (Auto) 5.1 Eos % (Auto) 0.0 Baso % (Auto) 0.1 L Lymph # (Auto) 0.48 L [place] # (Auto) 0.6 Eos # (Auto) 0.0 Baso # (Auto) 0.0 Abs Immat Gran (auto) 0.07 H Absolute Neuts (auto) 10.6 H Absolute Nucleated RBC 0.020 H Nucleated RBC % 0.2 % Immature Plt Fraction 3.6 PT INR APTT Puncture Site Left radial ABG pH 7.465 H ABG pCO2 19.7 L* ABG pO2 94.7 ABG PO2/FiO2 Ratio 3.16 ABG HCO3 13.9 L ABG O2 Saturation 97.8 ABG O2 Content 12.7 L ABG Base Excess -8.3 A-a Gradient 96.1 Oxyhemoglobin 96.3 Carboxyhemoglobin 0.6 Methemoglobin 0.2 Reduced Hemoglobin 2.9 Total Hemoglobin 9.3 L O2 Delivery Device Non-invasive vent O2 Liters/Min Not Reportable Vent Rate 8 FiO2 30 Expiratory Pressure 5 Inspiratory Pressure 10 Sodium 127 L Potassium 5.5 H Chloride 102 Carbon Dioxide 14 L Anion Gap 11 BUN 38 H Creatinine 1.01 1.03 Estim Creat Clear Calc 60 59 Estimated GFR > 60 > 60 Glucose 115 H POC Capillary Glucose Lactic Acid Calcium 8.2 L Phosphorus 4.6 H Magnesium 2.0 Total Bilirubin 1.4 H AST 600 H ALT 561 H Alkaline Phosphatase 79 Troponin I Total Protein 6.0 L Albumin 3.4 L U Random Total Protein Ur Random Sodium Urine Total Volume Urine Creatinine Protein/Creat Ratio 2 Nasal MRSA (PCR) Urine Pneumococcal Ag 10/20/24 10/20/24 10/20/24 06:18 07:51 10:07 WBC RBC Hgb Hct MCV MCH MCHC RDW Plt Count MPV Immature Gran % (Auto) Neut % (Auto) Lymph % (Auto) [place] % (Auto) Eos % (Auto) Baso % (Auto) Lymph # (Auto) [place] # (Auto) Eos # (Auto) Baso # (Auto) Abs Immat Gran (auto) Absolute Neuts (auto) Absolute Nucleated RBC Nucleated RBC % % Immature Plt Fraction PT 21.1 H INR 1.8 APTT 32.3 Puncture Site ABG pH ABG pCO2 ABG pO2 ABG PO2/FiO2 Ratio ABG HCO3 ABG O2 Saturation ABG O2 Content ABG Base Excess A-a Gradient Oxyhemoglobin Carboxyhemoglobin Methemoglobin Reduced Hemoglobin Total Hemoglobin O2 Delivery Device O2 Liters/Min Vent Rate FiO2 Expiratory Pressure Inspiratory Pressure Sodium Potassium Chloride Carbon Dioxide Anion Gap BUN Creatinine Estim Creat Clear Calc Estimated GFR Glucose POC Capillary Glucose 92 Lactic Acid 4.2 H* Calcium Phosphorus Magnesium Total Bilirubin AST ALT Alkaline Phosphatase Troponin I Total Protein Albumin U Random Total Protein Ur Random Sodium Urine Total Volume Urine Creatinine Protein/Creat Ratio 2 Nasal MRSA (PCR) Urine Pneumococcal Ag
[2024-10-20] MEDS: ETOMIDATE 20 MG/10 ML AMPUL IV PUSH (10:49)
[2024-10-20] MEDS: ROCURONIUM BROMIDE 50 MG/5 ML VIAL IV PUSH (10:50)
[2024-10-20] MEDS: MIDAZOLAM 100MG/NS 100ML(*CRX) 100 MG/100 ML BAG IV CONT (10:51)
[2024-10-20] MEDS: FENTANYL 2,500MCG/NS250ML(*CRX 2,500 MCG/250 ML BAG IV CONT (10:53)
[2024-10-20] MEDS: PHENYLEPHRINE HCL INJ 50 MG in SODIUM CHLORIDE 0.9% IV 245 ML 18 ML IV CONT (11:15)
[2024-10-20] MEDS: CALCIUM GLUC 1,000 MG/NS 50 ML 1,000 MG/50 ML BAG 100 MG IVPB (11:25)
[2024-10-20] MEDS: LACTATED RINGERS 1,000 ML 999 ML IV CONT (11:33)
--- NOTE | 2024-10-20 12:06 | P.PNCROSS_ITS ---
Event Note Event Note Event Note: During rounds patient complained that he was unable to breathe, I went and eval uated the patient in the room, he was breathing between 30-35 times a minute, shallow breaths, just flew looked toxic, discussed with the patient as well has his spouse and daughter, given his metabolic acidosis, lactic acidosis, pneumonia, respiratory distress I decided to intubate the patient for impending respiratory failure rads and intubate him when these in emergency. The patient and the family understood and consented to intubation. Patient was intubated successfully and it was uneventful.
--- NOTE | 2024-10-20 12:08 | WPDPROCEDUR ---
Procedures Intubation Intubation Date: 10/20/24 Intubation Time: 10:42 Consent: Discussed with patient, his spouse, and daughter and updated them with patient's respiratory distress, pneumonia, toxic looking. I explained to them that I would rather intubate him now rather than when there was an emergency. They understood and consented to intubation and mechanical ventilation. A pre-procedural Time-Out was completed immediately before starting the procedure and confirmed: Patient Identification, Site, Procedure, Patient Position and the Availability of Requisite Equipment: Yes Sedative: etomidate Paralytic: rocuronium Laryngoscope: fiber optic video scope Assist device used: fiber optic device ET tube size: 7.5 Tube secured depth (cm): 23 Tube secured location: lips Tube placement confirmation: visualized tube passing through cords, equal breath sounds bilaterally, no breath sounds over epigastrium and confirmation by capnometry Patient tolerated procedure: well and no complications Intubation complications: none
[2024-10-20 12:42] LABS: Alveolar/Arterial O2 Gradient 368.8 mmHg; Base Excess ABG -5.7 mEq/l (+/-2.0); Carboxyhemoglobin 0.4 % THb (0-2.0); Fractional Inspired Oxygen 80 %; HCO3 ABG 18.1 mEq/l (22.0-26.0); Methemoglobin ABG 0.3 %THb (0-1.5); Oxygen Content ABG 13.2 %vol (16.0-22.0); Oxygen Saturation ABG 99.2 % (95.0-100.0); Oxyhemoglobin 98.3 % THb (90.0-100.0); PCO2 ABG 29.3 mmHg (35.0-45.0); PO2 ABG 170.8 mmHg (80.0-100.0); PO2 FiO2 Ratio Arterial Blood 2.13 %; Total Hemoglobin 9.3 g/dL (12.0-18.0); pH ABG 7.408 (7.350-7.450)
[2024-10-20 12:43] LABS: Device VENTILATOR; Modified Allen's Test Pass; Site Drawn RIGHT RADIAL
[2024-10-20 12:44] LABS: Arterial Blood Gas Vent Mode CMV; Arterial Blood Gas Ventilator rate 20 /MIN
[2024-10-20 12:45] LABS: Arterial Blood Gas PEEP 5 cmH2O; Arterial Blood Gas Tidal Volume 480 ml
[2024-10-20 13:00] LABS: Anion Gap 8 mmol/L (4-12); Blood Urea Nitrogen 39 mg/dL (9-20); Carbon Dioxide 24 mmol/L (22-30); Chloride 99 mmol/L (98-107); Estimated CRCL calculation 57 ml/min; Estimated Glomerular Filt Rate > 60; Glucose 131 mg/dL (65-110); Potassium 4.4 mmol/L (3.4-5.0); Sodium 131 mmol/L (137-145)
[2024-10-20] MEDS: CENTRAL LINE FLUSH 10 ML IV PUSH ×2 (13:19→21:31)
[2024-10-20] MEDS: VANCOMYCIN 1,250 MG/NS 250 ML 1,250 MG/250 ML BAG 166.67 MG IVPB (15:28)
--- NOTE | 2024-10-20 16:04 | WPDGICN ---
Assessment and Plan Assessment and plan (1) Thrombocytopenia: Code(s): D69.6 - Thrombocytopenia, unspecified Status: Acute (2) Ileus: Code(s): K56.7 - Ileus, unspecified Status: Acute Assessment and Plan: This patient is currently in critical condition with septic shock, requiring intubation and vasopressors. He also has electrolyte abnormalities. This critical state, with associated hemodynamic instability, can alone account for the observed bowel distension, therefore mechanical obstruction less likely. While sepsis-induced thrombocytopenia and ileus are present, the possibility of underlying liver dysfunction secondary to prior alcohol use cannot be entirely excluded; the patient has a significant coagulopathy, with an elevated INR disproportionate to the expected effect of Xarelto. Close monitoring of coagulation parameters and platelet counts is recommended. Will continue to follow. GI Consult Note Consult date/time: 10/20/24 16:04 Reason for consult: possible ileus vs mechanical obstructioin HPI: Milton Minor is a 64 year old male who was transfered to the ICU today. He was admitted with a diagnosis of pneumonia and developed sepsis. He is currently requiring IV pressors and was just intubated earlier today. In addition, the patient has a history of CHF and fluid management has been challenging, receiving IV albumin as well He has several electrolyte disturbances, like hyponatremia (? due to SIADH secondary to pulmonary problem), hyperkalemia, metabolic acidosis. He developed hemoptysis and Xarelto was discontinued. Review of Systems Review of Systems: All systems reviewed & are unremarkable except as noted in HPI and below PMFSH Past Medical History Medical History (Updated 10/20/24 @ 16:14 by Fei Chávez MD) Ileus Combined systolic and diastolic congestive heart failure Chronic obstructive pulmonary disease Paroxysmal atrial fibrillation Hyperthyroidism Current use of long term acute care registered nurse anticoagulation Alcohol abuse Chronic anxiety Gastritis Barretts esophagus Thoracic aortic aneurysm 4.4 cm Hyperlipidemia Hypertension Surgical History Surgical History History of colonoscopy with polypectomy History of mitral valve replacement with bioprosthetic valve (2013) History of appendectomy History of hernia repair History of tonsillectomy Family History Family History Mother Family history of chronic obstructive pulmonary disease Social History Social History Social History: Surrogate medical decision maker: Yuliana Minor, spouse. Code status: Full code. Smoking packs per day: 2 Smoking cigarettes per day: 40.0 Years smoked: 25 Smoking pack-years: 50.00 Smoking status: Former smoker Tobacco type: cigarettes Second hand tobacco smoke exposure: No Smoking end date: 10/04/02 Alcohol intake: former Drinks per week: 8 Alcohol use details: BEERS Substance use: never Substance use type: does not use Do You Feel Safe in your Home?: Yes Lack of Transportation: No Lack of Food: Never True Current Housing: I Have Housing Concerned About Future Housing: No Difficulty Paying Gas/Electric Bills: No Difficulty Paying for Meds: No Currently Unemployed: No Education: High School Diploma/GED Difficulty w/ Childcare or Family Care: No Living arrangements: with family Occupation/Education: unemployed Spiritual care concerns: No Meds Home Medications and Allergies Home Medications ?Medication ?Instructions ?Recorded ?Confirmed ?Type tiotropium 2.5 mcg-olodaterol 2.5 2 puff inhalation DAILY 10/06/22 10/16/24 History mcg/actuation mist for inhalation (Stiolto Respimat) alprazolam 0.5 mg tablet (Xanax) 0.5 mg PO QHS PRN anxiety] 07/28/23 10/16/24 History omeprazole 20 mg capsule,delayed 40 mg PO BID 01/06/24 10/16/24 History release propranolol 80 mg capsule,24 20 mg PO BID 01/06/24 10/16/24 History hr,extended release dronedarone 400 mg tablet (Multaq) See Rx Instructions .Route 03/14/24 10/16/24 Rx .COMPLEX #180 tabs rivaroxaban 20 mg tablet (Xarelto) See Rx Instructions .Route 08/17/24 10/16/24 Rx .COMPLEX #90 tabs methimazole 5 mg tablet See Rx Instructions .Route .COMPLEX 08/28/24 10/16/24 History albuterol sulfate 2.5 mg/3 mL 2.5 mg inhalation QID PRN 10/16/24 10/16/24 History (0.083 %) solution for nebulization shortness of breath or wheezing albuterol sulfate 90 mcg/actuation 2 puff inhalation Q6H PRN 10/16/24 10/16/24 History aerosol inhaler shortness of breath or wheezing losartan 50 mg tablet 50 mg PO DAILY #90 tabs 10/16/24 10/16/24 Rx prochlorperazine maleate 10 mg 10 mg PO DAILY PRN nausea and 10/16/24 10/16/24 History tablet vomiting Allergies Allergy/AdvReac Type Severity Reaction Status Date / Time No Known Allergies Allergy Verified 10/16/24 10:57 Vital Signs Vital Signs - 24 hr 10/19/24 18:18 10/19/24 20:00 10/19/24 20:00 Temperature Pulse Rate 78 96 Respiratory Rate 22 H 19 Blood Pressure Pulse Oximetry 100 100 Oxygen Delivery BiPAP BiPAP Fraction of Inspired Oxygen 40 10/19/24 20:13 10/19/24 20:23 10/19/24 20:23 Temperature Pulse Rate 86 80 80 Respiratory Rate 36 H 21 H 21 H Blood Pressure 80/40 L Pulse Oximetry 88 L 100 Oxygen Delivery BiPAP Fraction of Inspired Oxygen 10/19/24 20:44 10/19/24 20:45 10/19/24 22:00 Temperature Pulse Rate 79 78 Respiratory Rate 22 H Blood Pressure Pulse Oximetry 100 Oxygen Delivery BiPAP Fraction of Inspired Oxygen 40 10/19/24 22:19 10/19/24 23:02 10/19/24 23:14 Temperature Pulse Rate 79 78 Respiratory Rate 18 20 Blood Pressure 92/52 L Pulse Oximetry 100 100 100 Oxygen Delivery BiPAP BiPAP Fraction of Inspired Oxygen 30 10/19/24 23:57 10/20/24 00:00 10/20/24 00:00 Temperature 97.6 F Pulse Rate 81 83 Respiratory Rate 18 20 Blood Pressure 90/65 L Pulse Oximetry 100 100 Oxygen Delivery BiPAP Fraction of Inspired Oxygen 30 10/20/24 01:36 10/20/24 01:36 10/20/24 01:44 Temperature Pulse Rate 85 85 81 Respiratory Rate 22 H 22 H 20 Blood Pressure Pulse Oximetry 100 Oxygen Delivery BiPAP Fraction of Inspired Oxygen 10/20/24 01:46 10/20/24 02:00 10/20/24 02:00 Temperature Pulse Rate 81 79 82 Respiratory Rate 23 H 21 H Blood Pressure 77/61 L Pulse Oximetry 100 100 Oxygen Delivery Fraction of Inspired Oxygen 10/20/24 02:01 10/20/24 02:25 10/20/24 02:46 Temperature Pulse Rate 82 85 79 Respiratory Rate 20 20 Blood Pressure 97/74 L 97/74 L 86/68 L Pulse Oximetry 99 100 Oxygen Delivery Fraction of Inspired Oxygen 10/20/24 03:01 10/20/24 03:16 10/20/24 03:31 Temperature Pulse Rate 79 79 79 Respiratory Rate 19 20 20 Blood Pressure 90/63 L 83/62 L 90/68 L Pulse Oximetry 100 100 99 Oxygen Delivery Fraction of Inspired Oxygen 10/20/24 03:46 10/20/24 04:00 10/20/24 04:00 Temperature Pulse Rate 95 95 Respiratory Rate 32 H 20 Blood Pressure 105/84 120/103 H Pulse Oximetry 98 100 Oxygen Delivery BiPAP Fraction of Inspired Oxygen 30 10/20/24 04:00 10/20/24 05:09 10/20/24 06:00 Temperature 97.6 F Pulse Rate 94 89 76 Respiratory Rate 20 Blood Pressure 79/59 L Pulse Oximetry 98 98 Oxygen Delivery Fraction of Inspired Oxygen 10/20/24 06:00 10/20/24 06:00 10/20/24 06:30 Temperature Pulse Rate 77 77 84 Respiratory Rate Blood Pressure 80/61 L 78/46 L Pulse Oximetry Oxygen Delivery Fraction of Inspired Oxygen 10/20/24 07:10 10/20/24 07:10 10/20/24 07:20 Temperature Pulse Rate 78 78 81 Respiratory Rate 20 20 20 Blood Pressure Pulse Oximetry 100 Oxygen Delivery BiPAP Fraction of Inspired Oxygen 10/20/24 08:00 10/20/24 08:00 10/20/24 08:00 Temperature 97.8 F Pulse Rate 82 82 Respiratory Rate 27 H Blood Pressure 93/67 L 93/67 L Pulse Oximetry 98 98 Oxygen Delivery BiPAP Fraction of Inspired Oxygen 30 10/20/24 08:00 10/20/24 09:00 10/20/24 09:15 Temperature Pulse Rate 82 78 79 Respiratory Rate Blood Pressure 91/71 L 94/72 L Pulse Oximetry Oxygen Delivery Fraction of Inspired Oxygen 10/20/24 09:15 10/20/24 09:16 10/20/24 09:30 Temperature 100.3 F H Pulse Rate 76 78 75 Respiratory Rate 21 H Blood Pressure 94/72 L 94/72 L 98/79 L Pulse Oximetry 100 Oxygen Delivery Fraction of Inspired Oxygen 10/20/24 09:30 10/20/24 09:33 10/20/24 09:45 Temperature Pulse Rate 76 76 76 Respiratory Rate Blood Pressure 98/79 L 109/78 Pulse Oximetry Oxygen Delivery Fraction of Inspired Oxygen 10/20/24 10:00 10/20/24 10:00 10/20/24 10:01 Temperature 100.3 F H Pulse Rate 76 75 77 Respiratory Rate 22 H 22 H Blood Pressure 102/86 Pulse Oximetry 100 100 Oxygen Delivery BiPAP Fraction of Inspired Oxygen 10/20/24 10:30 10/20/24 10:45 10/20/24 10:51 Temperature Pulse Rate 86 84 83 Respiratory Rate 14 Blood Pressure 103/82 100/78 Pulse Oximetry Oxygen Delivery Fraction of Inspired Oxygen 10/20/24 10:53 10/20/24 10:55 10/20/24 10:56 Temperature Pulse Rate 83 90 Respiratory Rate 14 Blood Pressure Pulse Oximetry 100 Oxygen Delivery Mechanical Ventilation Fraction of Inspired Oxygen 80 80 10/20/24 11:15 10/20/24 11:15 10/20/24 11:45 Temperature Pulse Rate 92 92 85 Respiratory Rate Blood Pressure 129/94 H 129/94 H 111/86 Pulse Oximetry Oxygen Delivery Fraction of Inspired Oxygen 10/20/24 11:45 10/20/24 11:45 10/20/24 11:46 Temperature Pulse Rate 87 87 85 Respiratory Rate 20 20 Blood Pressure 111/86 Pulse Oximetry Oxygen Delivery Fraction of Inspired Oxygen 10/20/24 12:00 10/20/24 12:00 10/20/24 12:00 Temperature 100.1 F H Pulse Rate 85 84 Respiratory Rate 20 Blood Pressure 121/87 121/87 Pulse Oximetry 100 100 Oxygen Delivery Mechanical Ventilation Fraction of Inspired Oxygen 80 10/20/24 12:00 10/20/24 12:00 10/20/24 12:45 Temperature Pulse Rate 77 82 Respiratory Rate 24 H Blood Pressure Pulse Oximetry Oxygen Delivery Fraction of Inspired Oxygen 80 10/20/24 12:45 10/20/24 12:45 10/20/24 12:45 Temperature Pulse Rate 82 82 82 Respiratory Rate 21 H Blood Pressure 111/86 110/84 Pulse Oximetry Oxygen Delivery Fraction of Inspired Oxygen 10/20/24 12:54 10/20/24 13:00 10/20/24 13:00 Temperature Pulse Rate 80 80 Respiratory Rate Blood Pressure 97/78 L 97/78 L Pulse Oximetry Oxygen Delivery Fraction of Inspired Oxygen 30 10/20/24 13:10 10/20/24 13:10 10/20/24 13:20 Temperature Pulse Rate 80 80 79 Respiratory Rate 20 20 Blood Pressure Pulse Oximetry 100 Oxygen Delivery Mechanical Ventilation Fraction of Inspired Oxygen 50 10/20/24 13:30 10/20/24 13:45 10/20/24 14:00 Temperature Pulse Rate 81 80 78 Respiratory Rate Blood Pressure 87/69 L 91/74 L 94/68 L Pulse Oximetry Oxygen Delivery Fraction of Inspired Oxygen 10/20/24 14:00 10/20/24 14:45 10/20/24 14:45 Temperature 100.0 F H Pulse Rate 77 75 75 Respiratory Rate 18 20 20 Blood Pressure 94/68 L Pulse Oximetry 100 Oxygen Delivery Fraction of Inspired Oxygen 10/20/24 14:47 10/20/24 15:00 10/20/24 15:00 Temperature Pulse Rate 77 74 75 Respiratory Rate Blood Pressure 85/72 L 99/79 L 99/79 L Pulse Oximetry Oxygen Delivery Fraction of Inspired Oxygen 10/20/24 15:30 10/20/24 15:50 10/20/24 15:50 Temperature Pulse Rate 79 Respiratory Rate Blood Pressure 112/84 Pulse Oximetry 100 Oxygen Delivery Mechanical Ventilation Fraction of Inspired Oxygen 30 30 Exam Narrative: Pt intubated, sedated, with elizabeth gastric tube with no contents. Abdomen: Distended, absent bowel souunds, not tense. Results Labs 10/20/24 04:21 10/20/24 12:43 Labs: Short CBC 10/19/24 10/20/24 Range/Units 19:17 04:21 WBC 8.8 11.7 H (4.5-10.0) K/mm3 Hgb 9.2 L 8.6 L (14.0-18.0) g/dL Hct 27.9 L 25.6 L (42.0-52.0) % Plt Count 95 L 79 L (150-375) k/mm3 BMP 10/19/24 10/20/24 10/20/24 18:33 04:21 04:25 Sodium 125 L 127 L Potassium 5.5 H 5.5 H Chloride 100 102 Carbon Dioxide 13 L 14 L BUN 32 H 38 H Creatinine 0.91 1.01 1.03 Glucose 110 115 H Calcium 8.4 8.2 L 10/20/24 12:43 Sodium 131 L Potassium 4.4 Chloride 99 Carbon Dioxide 24 BUN 39 H Creatinine 1.07 Glucose 131 H Calcium 8.0 L Cardiac Enzymes 10/19/24 10/19/24 10/20/24 Range/Units 18:33 21:19 01:30 Troponin I 0.127 H* 0.145 H* 0.195 H* D (0.000-0.034) ng/mL Liver Function 10/20/24 Range/Units 04:21 Total Bilirubin 1.4 H (0.2-1.3) mg/dL AST 600 H (17-59) U/L ALT 561 H (6-50) U/L Alkaline Phosphatase 79 (38-126) U/L Albumin 3.4 L (3.5-5.1) g/dL
--- NOTE | 2024-10-20 16:32 | P.CONS_ITS ---
Assessment and Plan Assessment and plan (1) Ileus: Code(s): K56.7 - Ileus, unspecified Status: Acute Assessment and Plan: Patient most likely has an adynamic ileus due to his pneumonia and respiratory failure requiring intubation. He is also septic on pressors and IV antibiotics. Abdominal x-rays are suggestive of a paralytic ileus. CT scan abdomen pelvis has not been done yet. At this point in a CT scan to be done would need to have IV contrast to assess the viability of the small bowel and colon. Given IV contrast would certainly increase the risk of acute renal injury. I discussed with the family at the bedside that mechanical obstruction is not likely to be the issue but more likely a ileus due to his severe illnesses. However ischemic bowel cannot be totally ruled out either given that the patient likely has some degree of atherosclerotic disease and he could develop ischemic bowel. Any surgery for ischemic bowel would be high risk and carry high risk for morbidity and mortality. At this point the family does not wish to proceed with a CT scan of the abdomen pelvis with IV contrast and prefer to continue supportive management as is being done presently in the ICU. Unfortunately his examination is unreliable given his intubated and sedated state. Surgery will continue to follow. HPI Data of Consult Date/Time: 10/20/24 16:32 Requesting Physician: Ella Sotomayor MD Primary Care Provider: PHYSICIAN NOT ON STAFF Consult Narrative Reason for consult: Abnormal abdominal imaging suggesting adynamic ileus. Narrative: Milton Minor is a 64 year old male admitted to the hospital for pneumonia and intubated earlier today for respiratory distress. 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 She is currently intubated and sedated. Family is at the bedside and history is obtained from the patient's family. There has been no complaints of abdominal pain according to the patient's family recently. He was having issues with shortness of breath and admitted with a pneumonia. Abdominal x-ray showed dilated colon and dilated small bowel without obvious transition point suggestive of adynamic ileus. I have been asked to evaluate the patient for this reason. Review of Systems 2 Review of Systems: The remainder of the review of systems to include constitutional, HEENT, cardiovascular, respiratory, GI, , integumentary, musculoskeletal, endocrine, immunologic, hematologic, psychiatric, and neurologic are all negative except for which is mentioned above in the HPI. 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 Code status: Full code. Smoking packs per day: 2 Smoking cigarettes per day: 40.0 Years smoked: 25 Smoking pack-years: 50.00 Smoking status: Former smoker Tobacco type: cigarettes Second hand tobacco smoke exposure: No Smoking end date: 10/04/02 Alcohol intake: former Drinks per week: 8 Alcohol use details: BEERS Substance use: never Substance use type: does not use Do You Feel Safe in your Home?: Yes Lack of Transportation: No Lack of Food: Never True Current Housing: I Have Housing Concerned About Future Housing: No Difficulty Paying Gas/Electric Bills: No Difficulty Paying for Meds: No Currently Unemployed: No Education: High School Diploma/GED Difficulty w/ Childcare or Family Care: No Living arrangements: with family Occupation/Education: unemployed Spiritual care concerns: No Meds Home Medications and Allergies Home Medications ?Medication ?Instructions ?Recorded ?Confirmed ?Type tiotropium 2.5 mcg-olodaterol 2.5 2 puff inhalation DAILY 10/06/22 10/16/24 History mcg/actuation mist for inhalation (Stiolto Respimat) alprazolam 0.5 mg tablet (Xanax) 0.5 mg PO QHS PRN anxiety] 07/28/23 10/16/24 History omeprazole 20 mg capsule,delayed 40 mg PO BID 04/04/24 01/13/25 History release propranolol 80 mg capsule,24 20 mg PO BID 01/06/24 10/16/24 History hr,extended release dronedarone 400 mg tablet (Multaq) See Rx Instructions .Route 03/14/24 10/16/24 Rx .COMPLEX #180 tabs rivaroxaban 20 mg tablet (Xarelto) See Rx Instructions .Route 08/17/24 10/16/24 Rx .COMPLEX #90 tabs methimazole 5 mg tablet See Rx Instructions .Route .COMPLEX 08/28/24 10/16/24 History albuterol sulfate 2.5 mg/3 mL 2.5 mg inhalation QID PRN 10/16/24 10/16/24 History (0.083 %) solution for nebulization shortness of breath or wheezing albuterol sulfate 90 mcg/actuation 2 puff inhalation Q6H PRN 10/16/24 10/16/24 History aerosol inhaler shortness of breath or wheezing losartan 50 mg tablet 50 mg PO DAILY #90 tabs 10/16/24 10/16/24 Rx prochlorperazine maleate 10 mg 10 mg PO DAILY PRN nausea and 10/16/24 10/16/24 History tablet vomiting Allergies Allergy/AdvReac Type Severity Reaction Status Date / Time No Known Allergies Allergy Verified 10/16/24 10:57 Vital Signs Vital Signs - 24 hr 10/19/24 18:18 10/19/24 20:00 10/19/24 20:00 Temperature Pulse Rate 78 96 Respiratory Rate 22 H 19 Blood Pressure Pulse Oximetry 100 100 Oxygen Delivery BiPAP BiPAP Fraction of Inspired Oxygen 40 10/19/24 20:13 10/19/24 20:23 10/19/24 20:23 Temperature Pulse Rate 86 80 80 Respiratory Rate 36 H 21 H 21 H Blood Pressure 80/40 L Pulse Oximetry 88 L 100 Oxygen Delivery BiPAP Fraction of Inspired Oxygen 10/19/24 20:44 10/19/24 20:45 10/19/24 22:00 Temperature Pulse Rate 79 78 Respiratory Rate 22 H Blood Pressure Pulse Oximetry 100 Oxygen Delivery BiPAP Fraction of Inspired Oxygen 40 10/19/24 22:19 10/19/24 23:02 10/19/24 23:14 Temperature Pulse Rate 79 78 Respiratory Rate 18 20 Blood Pressure 92/52 L Pulse Oximetry 100 100 100 Oxygen Delivery BiPAP BiPAP Fraction of Inspired Oxygen 30 10/19/24 23:57 10/20/24 00:00 10/20/24 00:00 Temperature 36.4 C Pulse Rate 81 83 Respiratory Rate 18 20 Blood Pressure 90/65 L Pulse Oximetry 100 100 Oxygen Delivery BiPAP Fraction of Inspired Oxygen 30 10/20/24 01:36 10/20/24 01:36 10/20/24 01:44 Temperature Pulse Rate 85 85 81 Respiratory Rate 22 H 22 H 20 Blood Pressure Pulse Oximetry 100 Oxygen Delivery BiPAP Fraction of Inspired Oxygen 10/20/24 01:46 10/20/24 02:00 10/20/24 02:00 Temperature Pulse Rate 81 79 82 Respiratory Rate 23 H 21 H Blood Pressure 77/61 L Pulse Oximetry 100 100 Oxygen Delivery Fraction of Inspired Oxygen 10/20/24 02:01 10/20/24 02:25 10/20/24 02:46 Temperature Pulse Rate 82 85 79 Respiratory Rate 20 20 Blood Pressure 97/74 L 97/74 L 86/68 L Pulse Oximetry 99 100 Oxygen Delivery Fraction of Inspired Oxygen 10/20/24 03:01 10/20/24 03:16 10/20/24 03:31 Temperature Pulse Rate 79 79 79 Respiratory Rate 19 20 20 Blood Pressure 90/63 L 83/62 L 90/68 L Pulse Oximetry 100 100 99 Oxygen Delivery Fraction of Inspired Oxygen 10/20/24 03:46 10/20/24 04:00 10/20/24 04:00 Temperature Pulse Rate 95 95 Respiratory Rate 32 H 20 Blood Pressure 105/84 120/103 H Pulse Oximetry 98 100 Oxygen Delivery BiPAP Fraction of Inspired Oxygen 30 10/20/24 04:00 10/20/24 05:09 10/20/24 06:00 Temperature 36.4 C Pulse Rate 94 89 76 Respiratory Rate 20 Blood Pressure 79/59 L Pulse Oximetry 98 98 Oxygen Delivery Fraction of Inspired Oxygen 10/20/24 06:00 10/20/24 06:00 10/20/24 06:30 Temperature Pulse Rate 77 77 84 Respiratory Rate Blood Pressure 80/61 L 78/46 L Pulse Oximetry Oxygen Delivery Fraction of Inspired Oxygen 10/20/24 07:10 10/20/24 07:10 10/20/24 07:20 Temperature Pulse Rate 78 78 81 Respiratory Rate 20 20 20 Blood Pressure Pulse Oximetry 100 Oxygen Delivery BiPAP Fraction of Inspired Oxygen 10/20/24 08:00 10/20/24 08:00 10/20/24 08:00 Temperature 36.6 C Pulse Rate 82 82 Respiratory Rate 27 H Blood Pressure 93/67 L 93/67 L Pulse Oximetry 98 98 Oxygen Delivery BiPAP Fraction of Inspired Oxygen 30 10/20/24 08:00 10/20/24 09:00 10/20/24 09:15 Temperature Pulse Rate 82 78 79 Respiratory Rate Blood Pressure 91/71 L 94/72 L Pulse Oximetry Oxygen Delivery Fraction of Inspired Oxygen 10/20/24 09:15 10/20/24 09:16 10/20/24 09:30 Temperature 37.9 C H Pulse Rate 76 78 75 Respiratory Rate 21 H Blood Pressure 94/72 L 94/72 L 98/79 L Pulse Oximetry 100 Oxygen Delivery Fraction of Inspired Oxygen 10/20/24 09:30 10/20/24 09:33 10/20/24 09:45 Temperature Pulse Rate 76 76 76 Respiratory Rate Blood Pressure 98/79 L 109/78 Pulse Oximetry Oxygen Delivery Fraction of Inspired Oxygen 10/20/24 10:00 10/20/24 10:00 10/20/24 10:01 Temperature 37.9 C H Pulse Rate 76 75 77 Respiratory Rate 22 H 22 H Blood Pressure 102/86 Pulse Oximetry 100 100 Oxygen Delivery BiPAP Fraction of Inspired Oxygen 10/20/24 10:30 10/20/24 10:45 10/20/24 10:51 Temperature Pulse Rate 86 84 83 Respiratory Rate 14 Blood Pressure 103/82 100/78 Pulse Oximetry Oxygen Delivery Fraction of Inspired Oxygen 10/20/24 10:53 10/20/24 10:55 10/20/24 10:56 Temperature Pulse Rate 83 90 Respiratory Rate 14 Blood Pressure Pulse Oximetry 100 Oxygen Delivery Mechanical Ventilation Fraction of Inspired Oxygen 80 80 10/20/24 11:15 10/20/24 11:15 10/20/24 11:45 Temperature Pulse Rate 92 92 85 Respiratory Rate Blood Pressure 129/94 H 129/94 H 111/86 Pulse Oximetry Oxygen Delivery Fraction of Inspired Oxygen 10/20/24 11:45 10/20/24 11:45 10/20/24 11:46 Temperature Pulse Rate 87 87 85 Respiratory Rate 20 20 Blood Pressure 111/86 Pulse Oximetry Oxygen Delivery Fraction of Inspired Oxygen 10/20/24 12:00 10/20/24 12:00 10/20/24 12:00 Temperature 37.8 C H Pulse Rate 85 84 Respiratory Rate 20 Blood Pressure 121/87 121/87 Pulse Oximetry 100 100 Oxygen Delivery Mechanical Ventilation Fraction of Inspired Oxygen 80 10/20/24 12:00 10/20/24 12:00 10/20/24 12:45 Temperature Pulse Rate 77 82 Respiratory Rate 24 H Blood Pressure Pulse Oximetry Oxygen Delivery Fraction of Inspired Oxygen 80 10/20/24 12:45 10/20/24 12:45 10/20/24 12:45 Temperature Pulse Rate 82 82 82 Respiratory Rate 21 H Blood Pressure 111/86 110/84 Pulse Oximetry Oxygen Delivery Fraction of Inspired Oxygen 10/20/24 12:54 10/20/24 13:00 10/20/24 13:00 Temperature Pulse Rate 80 80 Respiratory Rate Blood Pressure 97/78 L 97/78 L Pulse Oximetry Oxygen Delivery Fraction of Inspired Oxygen 30 10/20/24 13:10 10/20/24 13:10 10/20/24 13:20 Temperature Pulse Rate 80 80 79 Respiratory Rate 20 20 Blood Pressure Pulse Oximetry 100 Oxygen Delivery Mechanical Ventilation Fraction of Inspired Oxygen 50 10/20/24 13:30 10/20/24 13:45 10/20/24 14:00 Temperature Pulse Rate 81 80 78 Respiratory Rate Blood Pressure 87/69 L 91/74 L 94/68 L Pulse Oximetry Oxygen Delivery Fraction of Inspired Oxygen 10/20/24 14:00 10/20/24 14:45 10/20/24 14:45 Temperature 37.8 C H Pulse Rate 77 75 75 Respiratory Rate 18 20 20 Blood Pressure 94/68 L Pulse Oximetry 100 Oxygen Delivery Fraction of Inspired Oxygen 10/20/24 14:47 10/20/24 15:00 10/20/24 15:00 Temperature Pulse Rate 77 74 75 Respiratory Rate Blood Pressure 85/72 L 99/79 L 99/79 L Pulse Oximetry Oxygen Delivery Fraction of Inspired Oxygen 10/20/24 15:30 10/20/24 15:50 10/20/24 15:50 Temperature Pulse Rate 79 Respiratory Rate Blood Pressure 112/84 Pulse Oximetry 100 Oxygen Delivery Mechanical Ventilation Fraction of Inspired Oxygen 30 30 10/20/24 16:00 10/20/24 16:02 Temperature 37.8 C H Pulse Rate 78 75 Respiratory Rate 15 Blood Pressure 105/83 Pulse Oximetry 100 100 Oxygen Delivery Mechanical Ventilation Fraction of Inspired Oxygen 50 Exam 2 Const: Other: Patient is intubated and sedated Eyes: Sclera: sclerae normal Other: Patient is intubated and sedated Neck: Neck: supple and no JVD Resp: Other: Coarse breath sounds bilaterally. Cardio: Rhythm: abnormal rhythm irregularly irregular GI: Other: Abdomen is distended. No ventral hernias are noted. Tenderness cannot be assessed as the patient is intubated and sedated. Neuro: Other: Patient is intubated sedated Psych: Other: Patient is intubated sedated Results Labs 10/20/24 04:21 10/20/24 12:43 Labs: Short CBC 10/19/24 10/20/24 Range/Units 19:17 04:21 WBC 8.8 11.7 H (4.5-10.0) K/mm3 Hgb 9.2 L 8.6 L (14.0-18.0) g/dL Hct 27.9 L 25.6 L (42.0-52.0) % Plt Count 95 L 79 L (150-375) k/mm3 BMP 10/19/24 10/20/24 10/20/24 18:33 04:21 04:25 Sodium 125 L 127 L Potassium 5.5 H 5.5 H Chloride 100 102 Carbon Dioxide 13 L 14 L BUN 32 H 38 H Creatinine 0.91 1.01 1.03 Glucose 110 115 H Calcium 8.4 8.2 L 10/20/24 12:43 Sodium 131 L Potassium 4.4 Chloride 99 Carbon Dioxide 24 BUN 39 H Creatinine 1.07 Glucose 131 H Calcium 8.0 L Cardiac Enzymes 10/19/24 10/19/24 10/20/24 Range/Units 18:33 21:19 01:30 Troponin I 0.127 H* 0.145 H* 0.195 H* D (0.000-0.034) ng/mL Liver Function 10/20/24 Range/Units 04:21 Total Bilirubin 1.4 H (0.2-1.3) mg/dL AST 600 H (17-59) U/L ALT 561 H (6-50) U/L Alkaline Phosphatase 79 (38-126) U/L Albumin 3.4 L (3.5-5.1) g/dL
[2024-10-20 17:01] LABS: Glucose Point of Care 128 mg/dl (65-105)
[2024-10-20 18:23] LABS: Mycoplasma IgM Antibody Titer 144 U/mL
[2024-10-20] MEDS: PANTOPRAZOLE SODIUM IV 40 MG VIAL IV PUSH (20:05)
[2024-10-20] MEDS: MINERAL OIL/WHITE PETROLATUM OINTMENT 1 APPLIC EACH EYE (20:12)
[2024-10-20] MEDS: NOREPINEPHRINE 8 MG/D5W 250 ML 8 MG/250 ML BAG 31.88 MG IV CONT (21:30)
[2024-10-20 22:18] LABS: Albumin 3.4 g/dL (3.8-4.8); Alpha 1 Globulin 0.4 g/dL (0.2-0.3); Alpha 2 Globulin 0.8 g/dL (0.5-0.9); Beta 1 Globulin 0.5 g/dL (0.4-0.6); Gamma Globulin 0.5 g/dL (0.8-1.7)
[2024-10-20] MEDS: IPRATROPIUM 0.5 MG/ALBUTEROL SULFATE 2.5 MG AMPUL.NEB 3 ML (22:27)
[2024-10-20] MEDS: PHENYLEPHRINE HCL INJ 50 MG in SODIUM CHLORIDE 0.9% IV 245 ML IV CONT (22:30)
[2024-10-21] VITALS (100 sets, daily range): BP systolic 57–145; BP diastolic 25–87; PULSE 86–114; RESP 2–210; TEMP 37.6–38.2; O2SAT 90–100
[2024-10-21 00:46] LABS: Glucose Point of Care 101 mg/dl (65-105)
[2024-10-21] MEDS: IPRATROPIUM 0.5 MG/ALBUTEROL SULFATE 2.5 MG AMPUL.NEB 3 ML INHALATION ×4 (01:53→21:32)
[2024-10-21] MEDS: NOREPINEPHRINE 8 MG/D5W 250 ML 8 MG/250 ML BAG 56.25 MG IV CONT ×4 (03:16→12:11)
[2024-10-21] MEDS: CEFEPIME 2 GM/NS 50 ML 2 GM/50 ML BAG IVPB ×3 (04:15→20:15)
[2024-10-21 04:35] LABS: Creatinine, Random Urine 200 mg/dL (20-320); Total Prot/Creat ratio mg/mg 0.525 (0.025-0.148); Total Protein/Creatinine Ratio 525 mg/g creat (25-148)
[2024-10-21] MEDS: CENTRAL LINE FLUSH 10 ML IV PUSH ×3 (05:13→20:32)
[2024-10-21 05:28] LABS: Alveolar/Arterial O2 Gradient 237.4 mmHg; Base Excess ABG -3.4 mEq/l (+/-2.0); Carboxyhemoglobin 0.5 % THb (0-2.0); Device VENTILATOR; Fractional Inspired Oxygen 50 %; HCO3 ABG 21.5 mEq/l (22.0-26.0); Methemoglobin ABG 0.2 %THb (0-1.5); Oxygen Content ABG 13.4 %vol (16.0-22.0); Oxygen Saturation ABG 95.1 % (95.0-100.0); Oxyhemoglobin 93.1 % THb (90.0-100.0); PCO2 ABG 37.7 mmHg (35.0-45.0); PO2 ABG 76.7 mmHg (80.0-100.0); PO2 FiO2 Ratio Arterial Blood 1.53 %; Reduced Hemoglobin 6.2 %THb (0-5.0); Site Drawn RIGHT BRACHIAL; Total Hemoglobin 10.2 g/dL (12.0-18.0); pH ABG 7.373 (7.350-7.450)
[2024-10-21 05:37] LABS: Basophils Percent Auto 0.2 % (0.2-1.2); Eosinophils Absolute Auto 0.1 K/mm3 (0-0.3); Eosinophils Percent Auto 0.8 % (0-4.4); Hematocrit 26.6 % (42.0-52.0); Hemoglobin 9.1 g/dL (14.0-18.0); Immature Granulocyte Percent A 0.7 % (0-0.5); Immature Platelet Fraction Pct 6.7 % (0.9-11.2); Lymphocytes Absolute Auto 1.62 K/mm3 (0.9-3.2); Lymphocytes Percent Auto 11.5 % (18.3-44.2); Mean Corpuscular HGB Conc 34.2 g/dl (32-36); Mean Corpuscular Hemoglobin 31.8 pg (26-34); Mean Platelet Volume 9.9 fl (7.4-10.4); Monocytes Absolute Auto 0.6 K/mm3 (0.1-0.6); Neutrophils Absolute Auto 11.6 K/mm3 (1.3-6.7); Neutrophils Percent Auto 82.8 % (45.5-73.1); Nucleated Red Blood Cells Perc 0.3 % (0.0-0.2); Red Blood Count 2.86 M/mm3 (4.6-6.20); Red Cell Distribution Width 14.6 % (11.5-14.5)
[2024-10-21 05:44] LABS: Lactic Acid Reflex 2.1 mmol/L (0.7-2.0)
[2024-10-21 05:47] LABS: Albumin Level 3.5 g/dL (3.5-5.1); Alkaline Phosphatase 81 U/L (38-126); Anion Gap 5 mmol/L (4-12); Bilirubin,Total 1.9 mg/dL (0.2-1.3); Blood Urea Nitrogen 40 mg/dL (9-20); Calcium 8.1 mg/dL (8.4-10.2); Carbon Dioxide 27 mmol/L (22-30); Chloride 100 mmol/L (98-107); Estimated CRCL calculation 51 ml/min; Estimated Glomerular Filt Rate > 60; Glucose 98 mg/dL (65-110); INR 2.1; Phosphorus 3.7 mg/dL (2.5-4.5); Potassium 4.3 mmol/L (3.4-5.0); Prothrombin Time 24.3 Seconds (11.1-14.7); Sodium 132 mmol/L (137-145)
[2024-10-21 05:48] LABS: Partial Thromboplastin Time 35.9 Seconds (22.3-36.8)
[2024-10-21 05:56] LABS: Alanine Aminotransferase 1643 U/L (6-50)
[2024-10-21 05:57] LABS: Platelet Count Result 57 k/mm3 (150-375)
[2024-10-21 05:58] LABS: Platelet Estimate Decreased (Adequate)
[2024-10-21 05:59] LABS: Anisocytosis 1+; Hypochromasia 1+; Ovalocytes 1+; Poikilocytosis 1+; Schistocytes None Seen
[2024-10-21 06:02] LABS: Arterial Blood Gas PEEP 5 cmH2O; Arterial Blood Gas Tidal Volume 400 ml; Arterial Blood Gas Vent Mode CMV; Arterial Blood Gas Ventilator rate 18 /MIN
[2024-10-21] MEDS: VASOPRESSIN IV CONT (06:28)
[2024-10-21] MEDS: PHENYLEPHRINE HCL INJ 50 MG in SODIUM CHLORIDE 0.9% IV 245 ML 54 ML IV CONT ×4 (06:28→20:30)
[2024-10-21] MEDS: SODIUM CHLORIDE 0.9% IV CONT (06:28)
[2024-10-21 06:42] LABS: Aspartate Amino Transferase 1478 U/L (17-59)
--- NOTE | 2024-10-21 07:56 | P.PNCA_ITS ---
Progress Note: A&P Assessment and Plan (1) Pneumonia: Code(s): J18.9 - Pneumonia, unspecified organism Status: Acute Assessment and Plan: On antibiotics as per hospitalist. (2) Hemoptysis: Code(s): R04.2 - Hemoptysis Status: Acute Assessment and Plan: Probably due to pneumonia. Holding Xarelto until OK to resume. (3) PAF (paroxysmal atrial fibrillation): Code(s): I48.0 - Paroxysmal atrial fibrillation Status: Acute Assessment and Plan: In Sinus rhythm. On Multaq. Holding Xarelto due to hemoptysis. Reviewed EKG it is nonspecific changes only. 10/16/24 Echo: EF 55-60%, mild LVH, diastolic function abnormal but E/e' not assessed, mild RVE, mod RV dysfunction with TAPSE 0.9 cm, severe LAE, mild THIEN, bioprosthetic MV, mild MS, TV repair with annuloplasty ring,, mild-mod TR, trace PI, RVSP 62 mmHg. (4) Hypertension: Qualifiers: Hypertension type: essential hypertension Qualified Code(s): I10 - Essential (primary) hypertension Code(s): I10 - Essential (primary) hypertension Status: Acute Assessment and Plan: Hypotension on pressors. (5) H/O mitral valve replacement: Code(s): Z95.2 - Presence of prosthetic heart valve Status: Acute Assessment and Plan: Stable. (6) Acute respiratory failure: Code(s): J96.00 - Acute respiratory failure, unspecified whether with hypoxia or hypercapnia Status: Acute Assessment and Plan: On ventilator, managed by staff pharmacist. (7) Septic shock: Code(s): A41.9 - Sepsis, unspecified organism; R65.21 - Severe sepsis with septic shock Status: Acute Assessment and Plan: On Levophed and Phenylephrine, managed by staff pharmacist. Subjective Date/time seen: 10/21/24 07:56 Interval history: He is intubated on vent, sedated. Exam Const: Other: Intubated on vent, sedated. Resp: Auscultation: no rhonchi, no wheezes and diminished lung sounds Cardio: Rate: tachycardic Rhythm: regular rhythm Heart sounds: no murmurs Peripheral pulses: dorsalis pedis present Neuro: General: oriented to person, oriented to place and oriented to time Extrem: Right lower extremity: no edema Left lower extremity: no edema Objective Data Vital Signs Vital Signs: Vital Signs - 24 hr 10/20/24 08:00 10/20/24 08:00 10/20/24 08:00 Temperature 97.8 F Pulse Rate 82 82 Respiratory Rate 27 H Blood Pressure 93/67 L 93/67 L Pulse Oximetry 98 98 Oxygen Delivery BiPAP Fraction of Inspired Oxygen 30 10/20/24 08:00 10/20/24 09:00 10/20/24 09:15 Temperature Pulse Rate 82 78 79 Respiratory Rate Blood Pressure 91/71 L 94/72 L Pulse Oximetry Oxygen Delivery Fraction of Inspired Oxygen 10/20/24 09:15 10/20/24 09:16 10/20/24 09:30 Temperature 100.3 F H Pulse Rate 76 78 75 Respiratory Rate 21 H Blood Pressure 94/72 L 94/72 L 98/79 L Pulse Oximetry 100 Oxygen Delivery Fraction of Inspired Oxygen 10/20/24 09:30 10/20/24 09:33 10/20/24 09:45 Temperature Pulse Rate 76 76 76 Respiratory Rate Blood Pressure 98/79 L 109/78 Pulse Oximetry Oxygen Delivery Fraction of Inspired Oxygen 10/20/24 10:00 10/20/24 10:00 10/20/24 10:01 Temperature 100.3 F H Pulse Rate 76 75 77 Respiratory Rate 22 H 22 H Blood Pressure 102/86 Pulse Oximetry 100 100 Oxygen Delivery BiPAP Fraction of Inspired Oxygen 10/20/24 10:30 10/20/24 10:45 10/20/24 10:51 Temperature Pulse Rate 86 84 83 Respiratory Rate 14 Blood Pressure 103/82 100/78 Pulse Oximetry Oxygen Delivery Fraction of Inspired Oxygen 10/20/24 10:53 10/20/24 10:55 10/20/24 10:56 Temperature Pulse Rate 83 90 Respiratory Rate 14 Blood Pressure Pulse Oximetry 100 Oxygen Delivery Mechanical Ventilation Fraction of Inspired Oxygen 80 80 10/20/24 11:15 10/20/24 11:15 10/20/24 11:45 Temperature Pulse Rate 92 92 85 Respiratory Rate Blood Pressure 129/94 H 129/94 H 111/86 Pulse Oximetry Oxygen Delivery Fraction of Inspired Oxygen 10/20/24 11:45 10/20/24 11:45 10/20/24 11:46 Temperature Pulse Rate 87 87 85 Respiratory Rate 20 20 Blood Pressure 111/86 Pulse Oximetry Oxygen Delivery Fraction of Inspired Oxygen 10/20/24 12:00 10/20/24 12:00 10/20/24 12:00 Temperature 100.1 F H Pulse Rate 85 84 Respiratory Rate 20 Blood Pressure 121/87 121/87 Pulse Oximetry 100 100 Oxygen Delivery Mechanical Ventilation Fraction of Inspired Oxygen 80 10/20/24 12:00 10/20/24 12:00 10/20/24 12:45 Temperature Pulse Rate 77 82 Respiratory Rate 24 H Blood Pressure Pulse Oximetry Oxygen Delivery Fraction of Inspired Oxygen 80 10/20/24 12:45 10/20/24 12:45 10/20/24 12:45 Temperature Pulse Rate 82 82 82 Respiratory Rate 21 H Blood Pressure 111/86 110/84 Pulse Oximetry Oxygen Delivery Fraction of Inspired Oxygen 10/20/24 12:54 10/20/24 13:00 10/20/24 13:00 Temperature Pulse Rate 80 80 Respiratory Rate Blood Pressure 97/78 L 97/78 L Pulse Oximetry Oxygen Delivery Fraction of Inspired Oxygen 30 10/20/24 13:10 10/20/24 13:10 10/20/24 13:20 Temperature Pulse Rate 80 80 79 Respiratory Rate 20 20 Blood Pressure Pulse Oximetry 100 Oxygen Delivery Mechanical Ventilation Fraction of Inspired Oxygen 50 10/20/24 13:30 10/20/24 13:45 10/20/24 14:00 Temperature Pulse Rate 81 80 78 Respiratory Rate Blood Pressure 87/69 L 91/74 L 94/68 L Pulse Oximetry Oxygen Delivery Fraction of Inspired Oxygen 10/20/24 14:00 10/20/24 14:00 10/20/24 14:45 Temperature 100.0 F H Pulse Rate 78 77 75 Respiratory Rate 18 20 Blood Pressure 94/68 L Pulse Oximetry 100 Oxygen Delivery Fraction of Inspired Oxygen 10/20/24 14:45 10/20/24 14:47 10/20/24 15:00 Temperature Pulse Rate 75 77 74 Respiratory Rate 20 Blood Pressure 85/72 L 99/79 L Pulse Oximetry Oxygen Delivery Fraction of Inspired Oxygen 10/20/24 15:00 10/20/24 15:30 10/20/24 15:45 Temperature Pulse Rate 75 79 75 Respiratory Rate Blood Pressure 99/79 L 112/84 102/77 Pulse Oximetry Oxygen Delivery Fraction of Inspired Oxygen 10/20/24 15:45 10/20/24 15:45 10/20/24 15:50 Temperature Pulse Rate 75 75 Respiratory Rate 18 18 Blood Pressure Pulse Oximetry 100 Oxygen Delivery Mechanical Ventilation Fraction of Inspired Oxygen 30 10/20/24 15:50 10/20/24 16:00 10/20/24 16:00 Temperature Pulse Rate 78 78 Respiratory Rate Blood Pressure 105/83 105/83 Pulse Oximetry Oxygen Delivery Fraction of Inspired Oxygen 30 10/20/24 16:00 10/20/24 16:00 10/20/24 16:02 Temperature 100.1 F H Pulse Rate 78 75 75 Respiratory Rate 15 Blood Pressure 105/83 Pulse Oximetry 100 100 Oxygen Delivery Mechanical Ventilation Fraction of Inspired Oxygen 50 10/20/24 16:15 10/20/24 16:30 10/20/24 16:45 Temperature Pulse Rate 75 78 78 Respiratory Rate 18 Blood Pressure 103/77 105/83 Pulse Oximetry Oxygen Delivery Fraction of Inspired Oxygen 10/20/24 16:45 10/20/24 16:45 10/20/24 16:50 Temperature Pulse Rate 77 75 78 Respiratory Rate 18 Blood Pressure 102/77 103/85 Pulse Oximetry Oxygen Delivery Fraction of Inspired Oxygen 10/20/24 18:00 10/20/24 18:00 10/20/24 19:32 Temperature 100.1 F H Pulse Rate 79 79 80 Respiratory Rate 19 Blood Pressure 103/79 Pulse Oximetry 100 100 Oxygen Delivery Mechanical Ventilation Fraction of Inspired Oxygen 50 10/20/24 19:32 10/20/24 19:38 10/20/24 19:58 Temperature Pulse Rate 79 76 86 Respiratory Rate 20 20 20 Blood Pressure Pulse Oximetry Oxygen Delivery Fraction of Inspired Oxygen 10/20/24 19:59 10/20/24 20:00 10/20/24 20:00 Temperature Pulse Rate 85 84 Respiratory Rate 20 Blood Pressure 99/85 L Pulse Oximetry 99 Oxygen Delivery Mechanical Ventilation Fraction of Inspired Oxygen 50 10/20/24 20:00 10/20/24 20:00 10/20/24 20:01 Temperature Pulse Rate 85 86 Respiratory Rate Blood Pressure 99/85 L Pulse Oximetry Oxygen Delivery Fraction of Inspired Oxygen 50 10/20/24 20:15 10/20/24 20:17 10/20/24 20:19 Temperature Pulse Rate 86 84 85 Respiratory Rate 19 20 Blood Pressure 110/87 110/87 Pulse Oximetry 98 Oxygen Delivery Fraction of Inspired Oxygen 10/20/24 20:37 10/20/24 20:38 10/20/24 21:30 Temperature Pulse Rate 84 84 84 Respiratory Rate 20 Blood Pressure 117/81 97/79 L Pulse Oximetry Oxygen Delivery Fraction of Inspired Oxygen 10/20/24 21:30 10/20/24 22:00 10/20/24 22:01 Temperature Pulse Rate 84 83 84 Respiratory Rate Blood Pressure 97/79 L 99/76 L Pulse Oximetry Oxygen Delivery Fraction of Inspired Oxygen 10/20/24 22:05 10/20/24 22:06 10/20/24 22:07 Temperature Pulse Rate 86 86 85 Respiratory Rate 18 18 19 Blood Pressure 99/76 L Pulse Oximetry 97 Oxygen Delivery Fraction of Inspired Oxygen 10/20/24 22:15 10/20/24 22:18 10/20/24 22:29 Temperature Pulse Rate 85 85 86 Respiratory Rate 18 Blood Pressure 98/77 L 98/77 L Pulse Oximetry Oxygen Delivery Fraction of Inspired Oxygen 10/20/24 22:30 10/20/24 22:30 10/20/24 22:31 Temperature Pulse Rate 86 86 86 Respiratory Rate Blood Pressure 105/83 105/83 Pulse Oximetry 97 Oxygen Delivery Mechanical Ventilation Fraction of Inspired Oxygen 50 10/20/24 22:39 10/21/24 00:00 10/21/24 00:00 Temperature Pulse Rate 88 90 90 Respiratory Rate 19 18 Blood Pressure 102/75 Pulse Oximetry Oxygen Delivery Fraction of Inspired Oxygen 10/21/24 00:00 10/21/24 00:00 10/21/24 00:00 Temperature Pulse Rate 90 Respiratory Rate 18 Blood Pressure Pulse Oximetry 96 Oxygen Delivery Mechanical Ventilation Fraction of Inspired Oxygen 50 50 10/21/24 00:00 10/21/24 00:00 10/21/24 00:30 Temperature 100.1 F H Pulse Rate 90 90 90 Respiratory Rate 18 Blood Pressure 102/75 94/73 L Pulse Oximetry 96 Oxygen Delivery Fraction of Inspired Oxygen 10/21/24 00:34 10/21/24 00:45 10/21/24 00:46 Temperature Pulse Rate 90 90 90 Respiratory Rate Blood Pressure 94/73 L 98/76 L 98/76 L Pulse Oximetry Oxygen Delivery Fraction of Inspired Oxygen 10/21/24 01:07 10/21/24 01:16 10/21/24 01:55 Temperature Pulse Rate 91 95 90 Respiratory Rate Blood Pressure 99/73 L 100/68 Pulse Oximetry 96 Oxygen Delivery Mechanical Ventilation Fraction of Inspired Oxygen 50 10/21/24 01:55 10/21/24 01:58 10/21/24 01:58 Temperature Pulse Rate 90 96 96 Respiratory Rate 18 18 Blood Pressure 96/67 L Pulse Oximetry Oxygen Delivery Fraction of Inspired Oxygen 10/21/24 02:00 10/21/24 02:00 10/21/24 02:00 Temperature Pulse Rate 95 94 95 Respiratory Rate 18 Blood Pressure 96/67 L Pulse Oximetry Oxygen Delivery Fraction of Inspired Oxygen 10/21/24 02:00 10/21/24 02:01 10/21/24 02:17 Temperature 100.2 F H Pulse Rate 95 94 95 Respiratory Rate 18 18 Blood Pressure 99/66 L 96/73 L Pulse Oximetry 95 Oxygen Delivery Fraction of Inspired Oxygen 10/21/24 02:17 10/21/24 02:35 10/21/24 02:35 Temperature Pulse Rate 96 98 98 Respiratory Rate 18 Blood Pressure 98/72 L 98/72 L Pulse Oximetry Oxygen Delivery Fraction of Inspired Oxygen 10/21/24 02:48 10/21/24 03:01 10/21/24 03:02 Temperature Pulse Rate 99 100 100 Respiratory Rate 18 Blood Pressure 97/74 L 97/74 L Pulse Oximetry Oxygen Delivery Fraction of Inspired Oxygen 10/21/24 03:16 10/21/24 03:16 10/21/24 03:17 Temperature Pulse Rate 101 H 101 H 101 H Respiratory Rate Blood Pressure 104/74 104/74 104/74 Pulse Oximetry Oxygen Delivery Fraction of Inspired Oxygen 10/21/24 04:00 10/21/24 04:00 10/21/24 04:00 Temperature Pulse Rate 101 H 101 H 101 H Respiratory Rate 18 Blood Pressure 105/79 105/79 Pulse Oximetry Oxygen Delivery Fraction of Inspired Oxygen 10/21/24 04:00 10/21/24 04:00 10/21/24 04:00 Temperature Pulse Rate 101 H 101 H Respiratory Rate 18 Blood Pressure Pulse Oximetry 95 Oxygen Delivery Mechanical Ventilation Fraction of Inspired Oxygen 50 10/21/24 04:00 10/21/24 04:05 10/21/24 04:32 Temperature 99.8 F H Pulse Rate 97 99 Respiratory Rate 18 Blood Pressure 105/79 99/79 L Pulse Oximetry 95 Oxygen Delivery Fraction of Inspired Oxygen 50 10/21/24 04:50 10/21/24 05:10 10/21/24 05:15 Temperature Pulse Rate 100 99 102 H Respiratory Rate Blood Pressure 98/80 L 90/72 L Pulse Oximetry 100 Oxygen Delivery Mechanical Ventilation Fraction of Inspired Oxygen 50 10/21/24 05:39 10/21/24 05:49 10/21/24 06:00 Temperature Pulse Rate 100 102 H 103 H Respiratory Rate Blood Pressure 94/77 L 100/79 98/70 L Pulse Oximetry Oxygen Delivery Fraction of Inspired Oxygen 10/21/24 06:00 10/21/24 06:00 10/21/24 06:00 Temperature Pulse Rate 103 H 103 H 103 H Respiratory Rate 18 18 Blood Pressure Pulse Oximetry Oxygen Delivery Fraction of Inspired Oxygen 10/21/24 06:00 10/21/24 06:07 10/21/24 06:28 Temperature 100.3 F H Pulse Rate 103 H 103 H 101 H Respiratory Rate 18 Blood Pressure 98/70 L 98/70 L 97/75 L Pulse Oximetry 98 Oxygen Delivery Fraction of Inspired Oxygen 10/21/24 06:28 10/21/24 06:28 10/21/24 06:58 Temperature Pulse Rate 101 H 102 H 102 H Respiratory Rate Blood Pressure 97/75 L 97/75 L 99/75 L Pulse Oximetry Oxygen Delivery Fraction of Inspired Oxygen 10/21/24 07:15 10/21/24 07:43 10/21/24 07:48 Temperature Pulse Rate 102 H 99 100 Respiratory Rate Blood Pressure 112/85 108/80 108/80 Pulse Oximetry Oxygen Delivery Fraction of Inspired Oxygen Intake/Output Intake/Output: Intake & Output 10/18/24 10/19/24 10/20/24 10/21/24 23:59 23:59 23:59 23:59 Intake Total 1755 3151.3 3645.5 756.8 Output Total 400 1 850 450 Balance 1355 3150.3 2795.5 306.8 Meds/Results Medications: Active Medications Generic Name Dose Route Start Last Admin Trade Name Freq PRN Reason Stop Dose Admin Acetaminophen 650 mg 10/16/24 12:34 10/18/24 11:25 Acetaminophen 325 Mg Tablet PO 650 mg Q4H PRN Administration Mild Pain (1-3) or Fever Albuterol 2.5 mg 10/18/24 14:45 Albuterol Sulfate Neb 2.5 Mg/3 Ml Inh INHALATION QID PRN shortness of breath or wheezing Albuterol/Ipratropium 3 ml 10/16/24 14:00 10/21/24 01:53 Ipratropium 0.5 Mg/Albuterol Sulfate 2.5 Mg Ampul.Neb 3 Ml INHALATION 3 ml Q6HRT CROW Administration Alprazolam 0.5 mg 10/16/24 21:47 10/18/24 11:25 Alprazolam (*Crx) 0.5 Mg Tablet PO 0.5 mg DAILY PRN Administration anxiety] Alprazolam 0.5 mg 10/17/24 21:00 10/19/24 22:13 Alprazolam (*Crx) 0.5 Mg Tablet PO Not Given HS [facility] Dicyclomine HCl 20 mg 10/19/24 14:03 10/19/24 14:11 Dicyclomine Hcl 10 Mg Capsule PO 20 mg QID PRN Administration Abdominal Cramping Dronedarone 400 mg 10/16/24 09:00 10/20/24 20:16 Dronedarone Hcl 400 Mg Tablet BY MOUTH Not Given Q12HR [facility] Guaifenesin 1,200 mg 10/18/24 21:00 10/20/24 20:16 Guaifenesin 12 Hr 600 Mg Tabcr PO Not Given Q12HR [facility] Home Med 1 each 10/19/24 09:00 10/20/24 20:16 Home Medication - Propranolol 10 Mg Tab PO 10/25/24 21:01 Not Given Q12HR [facility] Home Med 1 each 10/26/24 21:00 Home Medication - Propranolol 10 Mg Tab PO 11/01/24 21:01 HS [facility] Cefepime HCl 2 gm in 50 mls @ 100 mls/hr 10/19/24 20:00 10/21/24 04:54 Maxipime 2 Gm/Ns 50 Ml IVPB Infused Q8H CROW Infusion Vancomycin HCl 1,250 mg in 250 mls @ 166.667 mls/hr 10/20/24 15:00 10/20/24 16:58 Vancomycin 1,250 Mg/Ns 250 Ml IVPB Infused Q18H CROW Infusion Doxycycline Hyclate 100 mg in 100 mls @ 100 mls/hr 10/20/24 09:00 10/20/24 21:33 Vibramycin 100 Mg/Ns 100 Ml IVPB 10/21/24 23:59 Infused Q12H CROW Infusion Norepinephrine Bitartrate 8 mg in 250 mls @ 56.25 mls/hr 10/20/24 09:00 10/21/24 07:48 Levophed 8 Mg/D5w 250 Ml IV CONT 30 mcg/min .Q4H27M CROW 56.25 mls/hr Administration Protocol 30 MCG/MIN Fentanyl Citrate 2,500 mcg in 250 mls @ 7.5 mls/hr 10/20/24 10:20 10/21/24 06:00 Fentanyl 2,500 Mcg/Ns 250 Ml IV CONT 75 mcg/hr .[id number] CROW 7.5 mls/hr Titration Protocol 75 MCG/HR Midazolam HCl 100 mg in 100 mls @ 3 mls/hr 10/20/24 10:20 10/21/24 06:00 Versed 100 Mg/Ns 100 Ml IV CONT 3 mg/hr .[id number] CROW 3 mls/hr Titration Protocol 3 MG/HR Phenylephrine HCl 50 mg/ 250 mls @ 54 mls/hr 10/20/24 22:35 10/21/24 06:28 Sodium Chloride IV CONT 180 mcg/min .Q4H38M CROW 54 mls/hr Administration Protocol 180 MCG/MIN Vasopressin 100 units/ 100 mls @ 1.8 mls/hr 10/21/24 06:05 Dextrose IV CONT .[id number] [facility] Protocol 0.03 UNITS/MIN Losartan Potassium 50 mg 10/19/24 09:00 10/19/24 10:23 Losartan Potassium 50 Mg Tablet PO 50 mg DAILY [facility] Administration Methimazole 5 mg 10/17/24 09:00 10/20/24 09:33 Methimazole 5 Mg Tab BY MOUTH Not Given [email or web address] [facility] Miscellaneous Information 1 each 10/21/24 00:01 10/21/24 00:49 Ivs All In Ns If Possible XX 11/20/24 00:00 Not Given CLARIFY [facility] Multi-Ingred Cream/Lotion/Oil/Oint 1 applic 10/20/24 21:00 10/20/24 20:12 Mineral Oil/White Petrolatum Ointment EACH EYE 1 applic Q12HR [facility] Administration Ondansetron HCl 4 mg 10/20/24 07:35 Ondansetron Inj 4 Mg/2 Ml Vial IV PUSH Q4H PRN Nausea And Vomiting Pantoprazole Sodium 40 mg 10/20/24 21:00 10/20/24 20:05 Pantoprazole Sodium Iv 40 Mg Vial IV PUSH 40 mg Q12HR CROW Administration Perflutren Lipid Microsphere 0 ml 10/18/24 09:56 Perflutren Lipid Microspheres 1.5 Ml Vial Diluted To 10 Ml Total Volume IV PUSH 10/21/24 09:56 ONCE PRN adequate visualization Protocol Polyethylene Glycol 17 gm 10/19/24 12:20 Polyethylene Glycol 3350 17 Gm Powd.Pack PO QAM PRN Constipation Sodium Chloride 1 gm 10/18/24 18:15 10/20/24 16:39 Sodium Chloride 1 Gm Tablet PO Not Given BID CROW Sodium Chloride 20 ml 10/20/24 08:59 Central Line Flush IV PUSH PRN PRN after blood draws Sodium Chloride 10 ml 10/20/24 08:59 Central Line Flush IV PUSH PRN PRN with TPN bag changes Sodium Chloride 10 ml 10/20/24 14:00 10/21/24 05:13 Central Line Flush IV PUSH 10 ml Q8HR CROW Administration Umeclidinium/Vilanterol 1 puff 10/17/24 08:00 10/20/24 07:10 Umeclidinium/Vilanterol 62.5-25 Mcg Ellipta INHALATION 1 puff DAILYRT CROW Administration Radiology Results: ITS Impressions Venous Doppler Study 10/20/24 08:31 IMPRESSION: 1: No lower extremity deep venous thrombosis. Abdomen X-Ray 10/20/24 11:15 IMPRESSION: 1. Nasogastric tube tip in the stomach. 2. Distended transverse colon and small bowel, consistent with adynamic ileus or less likely obstruction. 3. Small right pleural effusion. Chest X-Ray 10/21/24 06:13 IMPRESSION: 1. Stable diffuse lung disease, consistent with moderate pulmonary edema without or with superimposed pneumonia. 2. Stable moderate-sized right pleural effusion. 3. Cardiomegaly. Labs Labs: Laboratory Results - last 24 hr 10/16/24 10/19/24 10/19/24 13:20 06:39 11:33 WBC RBC Hgb Hct MCV MCH MCHC RDW Plt Count MPV Immature Gran % (Auto) Neut % (Auto) Lymph % (Auto) [place] % (Auto) Eos % (Auto) Baso % (Auto) Lymph # (Auto) [place] # (Auto) Eos # (Auto) Baso # (Auto) Abs Immat Gran (auto) Absolute Neuts (auto) Absolute Nucleated RBC Nucleated RBC % Platelet Estimate % Immature Plt Fraction Hypochromasia Poikilocytosis Anisocytosis Ovalocytes Schistocytes PT INR APTT Puncture Site ABG pH ABG pCO2 ABG pO2 ABG PO2/FiO2 Ratio ABG HCO3 ABG O2 Saturation ABG O2 Content ABG Base Excess A-a Gradient Oxyhemoglobin Carboxyhemoglobin Methemoglobin Reduced Hemoglobin Total Hemoglobin O2 Delivery Device O2 Liters/Min Minute Volume Vent Rate Vent Mode FiO2 Tidal Volume PEEP Peak Inspir Pressure Pressure Support Sodium Potassium Chloride Carbon Dioxide Anion Gap BUN Creatinine Estim Creat Clear Calc Estimated GFR Glucose POC Capillary Glucose Lactic Acid Calcium Phosphorus Magnesium Total Bilirubin AST ALT Alkaline Phosphatase Total Protein Albumin 3.4 L Lmqrg-7-Jwynlnlsu 0.4 H Vvevw-1-Kcbaejonj 0.8 Rhqm-1-Hjqlbyns 0.5 Jtnl-3-Itdxxujj 0.5 Gamma Globulins 0.5 L PEP Interpretation See note Ur Random Creatinine 200 U Random Total Protein 105 H Protein/Creatinin Ratio 525 H Mycoplasma pneumon IgM 144 10/20/24 10/20/24 10/20/24 04:21 07:51 10:07 WBC 11.7 H RBC 2.76 L Hgb 8.6 L Hct 25.6 L MCV 92.8 MCH 31.2 MCHC 33.6 RDW 14.5 Plt Count 79 L MPV 10.3 Immature Gran % (Auto) 0.6 H Neut % (Auto) 90.1 H Lymph % (Auto) 4.1 L [place] % (Auto) 5.1 Eos % (Auto) 0.0 Baso % (Auto) 0.1 L Lymph # (Auto) 0.48 L [place] # (Auto) 0.6 Eos # (Auto) 0.0 Baso # (Auto) 0.0 Abs Immat Gran (auto) 0.07 H Absolute Neuts (auto) 10.6 H Absolute Nucleated RBC 0.020 H Nucleated RBC % 0.2 Platelet Estimate % Immature Plt Fraction 3.6 Hypochromasia Poikilocytosis Anisocytosis Ovalocytes Schistocytes PT 21.1 H INR 1.8 APTT 32.3 Puncture Site ABG pH ABG pCO2 ABG pO2 ABG PO2/FiO2 Ratio ABG HCO3 ABG O2 Saturation ABG O2 Content ABG Base Excess A-a Gradient Oxyhemoglobin Carboxyhemoglobin Methemoglobin Reduced Hemoglobin Total Hemoglobin O2 Delivery Device O2 Liters/Min Minute Volume Vent Rate Vent Mode FiO2 Tidal Volume PEEP Peak Inspir Pressure Pressure Support Sodium 127 L Potassium 5.5 H Chloride 102 Carbon Dioxide 14 L Anion Gap 11 BUN 38 H Creatinine 1.01 Estim Creat Clear Calc 60 Estimated GFR > 60 Glucose 115 H POC Capillary Glucose 92 Lactic Acid Calcium 8.2 L Phosphorus 4.6 H Magnesium 2.0 Total Bilirubin 1.4 H AST 600 H ALT 561 H Alkaline Phosphatase 79 Total Protein 6.0 L Albumin 3.4 L Dxwls-1-Lxazhssjo Inphs-0-Tcmfcixif Isvl-5-Uynahfan Dtcb-8-Emjdtqrd Gamma Globulins PEP Interpretation Ur Random Creatinine U Random Total Protein Protein/Creatinin Ratio Mycoplasma pneumon IgM 10/20/24 10/20/24 10/20/24 12:30 12:43 16:54 WBC RBC Hgb Hct MCV MCH MCHC RDW Plt Count MPV Immature Gran % (Auto) Neut % (Auto) Lymph % (Auto) [place] % (Auto) Eos % (Auto) Baso % (Auto) Lymph # (Auto) [place] # (Auto) Eos # (Auto) Baso # (Auto) Abs Immat Gran (auto) Absolute Neuts (auto) Absolute Nucleated RBC Nucleated RBC % Platelet Estimate % Immature Plt Fraction Hypochromasia Poikilocytosis Anisocytosis Ovalocytes Schistocytes PT INR APTT Puncture Site Right radial ABG pH 7.408 ABG pCO2 29.3 L ABG pO2 170.8 H ABG PO2/FiO2 Ratio 2.13 ABG HCO3 18.1 L ABG O2 Saturation 99.2 ABG O2 Content 13.2 L ABG Base Excess -5.7 A-a Gradient 368.8 Oxyhemoglobin 98.3 Carboxyhemoglobin 0.4 Methemoglobin 0.3 Reduced Hemoglobin 1.0 Total Hemoglobin 9.3 L O2 Delivery Device Ventilator O2 Liters/Min Not Reportable Minute Volume Not Reportable Vent Rate 20 Vent Mode Cmv FiO2 80 Tidal Volume 480 PEEP 5 Peak Inspir Pressure Not Reportable Pressure Support Not Reportable Sodium 131 L Potassium 4.4 Chloride 99 Carbon Dioxide 24 Anion Gap 8 BUN 39 H Creatinine 1.07 Estim Creat Clear Calc 57 Estimated GFR > 60 Glucose 131 H POC Capillary Glucose 128 H Lactic Acid Calcium 8.0 L Phosphorus Magnesium Total Bilirubin AST ALT Alkaline Phosphatase Total Protein Albumin [place]-3-Vlddngdhg Ytavi-3-Meocpdpcj Depb-6-Kommmrvp Pqcj-2-Lgllcpls Gamma Globulins PEP Interpretation Ur Random Creatinine U Random Total Protein Protein/Creatinin Ratio Mycoplasma pneumon IgM 10/21/24 10/21/24 10/21/24 00:43 05:25 05:27 WBC 14.0 H RBC 2.86 L Hgb 9.1 L Hct 26.6 L MCV 93.0 MCH 31.8 MCHC 34.2 RDW 14.6 H Plt Count 57 L MPV 9.9 Immature Gran % (Auto) 0.7 H Neut % (Auto) 82.8 H Lymph % (Auto) 11.5 L [place] % (Auto) 4.0 Eos % (Auto) 0.8 Baso % (Auto) 0.2 Lymph # (Auto) 1.62 [place] # (Auto) 0.6 Eos # (Auto) 0.1 Baso # (Auto) 0.0 Abs Immat Gran (auto) 0.10 H Absolute Neuts (auto) 11.6 H Absolute Nucleated RBC 0.040 H Nucleated RBC % 0.3 H Platelet Estimate Decreased % Immature Plt Fraction 6.7 Hypochromasia 1+ Poikilocytosis 1+ Anisocytosis 1+ Ovalocytes 1+ Schistocytes None seen PT 24.3 H INR 2.1 APTT 35.9 Puncture Site Right brachial ABG pH 7.373 ABG pCO2 37.7 ABG pO2 76.7 L ABG PO2/FiO2 Ratio 1.53 ABG HCO3 21.5 L ABG O2 Saturation 95.1 ABG O2 Content 13.4 L ABG Base Excess -3.4 A-a Gradient 237.4 Oxyhemoglobin 93.1 Carboxyhemoglobin 0.5 Methemoglobin 0.2 Reduced Hemoglobin 6.2 H Total Hemoglobin 10.2 L O2 Delivery Device Ventilator O2 Liters/Min Not Reportable Minute Volume Not Reportable Vent Rate 18 Vent Mode Cmv FiO2 50 Tidal Volume 400 PEEP 5 Peak Inspir Pressure Not Reportable Pressure Support Not Reportable Sodium 132 L Potassium 4.3 Chloride 100 Carbon Dioxide 27 Anion Gap 5 BUN 40 H Creatinine 1.20 Estim Creat Clear Calc 51 Estimated GFR > 60 Glucose 98 POC Capillary Glucose 101 Lactic Acid 2.1 H Calcium 8.1 L Phosphorus 3.7 Magnesium 2.0 Total Bilirubin 1.9 H AST 1478 H ALT 1643 H Alkaline Phosphatase 81 Total Protein 6.0 L Albumin 3.5 Lxphk-8-Tklthaifu Vauwh-3-Kzmnhtsxg Xfen-0-Yqkckxkl Lbjd-9-Pfnpozqf Gamma Globulins PEP Interpretation Ur Random Creatinine U Random Total Protein Protein/Creatinin Ratio Mycoplasma pneumon IgM
[2024-10-21] MEDS: DOXYCYCLINE 100 MG/NS 100 ML 100 MG/100 ML BAG IVPB ×2 (08:29→21:06)
[2024-10-21 08:33] LABS: Reflex Lactic Acid Yes or No Add Lactic
[2024-10-21] MEDS: MINERAL OIL/WHITE PETROLATUM OINTMENT 1 APPLIC EACH EYE ×2 (08:40→20:32)
[2024-10-21] MEDS: PANTOPRAZOLE SODIUM IV 40 MG VIAL IV PUSH ×2 (08:40→20:18)
[2024-10-21] MEDS: VASOPRESSIN INJ 100 UNITS in DEXTROSE 5% 95 ML IV CONT ×2 (09:07→22:23)
[2024-10-21 09:22] LABS: Vancomycin Trough 11.5 ug/mL (10.0-20.0)
[2024-10-21 09:29] LABS: Lactic Acid 2.3 mmol/L (0.7-2.0)
--- NOTE | 2024-10-21 10:23 | P.PNNP_ITS ---
Progress Note: A&P Assessment and Plan (1) Hyponatremia: Code(s): E87.1 - Hypo-osmolality and hyponatremia Status: Acute Assessment and Plan: * chronic issue at baseline. Baseline sodium 123-129 * multiple risk factors: * known history of COPD * CHF * thyroid disease * PPI use * nausea * distant history alcohol abuse * history suggests SIADH with previous outpatient work-up (January 2024) noted: * prerenal urine electrolytes * known history of hyperthyroidism * cortisol okay * SPE and UPE negative * urine osmo > serum osmo * previous CXR with COPD changes * previous CT of head negative * Sodium is a little bit better today, up to 132 * Improving at a good rate. * Potassium is back to normal. * The patient has a lactic acidosis. Lactate level is lower today. Bicarbonate level is normal and anion gap is better. (2) Pneumonia: Code(s): J18.9 - Pneumonia, unspecified organism Status: Acute Assessment and Plan: * imaging with bilateral perihilar and lower lobe pneumonia * on supplemental oxygen and nebulizer treatment * on antibiotics therapy * Blood cultures negative to date. * He is on The ventilator (3) Hypertension: Qualifiers: Hypertension type: essential hypertension Qualified Code(s): I10 - Essential (primary) hypertension Code(s): I10 - Essential (primary) hypertension Status: Acute Assessment and Plan: * Off antihypertensives because of the hypotension (4) Paroxysmal atrial fibrillation: Code(s): I48.0 - Paroxysmal atrial fibrillation Status: Acute Assessment and Plan: * in sinus rhythm * holding anticoagulation due to issues with hemoptysis on admission * Heart rate okay * Cardiology following (5) Hyperthyroidism: Code(s): E05.90 - Thyrotoxicosis, unspecified without thyrotoxic crisis or storm Status: Acute Assessment and Plan: * continue methimazole * TSH and T4 within range (6) Septic shock: Code(s): A41.9 - Sepsis, unspecified organism; R65.21 - Severe sepsis with septic shock Status: Acute Assessment and Plan: Sepsis. Due to infection plus-minus ileus Getting antibiotics and pressors Subjective Date/time seen: 10/21/24 10:23 Interval history: patient still of more shortness of breath and so was intubated overnight. sedated. Looks comfortable in bed Exam Narrative: General: elderly but WD/WN male in NAD Heart: normal S1 and S2; no rub or gallop Lungs: coarse breath sounds; diminished at bases Abdomen: soft, nontender, nondistended, positive bowel sounds Extremities: no cyanosis or clubbing; no edema Skin: warm and dry without rash Objective Data Vital Signs Vital Signs: Vital Signs - 24 hr 10/20/24 10:30 10/20/24 10:45 10/20/24 10:51 Temperature Pulse Rate 86 84 83 Respiratory Rate 14 Blood Pressure 103/82 100/78 Pulse Oximetry Oxygen Delivery Fraction of Inspired Oxygen 10/20/24 10:53 10/20/24 10:55 10/20/24 10:56 Temperature Pulse Rate 83 90 Respiratory Rate 14 Blood Pressure Pulse Oximetry 100 Oxygen Delivery Mechanical Ventilation Fraction of Inspired Oxygen 80 80 10/20/24 11:15 10/20/24 11:15 10/20/24 11:45 Temperature Pulse Rate 92 92 85 Respiratory Rate Blood Pressure 129/94 H 129/94 H 111/86 Pulse Oximetry Oxygen Delivery Fraction of Inspired Oxygen 10/20/24 11:45 10/20/24 11:45 10/20/24 11:46 Temperature Pulse Rate 87 87 85 Respiratory Rate 20 20 Blood Pressure 111/86 Pulse Oximetry Oxygen Delivery Fraction of Inspired Oxygen 10/20/24 12:00 10/20/24 12:00 10/20/24 12:00 Temperature 100.1 F H Pulse Rate 85 84 Respiratory Rate 20 Blood Pressure 121/87 121/87 Pulse Oximetry 100 100 Oxygen Delivery Mechanical Ventilation Fraction of Inspired Oxygen 80 10/20/24 12:00 10/20/24 12:00 10/20/24 12:45 Temperature Pulse Rate 77 82 Respiratory Rate 24 H Blood Pressure Pulse Oximetry Oxygen Delivery Fraction of Inspired Oxygen 80 10/20/24 12:45 10/20/24 12:45 10/20/24 12:45 Temperature Pulse Rate 82 82 82 Respiratory Rate 21 H Blood Pressure 111/86 110/84 Pulse Oximetry Oxygen Delivery Fraction of Inspired Oxygen 10/20/24 12:54 10/20/24 13:00 10/20/24 13:00 Temperature Pulse Rate 80 80 Respiratory Rate Blood Pressure 97/78 L 97/78 L Pulse Oximetry Oxygen Delivery Fraction of Inspired Oxygen 30 10/20/24 13:10 10/20/24 13:10 10/20/24 13:20 Temperature Pulse Rate 80 80 79 Respiratory Rate 20 20 Blood Pressure Pulse Oximetry 100 Oxygen Delivery Mechanical Ventilation Fraction of Inspired Oxygen 50 10/20/24 13:30 10/20/24 13:45 10/20/24 14:00 Temperature Pulse Rate 81 80 78 Respiratory Rate Blood Pressure 87/69 L 91/74 L 94/68 L Pulse Oximetry Oxygen Delivery Fraction of Inspired Oxygen 10/20/24 14:00 10/20/24 14:00 10/20/24 14:45 Temperature 100.0 F H Pulse Rate 78 77 75 Respiratory Rate 18 20 Blood Pressure 94/68 L Pulse Oximetry 100 Oxygen Delivery Fraction of Inspired Oxygen 10/20/24 14:45 10/20/24 14:47 10/20/24 15:00 Temperature Pulse Rate 75 77 74 Respiratory Rate 20 Blood Pressure 85/72 L 99/79 L Pulse Oximetry Oxygen Delivery Fraction of Inspired Oxygen 10/20/24 15:00 10/20/24 15:30 10/20/24 15:45 Temperature Pulse Rate 75 79 75 Respiratory Rate Blood Pressure 99/79 L 112/84 102/77 Pulse Oximetry Oxygen Delivery Fraction of Inspired Oxygen 10/20/24 15:45 10/20/24 15:45 10/20/24 15:50 Temperature Pulse Rate 75 75 Respiratory Rate 18 18 Blood Pressure Pulse Oximetry 100 Oxygen Delivery Mechanical Ventilation Fraction of Inspired Oxygen 30 10/20/24 15:50 10/20/24 16:00 10/20/24 16:00 Temperature Pulse Rate 78 78 Respiratory Rate Blood Pressure 105/83 105/83 Pulse Oximetry Oxygen Delivery Fraction of Inspired Oxygen 30 10/20/24 16:00 10/20/24 16:00 10/20/24 16:02 Temperature 100.1 F H Pulse Rate 78 75 75 Respiratory Rate 15 Blood Pressure 105/83 Pulse Oximetry 100 100 Oxygen Delivery Mechanical Ventilation Fraction of Inspired Oxygen 50 10/20/24 16:15 10/20/24 16:30 10/20/24 16:45 Temperature Pulse Rate 75 78 78 Respiratory Rate 18 Blood Pressure 103/77 105/83 Pulse Oximetry Oxygen Delivery Fraction of Inspired Oxygen 10/20/24 16:45 10/20/24 16:45 10/20/24 16:50 Temperature Pulse Rate 77 75 78 Respiratory Rate 18 Blood Pressure 102/77 103/85 Pulse Oximetry Oxygen Delivery Fraction of Inspired Oxygen 10/20/24 18:00 10/20/24 18:00 10/20/24 19:32 Temperature 100.1 F H Pulse Rate 79 79 80 Respiratory Rate 19 Blood Pressure 103/79 Pulse Oximetry 100 100 Oxygen Delivery Mechanical Ventilation Fraction of Inspired Oxygen 50 10/20/24 19:32 10/20/24 19:38 10/20/24 19:58 Temperature Pulse Rate 79 76 86 Respiratory Rate 20 20 20 Blood Pressure Pulse Oximetry Oxygen Delivery Fraction of Inspired Oxygen 10/20/24 19:59 10/20/24 20:00 10/20/24 20:00 Temperature Pulse Rate 85 84 Respiratory Rate 20 Blood Pressure 99/85 L Pulse Oximetry 99 Oxygen Delivery Mechanical Ventilation Fraction of Inspired Oxygen 50 10/20/24 20:00 10/20/24 20:00 10/20/24 20:01 Temperature Pulse Rate 85 86 Respiratory Rate Blood Pressure 99/85 L Pulse Oximetry Oxygen Delivery Fraction of Inspired Oxygen 50 10/20/24 20:15 10/20/24 20:17 10/20/24 20:19 Temperature Pulse Rate 86 84 85 Respiratory Rate 19 20 Blood Pressure 110/87 110/87 Pulse Oximetry 98 Oxygen Delivery Fraction of Inspired Oxygen 10/20/24 20:37 10/20/24 20:38 10/20/24 21:30 Temperature Pulse Rate 84 84 84 Respiratory Rate 20 Blood Pressure 117/81 97/79 L Pulse Oximetry Oxygen Delivery Fraction of Inspired Oxygen 10/20/24 21:30 10/20/24 22:00 10/20/24 22:01 Temperature Pulse Rate 84 83 84 Respiratory Rate Blood Pressure 97/79 L 99/76 L Pulse Oximetry Oxygen Delivery Fraction of Inspired Oxygen 10/20/24 22:05 10/20/24 22:06 10/20/24 22:07 Temperature Pulse Rate 86 86 85 Respiratory Rate 18 18 19 Blood Pressure 99/76 L Pulse Oximetry 97 Oxygen Delivery Fraction of Inspired Oxygen 10/20/24 22:15 10/20/24 22:18 10/20/24 22:29 Temperature Pulse Rate 85 85 86 Respiratory Rate 18 Blood Pressure 98/77 L 98/77 L Pulse Oximetry Oxygen Delivery Fraction of Inspired Oxygen 10/20/24 22:30 10/20/24 22:30 10/20/24 22:31 Temperature Pulse Rate 86 86 86 Respiratory Rate Blood Pressure 105/83 105/83 Pulse Oximetry 97 Oxygen Delivery Mechanical Ventilation Fraction of Inspired Oxygen 50 10/20/24 22:39 10/21/24 00:00 10/21/24 00:00 Temperature Pulse Rate 88 90 90 Respiratory Rate 19 18 Blood Pressure 102/75 Pulse Oximetry Oxygen Delivery Fraction of Inspired Oxygen 10/21/24 00:00 10/21/24 00:00 10/21/24 00:00 Temperature Pulse Rate 90 Respiratory Rate 18 Blood Pressure Pulse Oximetry 96 Oxygen Delivery Mechanical Ventilation Fraction of Inspired Oxygen 50 50 10/21/24 00:00 10/21/24 00:00 10/21/24 00:30 Temperature 100.1 F H Pulse Rate 90 90 90 Respiratory Rate 18 Blood Pressure 102/75 94/73 L Pulse Oximetry 96 Oxygen Delivery Fraction of Inspired Oxygen 10/21/24 00:34 10/21/24 00:45 10/21/24 00:46 Temperature Pulse Rate 90 90 90 Respiratory Rate Blood Pressure 94/73 L 98/76 L 98/76 L Pulse Oximetry Oxygen Delivery Fraction of Inspired Oxygen 10/21/24 01:07 10/21/24 01:16 10/21/24 01:55 Temperature Pulse Rate 91 95 90 Respiratory Rate Blood Pressure 99/73 L 100/68 Pulse Oximetry 96 Oxygen Delivery Mechanical Ventilation Fraction of Inspired Oxygen 50 10/21/24 01:55 10/21/24 01:58 10/21/24 01:58 Temperature Pulse Rate 90 96 96 Respiratory Rate 18 18 Blood Pressure 96/67 L Pulse Oximetry Oxygen Delivery Fraction of Inspired Oxygen 10/21/24 02:00 10/21/24 02:00 10/21/24 02:00 Temperature Pulse Rate 95 94 95 Respiratory Rate 18 Blood Pressure 96/67 L Pulse Oximetry Oxygen Delivery Fraction of Inspired Oxygen 10/21/24 02:00 10/21/24 02:01 10/21/24 02:17 Temperature 100.2 F H Pulse Rate 95 94 95 Respiratory Rate 18 18 Blood Pressure 99/66 L 96/73 L Pulse Oximetry 95 Oxygen Delivery Fraction of Inspired Oxygen 10/21/24 02:17 10/21/24 02:35 10/21/24 02:35 Temperature Pulse Rate 96 98 98 Respiratory Rate 18 Blood Pressure 98/72 L 98/72 L Pulse Oximetry Oxygen Delivery Fraction of Inspired Oxygen 10/21/24 02:48 10/21/24 03:01 10/21/24 03:02 Temperature Pulse Rate 99 100 100 Respiratory Rate 18 Blood Pressure 97/74 L 97/74 L Pulse Oximetry Oxygen Delivery Fraction of Inspired Oxygen 10/21/24 03:16 10/21/24 03:16 10/21/24 03:17 Temperature Pulse Rate 101 H 101 H 101 H Respiratory Rate Blood Pressure 104/74 104/74 104/74 Pulse Oximetry Oxygen Delivery Fraction of Inspired Oxygen 10/21/24 04:00 10/21/24 04:00 10/21/24 04:00 Temperature Pulse Rate 101 H 101 H 101 H Respiratory Rate 18 Blood Pressure 105/79 105/79 Pulse Oximetry Oxygen Delivery Fraction of Inspired Oxygen 10/21/24 04:00 10/21/24 04:00 10/21/24 04:00 Temperature Pulse Rate 101 H 101 H Respiratory Rate 18 Blood Pressure Pulse Oximetry 95 Oxygen Delivery Mechanical Ventilation Fraction of Inspired Oxygen 50 10/21/24 04:00 10/21/24 04:05 10/21/24 04:32 Temperature 99.8 F H Pulse Rate 97 99 Respiratory Rate 18 Blood Pressure 105/79 99/79 L Pulse Oximetry 95 Oxygen Delivery Fraction of Inspired Oxygen 50 10/21/24 04:50 10/21/24 05:10 10/21/24 05:15 Temperature Pulse Rate 100 99 102 H Respiratory Rate Blood Pressure 98/80 L 90/72 L Pulse Oximetry 100 Oxygen Delivery Mechanical Ventilation Fraction of Inspired Oxygen 50 10/21/24 05:39 10/21/24 05:49 10/21/24 06:00 Temperature Pulse Rate 100 102 H 103 H Respiratory Rate Blood Pressure 94/77 L 100/79 98/70 L Pulse Oximetry Oxygen Delivery Fraction of Inspired Oxygen 10/21/24 06:00 10/21/24 06:00 10/21/24 06:00 Temperature Pulse Rate 103 H 103 H 103 H Respiratory Rate 18 18 Blood Pressure Pulse Oximetry Oxygen Delivery Fraction of Inspired Oxygen 10/21/24 06:00 10/21/24 06:07 10/21/24 06:28 Temperature 100.3 F H Pulse Rate 103 H 103 H 101 H Respiratory Rate 18 Blood Pressure 98/70 L 98/70 L 97/75 L Pulse Oximetry 98 Oxygen Delivery Fraction of Inspired Oxygen 10/21/24 06:28 10/21/24 06:28 10/21/24 06:58 Temperature Pulse Rate 101 H 102 H 102 H Respiratory Rate Blood Pressure 97/75 L 97/75 L 99/75 L Pulse Oximetry Oxygen Delivery Fraction of Inspired Oxygen 10/21/24 07:15 10/21/24 07:43 10/21/24 07:48 Temperature Pulse Rate 102 H 99 100 Respiratory Rate Blood Pressure 112/85 108/80 108/80 Pulse Oximetry Oxygen Delivery Fraction of Inspired Oxygen 10/21/24 08:00 10/21/24 08:00 10/21/24 08:00 Temperature 100.4 F H Pulse Rate 101 H 100 102 H Respiratory Rate 18 Blood Pressure 113/87 101/79 Pulse Oximetry 94 Oxygen Delivery Fraction of Inspired Oxygen 10/21/24 08:00 10/21/24 08:00 10/21/24 08:00 Temperature Pulse Rate 100 100 Respiratory Rate 18 Blood Pressure 101/79 Pulse Oximetry Oxygen Delivery Fraction of Inspired Oxygen 50 10/21/24 08:18 10/21/24 08:22 10/21/24 08:46 Temperature Pulse Rate 102 H 100 102 H Respiratory Rate 18 Blood Pressure 101/79 Pulse Oximetry 95 Oxygen Delivery Mechanical Ventilation Fraction of Inspired Oxygen 50 10/21/24 08:46 10/21/24 09:07 10/21/24 10:00 Temperature 100.7 F H Pulse Rate 102 H 106 H 103 H Respiratory Rate 18 18 Blood Pressure 97/66 L 98/52 L Pulse Oximetry 95 Oxygen Delivery Fraction of Inspired Oxygen Intake/Output Intake/Output: Intake & Output 10/18/24 10/19/24 10/20/24 10/21/24 23:59 23:59 23:59 23:59 Intake Total 1755 3151.3 3645.5 874.8 Output Total 400 1 850 450 Balance 1355 3150.3 2795.5 424.8 Meds/Results Medications: Active Medications Generic Name Dose Route Start Last Admin Trade Name Freq PRN Reason Stop Dose Admin Acetaminophen 650 mg 10/16/24 12:34 10/18/24 11:25 Acetaminophen 325 Mg Tablet PO 650 mg Q4H PRN Administration Mild Pain (1-3) or Fever Albuterol 2.5 mg 10/18/24 14:45 Albuterol Sulfate Neb 2.5 Mg/3 Ml Inh INHALATION QID PRN shortness of breath or wheezing Albuterol/Ipratropium 3 ml 10/16/24 14:00 10/21/24 08:34 Ipratropium 0.5 Mg/Albuterol Sulfate 2.5 Mg Ampul.Neb 3 Ml INHALATION 3 ml Q6HRT CROW Administration Alprazolam 0.5 mg 10/16/24 21:47 10/18/24 11:25 Alprazolam (*Crx) 0.5 Mg Tablet PO 0.5 mg DAILY PRN Administration anxiety] Alprazolam 0.5 mg 10/17/24 21:00 10/19/24 22:13 Alprazolam (*Crx) 0.5 Mg Tablet PO Not Given HS [facility] Dicyclomine HCl 20 mg 10/19/24 14:03 10/19/24 14:11 Dicyclomine Hcl 10 Mg Capsule PO 20 mg QID PRN Administration Abdominal Cramping Dronedarone 400 mg 10/16/24 09:00 10/21/24 08:00 Dronedarone Hcl 400 Mg Tablet BY MOUTH Not Given Q12HR [facility] Guaifenesin 1,200 mg 10/18/24 21:00 10/21/24 08:00 Guaifenesin 12 Hr 600 Mg Tabcr PO Not Given Q12HR [facility] Home Med 1 each 10/19/24 09:00 10/21/24 08:00 Home Medication - Propranolol 10 Mg Tab PO 10/25/24 21:01 Not Given Q12HR [facility] Home Med 1 each 10/26/24 21:00 Home Medication - Propranolol 10 Mg Tab PO 11/01/24 21:01 HS [facility] Cefepime HCl 2 gm in 50 mls @ 100 mls/hr 10/19/24 20:00 10/21/24 04:54 Maxipime 2 Gm/Ns 50 Ml IVPB Infused Q8H CROW Infusion Doxycycline Hyclate 100 mg in 100 mls @ 100 mls/hr 10/20/24 09:00 10/21/24 08:29 Vibramycin 100 Mg/Ns 100 Ml IVPB 10/21/24 23:59 100 mls/hr Q12H CROW Administration Norepinephrine Bitartrate 8 mg in 250 mls @ 56.25 mls/hr 10/20/24 09:00 10/21/24 08:00 Levophed 8 Mg/D5w 250 Ml IV CONT 30 mcg/min .Q4H27M CROW 56.25 mls/hr Titration Protocol 30 MCG/MIN Fentanyl Citrate 2,500 mcg in 250 mls @ 7.5 mls/hr 10/20/24 10:20 10/21/24 08:00 Fentanyl 2,500 Mcg/Ns 250 Ml IV CONT 75 mcg/hr .[id number] CROW 7.5 mls/hr Titration Protocol 75 MCG/HR Midazolam HCl 100 mg in 100 mls @ 4 mls/hr 10/20/24 10:20 10/21/24 08:18 Versed 100 Mg/Ns 100 Ml IV CONT 4 mg/hr .Q25H CROW 4 mls/hr Titration Protocol 4 MG/HR Phenylephrine HCl 50 mg/ 250 mls @ 54 mls/hr 10/20/24 22:35 10/21/24 08:00 Sodium Chloride IV CONT 180 mcg/min .Q4H38M CROW 54 mls/hr Titration Protocol 180 MCG/MIN Vasopressin 100 units/ 100 mls @ 1.8 mls/hr 10/21/24 06:05 10/21/24 09:07 Dextrose IV CONT 0.03 units/min .[id number] CROW 1.8 mls/hr Administration Protocol 0.03 UNITS/MIN Vancomycin HCl 1,250 mg in 250 mls @ 166.667 mls/hr 10/21/24 10:00 Vancomycin 1,250 Mg/Ns 250 Ml IVPB Q12H [facility] Losartan Potassium 50 mg 10/19/24 09:00 10/19/24 10:23 Losartan Potassium 50 Mg Tablet PO 50 mg DAILY [facility] Administration Methimazole 5 mg 10/17/24 09:00 10/21/24 08:01 Methimazole 5 Mg Tab BY MOUTH Not Given [id number] [facility] Miscellaneous Information 1 each 10/21/24 00:01 10/21/24 00:49 Ivs All In Ns If Possible XX 11/20/24 00:00 Not Given CLARIFY [facility] Multi-Ingred Cream/Lotion/Oil/Oint 1 applic 10/20/24 21:00 10/21/24 08:40 Mineral Oil/White Petrolatum Ointment EACH EYE 1 applic Q12HR [facility] Administration Ondansetron HCl 4 mg 10/20/24 07:35 Ondansetron Inj 4 Mg/2 Ml Vial IV PUSH Q4H PRN Nausea And Vomiting Pantoprazole Sodium 40 mg 10/20/24 21:00 10/21/24 08:40 Pantoprazole Sodium Iv 40 Mg Vial IV PUSH 40 mg Q12HR CROW Administration Polyethylene Glycol 17 gm 10/19/24 12:20 Polyethylene Glycol 3350 17 Gm Powd.Pack PO QAM PRN Constipation Sodium Chloride 1 gm 10/18/24 18:15 10/20/24 16:39 Sodium Chloride 1 Gm Tablet PO Not Given BID CROW Sodium Chloride 20 ml 10/20/24 08:59 Central Line Flush IV PUSH PRN PRN after blood draws Sodium Chloride 10 ml 10/20/24 08:59 Central Line Flush IV PUSH PRN PRN with TPN bag changes Sodium Chloride 10 ml 10/20/24 14:00 10/21/24 05:13 Central Line Flush IV PUSH 10 ml Q8HR CROW Administration Umeclidinium/Vilanterol 1 puff 10/17/24 08:00 10/20/24 07:10 Umeclidinium/Vilanterol 62.5-25 Mcg Ellipta INHALATION 1 puff DAILYRT CROW Administration Radiology Results: ITS Impressions Venous Doppler Study 10/20/24 08:31 IMPRESSION: 1: No lower extremity deep venous thrombosis. Abdomen X-Ray 10/20/24 11:15 IMPRESSION: 1. Nasogastric tube tip in the stomach. 2. Distended transverse colon and small bowel, consistent with adynamic ileus or less likely obstruction. 3. Small right pleural effusion. Chest X-Ray 10/21/24 06:13 IMPRESSION: 1. Stable diffuse lung disease, consistent with moderate pulmonary edema without or with superimposed pneumonia. 2. Stable moderate-sized right pleural effusion. 3. Cardiomegaly. Labs Labs: Laboratory Results - last 24 hr 10/16/24 10/19/24 10/19/24 13:20 06:39 11:33 WBC RBC Hgb Hct MCV MCH MCHC RDW Plt Count MPV Immature Gran % (Auto) Neut % (Auto) Lymph % (Auto) Brooke % (Auto) Eos % (Auto) Baso % (Auto) Lymph # (Auto) Brooke # (Auto) Eos # (Auto) Baso # (Auto) Abs Immat Gran (auto) Absolute Neuts (auto) Absolute Nucleated RBC Nucleated RBC % Platelet Estimate % Immature Plt Fraction Hypochromasia Poikilocytosis Anisocytosis Ovalocytes Schistocytes PT INR APTT Puncture Site ABG pH ABG pCO2 ABG pO2 ABG PO2/FiO2 Ratio ABG HCO3 ABG O2 Saturation ABG O2 Content ABG Base Excess A-a Gradient Oxyhemoglobin Carboxyhemoglobin Methemoglobin Reduced Hemoglobin Total Hemoglobin O2 Delivery Device O2 Liters/Min Minute Volume Vent Rate Vent Mode FiO2 Tidal Volume PEEP Peak Inspir Pressure Pressure Support Sodium Potassium Chloride Carbon Dioxide Anion Gap BUN Creatinine Estim Creat Clear Calc Estimated GFR Glucose POC Capillary Glucose Lactic Acid Calcium Phosphorus Magnesium Total Bilirubin AST ALT Alkaline Phosphatase Total Protein Albumin 3.4 L Umadb-9-Jbusvqqws 0.4 H Kwidh-1-Stywwymjg 0.8 Kixi-7-Ossfcixr 0.5 Nngd-9-Gvpdadxn 0.5 Gamma Globulins 0.5 L PEP Interpretation See note Ur Random Creatinine 200 U Random Total Protein 105 H Protein/Creatinin Ratio 525 H Vancomycin Trough Mycoplasma pneumon IgM 144 10/20/24 10/20/24 10/20/24 12:30 12:43 16:54 WBC RBC Hgb Hct MCV MCH MCHC RDW Plt Count MPV Immature Gran % (Auto) Neut % (Auto) Lymph % (Auto) Brooke % (Auto) Eos % (Auto) Baso % (Auto) Lymph # (Auto) Brooke # (Auto) Eos # (Auto) Baso # (Auto) Abs Immat Gran (auto) Absolute Neuts (auto) Absolute Nucleated RBC Nucleated RBC % Platelet Estimate % Immature Plt Fraction Hypochromasia Poikilocytosis Anisocytosis Ovalocytes Schistocytes PT INR APTT Puncture Site Right radial ABG pH 7.408 ABG pCO2 29.3 L ABG pO2 170.8 H ABG PO2/FiO2 Ratio 2.13 ABG HCO3 18.1 L ABG O2 Saturation 99.2 ABG O2 Content 13.2 L ABG Base Excess -5.7 A-a Gradient 368.8 Oxyhemoglobin 98.3 Carboxyhemoglobin 0.4 Methemoglobin 0.3 Reduced Hemoglobin 1.0 Total Hemoglobin 9.3 L O2 Delivery Device Ventilator O2 Liters/Min Not Reportable Minute Volume Not Reportable Vent Rate 20 Vent Mode Cmv FiO2 80 Tidal Volume 480 PEEP 5 Peak Inspir Pressure Not Reportable Pressure Support Not Reportable Sodium 131 L Potassium 4.4 Chloride 99 Carbon Dioxide 24 Anion Gap 8 BUN 39 H Creatinine 1.07 Estim Creat Clear Calc 57 Estimated GFR > 60 Glucose 131 H POC Capillary Glucose 128 H Lactic Acid Calcium 8.0 L Phosphorus Magnesium Total Bilirubin AST ALT Alkaline Phosphatase Total Protein Albumin Cooyi-6-Uzptbvtkn Mhkwd-9-Jnsfdhovd Sfht-5-Rbxqxyeq Yzkk-6-Ajvgrxee Gamma Globulins PEP Interpretation Ur Random Creatinine U Random Total Protein Protein/Creatinin Ratio Vancomycin Trough Mycoplasma pneumon IgM 10/21/24 10/21/24 10/21/24 00:43 05:25 05:27 WBC 14.0 H RBC 2.86 L Hgb 9.1 L Hct 26.6 L MCV 93.0 MCH 31.8 MCHC 34.2 RDW 14.6 H Plt Count 57 L MPV 9.9 Immature Gran % (Auto) 0.7 H Neut % (Auto) 82.8 H Lymph % (Auto) 11.5 L Brooke % (Auto) 4.0 Eos % (Auto) 0.8 Baso % (Auto) 0.2 Lymph # (Auto) 1.62 Brooke # (Auto) 0.6 Eos # (Auto) 0.1 Baso # (Auto) 0.0 Abs Immat Gran (auto) 0.10 H Absolute Neuts (auto) 11.6 H Absolute Nucleated RBC 0.040 H Nucleated RBC % 0.3 H Platelet Estimate Decreased % Immature Plt Fraction 6.7 Hypochromasia 1+ Poikilocytosis 1+ Anisocytosis 1+ Ovalocytes 1+ Schistocytes None seen PT 24.3 H INR 2.1 APTT 35.9 Puncture Site Right brachial ABG pH 7.373 ABG pCO2 37.7 ABG pO2 76.7 L ABG PO2/FiO2 Ratio 1.53 ABG HCO3 21.5 L ABG O2 Saturation 95.1 ABG O2 Content 13.4 L ABG Base Excess -3.4 A-a Gradient 237.4 Oxyhemoglobin 93.1 Carboxyhemoglobin 0.5 Methemoglobin 0.2 Reduced Hemoglobin 6.2 H Total Hemoglobin 10.2 L O2 Delivery Device Ventilator O2 Liters/Min Not Reportable Minute Volume Not Reportable Vent Rate 18 Vent Mode Cmv FiO2 50 Tidal Volume 400 PEEP 5 Peak Inspir Pressure Not Reportable Pressure Support Not Reportable Sodium 132 L Potassium 4.3 Chloride 100 Carbon Dioxide 27 Anion Gap 5 BUN 40 H Creatinine 1.20 Estim Creat Clear Calc 51 Estimated GFR > 60 Glucose 98 POC Capillary Glucose 101 Lactic Acid 2.1 H Calcium 8.1 L Phosphorus 3.7 Magnesium 2.0 Total Bilirubin 1.9 H AST 1478 H ALT 1643 H Alkaline Phosphatase 81 Total Protein 6.0 L Albumin 3.5 Gbsmq-0-Zdudhcksd Kqhuc-6-Otmtznkpi Ntpn-2-Qklwoxcj Bbam-4-Pbnqmndy Gamma Globulins PEP Interpretation Ur Random Creatinine U Random Total Protein Protein/Creatinin Ratio Vancomycin Trough Mycoplasma pneumon IgM 10/21/24 10/21/24 08:31 09:09 WBC RBC Hgb Hct MCV MCH MCHC RDW Plt Count MPV Immature Gran % (Auto) Neut % (Auto) Lymph % (Auto) Brooke % (Auto) Eos % (Auto) Baso % (Auto) Lymph # (Auto) Brooke # (Auto) Eos # (Auto) Baso # (Auto) Abs Immat Gran (auto) Absolute Neuts (auto) Absolute Nucleated RBC Nucleated RBC % Platelet Estimate % Immature Plt Fraction Hypochromasia Poikilocytosis Anisocytosis Ovalocytes Schistocytes PT INR APTT Puncture Site ABG pH ABG pCO2 ABG pO2 ABG PO2/FiO2 Ratio ABG HCO3 ABG O2 Saturation ABG O2 Content ABG Base Excess A-a Gradient Oxyhemoglobin Carboxyhemoglobin Methemoglobin Reduced Hemoglobin Total Hemoglobin O2 Delivery Device O2 Liters/Min Minute Volume Vent Rate Vent Mode FiO2 Tidal Volume PEEP Peak Inspir Pressure Pressure Support Sodium Potassium Chloride Carbon Dioxide Anion Gap BUN Creatinine Estim Creat Clear Calc Estimated GFR Glucose POC Capillary Glucose Lactic Acid 2.3 H Calcium Phosphorus Magnesium Total Bilirubin AST ALT Alkaline Phosphatase Total Protein Albumin Xieei-7-Ecgyatumm Alfzj-2-Ppnnnfiue Srpc-4-Iincaaoy Gohl-9-Nsatptno Gamma Globulins PEP Interpretation Ur Random Creatinine U Random Total Protein Protein/Creatinin Ratio Vancomycin Trough 11.5 Mycoplasma pneumon IgM
[2024-10-21] MEDS: HYDROCORTISONE SODIUM SUCCINATE 100 MG/2 ML VIAL IV PUSH ×3 (11:10→21:09)
[2024-10-21] MEDS: EPINEPHrine INJ 1 MG in DEXTROSE 5% IN WATER 250 ML 15.06 MG IV CONT (11:17)
[2024-10-21] MEDS: VANCOMYCIN 1,250 MG/NS 250 ML 1,250 MG/250 ML BAG 166.67 MG IVPB (11:20)
--- NOTE | 2024-10-21 11:32 | P.PNINT_ITS ---
Progress Note: A&P Assessment and Plan (1) Septic shock: Code(s): A41.9 - Sepsis, unspecified organism; R65.21 - Severe sepsis with septic shock Status: Acute Assessment and Plan: 10/19: Patient was transferred from the medical floor with hypotension, worsening respiratory distress, metabolic acidosis, hyperkalemia -chest x-ray showed bilateral infiltrates/pneumonia -patient was started on cefepime, vancomycin (10/19). Doxycycline (10/20) -IV fluids were given cautiously given history of systolic and diastolic heart failure -received albumin for intravascular volume expansion -patient has been maxed out on Levophed, vasopressin, phenylephrine -will add epinephrine, will target SBP > 90 mmHg -continue stress dose steroids -PICC line was inserted on 10/20 - -10/16: Blood cultures negative x2 -10/17: Sputum culture showed growth of normal oropharyngeal patricia -10/20: Repeat blood cultures are pending -status post bicarb infusion, CO2 has improved -urine output has been adequate, continue to monitor renal function and urine output (2) Acute respiratory failure: Code(s): J96.00 - Acute respiratory failure, unspecified whether with hypoxia or hypercapnia Status: Acute Assessment and Plan: Acute respiratory failure likely related to pneumonia, COPD exacerbation, CHF exacerbation -10/20: Patient was on BiPAP, was tachypneic, short of breath, in impending respiratory failure -10/20: Intubated in the ICU -continue antibiotics as above -continue bronchodilators (3) Pneumonia: Code(s): J18.9 - Pneumonia, unspecified organism Status: Acute Assessment and Plan: Chest x-ray and ABGs reviewed, continue antibiotics -on stress dose steroids for septic shock, will also help the pneumonia (4) Hyponatremia: Code(s): E87.1 - Hypo-osmolality and hyponatremia Status: Acute Assessment and Plan: Hyponatremia is chronic, nephrology following -multifactorial, could be related to pneumonia, COPD, CHF, thyroid disease, SIADH -nephrology to monitor and treat (5) Electrolyte abnormality: Code(s): E87.8 - Other disorders of electrolyte and fluid balance, not elsewhere classified Status: Acute Assessment and Plan: Hyperkalemia likely related to metabolic acidosis -will treat with calcium, insulin, D50, albuterol nebulizer -potassium has normalized, will continue to monitor (6) Paroxysmal atrial fibrillation: Code(s): I48.0 - Paroxysmal atrial fibrillation Status: Acute Assessment and Plan: History of paroxysmal AFib on rivaroxaban (Xarelto) at home -currently in sinus rhythm, slight tachycardia likely related to multiple vasopressors -patient presented with productive cough with specks of blood/hemoptysis on admission. 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 Left ventricular chamber dimension is normal. 2. Left ventricular systolic function is normal, estimated at 55-60%. 3. There is mild concentric increased left ventricular wall thickness. 4. The left ventricular diastolic function is abnormal. 5. Tissue doppler E/e' was not assessed. 6. Right ventricular chamber dimension is mildly enlarged. 7. Right ventricular systolic function is moderately reduced and with abnormal TAPSE 0.9 cm. 8. Left atrial chamber dimension is severely enlarged. 9. Right atrial chamber dimension is mildly enlarged. 10. There is trace aortic valve regurgitation. 11. The bioprosthetic mitral valve leaflets is not well seen. 12. Inadequate assessment of mitral valve stenosis as no valve area from continuity equation and no gradients provided. 13. Tricuspid valve repair with annuloplasty ring. 14. There is mild to moderate tricuspid valve regurgitation. 15. Severe pulmonary hypertension, estimated pulmonary arterial systolic pressure is 62 mmHg. 16. There is trace pulmonic regurgitation. (9) Ileus: Code(s): K56.7 - Ileus, unspecified Status: Acute Assessment and Plan: 10/20: Obstructive series: Persistently dilated small bowel, consistent with adynamic ileus versus small bowel obstruction. 10/21: Distended transverse colon, likely adynamic ileus -Bowel rest, IV fluids, maintain normal electrolytes -appreciate surgery evaluation and recommendation (10) Thrombocytopenia: Code(s): D69.6 - Thrombocytopenia, unspecified Status: Acute Assessment and Plan: Likely multifactorial, could be related to septic shock, patient also on Xarelto at home, consumptive thrombocytopenia -no acute bleeding noted -will check stool for occult blood -transfuse as needed -elevated INR, will give vitamin K 10 mg IVPB x1 Plan DVT prophylaxis: SCDs, no chemoprophylaxis due to hemoptysis and thro mbocytopenia Stress ulcer prophylaxis: Protonix Nutrition: NPO for now as patient has ileus/small small-bowel obstruction Code Status: Full code Critical Care Time Spent: 37 minutes Discussed with patient's spouse at bedside updated with patient's condition and plan of care. I answered all questions. They are aware that the patient is on 4 pressors, I also showed him the radiology films on the computer or in the rounds, updated them with culture results and lab results. Due to a high probability of clinically significant, life threatening deterioration, the patient required my highest level of preparedness to intervene emergently and I personally spent this critical care time directly and personally managing the patient. This critical care time included obtaining a history; examining the patient; pulse oximetry; ordering and review of studies; arranging urgent treatment with development of a management plan; evaluation of patient's response to treatment; frequent reassessment; and discussions with other providers. It was exclusive of separately billable procedures and treating other patients and teaching time. Please see Assessment and Plan section and the rest of the note for further information on patient assessment and treatment This dictation may have been done utilizing a voice recognition system. Attempts have been made to correct errors. However, there may be uncorrected grammatical, spelling, and recognitions errors present. Subjective Date/time seen: 10/21/24 11:32 Interval history: Reason for consult: Acute respiratory failure, septic shock, metabolic acidosis, pneumonia 10/20: Patient intubated in the ICU 10/21/2023: Patient seen and examined the ICU, remains intubated on CMV mode of ventilation, peep of 5, 50% FiO2. Sedated with fentanyl and Versed infusion, does open his eyes and follows simple commands. Patient is maxed out on Levophed, vasopressin, Noé-Synephrine. Urine output has been adequate, renal functions are within normal limits, significant elevation in LFTs likely related to shock liver. Afebrile Review of Systems Review of Systems: All systems reviewed & are unremarkable except as noted in HPI and below Exam Narrative: General: Intubated and sedated HEENT:? Pupils equal reactive, sclera is clear, ETT in place Neck:? Supple Respiratory:? Coarse breath sounds bilaterally, diffuse bilateral rales, no wheezing, adequate air entry Cardiac:? S1-S2 is normal, regular rate and rhythm Abdomen:? Soft, tympanic, mildly distended, nontender, hypoactive bowel sounds Extremities:? Bilateral upper and lower extremity edema noted Neuro:? Intubated, sedated, opens his eyes to name, follows simple commands Skin:? Warm and dry Psych:? Unable to assess at this time Objective Data Vital Signs Vital Signs: Vital Signs - 24 hr 10/20/24 11:45 10/20/24 11:45 10/20/24 11:45 Temperature Pulse Rate 85 87 87 Respiratory Rate 20 Blood Pressure 111/86 111/86 Pulse Oximetry Oxygen Delivery Fraction of Inspired Oxygen 10/20/24 11:46 10/20/24 12:00 10/20/24 12:00 Temperature 100.1 F H Pulse Rate 85 85 84 Respiratory Rate 20 20 Blood Pressure 121/87 121/87 Pulse Oximetry 100 Oxygen Delivery Fraction of Inspired Oxygen 10/20/24 12:00 10/20/24 12:00 10/20/24 12:00 Temperature Pulse Rate 77 Respiratory Rate Blood Pressure Pulse Oximetry 100 Oxygen Delivery Mechanical Ventilation Fraction of Inspired Oxygen 80 80 10/20/24 12:45 10/20/24 12:45 10/20/24 12:45 Temperature Pulse Rate 82 82 82 Respiratory Rate 24 H 21 H Blood Pressure 111/86 Pulse Oximetry Oxygen Delivery Fraction of Inspired Oxygen 10/20/24 12:45 10/20/24 12:54 10/20/24 13:00 Temperature Pulse Rate 82 80 Respiratory Rate Blood Pressure 110/84 97/78 L Pulse Oximetry Oxygen Delivery Fraction of Inspired Oxygen 30 10/20/24 13:00 10/20/24 13:10 10/20/24 13:10 Temperature Pulse Rate 80 80 80 Respiratory Rate 20 Blood Pressure 97/78 L Pulse Oximetry 100 Oxygen Delivery Mechanical Ventilation Fraction of Inspired Oxygen 50 10/20/24 13:20 10/20/24 13:30 10/20/24 13:45 Temperature Pulse Rate 79 81 80 Respiratory Rate 20 Blood Pressure 87/69 L 91/74 L Pulse Oximetry Oxygen Delivery Fraction of Inspired Oxygen 10/20/24 14:00 10/20/24 14:00 10/20/24 14:00 Temperature 100.0 F H Pulse Rate 78 78 77 Respiratory Rate 18 Blood Pressure 94/68 L 94/68 L Pulse Oximetry 100 Oxygen Delivery Fraction of Inspired Oxygen 10/20/24 14:45 10/20/24 14:45 10/20/24 14:47 Temperature Pulse Rate 75 75 77 Respiratory Rate 20 20 Blood Pressure 85/72 L Pulse Oximetry Oxygen Delivery Fraction of Inspired Oxygen 10/20/24 15:00 10/20/24 15:00 10/20/24 15:30 Temperature Pulse Rate 74 75 79 Respiratory Rate Blood Pressure 99/79 L 99/79 L 112/84 Pulse Oximetry Oxygen Delivery Fraction of Inspired Oxygen 10/20/24 15:45 10/20/24 15:45 10/20/24 15:45 Temperature Pulse Rate 75 75 75 Respiratory Rate 18 18 Blood Pressure 102/77 Pulse Oximetry Oxygen Delivery Fraction of Inspired Oxygen 10/20/24 15:50 10/20/24 15:50 10/20/24 16:00 Temperature Pulse Rate 78 Respiratory Rate Blood Pressure 105/83 Pulse Oximetry 100 Oxygen Delivery Mechanical Ventilation Fraction of Inspired Oxygen 30 30 10/20/24 16:00 10/20/24 16:00 10/20/24 16:00 Temperature 100.1 F H Pulse Rate 78 78 75 Respiratory Rate 15 Blood Pressure 105/83 105/83 Pulse Oximetry 100 Oxygen Delivery Fraction of Inspired Oxygen 10/20/24 16:02 10/20/24 16:15 10/20/24 16:30 Temperature Pulse Rate 75 75 78 Respiratory Rate Blood Pressure 103/77 105/83 Pulse Oximetry 100 Oxygen Delivery Mechanical Ventilation Fraction of Inspired Oxygen 50 10/20/24 16:45 10/20/24 16:45 10/20/24 16:45 Temperature Pulse Rate 78 77 75 Respiratory Rate 18 18 Blood Pressure 102/77 Pulse Oximetry Oxygen Delivery Fraction of Inspired Oxygen 10/20/24 16:50 10/20/24 18:00 10/20/24 18:00 Temperature 100.1 F H Pulse Rate 78 79 79 Respiratory Rate 19 Blood Pressure 103/85 103/79 Pulse Oximetry 100 Oxygen Delivery Fraction of Inspired Oxygen 10/20/24 19:32 10/20/24 19:32 10/20/24 19:38 Temperature Pulse Rate 80 79 76 Respiratory Rate 20 20 Blood Pressure Pulse Oximetry 100 Oxygen Delivery Mechanical Ventilation Fraction of Inspired Oxygen 50 10/20/24 19:58 10/20/24 19:59 10/20/24 20:00 Temperature Pulse Rate 86 85 84 Respiratory Rate 20 20 Blood Pressure 99/85 L Pulse Oximetry Oxygen Delivery Fraction of Inspired Oxygen 10/20/24 20:00 10/20/24 20:00 10/20/24 20:00 Temperature Pulse Rate 85 Respiratory Rate Blood Pressure Pulse Oximetry 99 Oxygen Delivery Mechanical Ventilation Fraction of Inspired Oxygen 50 50 10/20/24 20:01 10/20/24 20:15 10/20/24 20:17 Temperature Pulse Rate 86 86 84 Respiratory Rate 19 Blood Pressure 99/85 L 110/87 110/87 Pulse Oximetry 98 Oxygen Delivery Fraction of Inspired Oxygen 10/20/24 20:19 10/20/24 20:37 10/20/24 20:38 Temperature Pulse Rate 85 84 84 Respiratory Rate 20 20 Blood Pressure 117/81 Pulse Oximetry Oxygen Delivery Fraction of Inspired Oxygen 10/20/24 21:30 10/20/24 21:30 10/20/24 22:00 Temperature Pulse Rate 84 84 83 Respiratory Rate Blood Pressure 97/79 L 97/79 L Pulse Oximetry Oxygen Delivery Fraction of Inspired Oxygen 10/20/24 22:01 10/20/24 22:05 10/20/24 22:06 Temperature Pulse Rate 84 86 86 Respiratory Rate 18 18 Blood Pressure 99/76 L Pulse Oximetry Oxygen Delivery Fraction of Inspired Oxygen 10/20/24 22:07 10/20/24 22:15 10/20/24 22:18 Temperature Pulse Rate 85 85 85 Respiratory Rate 19 Blood Pressure 99/76 L 98/77 L 98/77 L Pulse Oximetry 97 Oxygen Delivery Fraction of Inspired Oxygen 10/20/24 22:29 10/20/24 22:30 10/20/24 22:30 Temperature Pulse Rate 86 86 86 Respiratory Rate 18 Blood Pressure 105/83 105/83 Pulse Oximetry Oxygen Delivery Fraction of Inspired Oxygen 10/20/24 22:31 10/20/24 22:39 10/21/24 00:00 Temperature Pulse Rate 86 88 90 Respiratory Rate 19 Blood Pressure 102/75 Pulse Oximetry 97 Oxygen Delivery Mechanical Ventilation Fraction of Inspired Oxygen 50 10/21/24 00:00 10/21/24 00:00 10/21/24 00:00 Temperature Pulse Rate 90 90 Respiratory Rate 18 18 Blood Pressure Pulse Oximetry 96 Oxygen Delivery Mechanical Ventilation Fraction of Inspired Oxygen 50 10/21/24 00:00 10/21/24 00:00 10/21/24 00:00 Temperature 100.1 F H Pulse Rate 90 90 Respiratory Rate 18 Blood Pressure 102/75 Pulse Oximetry 96 Oxygen Delivery Fraction of Inspired Oxygen 50 10/21/24 00:30 10/21/24 00:34 10/21/24 00:45 Temperature Pulse Rate 90 90 90 Respiratory Rate Blood Pressure 94/73 L 94/73 L 98/76 L Pulse Oximetry Oxygen Delivery Fraction of Inspired Oxygen 10/21/24 00:46 10/21/24 01:07 10/21/24 01:16 Temperature Pulse Rate 90 91 95 Respiratory Rate Blood Pressure 98/76 L 99/73 L 100/68 Pulse Oximetry Oxygen Delivery Fraction of Inspired Oxygen 10/21/24 01:55 10/21/24 01:55 10/21/24 01:58 Temperature Pulse Rate 90 90 96 Respiratory Rate 18 Blood Pressure 96/67 L Pulse Oximetry 96 Oxygen Delivery Mechanical Ventilation Fraction of Inspired Oxygen 50 10/21/24 01:58 10/21/24 02:00 10/21/24 02:00 Temperature Pulse Rate 96 95 94 Respiratory Rate 18 18 Blood Pressure 96/67 L Pulse Oximetry Oxygen Delivery Fraction of Inspired Oxygen 10/21/24 02:00 10/21/24 02:00 10/21/24 02:01 Temperature 100.2 F H Pulse Rate 95 95 94 Respiratory Rate 18 18 Blood Pressure 99/66 L Pulse Oximetry 95 Oxygen Delivery Fraction of Inspired Oxygen 10/21/24 02:17 10/21/24 02:17 10/21/24 02:35 Temperature Pulse Rate 95 96 98 Respiratory Rate 18 Blood Pressure 96/73 L 98/72 L Pulse Oximetry Oxygen Delivery Fraction of Inspired Oxygen 10/21/24 02:35 10/21/24 02:48 10/21/24 03:01 Temperature Pulse Rate 98 99 100 Respiratory Rate 18 Blood Pressure 98/72 L 97/74 L Pulse Oximetry Oxygen Delivery Fraction of Inspired Oxygen 10/21/24 03:02 10/21/24 03:16 10/21/24 03:16 Temperature Pulse Rate 100 101 H 101 H Respiratory Rate Blood Pressure 97/74 L 104/74 104/74 Pulse Oximetry Oxygen Delivery Fraction of Inspired Oxygen 10/21/24 03:17 10/21/24 04:00 10/21/24 04:00 Temperature Pulse Rate 101 H 101 H 101 H Respiratory Rate Blood Pressure 104/74 105/79 105/79 Pulse Oximetry Oxygen Delivery Fraction of Inspired Oxygen 10/21/24 04:00 10/21/24 04:00 10/21/24 04:00 Temperature Pulse Rate 101 H 101 H Respiratory Rate 18 18 Blood Pressure Pulse Oximetry 95 Oxygen Delivery Mechanical Ventilation Fraction of Inspired Oxygen 50 10/21/24 04:00 10/21/24 04:00 10/21/24 04:05 Temperature 99.8 F H Pulse Rate 101 H 97 Respiratory Rate 18 Blood Pressure 105/79 Pulse Oximetry 95 Oxygen Delivery Fraction of Inspired Oxygen 50 10/21/24 04:32 10/21/24 04:50 10/21/24 05:10 Temperature Pulse Rate 99 100 99 Respiratory Rate Blood Pressure 99/79 L 98/80 L Pulse Oximetry 100 Oxygen Delivery Mechanical Ventilation Fraction of Inspired Oxygen 50 10/21/24 05:15 10/21/24 05:39 10/21/24 05:49 Temperature Pulse Rate 102 H 100 102 H Respiratory Rate Blood Pressure 90/72 L 94/77 L 100/79 Pulse Oximetry Oxygen Delivery Fraction of Inspired Oxygen 10/21/24 06:00 10/21/24 06:00 10/21/24 06:00 Temperature Pulse Rate 103 H 103 H 103 H Respiratory Rate 18 18 Blood Pressure 98/70 L Pulse Oximetry Oxygen Delivery Fraction of Inspired Oxygen 10/21/24 06:00 10/21/24 06:00 10/21/24 06:07 Temperature 100.3 F H Pulse Rate 103 H 103 H 103 H Respiratory Rate 18 Blood Pressure 98/70 L 98/70 L Pulse Oximetry 98 Oxygen Delivery Fraction of Inspired Oxygen 10/21/24 06:28 10/21/24 06:28 10/21/24 06:28 Temperature Pulse Rate 101 H 101 H 102 H Respiratory Rate Blood Pressure 97/75 L 97/75 L 97/75 L Pulse Oximetry Oxygen Delivery Fraction of Inspired Oxygen 10/21/24 06:58 10/21/24 07:15 10/21/24 07:43 Temperature Pulse Rate 102 H 102 H 99 Respiratory Rate Blood Pressure 99/75 L 112/85 108/80 Pulse Oximetry Oxygen Delivery Fraction of Inspired Oxygen 10/21/24 07:48 10/21/24 08:00 10/21/24 08:00 Temperature 100.4 F H Pulse Rate 100 101 H 100 Respiratory Rate 18 Blood Pressure 108/80 113/87 Pulse Oximetry 94 Oxygen Delivery Fraction of Inspired Oxygen 10/21/24 08:00 10/21/24 08:00 10/21/24 08:00 Temperature Pulse Rate 102 H 100 100 Respiratory Rate 18 Blood Pressure 101/79 101/79 Pulse Oximetry Oxygen Delivery Fraction of Inspired Oxygen 10/21/24 08:00 10/21/24 08:18 10/21/24 08:22 Temperature Pulse Rate 102 H 100 Respiratory Rate 18 Blood Pressure 101/79 Pulse Oximetry Oxygen Delivery Fraction of Inspired Oxygen 50 10/21/24 08:46 10/21/24 08:46 10/21/24 09:07 Temperature Pulse Rate 102 H 102 H 106 H Respiratory Rate 18 Blood Pressure 97/66 L Pulse Oximetry 95 Oxygen Delivery Mechanical Ventilation Fraction of Inspired Oxygen 50 10/21/24 10:00 10/21/24 11:06 10/21/24 11:10 Temperature 100.7 F H Pulse Rate 103 H 105 H 106 H Respiratory Rate 18 Blood Pressure 98/52 L 74/28 L Pulse Oximetry 95 96 Oxygen Delivery Mechanical Ventilation Fraction of Inspired Oxygen 50 10/21/24 11:15 10/21/24 11:17 Temperature Pulse Rate 105 H 105 H Respiratory Rate Blood Pressure 74/28 L 74/28 L Pulse Oximetry Oxygen Delivery Fraction of Inspired Oxygen Intake/Output Intake/Output: Intake & Output 10/18/24 10/19/24 10/20/24 10/21/24 23:59 23:59 23:59 23:59 Intake Total 1755 3151.3 3645.5 1042.0 Output Total 400 1 850 450 Balance 1355 3150.3 2795.5 592.0 Meds/Results Medications: Active Medications Generic Name Dose Route Start Last Admin Trade Name Freq PRN Reason Stop Dose Admin Acetaminophen 650 mg 10/16/24 12:34 10/18/24 11:25 Acetaminophen 325 Mg Tablet PO 650 mg Q4H PRN Administration Mild Pain (1-3) or Fever Albuterol 2.5 mg 10/18/24 14:45 Albuterol Sulfate Neb 2.5 Mg/3 Ml Inh INHALATION QID PRN shortness of breath or wheezing Albuterol/Ipratropium 3 ml 10/16/24 14:00 10/21/24 08:34 Ipratropium 0.5 Mg/Albuterol Sulfate 2.5 Mg Ampul.Neb 3 Ml INHALATION 3 ml Q6HRT CROW Administration Alprazolam 0.5 mg 10/16/24 21:47 10/18/24 11:25 Alprazolam (*Crx) 0.5 Mg Tablet PO 0.5 mg DAILY PRN Administration anxiety] Alprazolam 0.5 mg 10/17/24 21:00 10/19/24 22:13 Alprazolam (*Crx) 0.5 Mg Tablet PO Not Given HS CROW Dicyclomine HCl 20 mg 10/19/24 14:03 10/19/24 14:11 Dicyclomine Hcl 10 Mg Capsule PO 20 mg QID PRN Administration Abdominal Cramping Dronedarone 400 mg 10/16/24 09:00 10/21/24 08:00 Dronedarone Hcl 400 Mg Tablet BY MOUTH Not Given Q12HR CROW Hydrocortisone Sodium Succinate 100 mg 10/21/24 11:10 10/21/24 11:10 Hydrocortisone Sodium Succinate 100 Mg/2 Ml Vial IV PUSH 100 mg Q8HR CROW Administration Cefepime HCl 2 gm in 50 mls @ 100 mls/hr 10/19/24 20:00 10/21/24 04:54 Maxipime 2 Gm/Ns 50 Ml IVPB Infused Q8H CROW Infusion Doxycycline Hyclate 100 mg in 100 mls @ 100 mls/hr 10/20/24 09:00 10/21/24 08:29 Vibramycin 100 Mg/Ns 100 Ml IVPB 10/21/24 23:59 100 mls/hr Q12H CROW Administration Norepinephrine Bitartrate 8 mg in 250 mls @ 56.25 mls/hr 10/20/24 09:00 10/21/24 08:00 Levophed 8 Mg/D5w 250 Ml IV CONT 30 mcg/min .Q4H27M CROW 56.25 mls/hr Titration Protocol 30 MCG/MIN Fentanyl Citrate 2,500 mcg in 250 mls @ 7.5 mls/hr 10/20/24 10:20 10/21/24 08:00 Fentanyl 2,500 Mcg/Ns 250 Ml IV CONT 75 mcg/hr .[id number] CROW 7.5 mls/hr Titration Protocol 75 MCG/HR Midazolam HCl 100 mg in 100 mls @ 4 mls/hr 10/20/24 10:20 10/21/24 08:18 Versed 100 Mg/Ns 100 Ml IV CONT 4 mg/hr .Q25H CROW 4 mls/hr Titration Protocol 4 MG/HR Phenylephrine HCl 50 mg/ 250 mls @ 54 mls/hr 10/20/24 22:35 10/21/24 11:15 Sodium Chloride IV CONT 180 mcg/min .Q4H38M CROW 54 mls/hr Administration Protocol 180 MCG/MIN Vasopressin 100 units/ 100 mls @ 1.8 mls/hr 10/21/24 06:05 10/21/24 09:07 Dextrose IV CONT 0.03 units/min .[id number] CROW 1.8 mls/hr Administration Protocol 0.03 UNITS/MIN Vancomycin HCl 1,250 mg in 250 mls @ 166.667 mls/hr 10/21/24 10:00 10/21/24 11:20 Vancomycin 1,250 Mg/Ns 250 Ml IVPB 166.67 mls/hr Q12H CROW Administration Epinephrine HCl 1 mg/ Dextrose 251 mls @ 15.06 mls/hr 10/21/24 11:15 10/21/24 11:17 IV CONT 1 mcg/min .[id number] CRWO 15.06 mls/hr Administration Protocol 1 MCG/MIN Losartan Potassium 50 mg 10/19/24 09:00 10/19/24 10:23 Losartan Potassium 50 Mg Tablet PO 50 mg DAILY CROW Administration Methimazole 5 mg 10/17/24 09:00 10/21/24 08:01 Methimazole 5 Mg Tab BY MOUTH Not Given [email or web address] [facility] Miscellaneous Information 1 each 10/21/24 00:01 10/21/24 00:49 Ivs All In Ns If Possible XX 11/20/24 00:00 Not Given CLARIFY [facility] Multi-Ingred Cream/Lotion/Oil/Oint 1 applic 10/20/24 21:00 10/21/24 08:40 Mineral Oil/White Petrolatum Ointment EACH EYE 1 applic Q12HR CROW Administration Ondansetron HCl 4 mg 10/20/24 07:35 Ondansetron Inj 4 Mg/2 Ml Vial IV PUSH Q4H PRN Nausea And Vomiting Pantoprazole Sodium 40 mg 10/20/24 21:00 10/21/24 08:40 Pantoprazole Sodium Iv 40 Mg Vial IV PUSH 40 mg Q12HR CROW Administration Polyethylene Glycol 17 gm 10/19/24 12:20 Polyethylene Glycol 3350 17 Gm Powd.Pack PO QAM PRN Constipation Sodium Chloride 1 gm 10/18/24 18:15 10/20/24 16:39 Sodium Chloride 1 Gm Tablet PO Not Given BID CROW Sodium Chloride 20 ml 10/20/24 08:59 Central Line Flush IV PUSH PRN PRN after blood draws Sodium Chloride 10 ml 10/20/24 08:59 Central Line Flush IV PUSH PRN PRN with TPN bag changes Sodium Chloride 10 ml 10/20/24 14:00 10/21/24 05:13 Central Line Flush IV PUSH 10 ml Q8HR CROW Administration Umeclidinium/Vilanterol 1 puff 10/17/24 08:00 10/20/24 07:10 Umeclidinium/Vilanterol 62.5-25 Mcg Ellipta INHALATION 1 puff DAILYRT CROW Administration Radiology Results: ITS Impressions Venous Doppler Study 10/20/24 08:31 IMPRESSION: 1: No lower extremity deep venous thrombosis. Chest X-Ray 10/21/24 06:13 IMPRESSION: 1. Stable diffuse lung disease, consistent with moderate pulmonary edema without or with superimposed pneumonia. 2. Stable moderate-sized right pleural effusion. 3. Cardiomegaly. Abdomen X-Ray 10/21/24 11:06 IMPRESSION: 1. Distended transverse colon, likely adynamic ileus. 2. Stable moderate-sized right pleural effusion. 3. Diffuse lung disease, consistent with pulmonary edema versus pneumonia. Labs Labs: Laboratory Results - last 24 hr 10/16/24 10/19/24 10/19/24 13:20 06:39 11:33 WBC RBC Hgb Hct MCV MCH MCHC RDW Plt Count MPV Immature Gran % (Auto) Neut % (Auto) Lymph % (Auto) [place] % (Auto) Eos % (Auto) Baso % (Auto) Lymph # (Auto) [place] # (Auto) Eos # (Auto) Baso # (Auto) Abs Immat Gran (auto) Absolute Neuts (auto) Absolute Nucleated RBC Nucleated RBC % Platelet Estimate % Immature Plt Fraction Hypochromasia Poikilocytosis Anisocytosis Ovalocytes Schistocytes PT INR APTT Puncture Site ABG pH ABG pCO2 ABG pO2 ABG PO2/FiO2 Ratio ABG HCO3 ABG O2 Saturation ABG O2 Content ABG Base Excess A-a Gradient Oxyhemoglobin Carboxyhemoglobin Methemoglobin Reduced Hemoglobin Total Hemoglobin O2 Delivery Device O2 Liters/Min Minute Volume Vent Rate Vent Mode FiO2 Tidal Volume PEEP Peak Inspir Pressure Pressure Support Sodium Potassium Chloride Carbon Dioxide Anion Gap BUN Creatinine Estim Creat Clear Calc Estimated GFR Glucose POC Capillary Glucose Lactic Acid Calcium Phosphorus Magnesium Total Bilirubin AST ALT Alkaline Phosphatase Total Protein Albumin 3.4 L Masad-4-Fllclwmpy 0.4 H Azqkm-8-Mpintyqsi 0.8 Odmd-0-Yhhcbsfq 0.5 Lrxy-8-Gonbaaby 0.5 Gamma Globulins 0.5 L PEP Interpretation See note Ur Random Creatinine 200 U Random Total Protein 105 H Protein/Creatinin Ratio 525 H Vancomycin Trough Mycoplasma pneumon IgM 144 10/20/24 10/20/24 10/20/24 12:30 12:43 16:54 WBC RBC Hgb Hct MCV MCH MCHC RDW Plt Count MPV Immature Gran % (Auto) Neut % (Auto) Lymph % (Auto) [place] % (Auto) Eos % (Auto) Baso % (Auto) Lymph # (Auto) [place] # (Auto) Eos # (Auto) Baso # (Auto) Abs Immat Gran (auto) Absolute Neuts (auto) Absolute Nucleated RBC Nucleated RBC % Platelet Estimate % Immature Plt Fraction Hypochromasia Poikilocytosis Anisocytosis Ovalocytes Schistocytes PT INR APTT Puncture Site Right radial ABG pH 7.408 ABG pCO2 29.3 L ABG pO2 170.8 H ABG PO2/FiO2 Ratio 2.13 ABG HCO3 18.1 L ABG O2 Saturation 99.2 ABG O2 Content 13.2 L ABG Base Excess -5.7 A-a Gradient 368.8 Oxyhemoglobin 98.3 Carboxyhemoglobin 0.4 Methemoglobin 0.3 Reduced Hemoglobin 1.0 Total Hemoglobin 9.3 L O2 Delivery Device Ventilator O2 Liters/Min Not Reportable Minute Volume Not Reportable Vent Rate 20 Vent Mode Cmv FiO2 80 Tidal Volume 480 PEEP 5 Peak Inspir Pressure Not Reportable Pressure Support Not Reportable Sodium 131 L Potassium 4.4 Chloride 99 Carbon Dioxide 24 Anion Gap 8 BUN 39 H Creatinine 1.07 Estim Creat Clear Calc 57 Estimated GFR > 60 Glucose 131 H POC Capillary Glucose 128 H Lactic Acid Calcium 8.0 L Phosphorus Magnesium Total Bilirubin AST ALT Alkaline Phosphatase Total Protein Albumin Kfraf-1-Sqdnlrhct Xnovh-1-Biamlhyuu Sepl-8-Xnoeelpg Iypj-2-Lczvvtpu Gamma Globulins PEP Interpretation Ur Random Creatinine U Random Total Protein Protein/Creatinin Ratio Vancomycin Trough Mycoplasma pneumon IgM 10/21/24 10/21/24 10/21/24 00:43 05:25 05:27 WBC 14.0 H RBC 2.86 L Hgb 9.1 L Hct 26.6 L MCV 93.0 MCH 31.8 MCHC 34.2 RDW 14.6 H Plt Count 57 L MPV 9.9 Immature Gran % (Auto) 0.7 H Neut % (Auto) 82.8 H Lymph % (Auto) 11.5 L [place] % (Auto) 4.0 Eos % (Auto) 0.8 Baso % (Auto) 0.2 Lymph # (Auto) 1.62 [place] # (Auto) 0.6 Eos # (Auto) 0.1 Baso # (Auto) 0.0 Abs Immat Gran (auto) 0.10 H Absolute Neuts (auto) 11.6 H Absolute Nucleated RBC 0.040 H Nucleated RBC % 0.3 H Platelet Estimate Decreased % Immature Plt Fraction 6.7 Hypochromasia 1+ Poikilocytosis 1+ Anisocytosis 1+ Ovalocytes 1+ Schistocytes None seen PT 24.3 H INR 2.1 APTT 35.9 Puncture Site Right brachial ABG pH 7.373 ABG pCO2 37.7 ABG pO2 76.7 L ABG PO2/FiO2 Ratio 1.53 ABG HCO3 21.5 L ABG O2 Saturation 95.1 ABG O2 Content 13.4 L ABG Base Excess -3.4 A-a Gradient 237.4 Oxyhemoglobin 93.1 Carboxyhemoglobin 0.5 Methemoglobin 0.2 Reduced Hemoglobin 6.2 H Total Hemoglobin 10.2 L O2 Delivery Device Ventilator O2 Liters/Min Not Reportable Minute Volume Not Reportable Vent Rate 18 Vent Mode Cmv FiO2 50 Tidal Volume 400 PEEP 5 Peak Inspir Pressure Not Reportable Pressure Support Not Reportable Sodium 132 L Potassium 4.3 Chloride 100 Carbon Dioxide 27 Anion Gap 5 BUN 40 H Creatinine 1.20 Estim Creat Clear Calc 51 Estimated GFR > 60 Glucose 98 POC Capillary Glucose 101 Lactic Acid 2.1 H Calcium 8.1 L Phosphorus 3.7 Magnesium 2.0 Total Bilirubin 1.9 H AST 1478 H ALT 1643 H Alkaline Phosphatase 81 Total Protein 6.0 L Albumin 3.5 Ygzjn-4-Ffprpinrt Lyxqw-7-Swjlkqtpv Pyls-4-Pfjdjqot Kbsj-3-Tgmdycla Gamma Globulins PEP Interpretation Ur Random Creatinine U Random Total Protein Protein/Creatinin Ratio Vancomycin Trough Mycoplasma pneumon IgM 10/21/24 10/21/24 08:31 09:09 WBC RBC Hgb Hct MCV MCH MCHC RDW Plt Count MPV Immature Gran % (Auto) Neut % (Auto) Lymph % (Auto) [place] % (Auto) Eos % (Auto) Baso % (Auto) Lymph # (Auto) [place] # (Auto) Eos # (Auto) Baso # (Auto) Abs Immat Gran (auto) Absolute Neuts (auto) Absolute Nucleated RBC Nucleated RBC % Platelet Estimate % Immature Plt Fraction Hypochromasia Poikilocytosis Anisocytosis Ovalocytes Schistocytes PT INR APTT Puncture Site ABG pH ABG pCO2 ABG pO2 ABG PO2/FiO2 Ratio ABG HCO3 ABG O2 Saturation ABG O2 Content ABG Base Excess A-a Gradient Oxyhemoglobin Carboxyhemoglobin Methemoglobin Reduced Hemoglobin Total Hemoglobin O2 Delivery Device O2 Liters/Min Minute Volume Vent Rate Vent Mode FiO2 Tidal Volume PEEP Peak Inspir Pressure Pressure Support Sodium Potassium Chloride Carbon Dioxide Anion Gap BUN Creatinine Estim Creat Clear Calc Estimated GFR Glucose POC Capillary Glucose Lactic Acid 2.3 H Calcium Phosphorus Magnesium Total Bilirubin AST ALT Alkaline Phosphatase Total Protein Albumin Qmphe-6-Wpbhnclxh Rtrcx-5-Qrqgsdkyp Buug-2-Abahkkiy Qxrc-7-Jahkxqay Gamma Globulins PEP Interpretation Ur Random Creatinine U Random Total Protein Protein/Creatinin Ratio Vancomycin Trough 11.5 Mycoplasma pneumon IgM Quality VTE Prophylaxis VTE prophylaxis: mechanical ordered
--- NOTE | 2024-10-21 12:12 | P.PCNBED_ITS ---
Procedures Arterial Line Arterial Line Date: 10/21/24 Arterial Line Time: 12:05 Discussed with the patient/family/POA, the placement of an arterial catheter, including its clinical necessity/indication and associated potential risks, benefits and alternatives.: Yes Patient/family/POA and/or understands and acknowledges the need to proceed with the arterial catheter insertion as an important element of the patient's clinical management.: Yes Time Out Performed: Yes Patient Position: supine [employer] Prep: sterile gown, sterile gloves, mask and hat Site: right and femoral Site Prep: chlorhexidine and sterile drape Skin Anesthesia: 1% lidocaine Technique used: ultrasound-guided Size (Gauge): 14 Length: 12 cm Closure/Dressing: suture, transparent dressing, hemostatic product, antimicrobial product and securement product Patient tolerated procedure: well and no complications Complications: none
[2024-10-21 12:17] LABS: Alveolar/Arterial O2 Gradient 247.2 mmHg; Fractional Inspired Oxygen 50 %; HCO3 ABG 17.8 mEq/l (22.0-26.0); Oxygen Content ABG 12.5 %vol (16.0-22.0); Oxygen Saturation ABG 91.5 % (95.0-100.0); Oxyhemoglobin 88.4 % THb (90.0-100.0); PCO2 ABG 37.4 mmHg (35.0-45.0); PO2 ABG 67.2 mmHg (80.0-100.0); PO2 FiO2 Ratio Arterial Blood 1.34 %
[2024-10-21 12:30] LABS: Device VENTILATOR; Modified Allen's Test Pass; Site Drawn RIGHT FEMORAL; pH ABG 7.295 (7.350-7.450)
[2024-10-21] MEDS: SODIUM BICARBONATE 8.4% 50 MEQ/50 ML SYRINGE 100 MEQ IV PUSH (12:30)
[2024-10-21 12:32] LABS: Arterial Blood Gas PEEP 5 cmH2O; Arterial Blood Gas Vent Mode CMV; Arterial Blood Gas Ventilator rate 18 /MIN
[2024-10-21 12:33] LABS: Arterial Blood Gas Tidal Volume 480 ml
--- NOTE | 2024-10-21 12:49 | WPDGIPROGNO ---
Progress Note: A&P Assessment and Plan (1) Ileus: Code(s): K56.7 - Ileus, unspecified Status: Acute Assessment and Plan: The patient is very critical condition explains his current paralytic ileus, there is no evidence of mechanical obstruction. His prognosis is grim at this moment, however will continue to follow. Time Spent With Patient Time with patient: less than 15 minutes Subjective Date/time seen: 10/21/24 12:49 Interval history: Patient's critical status continues, even worsening due to the fact that he has a refractory to 3 pressors, and recently added a 4th agent. Abdominal distension continues. Exam Narrative: Patient continues to be intubated with orogastric tube with no output. Abdomen: Absent bowel sounds. Objective Data Vital Signs Vital Signs: Vital Signs - 24 hr 10/20/24 12:54 10/20/24 13:00 10/20/24 13:00 Temperature Pulse Rate 80 80 Respiratory Rate Blood Pressure 97/78 L 97/78 L Pulse Oximetry Oxygen Delivery Fraction of Inspired Oxygen 30 10/20/24 13:10 10/20/24 13:10 10/20/24 13:20 Temperature Pulse Rate 80 80 79 Respiratory Rate 20 20 Blood Pressure Pulse Oximetry 100 Oxygen Delivery Mechanical Ventilation Fraction of Inspired Oxygen 50 10/20/24 13:30 10/20/24 13:45 10/20/24 14:00 Temperature Pulse Rate 81 80 78 Respiratory Rate Blood Pressure 87/69 L 91/74 L 94/68 L Pulse Oximetry Oxygen Delivery Fraction of Inspired Oxygen 10/20/24 14:00 10/20/24 14:00 10/20/24 14:45 Temperature 100.0 F H Pulse Rate 78 77 75 Respiratory Rate 18 20 Blood Pressure 94/68 L Pulse Oximetry 100 Oxygen Delivery Fraction of Inspired Oxygen 10/20/24 14:45 10/20/24 14:47 10/20/24 15:00 Temperature Pulse Rate 75 77 74 Respiratory Rate 20 Blood Pressure 85/72 L 99/79 L Pulse Oximetry Oxygen Delivery Fraction of Inspired Oxygen 10/20/24 15:00 10/20/24 15:30 10/20/24 15:45 Temperature Pulse Rate 75 79 75 Respiratory Rate Blood Pressure 99/79 L 112/84 102/77 Pulse Oximetry Oxygen Delivery Fraction of Inspired Oxygen 10/20/24 15:45 10/20/24 15:45 10/20/24 15:50 Temperature Pulse Rate 75 75 Respiratory Rate 18 18 Blood Pressure Pulse Oximetry 100 Oxygen Delivery Mechanical Ventilation Fraction of Inspired Oxygen 30 10/20/24 15:50 10/20/24 16:00 10/20/24 16:00 Temperature Pulse Rate 78 78 Respiratory Rate Blood Pressure 105/83 105/83 Pulse Oximetry Oxygen Delivery Fraction of Inspired Oxygen 30 10/20/24 16:00 10/20/24 16:00 10/20/24 16:02 Temperature 100.1 F H Pulse Rate 78 75 75 Respiratory Rate 15 Blood Pressure 105/83 Pulse Oximetry 100 100 Oxygen Delivery Mechanical Ventilation Fraction of Inspired Oxygen 50 10/20/24 16:15 10/20/24 16:30 10/20/24 16:45 Temperature Pulse Rate 75 78 78 Respiratory Rate 18 Blood Pressure 103/77 105/83 Pulse Oximetry Oxygen Delivery Fraction of Inspired Oxygen 10/20/24 16:45 10/20/24 16:45 10/20/24 16:50 Temperature Pulse Rate 77 75 78 Respiratory Rate 18 Blood Pressure 102/77 103/85 Pulse Oximetry Oxygen Delivery Fraction of Inspired Oxygen 10/20/24 18:00 10/20/24 18:00 10/20/24 19:32 Temperature 100.1 F H Pulse Rate 79 79 80 Respiratory Rate 19 Blood Pressure 103/79 Pulse Oximetry 100 100 Oxygen Delivery Mechanical Ventilation Fraction of Inspired Oxygen 50 10/20/24 19:32 10/20/24 19:38 10/20/24 19:58 Temperature Pulse Rate 79 76 86 Respiratory Rate 20 20 20 Blood Pressure Pulse Oximetry Oxygen Delivery Fraction of Inspired Oxygen 10/20/24 19:59 10/20/24 20:00 10/20/24 20:00 Temperature Pulse Rate 85 84 Respiratory Rate 20 Blood Pressure 99/85 L Pulse Oximetry 99 Oxygen Delivery Mechanical Ventilation Fraction of Inspired Oxygen 50 10/20/24 20:00 10/20/24 20:00 10/20/24 20:01 Temperature Pulse Rate 85 86 Respiratory Rate Blood Pressure 99/85 L Pulse Oximetry Oxygen Delivery Fraction of Inspired Oxygen 50 10/20/24 20:15 10/20/24 20:17 10/20/24 20:19 Temperature Pulse Rate 86 84 85 Respiratory Rate 19 20 Blood Pressure 110/87 110/87 Pulse Oximetry 98 Oxygen Delivery Fraction of Inspired Oxygen 10/20/24 20:37 10/20/24 20:38 10/20/24 21:30 Temperature Pulse Rate 84 84 84 Respiratory Rate 20 Blood Pressure 117/81 97/79 L Pulse Oximetry Oxygen Delivery Fraction of Inspired Oxygen 10/20/24 21:30 10/20/24 22:00 10/20/24 22:01 Temperature Pulse Rate 84 83 84 Respiratory Rate Blood Pressure 97/79 L 99/76 L Pulse Oximetry Oxygen Delivery Fraction of Inspired Oxygen 10/20/24 22:05 10/20/24 22:06 10/20/24 22:07 Temperature Pulse Rate 86 86 85 Respiratory Rate 18 18 19 Blood Pressure 99/76 L Pulse Oximetry 97 Oxygen Delivery Fraction of Inspired Oxygen 10/20/24 22:15 10/20/24 22:18 10/20/24 22:29 Temperature Pulse Rate 85 85 86 Respiratory Rate 18 Blood Pressure 98/77 L 98/77 L Pulse Oximetry Oxygen Delivery Fraction of Inspired Oxygen 10/20/24 22:30 10/20/24 22:30 10/20/24 22:31 Temperature Pulse Rate 86 86 86 Respiratory Rate Blood Pressure 105/83 105/83 Pulse Oximetry 97 Oxygen Delivery Mechanical Ventilation Fraction of Inspired Oxygen 50 10/20/24 22:39 10/21/24 00:00 10/21/24 00:00 Temperature Pulse Rate 88 90 90 Respiratory Rate 19 18 Blood Pressure 102/75 Pulse Oximetry Oxygen Delivery Fraction of Inspired Oxygen 10/21/24 00:00 10/21/24 00:00 10/21/24 00:00 Temperature Pulse Rate 90 Respiratory Rate 18 Blood Pressure Pulse Oximetry 96 Oxygen Delivery Mechanical Ventilation Fraction of Inspired Oxygen 50 50 10/21/24 00:00 10/21/24 00:00 10/21/24 00:30 Temperature 100.1 F H Pulse Rate 90 90 90 Respiratory Rate 18 Blood Pressure 102/75 94/73 L Pulse Oximetry 96 Oxygen Delivery Fraction of Inspired Oxygen 10/21/24 00:34 10/21/24 00:45 10/21/24 00:46 Temperature Pulse Rate 90 90 90 Respiratory Rate Blood Pressure 94/73 L 98/76 L 98/76 L Pulse Oximetry Oxygen Delivery Fraction of Inspired Oxygen 10/21/24 01:07 10/21/24 01:16 10/21/24 01:55 Temperature Pulse Rate 91 95 90 Respiratory Rate Blood Pressure 99/73 L 100/68 Pulse Oximetry 96 Oxygen Delivery Mechanical Ventilation Fraction of Inspired Oxygen 50 10/21/24 01:55 10/21/24 01:58 10/21/24 01:58 Temperature Pulse Rate 90 96 96 Respiratory Rate 18 18 Blood Pressure 96/67 L Pulse Oximetry Oxygen Delivery Fraction of Inspired Oxygen 10/21/24 02:00 10/21/24 02:00 10/21/24 02:00 Temperature Pulse Rate 95 94 95 Respiratory Rate 18 Blood Pressure 96/67 L Pulse Oximetry Oxygen Delivery Fraction of Inspired Oxygen 10/21/24 02:00 10/21/24 02:01 10/21/24 02:17 Temperature 100.2 F H Pulse Rate 95 94 95 Respiratory Rate 18 18 Blood Pressure 99/66 L 96/73 L Pulse Oximetry 95 Oxygen Delivery Fraction of Inspired Oxygen 10/21/24 02:17 10/21/24 02:35 10/21/24 02:35 Temperature Pulse Rate 96 98 98 Respiratory Rate 18 Blood Pressure 98/72 L 98/72 L Pulse Oximetry Oxygen Delivery Fraction of Inspired Oxygen 10/21/24 02:48 10/21/24 03:01 10/21/24 03:02 Temperature Pulse Rate 99 100 100 Respiratory Rate 18 Blood Pressure 97/74 L 97/74 L Pulse Oximetry Oxygen Delivery Fraction of Inspired Oxygen 10/21/24 03:16 10/21/24 03:16 10/21/24 03:17 Temperature Pulse Rate 101 H 101 H 101 H Respiratory Rate Blood Pressure 104/74 104/74 104/74 Pulse Oximetry Oxygen Delivery Fraction of Inspired Oxygen 10/21/24 04:00 10/21/24 04:00 10/21/24 04:00 Temperature Pulse Rate 101 H 101 H 101 H Respiratory Rate 18 Blood Pressure 105/79 105/79 Pulse Oximetry Oxygen Delivery Fraction of Inspired Oxygen 10/21/24 04:00 10/21/24 04:00 10/21/24 04:00 Temperature Pulse Rate 101 H 101 H Respiratory Rate 18 Blood Pressure Pulse Oximetry 95 Oxygen Delivery Mechanical Ventilation Fraction of Inspired Oxygen 50 10/21/24 04:00 10/21/24 04:05 10/21/24 04:32 Temperature 99.8 F H Pulse Rate 97 99 Respiratory Rate 18 Blood Pressure 105/79 99/79 L Pulse Oximetry 95 Oxygen Delivery Fraction of Inspired Oxygen 50 10/21/24 04:50 10/21/24 05:10 10/21/24 05:15 Temperature Pulse Rate 100 99 102 H Respiratory Rate Blood Pressure 98/80 L 90/72 L Pulse Oximetry 100 Oxygen Delivery Mechanical Ventilation Fraction of Inspired Oxygen 50 10/21/24 05:39 10/21/24 05:49 10/21/24 06:00 Temperature Pulse Rate 100 102 H 103 H Respiratory Rate Blood Pressure 94/77 L 100/79 98/70 L Pulse Oximetry Oxygen Delivery Fraction of Inspired Oxygen 10/21/24 06:00 10/21/24 06:00 10/21/24 06:00 Temperature Pulse Rate 103 H 103 H 103 H Respiratory Rate 18 18 Blood Pressure Pulse Oximetry Oxygen Delivery Fraction of Inspired Oxygen 10/21/24 06:00 10/21/24 06:07 10/21/24 06:28 Temperature 100.3 F H Pulse Rate 103 H 103 H 101 H Respiratory Rate 18 Blood Pressure 98/70 L 98/70 L 97/75 L Pulse Oximetry 98 Oxygen Delivery Fraction of Inspired Oxygen 10/21/24 06:28 10/21/24 06:28 10/21/24 06:58 Temperature Pulse Rate 101 H 102 H 102 H Respiratory Rate Blood Pressure 97/75 L 97/75 L 99/75 L Pulse Oximetry Oxygen Delivery Fraction of Inspired Oxygen 10/21/24 07:15 10/21/24 07:43 10/21/24 07:48 Temperature Pulse Rate 102 H 99 100 Respiratory Rate Blood Pressure 112/85 108/80 108/80 Pulse Oximetry Oxygen Delivery Fraction of Inspired Oxygen 10/21/24 08:00 10/21/24 08:00 10/21/24 08:00 Temperature 100.4 F H Pulse Rate 101 H 100 102 H Respiratory Rate 18 Blood Pressure 113/87 101/79 Pulse Oximetry 94 Oxygen Delivery Fraction of Inspired Oxygen 10/21/24 08:00 10/21/24 08:00 10/21/24 08:00 Temperature Pulse Rate 100 100 Respiratory Rate 18 Blood Pressure 101/79 Pulse Oximetry Oxygen Delivery Fraction of Inspired Oxygen 50 10/21/24 08:18 10/21/24 08:22 10/21/24 08:46 Temperature Pulse Rate 102 H 100 102 H Respiratory Rate 18 Blood Pressure 101/79 Pulse Oximetry 95 Oxygen Delivery Mechanical Ventilation Fraction of Inspired Oxygen 50 10/21/24 08:46 10/21/24 09:07 10/21/24 10:00 Temperature 100.7 F H Pulse Rate 102 H 106 H 103 H Respiratory Rate 18 18 Blood Pressure 97/66 L 98/52 L Pulse Oximetry 95 Oxygen Delivery Fraction of Inspired Oxygen 10/21/24 11:06 10/21/24 11:10 10/21/24 11:15 Temperature Pulse Rate 105 H 106 H 105 H Respiratory Rate Blood Pressure 74/28 L 74/28 L Pulse Oximetry 96 Oxygen Delivery Mechanical Ventilation Fraction of Inspired Oxygen 50 10/21/24 11:17 10/21/24 11:47 10/21/24 11:47 Temperature Pulse Rate 105 H 108 H 108 H Respiratory Rate Blood Pressure 74/28 L 57/25 L Pulse Oximetry Oxygen Delivery Fraction of Inspired Oxygen 10/21/24 12:00 10/21/24 12:04 10/21/24 12:11 Temperature 100.8 F H Pulse Rate 108 H 105 H 105 H Respiratory Rate 19 Blood Pressure 88/75 L 91/50 L 88/36 L Pulse Oximetry 92 Oxygen Delivery Fraction of Inspired Oxygen 10/21/24 12:11 Temperature Pulse Rate 104 H Respiratory Rate Blood Pressure 88/75 L Pulse Oximetry Oxygen Delivery Fraction of Inspired Oxygen Intake/Output Intake/Output: Intake & Output 10/18/24 10/19/24 10/20/24 10/21/24 23:59 23:59 23:59 23:59 Intake Total 1755 3151.3 3645.5 1289.1 Output Total 400 1 850 450 Balance 1355 3150.3 2795.5 839.1 Meds/Results Medications: Active Medications Generic Name Dose Route Start Last Admin Trade Name Freq PRN Reason Stop Dose Admin Acetaminophen 650 mg 10/16/24 12:34 10/18/24 11:25 Acetaminophen 325 Mg Tablet PO 650 mg Q4H PRN Administration Mild Pain (1-3) or Fever Albuterol 2.5 mg 10/18/24 14:45 Albuterol Sulfate Neb 2.5 Mg/3 Ml Inh INHALATION QID PRN shortness of breath or wheezing Albuterol/Ipratropium 3 ml 10/16/24 14:00 10/21/24 08:34 Ipratropium 0.5 Mg/Albuterol Sulfate 2.5 Mg Ampul.Neb 3 Ml INHALATION 3 ml Q6HRT CROW Administration Alprazolam 0.5 mg 10/16/24 21:47 10/18/24 11:25 Alprazolam (*Crx) 0.5 Mg Tablet PO 0.5 mg DAILY PRN Administration anxiety] Alprazolam 0.5 mg 10/17/24 21:00 10/19/24 22:13 Alprazolam (*Crx) 0.5 Mg Tablet PO Not Given HS CROW Dicyclomine HCl 20 mg 10/19/24 14:03 10/19/24 14:11 Dicyclomine Hcl 10 Mg Capsule PO 20 mg QID PRN Administration Abdominal Cramping Dronedarone 400 mg 10/16/24 09:00 10/21/24 08:00 Dronedarone Hcl 400 Mg Tablet BY MOUTH Not Given Q12HR CROW Hydrocortisone Sodium Succinate 100 mg 10/21/24 11:10 10/21/24 11:10 Hydrocortisone Sodium Succinate 100 Mg/2 Ml Vial IV PUSH 100 mg Q8HR CROW Administration Cefepime HCl 2 gm in 50 mls @ 100 mls/hr 10/19/24 20:00 10/21/24 04:54 Maxipime 2 Gm/Ns 50 Ml IVPB Infused Q8H CROW Infusion Doxycycline Hyclate 100 mg in 100 mls @ 100 mls/hr 10/20/24 09:00 10/21/24 08:29 Vibramycin 100 Mg/Ns 100 Ml IVPB 10/21/24 23:59 100 mls/hr Q12H CROW Administration Norepinephrine Bitartrate 8 mg in 250 mls @ 56.25 mls/hr 10/20/24 09:00 10/21/24 12:11 Levophed 8 Mg/D5w 250 Ml IV CONT 30 mcg/min .Q4H27M CROW 56.25 mls/hr Administration Protocol 30 MCG/MIN Fentanyl Citrate 2,500 mcg in 250 mls @ 7.5 mls/hr 10/20/24 10:20 10/21/24 08:00 Fentanyl 2,500 Mcg/Ns 250 Ml IV CONT 75 mcg/hr .[id number] CROW 7.5 mls/hr Titration Protocol 75 MCG/HR Midazolam HCl 100 mg in 100 mls @ 4 mls/hr 10/20/24 10:20 10/21/24 08:18 Versed 100 Mg/Ns 100 Ml IV CONT 4 mg/hr .Q25H CROW 4 mls/hr Titration Protocol 4 MG/HR Phenylephrine HCl 50 mg/ 250 mls @ 54 mls/hr 10/20/24 22:35 10/21/24 11:15 Sodium Chloride IV CONT 180 mcg/min .Q4H38M CROW 54 mls/hr Administration Protocol 180 MCG/MIN Vasopressin 100 units/ 100 mls @ 1.8 mls/hr 10/21/24 06:05 10/21/24 09:07 Dextrose IV CONT 0.03 units/min .[id number] CROW 1.8 mls/hr Administration Protocol 0.03 UNITS/MIN Vancomycin HCl 1,250 mg in 250 mls @ 166.667 mls/hr 10/21/24 10:00 10/21/24 11:20 Vancomycin 1,250 Mg/Ns 250 Ml IVPB 166.67 mls/hr Q12H CROW Administration Epinephrine HCl 1 mg/ Dextrose 251 mls @ 75.3 mls/hr 10/21/24 11:15 10/21/24 12:04 IV CONT 5 mcg/min .Q3H20M CROW 75.3 mls/hr Titration Protocol 5 MCG/MIN Losartan Potassium 50 mg 10/19/24 09:00 10/19/24 10:23 Losartan Potassium 50 Mg Tablet PO 50 mg DAILY CROW Administration Methimazole 5 mg 10/17/24 09:00 10/21/24 08:01 Methimazole 5 Mg Tab BY MOUTH Not Given [email or web address] [facility] Miscellaneous Information 1 each 10/21/24 00:01 10/21/24 00:49 Ivs All In Ns If Possible XX 11/20/24 00:00 Not Given CLARIFY CROW Multi-Ingred Cream/Lotion/Oil/Oint 1 applic 10/20/24 21:00 10/21/24 08:40 Mineral Oil/White Petrolatum Ointment EACH EYE 1 applic Q12HR CROW Administration Ondansetron HCl 4 mg 10/20/24 07:35 Ondansetron Inj 4 Mg/2 Ml Vial IV PUSH Q4H PRN Nausea And Vomiting Pantoprazole Sodium 40 mg 10/20/24 21:00 10/21/24 08:40 Pantoprazole Sodium Iv 40 Mg Vial IV PUSH 40 mg Q12HR CROW Administration Polyethylene Glycol 17 gm 10/19/24 12:20 Polyethylene Glycol 3350 17 Gm Powd.Pack PO QAM PRN Constipation Sodium Chloride 1 gm 10/18/24 18:15 10/20/24 16:39 Sodium Chloride 1 Gm Tablet PO Not Given BID CROW Sodium Chloride 20 ml 10/20/24 08:59 Central Line Flush IV PUSH PRN PRN after blood draws Sodium Chloride 10 ml 10/20/24 08:59 Central Line Flush IV PUSH PRN PRN with TPN bag changes Sodium Chloride 10 ml 10/20/24 14:00 10/21/24 05:13 Central Line Flush IV PUSH 10 ml Q8HR CROW Administration Umeclidinium/Vilanterol 1 puff 10/17/24 08:00 10/20/24 07:10 Umeclidinium/Vilanterol 62.5-25 Mcg Ellipta INHALATION 1 puff DAILYRT CROW Administration Radiology Results: ITS Impressions Venous Doppler Study 10/20/24 08:31 IMPRESSION: 1: No lower extremity deep venous thrombosis. Chest X-Ray 10/21/24 06:13 IMPRESSION: 1. Stable diffuse lung disease, consistent with moderate pulmonary edema without or with superimposed pneumonia. 2. Stable moderate-sized right pleural effusion. 3. Cardiomegaly. Abdomen X-Ray 10/21/24 11:06 IMPRESSION: 1. Distended transverse colon, likely adynamic ileus. 2. Stable moderate-sized right pleural effusion. 3. Diffuse lung disease, consistent with pulmonary edema versus pneumonia. Labs Labs: Laboratory Results - last 24 hr 10/16/24 10/19/24 10/19/24 13:20 06:39 11:33 WBC RBC Hgb Hct MCV MCH MCHC RDW Plt Count MPV Immature Gran % (Auto) Neut % (Auto) Lymph % (Auto) [place] % (Auto) Eos % (Auto) Baso % (Auto) Lymph # (Auto) [place] # (Auto) Eos # (Auto) Baso # (Auto) Abs Immat Gran (auto) Absolute Neuts (auto) Absolute Nucleated RBC Nucleated RBC % Platelet Estimate % Immature Plt Fraction Hypochromasia Poikilocytosis Anisocytosis Ovalocytes Schistocytes PT INR APTT Puncture Site ABG pH ABG pCO2 ABG pO2 ABG PO2/FiO2 Ratio ABG HCO3 ABG O2 Saturation ABG O2 Content ABG Base Excess A-a Gradient Oxyhemoglobin Carboxyhemoglobin Methemoglobin Reduced Hemoglobin Total Hemoglobin O2 Delivery Device O2 Liters/Min Minute Volume Vent Rate Vent Mode FiO2 Tidal Volume PEEP Peak Inspir Pressure Pressure Support Sodium Potassium Chloride Carbon Dioxide Anion Gap BUN Creatinine Estim Creat Clear Calc Estimated GFR Glucose POC Capillary Glucose Lactic Acid Calcium Phosphorus Magnesium Total Bilirubin AST ALT Alkaline Phosphatase Total Protein Albumin 3.4 L Ntoks-9-Ojlxkshvh 0.4 H Ocuek-5-Njozinimx 0.8 Skte-7-Bheucqya 0.5 Bsgv-0-Meuochoa 0.5 Gamma Globulins 0.5 L PEP Interpretation See note Ur Random Creatinine 200 U Random Total Protein 105 H Protein/Creatinin Ratio 525 H Vancomycin Trough Mycoplasma pneumon IgM 144 10/20/24 10/20/24 10/21/24 12:43 16:54 00:43 WBC RBC Hgb Hct MCV MCH MCHC RDW Plt Count MPV Immature Gran % (Auto) Neut % (Auto) Lymph % (Auto) [place] % (Auto) Eos % (Auto) Baso % (Auto) Lymph # (Auto) [place] # (Auto) Eos # (Auto) Baso # (Auto) Abs Immat Gran (auto) Absolute Neuts (auto) Absolute Nucleated RBC Nucleated RBC % Platelet Estimate % Immature Plt Fraction Hypochromasia Poikilocytosis Anisocytosis Ovalocytes Schistocytes PT INR APTT Puncture Site ABG pH ABG pCO2 ABG pO2 ABG PO2/FiO2 Ratio ABG HCO3 ABG O2 Saturation ABG O2 Content ABG Base Excess A-a Gradient Oxyhemoglobin Carboxyhemoglobin Methemoglobin Reduced Hemoglobin Total Hemoglobin O2 Delivery Device O2 Liters/Min Minute Volume Vent Rate Vent Mode FiO2 Tidal Volume PEEP Peak Inspir Pressure Pressure Support Sodium 131 L Potassium 4.4 Chloride 99 Carbon Dioxide 24 Anion Gap 8 BUN 39 H Creatinine 1.07 Estim Creat Clear Calc 57 Estimated GFR > 60 Glucose 131 H POC Capillary Glucose 128 H 101 Lactic Acid Calcium 8.0 L Phosphorus Magnesium Total Bilirubin AST ALT Alkaline Phosphatase Total Protein Albumin Ddrjw-7-Zddplryls Pecmz-3-Gecgtcohv Wwum-9-Nxzwpqnt Kknl-8-Psyjrdkw Gamma Globulins PEP Interpretation Ur Random Creatinine U Random Total Protein Protein/Creatinin Ratio Vancomycin Trough Mycoplasma pneumon IgM 10/21/24 10/21/24 10/21/24 05:25 05:27 08:31 WBC 14.0 H RBC 2.86 L Hgb 9.1 L Hct 26.6 L MCV 93.0 MCH 31.8 MCHC 34.2 RDW 14.6 H Plt Count 57 L MPV 9.9 Immature Gran % (Auto) 0.7 H Neut % (Auto) 82.8 H Lymph % (Auto) 11.5 L [place] % (Auto) 4.0 Eos % (Auto) 0.8 Baso % (Auto) 0.2 Lymph # (Auto) 1.62 [place] # (Auto) 0.6 Eos # (Auto) 0.1 Baso # (Auto) 0.0 Abs Immat Gran (auto) 0.10 H Absolute Neuts (auto) 11.6 H Absolute Nucleated RBC 0.040 H Nucleated RBC % 0.3 H Platelet Estimate Decreased % Immature Plt Fraction 6.7 Hypochromasia 1+ Poikilocytosis 1+ Anisocytosis 1+ Ovalocytes 1+ Schistocytes None seen PT 24.3 H INR 2.1 APTT 35.9 Puncture Site Right brachial ABG pH 7.373 ABG pCO2 37.7 ABG pO2 76.7 L ABG PO2/FiO2 Ratio 1.53 ABG HCO3 21.5 L ABG O2 Saturation 95.1 ABG O2 Content 13.4 L ABG Base Excess -3.4 A-a Gradient 237.4 Oxyhemoglobin 93.1 Carboxyhemoglobin 0.5 Methemoglobin 0.2 Reduced Hemoglobin 6.2 H Total Hemoglobin 10.2 L O2 Delivery Device Ventilator O2 Liters/Min Not Reportable Minute Volume Not Reportable Vent Rate 18 Vent Mode Cmv FiO2 50 Tidal Volume 400 PEEP 5 Peak Inspir Pressure Not Reportable Pressure Support Not Reportable Sodium 132 L Potassium 4.3 Chloride 100 Carbon Dioxide 27 Anion Gap 5 BUN 40 H Creatinine 1.20 Estim Creat Clear Calc 51 Estimated GFR > 60 Glucose 98 POC Capillary Glucose Lactic Acid 2.1 H Calcium 8.1 L Phosphorus 3.7 Magnesium 2.0 Total Bilirubin 1.9 H AST 1478 H ALT 1643 H Alkaline Phosphatase 81 Total Protein 6.0 L Albumin 3.5 Vwdux-2-Ypilapjuy Dcwxl-8-Qteqlifbr Uxfy-5-Jjcfisfr Pbot-0-Pobvcbry Gamma Globulins PEP Interpretation Ur Random Creatinine U Random Total Protein Protein/Creatinin Ratio Vancomycin Trough 11.5 Mycoplasma pneumon IgM 10/21/24 10/21/24 09:09 12:12 WBC RBC Hgb Hct MCV MCH MCHC RDW Plt Count MPV Immature Gran % (Auto) Neut % (Auto) Lymph % (Auto) [place] % (Auto) Eos % (Auto) Baso % (Auto) Lymph # (Auto) [place] # (Auto) Eos # (Auto) Baso # (Auto) Abs Immat Gran (auto) Absolute Neuts (auto) Absolute Nucleated RBC Nucleated RBC % Platelet Estimate % Immature Plt Fraction Hypochromasia Poikilocytosis Anisocytosis Ovalocytes Schistocytes PT INR APTT Puncture Site Right femoral ABG pH 7.295 L* ABG pCO2 37.4 ABG pO2 67.2 L ABG PO2/FiO2 Ratio 1.34 ABG HCO3 17.8 L ABG O2 Saturation 91.5 L ABG O2 Content 12.5 L ABG Base Excess -8.0 A-a Gradient 247.2 Oxyhemoglobin 88.4 L Carboxyhemoglobin Methemoglobin Reduced Hemoglobin Total Hemoglobin 10.0 L O2 Delivery Device Ventilator O2 Liters/Min Not Reportable Minute Volume Not Reportable Vent Rate 18 Vent Mode Cmv FiO2 50 Tidal Volume 480 PEEP 5 Peak Inspir Pressure Not Reportable Pressure Support Not Reportable Sodium Potassium Chloride Carbon Dioxide Anion Gap BUN Creatinine Estim Creat Clear Calc Estimated GFR Glucose POC Capillary Glucose Lactic Acid 2.3 H Calcium Phosphorus Magnesium Total Bilirubin AST ALT Alkaline Phosphatase Total Protein Albumin Dyhtp-3-Plvvhlvvo Nirps-9-Gsrtybkws Hsjj-9-Apxwjupv Uovq-9-Ytttiifx Gamma Globulins PEP Interpretation Ur Random Creatinine U Random Total Protein Protein/Creatinin Ratio Vancomycin Trough Mycoplasma pneumon IgM
[2024-10-21] MEDS: PHYTONADIONE ADULT INJ 10 MG in DEXTROSE 5% IN WATER 50 ML 100 MG IVPB (13:14)
[2024-10-21] MEDS: MIDAZOLAM 100MG/NS 100ML(*CRX) 100 MG/100 ML BAG IV CONT (14:26)
--- NOTE | 2024-10-21 15:20 | P.PN_ITS ---
Progress Note: A&P Assessment and Plan (1) Ileus: Code(s): K56.7 - Ileus, unspecified Status: Acute Assessment and Plan: Likely adynamic ileus due to critical illness and sepsis. Continue supportive management. Pt is not a candidate for surgical intervention for any abdominal process given that he is now on 4 pressors. Pt remains critically ill on full support in ICU. Prognosis guarded to poor. Following. Subjective Date/time seen: 10/21/24 15:20 Interval history: Pt continues to be intubated and sedated on 4 pressor support and full vent support. AST and ALT markedly elevated now. Exam GI: Other: Abd distended. Unable to gauge tenderness due to intubated and sedated state. Objective Data Vital Signs Vital Signs: Vital Signs - 24 hr 10/20/24 15:30 10/20/24 15:45 10/20/24 15:45 Temperature Pulse Rate 79 75 75 Respiratory Rate 18 Blood Pressure 112/84 102/77 Pulse Oximetry Oxygen Delivery Fraction of Inspired Oxygen 10/20/24 15:45 10/20/24 15:50 10/20/24 15:50 Temperature Pulse Rate 75 Respiratory Rate 18 Blood Pressure Pulse Oximetry 100 Oxygen Delivery Mechanical Ventilation Fraction of Inspired Oxygen 30 30 10/20/24 16:00 10/20/24 16:00 10/20/24 16:00 Temperature 37.8 C H Pulse Rate 78 78 78 Respiratory Rate 15 Blood Pressure 105/83 105/83 105/83 Pulse Oximetry 100 Oxygen Delivery Fraction of Inspired Oxygen 10/20/24 16:00 10/20/24 16:02 10/20/24 16:15 Temperature Pulse Rate 75 75 75 Respiratory Rate Blood Pressure 103/77 Pulse Oximetry 100 Oxygen Delivery Mechanical Ventilation Fraction of Inspired Oxygen 50 10/20/24 16:30 10/20/24 16:45 10/20/24 16:45 Temperature Pulse Rate 78 78 77 Respiratory Rate 18 18 Blood Pressure 105/83 Pulse Oximetry Oxygen Delivery Fraction of Inspired Oxygen 10/20/24 16:45 10/20/24 16:50 10/20/24 18:00 Temperature 37.8 C H Pulse Rate 75 78 79 Respiratory Rate 19 Blood Pressure 102/77 103/85 103/79 Pulse Oximetry 100 Oxygen Delivery Fraction of Inspired Oxygen 10/20/24 18:00 10/20/24 19:32 10/20/24 19:32 Temperature Pulse Rate 79 80 79 Respiratory Rate 20 Blood Pressure Pulse Oximetry 100 Oxygen Delivery Mechanical Ventilation Fraction of Inspired Oxygen 50 10/20/24 19:38 10/20/24 19:58 10/20/24 19:59 Temperature Pulse Rate 76 86 85 Respiratory Rate 20 20 20 Blood Pressure Pulse Oximetry Oxygen Delivery Fraction of Inspired Oxygen 10/20/24 20:00 10/20/24 20:00 10/20/24 20:00 Temperature Pulse Rate 84 Respiratory Rate Blood Pressure 99/85 L Pulse Oximetry 99 Oxygen Delivery Mechanical Ventilation Fraction of Inspired Oxygen 50 50 10/20/24 20:00 10/20/24 20:01 10/20/24 20:15 Temperature Pulse Rate 85 86 86 Respiratory Rate 19 Blood Pressure 99/85 L 110/87 Pulse Oximetry 98 Oxygen Delivery Fraction of Inspired Oxygen 10/20/24 20:17 10/20/24 20:19 10/20/24 20:37 Temperature Pulse Rate 84 85 84 Respiratory Rate 20 20 Blood Pressure 110/87 Pulse Oximetry Oxygen Delivery Fraction of Inspired Oxygen 10/20/24 20:38 10/20/24 21:30 10/20/24 21:30 Temperature Pulse Rate 84 84 84 Respiratory Rate Blood Pressure 117/81 97/79 L 97/79 L Pulse Oximetry Oxygen Delivery Fraction of Inspired Oxygen 10/20/24 22:00 10/20/24 22:01 10/20/24 22:05 Temperature Pulse Rate 83 84 86 Respiratory Rate 18 Blood Pressure 99/76 L Pulse Oximetry Oxygen Delivery Fraction of Inspired Oxygen 10/20/24 22:06 10/20/24 22:07 10/20/24 22:15 Temperature Pulse Rate 86 85 85 Respiratory Rate 18 19 Blood Pressure 99/76 L 98/77 L Pulse Oximetry 97 Oxygen Delivery Fraction of Inspired Oxygen 10/20/24 22:18 10/20/24 22:29 10/20/24 22:30 Temperature Pulse Rate 85 86 86 Respiratory Rate 18 Blood Pressure 98/77 L 105/83 Pulse Oximetry Oxygen Delivery Fraction of Inspired Oxygen 10/20/24 22:30 10/20/24 22:31 10/20/24 22:39 Temperature Pulse Rate 86 86 88 Respiratory Rate 19 Blood Pressure 105/83 Pulse Oximetry 97 Oxygen Delivery Mechanical Ventilation Fraction of Inspired Oxygen 50 10/21/24 00:00 10/21/24 00:00 10/21/24 00:00 Temperature Pulse Rate 90 90 90 Respiratory Rate 18 18 Blood Pressure 102/75 Pulse Oximetry Oxygen Delivery Fraction of Inspired Oxygen 10/21/24 00:00 10/21/24 00:00 10/21/24 00:00 Temperature 37.8 C H Pulse Rate 90 Respiratory Rate 18 Blood Pressure 102/75 Pulse Oximetry 96 96 Oxygen Delivery Mechanical Ventilation Fraction of Inspired Oxygen 50 50 10/21/24 00:00 10/21/24 00:30 10/21/24 00:34 Temperature Pulse Rate 90 90 90 Respiratory Rate Blood Pressure 94/73 L 94/73 L Pulse Oximetry Oxygen Delivery Fraction of Inspired Oxygen 10/21/24 00:45 10/21/24 00:46 10/21/24 01:07 Temperature Pulse Rate 90 90 91 Respiratory Rate Blood Pressure 98/76 L 98/76 L 99/73 L Pulse Oximetry Oxygen Delivery Fraction of Inspired Oxygen 10/21/24 01:16 10/21/24 01:55 10/21/24 01:55 Temperature Pulse Rate 95 90 90 Respiratory Rate 18 Blood Pressure 100/68 Pulse Oximetry 96 Oxygen Delivery Mechanical Ventilation Fraction of Inspired Oxygen 50 10/21/24 01:58 10/21/24 01:58 10/21/24 02:00 Temperature Pulse Rate 96 96 95 Respiratory Rate 18 Blood Pressure 96/67 L 96/67 L Pulse Oximetry Oxygen Delivery Fraction of Inspired Oxygen 10/21/24 02:00 10/21/24 02:00 10/21/24 02:00 Temperature 37.9 C H Pulse Rate 94 95 95 Respiratory Rate 18 18 Blood Pressure 99/66 L Pulse Oximetry 95 Oxygen Delivery Fraction of Inspired Oxygen 10/21/24 02:01 10/21/24 02:17 10/21/24 02:17 Temperature Pulse Rate 94 95 96 Respiratory Rate 18 18 Blood Pressure 96/73 L Pulse Oximetry Oxygen Delivery Fraction of Inspired Oxygen 10/21/24 02:35 10/21/24 02:35 10/21/24 02:48 Temperature Pulse Rate 98 98 99 Respiratory Rate 18 Blood Pressure 98/72 L 98/72 L Pulse Oximetry Oxygen Delivery Fraction of Inspired Oxygen 10/21/24 03:01 10/21/24 03:02 10/21/24 03:16 Temperature Pulse Rate 100 100 101 H Respiratory Rate Blood Pressure 97/74 L 97/74 L 104/74 Pulse Oximetry Oxygen Delivery Fraction of Inspired Oxygen 10/21/24 03:16 10/21/24 03:17 10/21/24 04:00 Temperature Pulse Rate 101 H 101 H 101 H Respiratory Rate Blood Pressure 104/74 104/74 105/79 Pulse Oximetry Oxygen Delivery Fraction of Inspired Oxygen 10/21/24 04:00 10/21/24 04:00 10/21/24 04:00 Temperature Pulse Rate 101 H 101 H 101 H Respiratory Rate 18 18 Blood Pressure 105/79 Pulse Oximetry Oxygen Delivery Fraction of Inspired Oxygen 10/21/24 04:00 10/21/24 04:00 10/21/24 04:00 Temperature Pulse Rate 101 H Respiratory Rate Blood Pressure Pulse Oximetry 95 Oxygen Delivery Mechanical Ventilation Fraction of Inspired Oxygen 50 50 10/21/24 04:05 10/21/24 04:32 10/21/24 04:50 Temperature 37.7 C H Pulse Rate 97 99 100 Respiratory Rate 18 Blood Pressure 105/79 99/79 L 98/80 L Pulse Oximetry 95 Oxygen Delivery Fraction of Inspired Oxygen 10/21/24 05:10 10/21/24 05:15 10/21/24 05:39 Temperature Pulse Rate 99 102 H 100 Respiratory Rate Blood Pressure 90/72 L 94/77 L Pulse Oximetry 100 Oxygen Delivery Mechanical Ventilation Fraction of Inspired Oxygen 50 10/21/24 05:49 10/21/24 06:00 10/21/24 06:00 Temperature Pulse Rate 102 H 103 H 103 H Respiratory Rate 18 Blood Pressure 100/79 98/70 L Pulse Oximetry Oxygen Delivery Fraction of Inspired Oxygen 10/21/24 06:00 10/21/24 06:00 10/21/24 06:00 Temperature 37.9 C H Pulse Rate 103 H 103 H 103 H Respiratory Rate 18 18 Blood Pressure 98/70 L Pulse Oximetry 98 Oxygen Delivery Fraction of Inspired Oxygen 10/21/24 06:07 10/21/24 06:28 10/21/24 06:28 Temperature Pulse Rate 103 H 101 H 101 H Respiratory Rate Blood Pressure 98/70 L 97/75 L 97/75 L Pulse Oximetry Oxygen Delivery Fraction of Inspired Oxygen 10/21/24 06:28 10/21/24 06:58 10/21/24 07:15 Temperature Pulse Rate 102 H 102 H 102 H Respiratory Rate Blood Pressure 97/75 L 99/75 L 112/85 Pulse Oximetry Oxygen Delivery Fraction of Inspired Oxygen 10/21/24 07:43 10/21/24 07:48 10/21/24 08:00 Temperature Pulse Rate 99 100 101 H Respiratory Rate Blood Pressure 108/80 108/80 Pulse Oximetry Oxygen Delivery Fraction of Inspired Oxygen 10/21/24 08:00 10/21/24 08:00 10/21/24 08:00 Temperature 38.0 C H Pulse Rate 100 102 H 100 Respiratory Rate 18 Blood Pressure 113/87 101/79 101/79 Pulse Oximetry 94 Oxygen Delivery Fraction of Inspired Oxygen 10/21/24 08:00 10/21/24 08:00 10/21/24 08:00 Temperature Pulse Rate 100 Respiratory Rate 18 Blood Pressure Pulse Oximetry 95 Oxygen Delivery Mechanical Ventilation Fraction of Inspired Oxygen 50 10/21/24 08:00 10/21/24 08:18 10/21/24 08:22 Temperature Pulse Rate 101 H 102 H 100 Respiratory Rate 18 Blood Pressure 101/79 Pulse Oximetry Oxygen Delivery Fraction of Inspired Oxygen 10/21/24 08:46 10/21/24 08:46 10/21/24 09:07 Temperature Pulse Rate 102 H 102 H 106 H Respiratory Rate 18 Blood Pressure 97/66 L Pulse Oximetry 95 Oxygen Delivery Mechanical Ventilation Fraction of Inspired Oxygen 50 10/21/24 10:00 10/21/24 10:00 10/21/24 10:00 Temperature 38.2 C H Pulse Rate 103 H 103 H 103 H Respiratory Rate 18 Blood Pressure 98/52 L 98/52 L 98/52 L Pulse Oximetry 95 Oxygen Delivery Fraction of Inspired Oxygen 10/21/24 10:00 10/21/24 10:00 10/21/24 10:00 Temperature Pulse Rate 103 H 103 H 103 H Respiratory Rate 18 18 Blood Pressure Pulse Oximetry Oxygen Delivery Fraction of Inspired Oxygen 10/21/24 11:06 10/21/24 11:10 10/21/24 11:15 Temperature Pulse Rate 105 H 106 H 105 H Respiratory Rate Blood Pressure 74/28 L 74/28 L Pulse Oximetry 96 Oxygen Delivery Mechanical Ventilation Fraction of Inspired Oxygen 50 10/21/24 11:17 10/21/24 11:47 10/21/24 11:47 Temperature Pulse Rate 105 H 108 H 108 H Respiratory Rate Blood Pressure 74/28 L 57/25 L Pulse Oximetry Oxygen Delivery Fraction of Inspired Oxygen 10/21/24 12:10/21/24 12:00 10/21/24 12:00 Temperature 38.2 C H Pulse Rate 108 H 108 H 108 H Respiratory Rate 19 Blood Pressure 88/75 L 88/75 L 88/75 L Pulse Oximetry 92 Oxygen Delivery Fraction of Inspired Oxygen 10/21/24 12:00 10/21/24 12:00 10/21/24 12:00 Temperature Pulse Rate 108 H 108 H Respiratory Rate 19 2 L Blood Pressure Pulse Oximetry 92 Oxygen Delivery Mechanical Ventilation Fraction of Inspired Oxygen 10/21/24 12:00 10/21/24 12:00 10/21/24 12:04 Temperature Pulse Rate 105 H 105 H Respiratory Rate Blood Pressure 91/50 L Pulse Oximetry Oxygen Delivery Fraction of Inspired Oxygen 50 10/21/24 12:11 10/21/24 12:11 10/21/24 13:00 Temperature Pulse Rate 105 H 104 H 106 H Respiratory Rate Blood Pressure 88/36 L 88/75 L 117/60 Pulse Oximetry Oxygen Delivery Fraction of Inspired Oxygen 10/21/24 13:52 10/21/24 14:00 10/21/24 14:02 Temperature Pulse Rate 106 H 104 H 106 H Respiratory Rate 210 H Blood Pressure 121/65 Pulse Oximetry Oxygen Delivery Fraction of Inspired Oxygen 10/21/24 14:10 10/21/24 14:10 10/21/24 14:21 Temperature Pulse Rate 105 H 105 H 104 H Respiratory Rate 20 Blood Pressure 129/70 Pulse Oximetry 93 Oxygen Delivery Mechanical Ventilation Fraction of Inspired Oxygen 50 10/21/24 14:26 10/21/24 14:26 10/21/24 14:35 Temperature Pulse Rate 104 H 104 H 104 H Respiratory Rate 20 20 20 Blood Pressure Pulse Oximetry Oxygen Delivery Fraction of Inspired Oxygen Intake/Output Intake/Output: Intake & Output 10/18/24 10/19/24 10/20/24 10/21/24 23:59 23:59 23:59 23:59 Intake Total 1755 3151.3 3645.5 1631.0 Output Total 400 1 850 450 Balance 1355 3150.3 2795.5 1181.0 Meds/Results Medications: Active Medications Generic Name Dose Route Start Last Admin Trade Name Freq PRN Reason Stop Dose Admin Acetaminophen 650 mg 10/16/24 12:34 10/18/24 11:25 Acetaminophen 325 Mg Tablet PO 650 mg Q4H PRN Administration Mild Pain (1-3) or Fever Albuterol 2.5 mg 10/18/24 14:45 Albuterol Sulfate Neb 2.5 Mg/3 Ml Inh INHALATION QID PRN shortness of breath or wheezing Albuterol/Ipratropium 3 ml 10/16/24 14:00 10/21/24 14:06 Ipratropium 0.5 Mg/Albuterol Sulfate 2.5 Mg Ampul.Neb 3 Ml INHALATION 3 ml Q6HRT CROW Administration Alprazolam 0.5 mg 10/16/24 21:47 10/18/24 11:25 Alprazolam (*Crx) 0.5 Mg Tablet PO 0.5 mg DAILY PRN Administration anxiety] Alprazolam 0.5 mg 10/17/24 21:00 10/19/24 22:13 Alprazolam (*Crx) 0.5 Mg Tablet PO Not Given HS CROW Dicyclomine HCl 20 mg 10/19/24 14:03 10/19/24 14:11 Dicyclomine Hcl 10 Mg Capsule PO 20 mg QID PRN Administration Abdominal Cramping Dronedarone 400 mg 10/16/24 09:00 10/21/24 08:00 Dronedarone Hcl 400 Mg Tablet BY MOUTH Not Given Q12HR CROW Hydrocortisone Sodium Succinate 100 mg 10/21/24 11:10 10/21/24 11:10 Hydrocortisone Sodium Succinate 100 Mg/2 Ml Vial IV PUSH 100 mg Q8HR CROW Administration Cefepime HCl 2 gm in 50 mls @ 100 mls/hr 10/19/24 20:00 10/21/24 13:57 Maxipime 2 Gm/Ns 50 Ml IVPB 100 mls/hr Q8H CROW Administration Doxycycline Hyclate 100 mg in 100 mls @ 100 mls/hr 10/20/24 09:00 10/21/24 13:54 Vibramycin 100 Mg/Ns 100 Ml IVPB 10/21/24 23:59 Infused Q12H CROW Infusion Norepinephrine Bitartrate 8 mg in 250 mls @ 56.25 mls/hr 10/20/24 09:00 10/21/24 12:11 Levophed 8 Mg/D5w 250 Ml IV CONT 30 mcg/min .Q4H27M CROW 56.25 mls/hr Administration Protocol 30 MCG/MIN Fentanyl Citrate 2,500 mcg in 250 mls @ 7.5 mls/hr 10/20/24 10:20 10/21/24 12:00 Fentanyl 2,500 Mcg/Ns 250 Ml IV CONT 75 mcg/hr .[id number] CROW 7.5 mls/hr Titration Protocol 75 MCG/HR Midazolam HCl 100 mg in 100 mls @ 4 mls/hr 10/20/24 10:20 10/21/24 14:26 Versed 100 Mg/Ns 100 Ml IV CONT 4 mg/hr .Q25H CROW 4 mls/hr Administration Protocol 4 MG/HR Phenylephrine HCl 50 mg/ 250 mls @ 54 mls/hr 10/20/24 22:35 10/21/24 12:00 Sodium Chloride IV CONT 180 mcg/min .Q4H38M CROW 54 mls/hr Titration Protocol 180 MCG/MIN Vasopressin 100 units/ 100 mls @ 1.8 mls/hr 10/21/24 06:05 10/21/24 09:07 Dextrose IV CONT 0.03 units/min .[id number] CROW 1.8 mls/hr Administration Protocol 0.03 UNITS/MIN Vancomycin HCl 1,250 mg in 250 mls @ 166.667 mls/hr 10/21/24 10:00 10/21/24 11:20 Vancomycin 1,250 Mg/Ns 250 Ml IVPB 166.67 mls/hr Q12H CROW Administration Epinephrine HCl 4 mg/ Dextrose 254 mls @ 7.62 mls/hr 10/21/24 14:00 IV CONT .Q24H [facility] Protocol 2 MCG/MIN Losartan Potassium 50 mg 10/19/24 09:00 10/19/24 10:23 Losartan Potassium 50 Mg Tablet PO 50 mg DAILY [facility] Administration Methimazole 5 mg 10/17/24 09:00 10/21/24 08:01 Methimazole 5 Mg Tab BY MOUTH Not Given [email or web address] [facility] Miscellaneous Information 1 each 10/21/24 00:01 10/21/24 00:49 Ivs All In Ns If Possible XX 11/20/24 00:00 Not Given CLARIFY [facility] Multi-Ingred Cream/Lotion/Oil/Oint 1 applic 10/20/24 21:00 10/21/24 08:40 Mineral Oil/White Petrolatum Ointment EACH EYE 1 applic Q12HR CROW Administration Ondansetron HCl 4 mg 10/20/24 07:35 Ondansetron Inj 4 Mg/2 Ml Vial IV PUSH Q4H PRN Nausea And Vomiting Pantoprazole Sodium 40 mg 10/20/24 21:00 10/21/24 08:40 Pantoprazole Sodium Iv 40 Mg Vial IV PUSH 40 mg Q12HR CROW Administration Polyethylene Glycol 17 gm 10/19/24 12:20 Polyethylene Glycol 3350 17 Gm Powd.Pack PO QAM PRN Constipation Sodium Chloride 1 gm 10/18/24 18:15 10/20/24 16:39 Sodium Chloride 1 Gm Tablet PO Not Given BID CROW Sodium Chloride 20 ml 10/20/24 08:59 Central Line Flush IV PUSH PRN PRN after blood draws Sodium Chloride 10 ml 10/20/24 08:59 Central Line Flush IV PUSH PRN PRN with TPN bag changes Sodium Chloride 10 ml 10/20/24 14:00 10/21/24 05:13 Central Line Flush IV PUSH 10 ml Q8HR CROW Administration Umeclidinium/Vilanterol 1 puff 10/17/24 08:00 10/21/24 14:12 Umeclidinium/Vilanterol 62.5-25 Mcg Ellipta INHALATION Not Given DAILYRT [facility] Radiology Results: ITS Impressions Venous Doppler Study 10/20/24 08:31 IMPRESSION: 1: No lower extremity deep venous thrombosis. Chest X-Ray 10/21/24 06:13 IMPRESSION: 1. Stable diffuse lung disease, consistent with moderate pulmonary edema without or with superimposed pneumonia. 2. Stable moderate-sized right pleural effusion. 3. Cardiomegaly. Abdomen X-Ray 10/21/24 11:06 IMPRESSION: 1. Distended transverse colon, likely adynamic ileus. 2. Stable moderate-sized right pleural effusion. 3. Diffuse lung disease, consistent with pulmonary edema versus pneumonia. Labs Labs: Laboratory Results - last 24 hr 10/16/24 10/19/24 10/19/24 13:20 06:39 11:33 WBC RBC Hgb Hct MCV MCH MCHC RDW Plt Count MPV Immature Gran % (Auto) Neut % (Auto) Lymph % (Auto) Rogers % (Auto) Eos % (Auto) Baso % (Auto) Lymph # (Auto) Rogers # (Auto) Eos # (Auto) Baso # (Auto) Abs Immat Gran (auto) Absolute Neuts (auto) Absolute Nucleated RBC Nucleated RBC % Platelet Estimate % Immature Plt Fraction Hypochromasia Poikilocytosis Anisocytosis Ovalocytes Schistocytes PT INR APTT Puncture Site ABG pH ABG pCO2 ABG pO2 ABG PO2/FiO2 Ratio ABG HCO3 ABG O2 Saturation ABG O2 Content ABG Base Excess A-a Gradient Oxyhemoglobin Carboxyhemoglobin Methemoglobin Reduced Hemoglobin Total Hemoglobin O2 Delivery Device O2 Liters/Min Minute Volume Vent Rate Vent Mode FiO2 Tidal Volume PEEP Peak Inspir Pressure Pressure Support Sodium Potassium Chloride Carbon Dioxide Anion Gap BUN Creatinine Estim Creat Clear Calc Estimated GFR Glucose POC Capillary Glucose Lactic Acid Calcium Phosphorus Magnesium Total Bilirubin AST ALT Alkaline Phosphatase Total Protein Albumin 3.4 L Dcjfm-7-Lyedijtaj 0.4 H Nafdb-9-Rwqpuetaf 0.8 Oxbu-8-Tscmomlh 0.5 Qqsa-4-Ulmqkcsv 0.5 Gamma Globulins 0.5 L PEP Interpretation See note Ur Random Creatinine 200 U Random Total Protein 105 H Protein/Creatinin Ratio 525 H Vancomycin Trough Mycoplasma pneumon IgM 144 10/20/24 10/21/24 10/21/24 16:54 00:43 05:25 WBC RBC Hgb Hct MCV MCH MCHC RDW Plt Count MPV Immature Gran % (Auto) Neut % (Auto) Lymph % (Auto) Rogers % (Auto) Eos % (Auto) Baso % (Auto) Lymph # (Auto) Rogers # (Auto) Eos # (Auto) Baso # (Auto) Abs Immat Gran (auto) Absolute Neuts (auto) Absolute Nucleated RBC Nucleated RBC % Platelet Estimate % Immature Plt Fraction Hypochromasia Poikilocytosis Anisocytosis Ovalocytes Schistocytes PT INR APTT Puncture Site Right brachial ABG pH 7.373 ABG pCO2 37.7 ABG pO2 76.7 L ABG PO2/FiO2 Ratio 1.53 ABG HCO3 21.5 L ABG O2 Saturation 95.1 ABG O2 Content 13.4 L ABG Base Excess -3.4 A-a Gradient 237.4 Oxyhemoglobin 93.1 Carboxyhemoglobin 0.5 Methemoglobin 0.2 Reduced Hemoglobin 6.2 H Total Hemoglobin 10.2 L O2 Delivery Device Ventilator O2 Liters/Min Not Reportable Minute Volume Not Reportable Vent Rate 18 Vent Mode Cmv FiO2 50 Tidal Volume 400 PEEP 5 Peak Inspir Pressure Not Reportable Pressure Support Not Reportable Sodium Potassium Chloride Carbon Dioxide Anion Gap BUN Creatinine Estim Creat Clear Calc Estimated GFR Glucose POC Capillary Glucose 128 H 101 Lactic Acid Calcium Phosphorus Magnesium Total Bilirubin AST ALT Alkaline Phosphatase Total Protein Albumin Gvvgl-2-Mwwnqymds Ubeuc-4-Ffurelrdp Scoy-7-Rnyalzni Jgbt-1-Nwktudjp Gamma Globulins PEP Interpretation Ur Random Creatinine U Random Total Protein Protein/Creatinin Ratio Vancomycin Trough Mycoplasma pneumon IgM 10/21/24 10/21/24 10/21/24 05:27 08:31 09:09 WBC 14.0 H RBC 2.86 L Hgb 9.1 L Hct 26.6 L MCV 93.0 MCH 31.8 MCHC 34.2 RDW 14.6 H Plt Count 57 L MPV 9.9 Immature Gran % (Auto) 0.7 H Neut % (Auto) 82.8 H Lymph % (Auto) 11.5 L Rogers % (Auto) 4.0 Eos % (Auto) 0.8 Baso % (Auto) 0.2 Lymph # (Auto) 1.62 Rogers # (Auto) 0.6 Eos # (Auto) 0.1 Baso # (Auto) 0.0 Abs Immat Gran (auto) 0.10 H Absolute Neuts (auto) 11.6 H Absolute Nucleated RBC 0.040 H Nucleated RBC % 0.3 H Platelet Estimate Decreased % Immature Plt Fraction 6.7 Hypochromasia 1+ Poikilocytosis 1+ Anisocytosis 1+ Ovalocytes 1+ Schistocytes None seen PT 24.3 H INR 2.1 APTT 35.9 Puncture Site ABG pH ABG pCO2 ABG pO2 ABG PO2/FiO2 Ratio ABG HCO3 ABG O2 Saturation ABG O2 Content ABG Base Excess A-a Gradient Oxyhemoglobin Carboxyhemoglobin Methemoglobin Reduced Hemoglobin Total Hemoglobin O2 Delivery Device O2 Liters/Min Minute Volume Vent Rate Vent Mode FiO2 Tidal Volume PEEP Peak Inspir Pressure Pressure Support Sodium 132 L Potassium 4.3 Chloride 100 Carbon Dioxide 27 Anion Gap 5 BUN 40 H Creatinine 1.20 Estim Creat Clear Calc 51 Estimated GFR > 60 Glucose 98 POC Capillary Glucose Lactic Acid 2.1 H 2.3 H Calcium 8.1 L Phosphorus 3.7 Magnesium 2.0 Total Bilirubin 1.9 H AST 1478 H ALT 1643 H Alkaline Phosphatase 81 Total Protein 6.0 L Albumin 3.5 Lgqsq-0-Adjmwseav Oichy-4-Xrzoacpyn Dhvy-1-Ujyjqhch Nqhm-8-Jauonhxl Gamma Globulins PEP Interpretation Ur Random Creatinine U Random Total Protein Protein/Creatinin Ratio Vancomycin Trough 11.5 Mycoplasma pneumon IgM 10/21/24 12:12 WBC RBC Hgb Hct MCV MCH MCHC RDW Plt Count MPV Immature Gran % (Auto) Neut % (Auto) Lymph % (Auto) Rogers % (Auto) Eos % (Auto) Baso % (Auto) Lymph # (Auto) Rogers # (Auto) Eos # (Auto) Baso # (Auto) Abs Immat Gran (auto) Absolute Neuts (auto) Absolute Nucleated RBC Nucleated RBC % Platelet Estimate % Immature Plt Fraction Hypochromasia Poikilocytosis Anisocytosis Ovalocytes Schistocytes PT INR APTT Puncture Site Right femoral ABG pH 7.295 L* ABG pCO2 37.4 ABG pO2 67.2 L ABG PO2/FiO2 Ratio 1.34 ABG HCO3 17.8 L ABG O2 Saturation 91.5 L ABG O2 Content 12.5 L ABG Base Excess -8.0 A-a Gradient 247.2 Oxyhemoglobin 88.4 L Carboxyhemoglobin Methemoglobin Reduced Hemoglobin Total Hemoglobin 10.0 L O2 Delivery Device Ventilator O2 Liters/Min Not Reportable Minute Volume Not Reportable Vent Rate 18 Vent Mode Cmv FiO2 50 Tidal Volume 480 PEEP 5 Peak Inspir Pressure Not Reportable Pressure Support Not Reportable Sodium Potassium Chloride Carbon Dioxide Anion Gap BUN Creatinine Estim Creat Clear Calc Estimated GFR Glucose POC Capillary Glucose Lactic Acid Calcium Phosphorus Magnesium Total Bilirubin AST ALT Alkaline Phosphatase Total Protein Albumin Akase-6-Guqippjxx Nweli-4-Yqkvqmyhr Qgvc-4-Owdwxfij Whqp-2-Unpxptbj Gamma Globulins PEP Interpretation Ur Random Creatinine U Random Total Protein Protein/Creatinin Ratio Vancomycin Trough Mycoplasma pneumon IgM
[2024-10-21] MEDS: NOREPINEPHRINE 8 MG/D5W 250 ML 8 MG/250 ML BAG 45 MG IV CONT (16:31)
[2024-10-21 17:14] LABS: Glucose Point of Care 123 mg/dl (65-105)
[2024-10-21] MEDS: NOREPINEPHRINE 8 MG/D5W 250 ML 8 MG/250 ML BAG 46.88 MG IV CONT (21:11)
[2024-10-21] MEDS: FENTANYL 2,500MCG/NS250ML(*CRX 2,500 MCG/250 ML BAG 7.5 MCG IV CONT (21:13)
[2024-10-21] MEDS: VANCOMYCIN 1,250 MG/NS 250 ML 1,250 MG/250 ML BAG 167 MG IVPB (22:01)
--- NOTE | 2024-10-21 22:31 | PCRCNOTE ---
Patients 2000 breathing tx completed after ordered timeframe due to RT intubating a critically ill patient.
[2024-10-22] VITALS (39 sets, daily range): BP systolic 70–126; BP diastolic 40–77; PULSE 80–145; RESP 20; TEMP 37.3–37.6; O2SAT 93–99
[2024-10-22 00:19] LABS: Glucose Point of Care 125 mg/dl (65-105)
[2024-10-22] MEDS: PHENYLEPHRINE HCL INJ 50 MG in SODIUM CHLORIDE 0.9% IV 245 ML 54 ML IV CONT ×3 (00:57→10:27)
[2024-10-22] MEDS: IPRATROPIUM 0.5 MG/ALBUTEROL SULFATE 2.5 MG AMPUL.NEB 3 ML INHALATION ×2 (02:13→08:11)
[2024-10-22] MEDS: CEFEPIME 2 GM/NS 50 ML 2 GM/50 ML BAG IVPB (03:57)
[2024-10-22] MEDS: NOREPINEPHRINE 8 MG/D5W 250 ML 8 MG/250 ML BAG 15 MG IV CONT (04:15)
--- NOTE | 2024-10-22 04:56 | PC.NURSE ---
Patient daily weight significantly increased. Used sunny lift to lift patient off bed, re-zero'd bed, and reweighed patient. Weight still increased from previous entry. Patient BP drop to 60/40. Does not tolerate movement at this time.
[2024-10-22 05:20] LABS: Alveolar/Arterial O2 Gradient 224.2 mmHg; Carboxyhemoglobin 0.8 % THb (0-2.0); Fractional Inspired Oxygen 50 %; HCO3 ABG 16.9 mEq/l (22.0-26.0); Methemoglobin ABG 0.1 %THb (0-1.5); Oxygen Content ABG 12.7 %vol (16.0-22.0); Oxyhemoglobin 95.7 % THb (90.0-100.0); PCO2 ABG 32.2 mmHg (35.0-45.0); PO2 ABG 96.1 mmHg (80.0-100.0); PO2 FiO2 Ratio Arterial Blood 1.92 %; Reduced Hemoglobin 3.4 %THb (0-5.0); Total Hemoglobin 9.3 g/dL (12.0-18.0); pH ABG 7.338 (7.350-7.450)
[2024-10-22 05:21] LABS: Device VENTILATOR; Site Drawn ARTLINE
[2024-10-22 05:23] LABS: Arterial Blood Gas PEEP 5 cmH2O; Arterial Blood Gas Tidal Volume 480 ml; Arterial Blood Gas Vent Mode CMV; Arterial Blood Gas Ventilator rate 20 /MIN
[2024-10-22 05:30] LABS: Basophils Percent Auto 0.1 % (0.2-1.2); Hematocrit 26.5 % (42.0-52.0); Hemoglobin 8.9 g/dL (14.0-18.0); Immature Granulocyte Absolute 0.13 K/mm3 (0.00-0.031); Immature Granulocyte Percent A 0.9 % (0-0.5); Immature Platelet Fraction Pct 8.5 % (0.9-11.2); Lymphocytes Absolute Auto 0.43 K/mm3 (0.9-3.2); Lymphocytes Percent Auto 3.1 % (18.3-44.2); Mean Corpuscular HGB Conc 33.6 g/dl (32-36); Mean Corpuscular Hemoglobin 31.6 pg (26-34); Monocytes Absolute Auto 0.6 K/mm3 (0.1-0.6); Monocytes Percent Auto 4.3 % (2.6-8.5); Neutrophils Absolute Auto 12.7 K/mm3 (1.3-6.7); Neutrophils Percent Auto 91.6 % (45.5-73.1); Nucleated Red Blood Cells Perc 0.7 % (0.0-0.2); Red Blood Count 2.82 M/mm3 (4.6-6.20); Red Cell Distribution Width 15.1 % (11.5-14.5); White Blood Count 13.8 K/mm3 (4.5-10.0)
[2024-10-22] MEDS: CENTRAL LINE FLUSH 10 ML IV PUSH (05:38)
[2024-10-22] MEDS: HYDROCORTISONE SODIUM SUCCINATE 100 MG/2 ML VIAL IV PUSH (05:39)
[2024-10-22 05:51] LABS: Lactic Acid Reflex 4.3 mmol/L (0.7-2.0)
[2024-10-22 05:52] LABS: Albumin Level 2.9 g/dL (3.5-5.1); Alkaline Phosphatase 76 U/L (38-126); Anion Gap 9 mmol/L (4-12); Bilirubin,Total 3.8 mg/dL (0.2-1.3); Blood Urea Nitrogen 49 mg/dL (9-20); Calcium 7.3 mg/dL (8.4-10.2); Carbon Dioxide 21 mmol/L (22-30); Chloride 101 mmol/L (98-107); Estimated CRCL calculation 41 ml/min; Estimated Glomerular Filt Rate 45; Glucose 133 mg/dL (65-110); Magnesium 2.2 mg/dL (1.6-2.3); Phosphorus 4.7 mg/dL (2.5-4.5); Potassium 5.1 mmol/L (3.4-5.0); Sodium 131 mmol/L (137-145)
[2024-10-22 05:59] LABS: Platelet Count Result 40 k/mm3 (150-375)
[2024-10-22 06:00] LABS: Anisocytosis 1+; Burr Cells 1+; Ovalocytes 1+; Platelet Estimate Decreased (Adequate); Poikilocytosis 1+; Schistocytes Rare
[2024-10-22 06:14] LABS: Alanine Aminotransferase 3545 U/L (6-50)
[2024-10-22 06:30] LABS: Aspartate Amino Transferase 4470 U/L (17-59)
[2024-10-22] MEDS: MINERAL OIL/WHITE PETROLATUM OINTMENT 1 APPLIC EACH EYE (08:18)
[2024-10-22] MEDS: PANTOPRAZOLE SODIUM IV 40 MG VIAL IV PUSH (08:18)
[2024-10-22 08:25] LABS: Reflex Lactic Acid Yes or No Add Lactic
[2024-10-22] MEDS: SODIUM BICARBONATE 8.4% 50 MEQ/50 ML SYRINGE IV PUSH (08:30)
[2024-10-22] MEDS: DEXTROSE 50% 25 GM/50 ML SYRINGE IV PUSH (08:30)
[2024-10-22] MEDS: INSULIN HUMAN REGULAR (*BKC) 100 UNITS/ML 10 UNITS IV PUSH (08:31)
--- NOTE | 2024-10-22 08:34 | P.PNCA_ITS ---
Progress Note: A&P Assessment and Plan (1) Pneumonia: Code(s): J18.9 - Pneumonia, unspecified organism Status: Acute Assessment and Plan: On antibiotics as per hospitalist. (2) Hemoptysis: Code(s): R04.2 - Hemoptysis Status: Acute Assessment and Plan: Probably due to pneumonia. Holding Xarelto until OK to resume. (3) PAF (paroxysmal atrial fibrillation): Code(s): I48.0 - Paroxysmal atrial fibrillation Status: Acute Assessment and Plan: In Sinus rhythm. Multaq on hold due to shock liver. Holding Xarelto due to hemoptysis. Reviewed EKG it is nonspecific changes only. 10/16/24 Echo: EF 55-60%, mild LVH, diastolic function abnormal but E/e' not assessed, mild RVE, mod RV dysfunction with TAPSE 0.9 cm, severe LAE, mild THIEN, bioprosthetic MV, mild MS, TV repair with annuloplasty ring,, mild-mod TR, trace PI, RVSP 62 mmHg. (4) Hypertension: Qualifiers: Hypertension type: essential hypertension Qualified Code(s): I10 - Essential (primary) hypertension Code(s): I10 - Essential (primary) hypertension Status: Acute Assessment and Plan: Hypotension on pressors. (5) H/O mitral valve replacement: Code(s): Z95.2 - Presence of prosthetic heart valve Status: Acute Assessment and Plan: Stable. (6) Acute respiratory failure: Code(s): J96.00 - Acute respiratory failure, unspecified whether with hypoxia or hypercapnia Status: Acute Assessment and Plan: On ventilator, managed by bullet assembly press operator. (7) Septic shock: Code(s): A41.9 - Sepsis, unspecified organism; R65.21 - Severe sepsis with septic shock Status: Acute Assessment and Plan: On Levophed, Vasopressin, and Epinephrine, managed by bullet assembly press operator. Poor prognosis. (8) Shock liver: Code(s): K72.00 - Acute and subacute hepatic failure without coma Status: Acute Assessment and Plan: Monitor. Subjective Date/time seen: 10/22/24 08:34 Interval history: He is intubated on vent, sedated. Exam Const: Other: Intubated on vent, sedated. Resp: Auscultation: crackles, no rhonchi, no wheezes and diminished lung sounds Cardio: Rate: tachycardic Rhythm: regular rhythm Heart sounds: no murmurs Peripheral pulses: posterior tibial pulses not present and dorsalis pedis pulses not present GI: GI Palp: Yes Soft to palpation Extrem: Right lower extremity: no edema Left lower extremity: no edema Objective Data Vital Signs Vital Signs: Vital Signs - 24 hr 10/21/24 08:46 10/21/24 08:46 10/21/24 09:07 Temperature Pulse Rate 102 H 102 H 106 H Respiratory Rate 18 Blood Pressure 97/66 L Pulse Oximetry 95 Oxygen Delivery Mechanical Ventilation Fraction of Inspired Oxygen 50 10/21/24 10:00 10/21/24 10:00 10/21/24 10:00 Temperature 100.7 F H Pulse Rate 103 H 103 H 103 H Respiratory Rate 18 Blood Pressure 98/52 L 98/52 L 98/52 L Pulse Oximetry 95 Oxygen Delivery Fraction of Inspired Oxygen 10/21/24 10:00 10/21/24 10:00 10/21/24 10:00 Temperature Pulse Rate 103 H 103 H 103 H Respiratory Rate 18 18 Blood Pressure Pulse Oximetry Oxygen Delivery Fraction of Inspired Oxygen 10/21/24 10:00 10/21/24 11:06 10/21/24 11:10 Temperature Pulse Rate 103 H 105 H 106 H Respiratory Rate Blood Pressure 74/28 L Pulse Oximetry 96 Oxygen Delivery Mechanical Ventilation Fraction of Inspired Oxygen 50 10/21/24 11:15 10/21/24 11:17 10/21/24 11:47 Temperature Pulse Rate 105 H 105 H 108 H Respiratory Rate Blood Pressure 74/28 L 74/28 L Pulse Oximetry Oxygen Delivery Fraction of Inspired Oxygen 10/21/24 11:47 10/21/24 12:00 10/21/24 12:00 Temperature 100.8 F H Pulse Rate 108 H 108 H 108 H Respiratory Rate 19 Blood Pressure 57/25 L 88/75 L 88/75 L Pulse Oximetry 92 Oxygen Delivery Fraction of Inspired Oxygen 10/21/24 12:00 10/21/24 12:00 10/21/24 12:00 Temperature Pulse Rate 108 H 108 H 108 H Respiratory Rate 19 2 L Blood Pressure 88/75 L Pulse Oximetry Oxygen Delivery Fraction of Inspired Oxygen 10/21/24 12:00 10/21/24 12:00 10/21/24 12:00 Temperature Pulse Rate 105 H Respiratory Rate Blood Pressure Pulse Oximetry 92 Oxygen Delivery Mechanical Ventilation Fraction of Inspired Oxygen 50 10/21/24 12:00 10/21/24 12:04 10/21/24 12:11 Temperature Pulse Rate 108 H 105 H 105 H Respiratory Rate Blood Pressure 91/50 L 88/36 L Pulse Oximetry Oxygen Delivery Fraction of Inspired Oxygen 10/21/24 12:11 10/21/24 13:00 10/21/24 13:52 Temperature Pulse Rate 104 H 106 H 106 H Respiratory Rate 210 H Blood Pressure 88/75 L 117/60 Pulse Oximetry Oxygen Delivery Fraction of Inspired Oxygen 10/21/24 14:00 10/21/24 14:00 10/21/24 14:02 Temperature 100.6 F H Pulse Rate 104 H 103 H 106 H Respiratory Rate 18 Blood Pressure 131/74 121/65 Pulse Oximetry 94 Oxygen Delivery Fraction of Inspired Oxygen 10/21/24 14:10 10/21/24 14:10 10/21/24 14:21 Temperature Pulse Rate 105 H 105 H 104 H Respiratory Rate 20 Blood Pressure 129/70 Pulse Oximetry 93 Oxygen Delivery Mechanical Ventilation Fraction of Inspired Oxygen 50 10/21/24 14:26 10/21/24 14:26 10/21/24 14:35 Temperature Pulse Rate 104 H 104 H 104 H Respiratory Rate 20 20 20 Blood Pressure Pulse Oximetry Oxygen Delivery Fraction of Inspired Oxygen 10/21/24 14:45 10/21/24 15:00 10/21/24 15:52 Temperature Pulse Rate 102 H 102 H 102 H Respiratory Rate Blood Pressure 122/66 106/58 L Pulse Oximetry Oxygen Delivery Fraction of Inspired Oxygen 10/21/24 15:52 10/21/24 15:55 10/21/24 16:00 Temperature 100.5 F H Pulse Rate 102 H 101 H 101 H Respiratory Rate 20 Blood Pressure 106/58 L 117/64 127/69 Pulse Oximetry 93 Oxygen Delivery Fraction of Inspired Oxygen 10/21/24 16:00 10/21/24 16:00 10/21/24 16:00 Temperature Pulse Rate 102 H 102 H 102 H Respiratory Rate 21 H Blood Pressure 140/79 140/79 Pulse Oximetry Oxygen Delivery Fraction of Inspired Oxygen 10/21/24 16:00 10/21/24 16:00 10/21/24 16:00 Temperature Pulse Rate 102 H 102 H Respiratory Rate 21 H Blood Pressure 140/79 Pulse Oximetry 94 Oxygen Delivery Mechanical Ventilation Fraction of Inspired Oxygen 10/21/24 16:00 10/21/24 16:00 10/21/24 16:05 Temperature Pulse Rate 101 H 101 H Respiratory Rate Blood Pressure 140/79 Pulse Oximetry Oxygen Delivery Fraction of Inspired Oxygen 50 10/21/24 16:10 10/21/24 16:15 10/21/24 16:20 Temperature Pulse Rate 101 H 102 H 102 H Respiratory Rate Blood Pressure 136/76 137/76 135/76 Pulse Oximetry Oxygen Delivery Fraction of Inspired Oxygen 10/21/24 16:31 10/21/24 16:31 10/21/24 16:32 Temperature Pulse Rate 101 H 101 H 101 H Respiratory Rate Blood Pressure 130/72 130/72 128/71 Pulse Oximetry Oxygen Delivery Fraction of Inspired Oxygen 10/21/24 17:05 10/21/24 17:06 10/21/24 17:09 Temperature Pulse Rate 98 98 98 Respiratory Rate Blood Pressure 118/65 120/66 117/65 Pulse Oximetry Oxygen Delivery Fraction of Inspired Oxygen 10/21/24 17:15 10/21/24 17:18 10/21/24 18:00 Temperature 100.5 F H Pulse Rate 94 106 H 94 Respiratory Rate 20 Blood Pressure 125/69 126/69 Pulse Oximetry 93 98 Oxygen Delivery Mechanical Ventilation Fraction of Inspired Oxygen 50 10/21/24 18:00 10/21/24 18:01 10/21/24 18:03 Temperature Pulse Rate 95 94 94 Respiratory Rate Blood Pressure 126/70 127/70 Pulse Oximetry Oxygen Delivery Fraction of Inspired Oxygen 10/21/24 18:03 10/21/24 18:04 10/21/24 18:04 Temperature Pulse Rate 94 94 95 Respiratory Rate 20 20 Blood Pressure 126/69 Pulse Oximetry Oxygen Delivery Fraction of Inspired Oxygen 10/21/24 18:32 10/21/24 18:32 10/21/24 19:00 Temperature 100.4 F H Pulse Rate 94 98 Respiratory Rate 20 Blood Pressure 121/65 113/61 Pulse Oximetry 90 Oxygen Delivery Fraction of Inspired Oxygen 60 10/21/24 19:00 10/21/24 19:00 10/21/24 19:30 Temperature Pulse Rate 98 98 86 Respiratory Rate Blood Pressure 113/61 113/61 88/50 L Pulse Oximetry Oxygen Delivery Fraction of Inspired Oxygen 10/21/24 20:00 10/21/24 20:00 10/21/24 20:00 Temperature Pulse Rate 95 95 95 Respiratory Rate 20 Blood Pressure 110/60 110/60 Pulse Oximetry Oxygen Delivery Fraction of Inspired Oxygen 10/21/24 20:00 10/21/24 20:00 10/21/24 20:00 Temperature 100.1 F H Pulse Rate 95 95 95 Respiratory Rate 20 20 Blood Pressure 110/60 110/60 Pulse Oximetry 91 Oxygen Delivery Fraction of Inspired Oxygen 10/21/24 20:00 10/21/24 20:00 10/21/24 20:00 Temperature Pulse Rate 94 Respiratory Rate Blood Pressure Pulse Oximetry 91 Oxygen Delivery Mechanical Ventilation Fraction of Inspired Oxygen 60 60 10/21/24 20:15 10/21/24 20:30 10/21/24 20:30 Temperature Pulse Rate 95 95 95 Respiratory Rate Blood Pressure 113/62 116/64 116/64 Pulse Oximetry Oxygen Delivery Fraction of Inspired Oxygen 10/21/24 21:00 10/21/24 21:00 10/21/24 21:11 Temperature 99.7 F H Pulse Rate 92 92 95 Respiratory Rate 20 Blood Pressure 106/58 L 106/58 L 123/67 Pulse Oximetry 94 Oxygen Delivery Fraction of Inspired Oxygen 10/21/24 21:11 10/21/24 21:13 10/21/24 21:13 Temperature Pulse Rate 95 95 95 Respiratory Rate 20 20 Blood Pressure 123/67 Pulse Oximetry Oxygen Delivery Fraction of Inspired Oxygen 10/21/24 21:15 10/21/24 21:30 10/21/24 21:32 Temperature Pulse Rate 95 94 95 Respiratory Rate 20 Blood Pressure 123/68 124/69 Pulse Oximetry Oxygen Delivery Fraction of Inspired Oxygen 10/21/24 21:34 10/21/24 21:38 10/21/24 21:43 Temperature Pulse Rate 95 95 94 Respiratory Rate 20 Blood Pressure 145/80 H Pulse Oximetry 91 Oxygen Delivery Mechanical Ventilation Fraction of Inspired Oxygen 60 10/21/24 22:00 10/21/24 22:00 10/21/24 22:00 Temperature Pulse Rate 94 94 94 Respiratory Rate 20 Blood Pressure 115/64 115/64 Pulse Oximetry Oxygen Delivery Fraction of Inspired Oxygen 10/21/24 22:00 10/21/24 22:00 10/21/24 22:00 Temperature 99.6 F Pulse Rate 94 94 94 Respiratory Rate 20 20 Blood Pressure 115/64 115/64 Pulse Oximetry 90 Oxygen Delivery Fraction of Inspired Oxygen 10/21/24 22:00 10/21/24 22:15 10/21/24 22:23 Temperature Pulse Rate 94 94 95 Respiratory Rate Blood Pressure 113/63 109/60 Pulse Oximetry Oxygen Delivery Fraction of Inspired Oxygen 10/21/24 22:23 10/21/24 22:30 10/21/24 22:45 Temperature Pulse Rate 95 95 106 H Respiratory Rate Blood Pressure 109/60 109/61 104/61 Pulse Oximetry Oxygen Delivery Fraction of Inspired Oxygen 10/21/24 22:49 10/21/24 23:00 10/21/24 23:00 Temperature 99.6 F Pulse Rate 113 H 113 H Respiratory Rate 20 Blood Pressure 102/62 102/62 Pulse Oximetry 92 Oxygen Delivery Fraction of Inspired Oxygen 70 10/21/24 23:00 10/21/24 23:00 10/21/24 23:15 Temperature Pulse Rate 113 H 113 H 114 H Respiratory Rate Blood Pressure 103/63 102/62 102/63 Pulse Oximetry Oxygen Delivery Fraction of Inspired Oxygen 10/21/24 23:18 10/21/24 23:30 10/21/24 23:48 Temperature Pulse Rate 112 H 113 H 109 H Respiratory Rate Blood Pressure 103/63 91/53 L Pulse Oximetry 92 Oxygen Delivery Mechanical Ventilation Fraction of Inspired Oxygen 70 10/22/24 00:00 10/22/24 00:00 10/22/24 00:00 Temperature 99.6 F Pulse Rate 96 Respiratory Rate 20 Blood Pressure 85/47 L Pulse Oximetry 97 97 Oxygen Delivery Mechanical Ventilation Fraction of Inspired Oxygen 60 70 10/22/24 00:00 10/22/24 00:00 10/22/24 00:00 Temperature Pulse Rate 96 96 96 Respiratory Rate Blood Pressure 85/47 L 85/47 L 85/47 L Pulse Oximetry Oxygen Delivery Fraction of Inspired Oxygen 10/22/24 00:00 10/22/24 00:00 10/22/24 00:00 Temperature Pulse Rate 96 96 90 Respiratory Rate 20 20 Blood Pressure Pulse Oximetry Oxygen Delivery Fraction of Inspired Oxygen 10/22/24 00:15 10/22/24 00:15 10/22/24 00:15 Temperature Pulse Rate 93 92 92 Respiratory Rate 20 Blood Pressure 124/71 118/68 118/68 Pulse Oximetry 93 Oxygen Delivery Fraction of Inspired Oxygen 10/22/24 00:57 10/22/24 00:57 10/22/24 01:00 Temperature Pulse Rate 90 90 89 Respiratory Rate Blood Pressure 122/70 122/70 122/70 Pulse Oximetry Oxygen Delivery Fraction of Inspired Oxygen 10/22/24 01:00 10/22/24 01:00 10/22/24 01:00 Temperature 99.5 F Pulse Rate 89 89 90 Respiratory Rate 20 Blood Pressure 122/70 122/70 122/70 Pulse Oximetry 94 Oxygen Delivery Fraction of Inspired Oxygen 10/22/24 01:15 10/22/24 01:15 10/22/24 02:00 Temperature Pulse Rate 89 89 88 Respiratory Rate Blood Pressure 120/68 120/68 123/70 Pulse Oximetry Oxygen Delivery Fraction of Inspired Oxygen 10/22/24 02:00 10/22/24 02:00 10/22/24 02:00 Temperature Pulse Rate 88 88 88 Respiratory Rate 20 20 Blood Pressure 123/70 Pulse Oximetry Oxygen Delivery Fraction of Inspired Oxygen 10/22/24 02:00 10/22/24 02:00 10/22/24 02:00 Temperature 99.5 F Pulse Rate 88 88 88 Respiratory Rate 20 Blood Pressure 123/70 123/70 Pulse Oximetry 99 Oxygen Delivery Fraction of Inspired Oxygen 10/22/24 02:08 10/22/24 02:13 10/22/24 02:15 Temperature Pulse Rate 87 87 Respiratory Rate 20 Blood Pressure Pulse Oximetry 99 Oxygen Delivery Mechanical Ventilation Fraction of Inspired Oxygen 60 60 10/22/24 02:15 10/22/24 02:20 10/22/24 02:30 Temperature Pulse Rate 86 86 88 Respiratory Rate 20 Blood Pressure 124/70 118/66 Pulse Oximetry Oxygen Delivery Fraction of Inspired Oxygen 10/22/24 02:45 10/22/24 03:00 10/22/24 03:00 Temperature Pulse Rate 85 85 85 Respiratory Rate Blood Pressure 114/65 108/62 109/61 Pulse Oximetry Oxygen Delivery Fraction of Inspired Oxygen 10/22/24 03:00 10/22/24 03:15 10/22/24 03:30 Temperature Pulse Rate 85 84 84 Respiratory Rate Blood Pressure 105/61 106/60 108/61 Pulse Oximetry Oxygen Delivery Fraction of Inspired Oxygen 10/22/24 03:45 10/22/24 04:00 10/22/24 04:00 Temperature Pulse Rate 83 83 83 Respiratory Rate Blood Pressure 105/61 108/62 108/62 Pulse Oximetry Oxygen Delivery Fraction of Inspired Oxygen 10/22/24 04:00 10/22/24 04:00 10/22/24 04:00 Temperature Pulse Rate 83 83 83 Respiratory Rate 20 20 Blood Pressure 108/62 Pulse Oximetry Oxygen Delivery Fraction of Inspired Oxygen 10/22/24 04:00 10/22/24 04:00 10/22/24 04:00 Temperature 99.3 F Pulse Rate 83 Respiratory Rate 20 Blood Pressure 108/62 Pulse Oximetry 99 99 Oxygen Delivery Mechanical Ventilation Fraction of Inspired Oxygen 50 50 10/22/24 04:00 10/22/24 04:06 10/22/24 04:15 Temperature Pulse Rate 85 81 Respiratory Rate Blood Pressure 95/54 L Pulse Oximetry Oxygen Delivery Mechanical Ventilation Fraction of Inspired Oxygen 50 10/22/24 04:15 10/22/24 04:45 10/22/24 05:00 Temperature Pulse Rate 81 80 86 Respiratory Rate Blood Pressure 95/54 L 75/44 L 94/53 L Pulse Oximetry Oxygen Delivery Fraction of Inspired Oxygen 10/22/24 05:00 10/22/24 05:00 10/22/24 05:00 Temperature 99.2 F Pulse Rate 81 81 81 Respiratory Rate 20 Blood Pressure 94/53 L 94/53 L 94/53 L Pulse Oximetry 96 Oxygen Delivery Fraction of Inspired Oxygen 10/22/24 05:20 10/22/24 05:30 10/22/24 05:37 Temperature Pulse Rate 82 81 83 Respiratory Rate Blood Pressure 70/40 L 104/62 Pulse Oximetry 96 Oxygen Delivery Mechanical Ventilation Fraction of Inspired Oxygen 45 10/22/24 05:37 10/22/24 05:42 10/22/24 06:00 Temperature Pulse Rate 83 83 Respiratory Rate Blood Pressure 104/62 97/56 L Pulse Oximetry Oxygen Delivery Fraction of Inspired Oxygen 45 10/22/24 06:00 10/22/24 06:00 10/22/24 06:00 Temperature Pulse Rate 83 83 83 Respiratory Rate 20 20 Blood Pressure 97/56 L Pulse Oximetry Oxygen Delivery Fraction of Inspired Oxygen 10/22/24 06:00 10/22/24 06:00 10/22/24 06:00 Temperature 99.3 F Pulse Rate 83 83 83 Respiratory Rate 20 Blood Pressure 97/56 L 97/56 L Pulse Oximetry 96 Oxygen Delivery Fraction of Inspired Oxygen 10/22/24 08:00 10/22/24 08:00 10/22/24 08:00 Temperature Pulse Rate 81 81 81 Respiratory Rate 20 Blood Pressure 98/55 L 98/55 L Pulse Oximetry Oxygen Delivery Fraction of Inspired Oxygen 10/22/24 08:00 10/22/24 08:00 10/22/24 08:04 Temperature Pulse Rate 81 81 81 Respiratory Rate 20 Blood Pressure 98/55 L 85/48 L Pulse Oximetry Oxygen Delivery Fraction of Inspired Oxygen 10/22/24 08:12 10/22/24 08:13 10/22/24 08:21 Temperature Pulse Rate 83 83 84 Respiratory Rate 20 20 Blood Pressure Pulse Oximetry 95 Oxygen Delivery Mechanical Ventilation Fraction of Inspired Oxygen 45 10/22/24 08:22 Temperature Pulse Rate Respiratory Rate Blood Pressure Pulse Oximetry 95 Oxygen Delivery Mechanical Ventilation Fraction of Inspired Oxygen 45 Intake/Output Intake/Output: Intake & Output 10/19/24 10/20/24 10/21/24 10/22/24 23:59 23:59 23:59 23:59 Intake Total 3151.3 3695.5 3632.3 846.3 Output Total 1 850 800 250 Balance 3150.3 2845.5 2832.3 596.3 Meds/Results Medications: Active Medications Generic Name Dose Route Start Last Admin Trade Name Freq PRN Reason Stop Dose Admin Acetaminophen 650 mg 10/16/24 12:34 10/18/24 11:25 Acetaminophen 325 Mg Tablet PO 650 mg Q4H PRN Administration Mild Pain (1-3) or Fever Albuterol 2.5 mg 10/18/24 14:45 Albuterol Sulfate Neb 2.5 Mg/3 Ml Inh INHALATION QID PRN shortness of breath or wheezing Albuterol/Ipratropium 3 ml 10/16/24 14:00 10/22/24 08:11 Ipratropium 0.5 Mg/Albuterol Sulfate 2.5 Mg Ampul.Neb 3 Ml INHALATION 3 ml Q6HRT CROW Administration Alprazolam 0.5 mg 10/16/24 21:47 10/18/24 11:25 Alprazolam (*Crx) 0.5 Mg Tablet PO 0.5 mg DAILY PRN Administration anxiety] Alprazolam 0.5 mg 10/17/24 21:00 10/19/24 22:13 Alprazolam (*Crx) 0.5 Mg Tablet PO Not Given HS CROW Dextrose 12.5 gm 10/22/24 07:51 Dextrose 50% 25 Gm/50 Ml Syringe IV PUSH PRN PRN Hypoglycemia Protocol Dicyclomine HCl 20 mg 10/19/24 14:03 10/19/24 14:11 Dicyclomine Hcl 10 Mg Capsule PO 20 mg QID PRN Administration Abdominal Cramping Dronedarone 400 mg 10/16/24 09:00 10/21/24 08:00 Dronedarone Hcl 400 Mg Tablet BY MOUTH Not Given Q12HR CROW Glucagon 1 mg 10/22/24 07:51 Glucagon For Inj 1 Mg Vial IM PRN PRN Hypoglycemia Protocol Glucose 15 gm 10/22/24 07:51 Glucose Oral Gel 15 Gm Of Glucse In 37.5 Gm Tube PO PRN PRN Hypoglycemia Protocol Hydrocortisone Sodium Succinate 100 mg 10/21/24 11:10 10/22/24 05:39 Hydrocortisone Sodium Succinate 100 Mg/2 Ml Vial IV PUSH 100 mg Q8HR CROW Administration Cefepime HCl 2 gm in 50 mls @ 100 mls/hr 10/19/24 20:00 10/22/24 04:27 Maxipime 2 Gm/Ns 50 Ml IVPB Infused Q8H CROW Infusion Norepinephrine Bitartrate 8 mg in 250 mls @ 18.75 mls/hr 10/20/24 09:00 10/22/24 08:04 Levophed 8 Mg/D5w 250 Ml IV CONT 10 mcg/min .[id number] CROW 18.75 mls/hr Titration Protocol 10 MCG/MIN Fentanyl Citrate 2,500 mcg in 250 mls @ 5 mls/hr 10/20/24 10:20 10/22/24 08:00 Fentanyl 2,500 Mcg/Ns 250 Ml IV CONT 50 mcg/hr .Q50H CROW 5 mls/hr Titration Protocol 50 MCG/HR Midazolam HCl 100 mg in 100 mls @ 3 mls/hr 10/20/24 10:20 10/22/24 08:00 Versed 100 Mg/Ns 100 Ml IV CONT 3 mg/hr .[id number] CROW 3 mls/hr Titration Protocol 3 MG/HR Phenylephrine HCl 50 mg/ 250 mls @ 54 mls/hr 10/20/24 22:35 10/22/24 08:00 Sodium Chloride IV CONT 180 mcg/min .[id number] CROW 54 mls/hr Titration Protocol 180 MCG/MIN Vasopressin 100 units/ 100 mls @ 1.8 mls/hr 10/21/24 06:05 10/22/24 08:00 Dextrose IV CONT 0.03 units/min .[id number] CROW 1.8 mls/hr Titration Protocol 0.03 UNITS/MIN Vancomycin HCl 1,250 mg in 250 mls @ 166.667 mls/hr 10/21/24 10:00 10/21/24 23:31 Vancomycin 1,250 Mg/Ns 250 Ml IVPB Infused Q12H CROW Infusion Epinephrine HCl 4 mg/ Dextrose 254 mls @ 7.62 mls/hr 10/21/24 14:00 10/22/24 07:41 IV CONT Not Given .Q24H CROW Protocol 2 MCG/MIN Dextrose 1,000 mls @ 100 mls/hr 10/22/24 07:51 Dextrose 5% 1,000 Ml IVPB PRN PRN Hypoglycemia Protocol Insulin Aspart 3 - 6 units 10/22/24 12:00 Insulin Aspart (*Bkc) 100 Units/Ml SUB-Q Q6HR CROW Protocol Losartan Potassium 50 mg 10/19/24 09:00 10/19/24 10:23 Losartan Potassium 50 Mg Tablet PO 50 mg DAILY CROW Administration Methimazole 5 mg 10/17/24 09:00 10/21/24 08:01 Methimazole 5 Mg Tab BY MOUTH Not Given [email or web address] [facility] Miscellaneous Information 1 each 10/21/24 00:01 10/22/24 07:41 Ivs All In Ns If Possible XX 11/20/24 00:00 Not Given CLARIFY CROW Multi-Ingred Cream/Lotion/Oil/Oint 1 applic 10/20/24 21:00 10/22/24 08:18 Mineral Oil/White Petrolatum Ointment EACH EYE 1 applic Q12HR CROW Administration Ondansetron HCl 4 mg 10/20/24 07:35 Ondansetron Inj 4 Mg/2 Ml Vial IV PUSH Q4H PRN Nausea And Vomiting Pantoprazole Sodium 40 mg 10/20/24 21:00 10/22/24 08:18 Pantoprazole Sodium Iv 40 Mg Vial IV PUSH 40 mg Q12HR CROW Administration Polyethylene Glycol 17 gm 10/19/24 12:20 Polyethylene Glycol 3350 17 Gm Powd.Pack PO QAM PRN Constipation Sodium Chloride 1 gm 10/18/24 18:15 10/20/24 16:39 Sodium Chloride 1 Gm Tablet PO Not Given BID CROW Sodium Chloride 20 ml 10/20/24 08:59 Central Line Flush IV PUSH PRN PRN after blood draws Sodium Chloride 10 ml 10/20/24 08:59 Central Line Flush IV PUSH PRN PRN with TPN bag changes Sodium Chloride 10 ml 10/20/24 14:00 10/22/24 05:38 Central Line Flush IV PUSH 10 ml Q8HR CROW Administration Umeclidinium/Vilanterol 1 puff 10/17/24 08:00 10/21/24 14:12 Umeclidinium/Vilanterol 62.5-25 Mcg Ellipta INHALATION Not Given DAILYRT CROW Radiology Results: ITS Impressions Venous Doppler Study 10/20/24 08:31 IMPRESSION: 1: No lower extremity deep venous thrombosis. Abdomen X-Ray 10/21/24 11:06 IMPRESSION: 1. Distended transverse colon, likely adynamic ileus. 2. Stable moderate-sized right pleural effusion. 3. Diffuse lung disease, consistent with pulmonary edema versus pneumonia. Labs Labs: Laboratory Results - last 24 hr 10/21/24 10/21/24 10/21/24 08:31 09:09 12:12 WBC RBC Hgb Hct MCV MCH MCHC RDW Plt Count MPV Immature Gran % (Auto) Neut % (Auto) Lymph % (Auto) [place] % (Auto) Eos % (Auto) Baso % (Auto) Lymph # (Auto) [place] # (Auto) Eos # (Auto) Baso # (Auto) Abs Immat Gran (auto) Absolute Neuts (auto) Absolute Nucleated RBC Nucleated RBC % Platelet Estimate % Immature Plt Fraction Poikilocytosis Anisocytosis Ovalocytes H[place]ckley Cells Schistocytes Puncture Site Right femoral ABG pH 7.295 L* ABG pCO2 37.4 ABG pO2 67.2 L ABG PO2/FiO2 Ratio 1.34 ABG HCO3 17.8 L ABG O2 Saturation 91.5 L ABG O2 Content 12.5 L ABG Base Excess -8.0 A-a Gradient 247.2 Oxyhemoglobin 88.4 L Carboxyhemoglobin Methemoglobin Reduced Hemoglobin Total Hemoglobin 10.0 L O2 Delivery Device Ventilator O2 Liters/Min Not Reportable Minute Volume Not Reportable Vent Rate 18 Vent Mode Cmv FiO2 50 Tidal Volume 480 PEEP 5 Peak Inspir Pressure Not Reportable Pressure Support Not Reportable Sodium Potassium Chloride Carbon Dioxide Anion Gap BUN Creatinine Estim Creat Clear Calc Estimated GFR Glucose POC Capillary Glucose Lactic Acid 2.3 H Calcium Phosphorus Magnesium Total Bilirubin AST ALT Alkaline Phosphatase Total Protein Albumin Vancomycin Trough 11.5 10/21/24 10/22/24 10/22/24 17:07 00:00 05:06 WBC 13.8 H RBC 2.82 L Hgb 8.9 L Hct 26.5 L MCV 94.0 MCH 31.6 MCHC 33.6 RDW 15.1 H Plt Count 40 L MPV 11.0 H Immature Gran % (Auto) 0.9 H Neut % (Auto) 91.6 H Lymph % (Auto) 3.1 L Hend[place] % (Auto) 4.3 Eos % (Auto) 0.0 Baso % (Auto) 0.1 L Lymph # (Auto) 0.43 L [place] # (Auto) 0.6 Eos # (Auto) 0.0 Baso # (Auto) 0.0 Abs Immat Gran (auto) 0.13 H Absolute Neuts (auto) 12.7 H Absolute Nucleated RBC 0.100 H Nucleated RBC % 0.7 H Platelet Estimate Decreased % Immature Plt Fraction 8.5 Poikilocytosis 1+ Anisocytosis 1+ Ovalocytes 1+ Hinckley Cells 1+ Schistocytes Rare Puncture Site Artline ABG pH 7.338 L ABG pCO2 32.2 L ABG pO2 96.1 ABG PO2/FiO2 Ratio 1.92 ABG HCO3 16.9 L ABG O2 Saturation 97.0 ABG O2 Content 12.7 L ABG Base Excess -8.0 A-a Gradient 224.2 Oxyhemoglobin 95.7 Carboxyhemoglobin 0.8 Methemoglobin 0.1 Reduced Hemoglobin 3.4 Total Hemoglobin 9.3 L O2 Delivery Device Ventilator O2 Liters/Min Not Reportable Minute Volume Not Reportable Vent Rate 20 Vent Mode Cmv FiO2 50 Tidal Volume 480 PEEP 5 Peak Inspir Pressure Not Reportable Pressure Support Not Reportable Sodium 131 L Potassium 5.1 H Chloride 101 Carbon Dioxide 21 L Anion Gap 9 BUN 49 H Creatinine 1.55 H Estim Creat Clear Calc 41 Estimated GFR 45 L Glucose 133 H POC Capillary Glucose 123 H 125 H Lactic Acid 4.3 H* Calcium 7.3 L Phosphorus 4.7 H Magnesium 2.2 Total Bilirubin 3.8 H AST 4470 H ALT 3545 H Alkaline Phosphatase 76 Total Protein 5.0 L Albumin 2.9 L Vancomycin Trough
[2024-10-22 08:50] LABS: Hepatitis B Surface Antigen Negative (Negative)
[2024-10-22 08:56] LABS: HAV RESULT Negative (Negative); Hepatitis B Core IgM Result Negative (Negative)
[2024-10-22 09:07] LABS: Hepatitis C Virus Antibody Negative (Negative)
[2024-10-22 09:10] LABS: Lactic Acid 4.9 mmol/L (0.7-2.0)
[2024-10-22] MEDS: AMIODARONE 150 MG/D5W 100 ML 150 MG/100 ML BAG 600 MG IV CONT (09:15)
--- NOTE | 2024-10-22 09:21 | P.PNNP_ITS ---
Progress Note: A&P Assessment and Plan (1) Hyponatremia: Code(s): E87.1 - Hypo-osmolality and hyponatremia Status: Acute Assessment and Plan: * chronic issue at baseline. Baseline sodium 123-129 * multiple risk factors: * known history of COPD * CHF * thyroid disease * PPI use * nausea * distant history alcohol abuse * history suggests SIADH with previous outpatient work-up (January 2024) noted: * prerenal urine electrolytes * known history of hyperthyroidism * cortisol okay * SPE and UPE negative * urine osmo > serum osmo * previous CXR with COPD changes * previous CT of head negative * Sodium is nabout the same. * Improving at a good rate. * Potassium is up again. getting more bicarb which will help the K * The patient has a lactic acidosis. Lactate level is back up today as well as AG and Co2 is down some. getting bicarb. * Discussed with Dr Heart (2) Pneumonia: Code(s): J18.9 - Pneumonia, unspecified organism Status: Acute Assessment and Plan: * imaging with bilateral perihilar and lower lobe pneumonia * on supplemental oxygen and nebulizer treatment * on antibiotics therapy * Blood cultures negative to date. * He is on the ventilator (3) Hypertension: Qualifiers: Hypertension type: essential hypertension Qualified Code(s): I10 - Essential (primary) hypertension Code(s): I10 - Essential (primary) hypertension Status: Acute Assessment and Plan: * Off antihypertensives because of the hypotension (4) Paroxysmal atrial fibrillation: Code(s): I48.0 - Paroxysmal atrial fibrillation Status: Acute Assessment and Plan: * in sinus rhythm * holding anticoagulation due to issues with hemoptysis on admission * Heart rate okay * Cardiology following (5) Hyperthyroidism: Code(s): E05.90 - Thyrotoxicosis, unspecified without thyrotoxic crisis or storm Status: Acute Assessment and Plan: * continue methimazole * TSH and T4 within range (6) Septic shock: Code(s): A41.9 - Sepsis, unspecified organism; R65.21 - Severe sepsis with septic shock Status: Acute Assessment and Plan: Sepsis. Due to infection and with electroytes, distended abd, and xray findings, things point to the GI tract as suspect in all of this. since this is a significant issue, a CT with contrast would be okay to do from a renal standpoint. his creatinine may worsen but info from the Ct may balance this risk. Getting antibiotics and pressors Subjective Date/time seen: 10/22/24 09:21 Interval history: patient is on the vent and sedated. Much sicker overall. Blood pressure is lower, on 4 pressors overnight and 3 now, CO2 is worse, anion gap is up, lactic acid is up. Exam Narrative: General: elderly but WD/WN male in NAD Heart: normal S1 and S2; no rub or gallop Lungs: coarse breath sounds; diminished at bases Abdomen: soft but distended, fewer bowel sounds. Extremities: no edema Skin: warm and dry without rash Objective Data Vital Signs Vital Signs: Vital Signs - 24 hr 10/21/24 10:00 10/21/24 10:00 10/21/24 10:00 Temperature 100.7 F H Pulse Rate 103 H 103 H 103 H Respiratory Rate 18 Blood Pressure 98/52 L 98/52 L 98/52 L Pulse Oximetry 95 Oxygen Delivery Fraction of Inspired Oxygen 10/21/24 10:00 10/21/24 10:00 10/21/24 10:00 Temperature Pulse Rate 103 H 103 H 103 H Respiratory Rate 18 18 Blood Pressure Pulse Oximetry Oxygen Delivery Fraction of Inspired Oxygen 10/21/24 10:00 10/21/24 11:06 10/21/24 11:10 Temperature Pulse Rate 103 H 105 H 106 H Respiratory Rate Blood Pressure 74/28 L Pulse Oximetry 96 Oxygen Delivery Mechanical Ventilation Fraction of Inspired Oxygen 50 10/21/24 11:15 10/21/24 11:17 10/21/24 11:47 Temperature Pulse Rate 105 H 105 H 108 H Respiratory Rate Blood Pressure 74/28 L 74/28 L Pulse Oximetry Oxygen Delivery Fraction of Inspired Oxygen 10/21/24 11:47 10/21/24 12:00 10/21/24 12:00 Temperature 100.8 F H Pulse Rate 108 H 108 H 108 H Respiratory Rate 19 Blood Pressure 57/25 L 88/75 L 88/75 L Pulse Oximetry 92 Oxygen Delivery Fraction of Inspired Oxygen 10/21/24 12:00 10/21/24 12:00 10/21/24 12:00 Temperature Pulse Rate 108 H 108 H 108 H Respiratory Rate 19 2 L Blood Pressure 88/75 L Pulse Oximetry Oxygen Delivery Fraction of Inspired Oxygen 10/21/24 12:00 10/21/24 12:00 10/21/24 12:00 Temperature Pulse Rate 105 H Respiratory Rate Blood Pressure Pulse Oximetry 92 Oxygen Delivery Mechanical Ventilation Fraction of Inspired Oxygen 50 10/21/24 12:00 10/21/24 12:04 10/21/24 12:11 Temperature Pulse Rate 108 H 105 H 105 H Respiratory Rate Blood Pressure 91/50 L 88/36 L Pulse Oximetry Oxygen Delivery Fraction of Inspired Oxygen 10/21/24 12:11 10/21/24 13:00 10/21/24 13:52 Temperature Pulse Rate 104 H 106 H 106 H Respiratory Rate 210 H Blood Pressure 88/75 L 117/60 Pulse Oximetry Oxygen Delivery Fraction of Inspired Oxygen 10/21/24 14:00 10/21/24 14:00 10/21/24 14:02 Temperature 100.6 F H Pulse Rate 104 H 103 H 106 H Respiratory Rate 18 Blood Pressure 131/74 121/65 Pulse Oximetry 94 Oxygen Delivery Fraction of Inspired Oxygen 10/21/24 14:10 10/21/24 14:10 10/21/24 14:21 Temperature Pulse Rate 105 H 105 H 104 H Respiratory Rate 20 Blood Pressure 129/70 Pulse Oximetry 93 Oxygen Delivery Mechanical Ventilation Fraction of Inspired Oxygen 50 10/21/24 14:26 10/21/24 14:26 10/21/24 14:35 Temperature Pulse Rate 104 H 104 H 104 H Respiratory Rate 20 20 20 Blood Pressure Pulse Oximetry Oxygen Delivery Fraction of Inspired Oxygen 10/21/24 14:45 10/21/24 15:00 10/21/24 15:52 Temperature Pulse Rate 102 H 102 H 102 H Respiratory Rate Blood Pressure 122/66 106/58 L Pulse Oximetry Oxygen Delivery Fraction of Inspired Oxygen 10/21/24 15:52 10/21/24 15:55 10/21/24 16:00 Temperature 100.5 F H Pulse Rate 102 H 101 H 101 H Respiratory Rate 20 Blood Pressure 106/58 L 117/64 127/69 Pulse Oximetry 93 Oxygen Delivery Fraction of Inspired Oxygen 10/21/24 16:00 10/21/24 16:00 10/21/24 16:00 Temperature Pulse Rate 102 H 102 H 102 H Respiratory Rate 21 H Blood Pressure 140/79 140/79 Pulse Oximetry Oxygen Delivery Fraction of Inspired Oxygen 10/21/24 16:00 10/21/24 16:00 10/21/24 16:00 Temperature Pulse Rate 102 H 102 H Respiratory Rate 21 H Blood Pressure 140/79 Pulse Oximetry 94 Oxygen Delivery Mechanical Ventilation Fraction of Inspired Oxygen 10/21/24 16:00 10/21/24 16:00 10/21/24 16:05 Temperature Pulse Rate 101 H 101 H Respiratory Rate Blood Pressure 140/79 Pulse Oximetry Oxygen Delivery Fraction of Inspired Oxygen 50 10/21/24 16:10 10/21/24 16:15 10/21/24 16:20 Temperature Pulse Rate 101 H 102 H 102 H Respiratory Rate Blood Pressure 136/76 137/76 135/76 Pulse Oximetry Oxygen Delivery Fraction of Inspired Oxygen 10/21/24 16:31 10/21/24 16:31 10/21/24 16:32 Temperature Pulse Rate 101 H 101 H 101 H Respiratory Rate Blood Pressure 130/72 130/72 128/71 Pulse Oximetry Oxygen Delivery Fraction of Inspired Oxygen 10/21/24 17:05 10/21/24 17:06 10/21/24 17:09 Temperature Pulse Rate 98 98 98 Respiratory Rate Blood Pressure 118/65 120/66 117/65 Pulse Oximetry Oxygen Delivery Fraction of Inspired Oxygen 10/21/24 17:15 10/21/24 17:18 10/21/24 18:00 Temperature 100.5 F H Pulse Rate 94 106 H 94 Respiratory Rate 20 Blood Pressure 125/69 126/69 Pulse Oximetry 93 98 Oxygen Delivery Mechanical Ventilation Fraction of Inspired Oxygen 50 10/21/24 18:00 10/21/24 18:01 10/21/24 18:03 Temperature Pulse Rate 95 94 94 Respiratory Rate Blood Pressure 126/70 127/70 Pulse Oximetry Oxygen Delivery Fraction of Inspired Oxygen 10/21/24 18:03 10/21/24 18:04 10/21/24 18:04 Temperature Pulse Rate 94 94 95 Respiratory Rate 20 20 Blood Pressure 126/69 Pulse Oximetry Oxygen Delivery Fraction of Inspired Oxygen 10/21/24 18:32 10/21/24 18:32 10/21/24 19:00 Temperature 100.4 F H Pulse Rate 94 98 Respiratory Rate 20 Blood Pressure 121/65 113/61 Pulse Oximetry 90 Oxygen Delivery Fraction of Inspired Oxygen 60 10/21/24 19:00 10/21/24 19:00 10/21/24 19:30 Temperature Pulse Rate 98 98 86 Respiratory Rate Blood Pressure 113/61 113/61 88/50 L Pulse Oximetry Oxygen Delivery Fraction of Inspired Oxygen 10/21/24 20:00 10/21/24 20:00 10/21/24 20:00 Temperature Pulse Rate 95 95 95 Respiratory Rate 20 Blood Pressure 110/60 110/60 Pulse Oximetry Oxygen Delivery Fraction of Inspired Oxygen 10/21/24 20:00 10/21/24 20:00 10/21/24 20:00 Temperature 100.1 F H Pulse Rate 95 95 95 Respiratory Rate 20 20 Blood Pressure 110/60 110/60 Pulse Oximetry 91 Oxygen Delivery Fraction of Inspired Oxygen 10/21/24 20:00 10/21/24 20:00 10/21/24 20:00 Temperature Pulse Rate 94 Respiratory Rate Blood Pressure Pulse Oximetry 91 Oxygen Delivery Mechanical Ventilation Fraction of Inspired Oxygen 60 60 10/21/24 20:15 10/21/24 20:30 10/21/24 20:30 Temperature Pulse Rate 95 95 95 Respiratory Rate Blood Pressure 113/62 116/64 116/64 Pulse Oximetry Oxygen Delivery Fraction of Inspired Oxygen 10/21/24 21:00 10/21/24 21:00 10/21/24 21:11 Temperature 99.7 F H Pulse Rate 92 92 95 Respiratory Rate 20 Blood Pressure 106/58 L 106/58 L 123/67 Pulse Oximetry 94 Oxygen Delivery Fraction of Inspired Oxygen 10/21/24 21:11 10/21/24 21:13 10/21/24 21:13 Temperature Pulse Rate 95 95 95 Respiratory Rate 20 20 Blood Pressure 123/67 Pulse Oximetry Oxygen Delivery Fraction of Inspired Oxygen 10/21/24 21:15 10/21/24 21:30 10/21/24 21:32 Temperature Pulse Rate 95 94 95 Respiratory Rate 20 Blood Pressure 123/68 124/69 Pulse Oximetry Oxygen Delivery Fraction of Inspired Oxygen 10/21/24 21:34 10/21/24 21:38 10/21/24 21:43 Temperature Pulse Rate 95 95 94 Respiratory Rate 20 Blood Pressure 145/80 H Pulse Oximetry 91 Oxygen Delivery Mechanical Ventilation Fraction of Inspired Oxygen 60 10/21/24 22:00 10/21/24 22:00 10/21/24 22:00 Temperature Pulse Rate 94 94 94 Respiratory Rate 20 Blood Pressure 115/64 115/64 Pulse Oximetry Oxygen Delivery Fraction of Inspired Oxygen 10/21/24 22:00 10/21/24 22:00 10/21/24 22:00 Temperature 99.6 F Pulse Rate 94 94 94 Respiratory Rate 20 20 Blood Pressure 115/64 115/64 Pulse Oximetry 90 Oxygen Delivery Fraction of Inspired Oxygen 10/21/24 22:00 10/21/24 22:15 10/21/24 22:23 Temperature Pulse Rate 94 94 95 Respiratory Rate Blood Pressure 113/63 109/60 Pulse Oximetry Oxygen Delivery Fraction of Inspired Oxygen 10/21/24 22:23 10/21/24 22:30 10/21/24 22:45 Temperature Pulse Rate 95 95 106 H Respiratory Rate Blood Pressure 109/60 109/61 104/61 Pulse Oximetry Oxygen Delivery Fraction of Inspired Oxygen 10/21/24 22:49 10/21/24 23:00 10/21/24 23:00 Temperature 99.6 F Pulse Rate 113 H 113 H Respiratory Rate 20 Blood Pressure 102/62 102/62 Pulse Oximetry 92 Oxygen Delivery Fraction of Inspired Oxygen 70 10/21/24 23:00 10/21/24 23:00 10/21/24 23:15 Temperature Pulse Rate 113 H 113 H 114 H Respiratory Rate Blood Pressure 103/63 102/62 102/63 Pulse Oximetry Oxygen Delivery Fraction of Inspired Oxygen 10/21/24 23:18 10/21/24 23:30 10/21/24 23:48 Temperature Pulse Rate 112 H 113 H 109 H Respiratory Rate Blood Pressure 103/63 91/53 L Pulse Oximetry 92 Oxygen Delivery Mechanical Ventilation Fraction of Inspired Oxygen 70 10/22/24 00:00 10/22/24 00:00 10/22/24 00:00 Temperature 99.6 F Pulse Rate 96 Respiratory Rate 20 Blood Pressure 85/47 L Pulse Oximetry 97 97 Oxygen Delivery Mechanical Ventilation Fraction of Inspired Oxygen 60 70 10/22/24 00:00 10/22/24 00:00 10/22/24 00:00 Temperature Pulse Rate 96 96 96 Respiratory Rate Blood Pressure 85/47 L 85/47 L 85/47 L Pulse Oximetry Oxygen Delivery Fraction of Inspired Oxygen 10/22/24 00:00 10/22/24 00:00 10/22/24 00:00 Temperature Pulse Rate 96 96 90 Respiratory Rate 20 20 Blood Pressure Pulse Oximetry Oxygen Delivery Fraction of Inspired Oxygen 10/22/24 00:15 10/22/24 00:15 10/22/24 00:15 Temperature Pulse Rate 93 92 92 Respiratory Rate 20 Blood Pressure 124/71 118/68 118/68 Pulse Oximetry 93 Oxygen Delivery Fraction of Inspired Oxygen 10/22/24 00:57 10/22/24 00:57 10/22/24 01:00 Temperature Pulse Rate 90 90 89 Respiratory Rate Blood Pressure 122/70 122/70 122/70 Pulse Oximetry Oxygen Delivery Fraction of Inspired Oxygen 10/22/24 01:00 10/22/24 01:00 10/22/24 01:00 Temperature 99.5 F Pulse Rate 89 89 90 Respiratory Rate 20 Blood Pressure 122/70 122/70 122/70 Pulse Oximetry 94 Oxygen Delivery Fraction of Inspired Oxygen 10/22/24 01:15 10/22/24 01:15 10/22/24 02:00 Temperature Pulse Rate 89 89 88 Respiratory Rate Blood Pressure 120/68 120/68 123/70 Pulse Oximetry Oxygen Delivery Fraction of Inspired Oxygen 10/22/24 02:00 10/22/24 02:00 10/22/24 02:00 Temperature Pulse Rate 88 88 88 Respiratory Rate 20 20 Blood Pressure 123/70 Pulse Oximetry Oxygen Delivery Fraction of Inspired Oxygen 10/22/24 02:00 10/22/24 02:00 10/22/24 02:00 Temperature 99.5 F Pulse Rate 88 88 88 Respiratory Rate 20 Blood Pressure 123/70 123/70 Pulse Oximetry 99 Oxygen Delivery Fraction of Inspired Oxygen 10/22/24 02:08 10/22/24 02:13 10/22/24 02:15 Temperature Pulse Rate 87 87 Respiratory Rate 20 Blood Pressure Pulse Oximetry 99 Oxygen Delivery Mechanical Ventilation Fraction of Inspired Oxygen 60 60 10/22/24 02:15 10/22/24 02:20 10/22/24 02:30 Temperature Pulse Rate 86 86 88 Respiratory Rate 20 Blood Pressure 124/70 118/66 Pulse Oximetry Oxygen Delivery Fraction of Inspired Oxygen 10/22/24 02:45 10/22/24 03:00 10/22/24 03:00 Temperature Pulse Rate 85 85 85 Respiratory Rate Blood Pressure 114/65 108/62 109/61 Pulse Oximetry Oxygen Delivery Fraction of Inspired Oxygen 10/22/24 03:00 10/22/24 03:15 10/22/24 03:30 Temperature Pulse Rate 85 84 84 Respiratory Rate Blood Pressure 105/61 106/60 108/61 Pulse Oximetry Oxygen Delivery Fraction of Inspired Oxygen 10/22/24 03:45 10/22/24 04:00 10/22/24 04:00 Temperature Pulse Rate 83 83 83 Respiratory Rate Blood Pressure 105/61 108/62 108/62 Pulse Oximetry Oxygen Delivery Fraction of Inspired Oxygen 10/22/24 04:00 10/22/24 04:00 10/22/24 04:00 Temperature Pulse Rate 83 83 83 Respiratory Rate 20 20 Blood Pressure 108/62 Pulse Oximetry Oxygen Delivery Fraction of Inspired Oxygen 10/22/24 04:00 10/22/24 04:00 10/22/24 04:00 Temperature 99.3 F Pulse Rate 83 Respiratory Rate 20 Blood Pressure 108/62 Pulse Oximetry 99 99 Oxygen Delivery Mechanical Ventilation Fraction of Inspired Oxygen 50 50 10/22/24 04:00 10/22/24 04:06 10/22/24 04:15 Temperature Pulse Rate 85 81 Respiratory Rate Blood Pressure 95/54 L Pulse Oximetry Oxygen Delivery Mechanical Ventilation Fraction of Inspired Oxygen 50 10/22/24 04:15 10/22/24 04:45 10/22/24 05:00 Temperature Pulse Rate 81 80 86 Respiratory Rate Blood Pressure 95/54 L 75/44 L 94/53 L Pulse Oximetry Oxygen Delivery Fraction of Inspired Oxygen 10/22/24 05:00 10/22/24 05:00 10/22/24 05:00 Temperature 99.2 F Pulse Rate 81 81 81 Respiratory Rate 20 Blood Pressure 94/53 L 94/53 L 94/53 L Pulse Oximetry 96 Oxygen Delivery Fraction of Inspired Oxygen 10/22/24 05:20 10/22/24 05:30 10/22/24 05:37 Temperature Pulse Rate 82 81 83 Respiratory Rate Blood Pressure 70/40 L 104/62 Pulse Oximetry 96 Oxygen Delivery Mechanical Ventilation Fraction of Inspired Oxygen 45 10/22/24 05:37 10/22/24 05:42 10/22/24 06:00 Temperature Pulse Rate 83 83 Respiratory Rate Blood Pressure 104/62 97/56 L Pulse Oximetry Oxygen Delivery Fraction of Inspired Oxygen 45 10/22/24 06:00 10/22/24 06:00 10/22/24 06:00 Temperature Pulse Rate 83 83 83 Respiratory Rate 20 20 Blood Pressure 97/56 L Pulse Oximetry Oxygen Delivery Fraction of Inspired Oxygen 10/22/24 06:00 10/22/24 06:00 10/22/24 06:00 Temperature 99.3 F Pulse Rate 83 83 83 Respiratory Rate 20 Blood Pressure 97/56 L 97/56 L Pulse Oximetry 96 Oxygen Delivery Fraction of Inspired Oxygen 10/22/24 08:00 10/22/24 08:00 10/22/24 08:00 Temperature Pulse Rate 81 81 81 Respiratory Rate 20 Blood Pressure 98/55 L 98/55 L Pulse Oximetry Oxygen Delivery Fraction of Inspired Oxygen 10/22/24 08:00 10/22/24 08:00 10/22/24 08:04 Temperature Pulse Rate 81 81 81 Respiratory Rate 20 Blood Pressure 98/55 L 85/48 L Pulse Oximetry Oxygen Delivery Fraction of Inspired Oxygen 10/22/24 08:12 10/22/24 08:13 10/22/24 08:21 Temperature Pulse Rate 83 83 84 Respiratory Rate 20 20 Blood Pressure Pulse Oximetry 95 Oxygen Delivery Mechanical Ventilation Fraction of Inspired Oxygen 45 10/22/24 08:22 10/22/24 08:35 Temperature Pulse Rate Respiratory Rate Blood Pressure Pulse Oximetry 95 Oxygen Delivery Mechanical Ventilation Mechanical Ventilation Fraction of Inspired Oxygen 45 100 Intake/Output Intake/Output: Intake & Output 10/19/24 10/20/24 10/21/24 10/22/24 23:59 23:59 23:59 23:59 Intake Total 3151.3 3695.5 3632.3 846.3 Output Total 1 850 800 250 Balance 3150.3 2845.5 2832.3 596.3 Meds/Results Medications: Active Medications Generic Name Dose Route Start Last Admin Trade Name Freq PRN Reason Stop Dose Admin Acetaminophen 650 mg 10/16/24 12:34 10/18/24 11:25 Acetaminophen 325 Mg Tablet PO 650 mg Q4H PRN Administration Mild Pain (1-3) or Fever Albuterol 2.5 mg 10/18/24 14:45 Albuterol Sulfate Neb 2.5 Mg/3 Ml Inh INHALATION QID PRN shortness of breath or wheezing Albuterol/Ipratropium 3 ml 10/16/24 14:00 10/22/24 08:11 Ipratropium 0.5 Mg/Albuterol Sulfate 2.5 Mg Ampul.Neb 3 Ml INHALATION 3 ml Q6HRT CROW Administration Alprazolam 0.5 mg 10/16/24 21:47 10/18/24 11:25 Alprazolam (*Crx) 0.5 Mg Tablet PO 0.5 mg DAILY PRN Administration anxiety] Alprazolam 0.5 mg 10/17/24 21:00 10/19/24 22:13 Alprazolam (*Crx) 0.5 Mg Tablet PO Not Given HS CROW Dextrose 12.5 gm 10/22/24 07:51 Dextrose 50% 25 Gm/50 Ml Syringe IV PUSH PRN PRN Hypoglycemia Protocol Dicyclomine HCl 20 mg 10/19/24 14:03 10/19/24 14:11 Dicyclomine Hcl 10 Mg Capsule PO 20 mg QID PRN Administration Abdominal Cramping Dronedarone 400 mg 10/16/24 09:00 10/21/24 08:00 Dronedarone Hcl 400 Mg Tablet BY MOUTH Not Given Q12HR CROW Glucagon 1 mg 10/22/24 07:51 Glucagon For Inj 1 Mg Vial IM PRN PRN Hypoglycemia Protocol Glucose 15 gm 10/22/24 07:51 Glucose Oral Gel 15 Gm Of Glucse In 37.5 Gm Tube PO PRN PRN Hypoglycemia Protocol Hydrocortisone Sodium Succinate 100 mg 10/21/24 11:10 10/22/24 05:39 Hydrocortisone Sodium Succinate 100 Mg/2 Ml Vial IV PUSH 100 mg Q8HR CROW Administration Cefepime HCl 2 gm in 50 mls @ 100 mls/hr 10/19/24 20:00 10/22/24 04:27 Maxipime 2 Gm/Ns 50 Ml IVPB Infused Q8H CROW Infusion Norepinephrine Bitartrate 8 mg in 250 mls @ 18.75 mls/hr 10/20/24 09:00 10/22/24 08:04 Levophed 8 Mg/D5w 250 Ml IV CONT 10 mcg/min .[id number] CROW 18.75 mls/hr Titration Protocol 10 MCG/MIN Fentanyl Citrate 2,500 mcg in 250 mls @ 5 mls/hr 10/20/24 10:20 10/22/24 08:00 Fentanyl 2,500 Mcg/Ns 250 Ml IV CONT 50 mcg/hr .Q50H CROW 5 mls/hr Titration Protocol 50 MCG/HR Midazolam HCl 100 mg in 100 mls @ 3 mls/hr 10/20/24 10:20 10/22/24 08:00 Versed 100 Mg/Ns 100 Ml IV CONT 3 mg/hr .[id number] CROW 3 mls/hr Titration Protocol 3 MG/HR Phenylephrine HCl 50 mg/ 250 mls @ 54 mls/hr 10/20/24 22:35 10/22/24 08:00 Sodium Chloride IV CONT 180 mcg/min .[id number] CROW 54 mls/hr Titration Protocol 180 MCG/MIN Vasopressin 100 units/ 100 mls @ 1.8 mls/hr 10/21/24 06:05 10/22/24 08:00 Dextrose IV CONT 0.03 units/min .[id number] CROW 1.8 mls/hr Titration Protocol 0.03 UNITS/MIN Vancomycin HCl 1,250 mg in 250 mls @ 166.667 mls/hr 10/21/24 10:00 10/21/24 23:31 Vancomycin 1,250 Mg/Ns 250 Ml IVPB Infused Q12H CROW Infusion Epinephrine HCl 4 mg/ Dextrose 254 mls @ 7.62 mls/hr 10/21/24 14:00 10/22/24 07:41 IV CONT Not Given .Q24H CROW Protocol 2 MCG/MIN Dextrose 1,000 mls @ 100 mls/hr 10/22/24 07:51 Dextrose 5% 1,000 Ml IVPB PRN PRN Hypoglycemia Protocol Metronidazole 500 mg in 100 mls @ 100 mls/hr 10/22/24 10:00 Flagyl 500 Mg/Iso Soln 100 Ml IVPB Q8H CROW Amiodarone HCl/Dextrose 150 mg in 100 mls @ 600 mls/hr 10/22/24 09:20 Nexterone 150 Mg/D5w 100 Ml IV CONT 10/22/24 09:29 .Q10M ONE Protocol 15 MG/MIN Amiodarone HCl/Dextrose 360 mg in 200 mls @ 33.333 mls/hr 10/22/24 09:20 Nexterone 360 Mg/D5w 200 Ml IV CONT 10/22/24 15:19 .Q6H ONE Protocol 1 MG/MIN Amiodarone HCl/Dextrose 360 mg in 200 mls @ 16.667 mls/hr 10/22/24 09:20 Nexterone 360 Mg/D5w 200 Ml IV CONT 10/23/24 03:19 .Q12H CROW Protocol 0.5 MG/MIN Insulin Aspart 3 - 6 units 10/22/24 12:00 Insulin Aspart (*Bkc) 100 Units/Ml SUB-Q Q6HR CROW Protocol Losartan Potassium 50 mg 10/19/24 09:00 10/19/24 10:23 Losartan Potassium 50 Mg Tablet PO 50 mg DAILY CROW Administration Methimazole 5 mg 10/17/24 09:00 10/21/24 08:01 Methimazole 5 Mg Tab BY MOUTH Not Given [email or web address] [facility] Miscellaneous Information 1 each 10/21/24 00:01 10/22/24 07:41 Ivs All In Ns If Possible XX 11/20/24 00:00 Not Given CLARIFY CROW Multi-Ingred Cream/Lotion/Oil/Oint 1 applic 10/20/24 21:00 10/22/24 08:18 Mineral Oil/White Petrolatum Ointment EACH EYE 1 applic Q12HR CROW Administration Ondansetron HCl 4 mg 10/20/24 07:35 Ondansetron Inj 4 Mg/2 Ml Vial IV PUSH Q4H PRN Nausea And Vomiting Pantoprazole Sodium 40 mg 10/20/24 21:00 10/22/24 08:18 Pantoprazole Sodium Iv 40 Mg Vial IV PUSH 40 mg Q12HR CROW Administration Polyethylene Glycol 17 gm 10/19/24 12:20 Polyethylene Glycol 3350 17 Gm Powd.Pack PO QAM PRN Constipation Sodium Chloride 1 gm 10/18/24 18:15 10/20/24 16:39 Sodium Chloride 1 Gm Tablet PO Not Given BID [facility] Sodium Chloride 20 ml 10/20/24 08:59 Central Line Flush IV PUSH PRN PRN after blood draws Sodium Chloride 10 ml 10/20/24 08:59 Central Line Flush IV PUSH PRN PRN with TPN bag changes Sodium Chloride 10 ml 10/20/24 14:00 10/22/24 05:38 Central Line Flush IV PUSH 10 ml Q8HR CROW Administration Umeclidinium/Vilanterol 1 puff 10/17/24 08:00 10/21/24 14:12 Umeclidinium/Vilanterol 62.5-25 Mcg Ellipta INHALATION Not Given DAILYRT [facility] Radiology Results: ITS Impressions Venous Doppler Study 10/20/24 08:31 IMPRESSION: 1: No lower extremity deep venous thrombosis. Labs Labs: Laboratory Results - last 24 hr 10/21/24 10/21/24 10/21/24 08:31 09:09 12:12 WBC RBC Hgb Hct MCV MCH MCHC RDW Plt Count MPV Immature Gran % (Auto) Neut % (Auto) Lymph % (Auto) [place] % (Auto) Eos % (Auto) Baso % (Auto) Lymph # (Auto) [place] # (Auto) Eos # (Auto) Baso # (Auto) Abs Immat Gran (auto) Absolute Neuts (auto) Absolute Nucleated RBC Nucleated RBC % Platelet Estimate % Immature Plt Fraction Poikilocytosis Anisocytosis Ovalocytes [place] Cells Schistocytes Puncture Site Right femoral ABG pH 7.295 L* ABG pCO2 37.4 ABG pO2 67.2 L ABG PO2/FiO2 Ratio 1.34 ABG HCO3 17.8 L ABG O2 Saturation 91.5 L ABG O2 Content 12.5 L ABG Base Excess -8.0 A-a Gradient 247.2 Oxyhemoglobin 88.4 L Carboxyhemoglobin Methemoglobin Reduced Hemoglobin Total Hemoglobin 10.0 L O2 Delivery Device Ventilator O2 Liters/Min Not Reportable Minute Volume Not Reportable Vent Rate 18 Vent Mode Cmv FiO2 50 Tidal Volume 480 PEEP 5 Peak Inspir Pressure Not Reportable Pressure Support Not Reportable Sodium Potassium Chloride Carbon Dioxide Anion Gap BUN Creatinine Estim Creat Clear Calc Estimated GFR Glucose POC Capillary Glucose Lactic Acid 2.3 H Calcium Phosphorus Magnesium Total Bilirubin AST ALT Alkaline Phosphatase Total Protein Albumin Vancomycin Trough 11.5 Hepatitis A IgM Ab Hep Bs Antigen Hep B Core IgM Ab Hepatitis C Ab Screen 10/21/24 10/22/24 10/22/24 17:07 00:00 05:06 WBC 13.8 H RBC 2.82 L Hgb 8.9 L Hct 26.5 L MCV 94.0 MCH 31.6 MCHC 33.6 RDW 15.1 H Plt Count 40 L MPV 11.0 H Immature Gran % (Auto) 0.9 H Neut % (Auto) 91.6 H Lymph % (Auto) 3.1 L [place] % (Auto) 4.3 Eos % (Auto) 0.0 Baso % (Auto) 0.1 L Lymph # (Auto) 0.43 L [place] # (Auto) 0.6 Eos # (Auto) 0.0 Baso # (Auto) 0.0 Abs Immat Gran (auto) 0.13 H Absolute Neuts (auto) 12.7 H Absolute Nucleated RBC 0.100 H Nucleated RBC % 0.7 H Platelet Estimate Decreased % Immature Plt Fraction 8.5 Poikilocytosis 1+ Anisocytosis 1+ Ovalocytes 1+ Mail Cells 1+ Schistocytes Rare Puncture Site Artline ABG pH 7.338 L ABG pCO2 32.2 L ABG pO2 96.1 ABG PO2/FiO2 Ratio 1.92 ABG HCO3 16.9 L ABG O2 Saturation 97.0 ABG O2 Content 12.7 L ABG Base Excess -8.0 A-a Gradient 224.2 Oxyhemoglobin 95.7 Carboxyhemoglobin 0.8 Methemoglobin 0.1 Reduced Hemoglobin 3.4 Total Hemoglobin 9.3 L O2 Delivery Device Ventilator O2 Liters/Min Not Reportable Minute Volume Not Reportable Vent Rate 20 Vent Mode Cmv FiO2 50 Tidal Volume 480 PEEP 5 Peak Inspir Pressure Not Reportable Pressure Support Not Reportable Sodium 131 L Potassium 5.1 H Chloride 101 Carbon Dioxide 21 L Anion Gap 9 BUN 49 H Creatinine 1.55 H Estim Creat Clear Calc 41 Estimated GFR 45 L Glucose 133 H POC Capillary Glucose 123 H 125 H Lactic Acid 4.3 H* Calcium 7.3 L Phosphorus 4.7 H Magnesium 2.2 Total Bilirubin 3.8 H AST 4470 H ALT 3545 H Alkaline Phosphatase 76 Total Protein 5.0 L Albumin 2.9 L Vancomycin Trough Hepatitis A IgM Ab Negative Hep Bs Antigen Negative Hep B Core IgM Ab Negative Hepatitis C Ab Screen Negative 10/22/24 08:52 WBC RBC Hgb Hct MCV MCH MCHC RDW Plt Count MPV Immature Gran % (Auto) Neut % (Auto) Lymph % (Auto) [place] % (Auto) Eos % (Auto) Baso % (Auto) Lymph # (Auto) [place] # (Auto) Eos # (Auto) Baso # (Auto) Abs Immat Gran (auto) Absolute Neuts (auto) Absolute Nucleated RBC Nucleated RBC % Platelet Estimate % Immature Plt Fraction Poikilocytosis Anisocytosis Ovalocytes [place] Cells Schistocytes Puncture Site ABG pH ABG pCO2 ABG pO2 ABG PO2/FiO2 Ratio ABG HCO3 ABG O2 Saturation ABG O2 Content ABG Base Excess A-a Gradient Oxyhemoglobin Carboxyhemoglobin Methemoglobin Reduced Hemoglobin Total Hemoglobin O2 Delivery Device O2 Liters/Min Minute Volume Vent Rate Vent Mode FiO2 Tidal Volume PEEP Peak Inspir Pressure Pressure Support Sodium Potassium Chloride Carbon Dioxide Anion Gap BUN Creatinine Estim Creat Clear Calc Estimated GFR Glucose POC Capillary Glucose Lactic Acid 4.9 H* Calcium Phosphorus Magnesium Total Bilirubin AST ALT Alkaline Phosphatase Total Protein Albumin Vancomycin Trough Hepatitis A IgM Ab Hep Bs Antigen Hep B Core IgM Ab Hepatitis C Ab Screen
[2024-10-22] MEDS: AMIODARONE 360 MG/D5W 200 ML 360 MG/200 ML BAG 33.33 MG IV CONT (09:30)
[2024-10-22 09:31] LABS: Vancomycin Trough 21.9 ug/mL (10.0-20.0)
--- NOTE | 2024-10-22 10:34 | PM.TDS ---
Transfer Discharge Sum: Prov Provider Date of admission: 10/18/24 15:24 Primary care physician: PHYSICIAN NOT ON STAFF Admitting clinician: Ella Sotomayor MD Consults: 10/16/24 Consult to Physician Routine Comment: Consulting Provider: John Park truer pinion and wheel/MD group to consult: Dr. Park Reason for consultation: abnormal EKG Has provider been notified: Yes 10/18/24 Consult to Physician Routine Comment: Left VM for 10/18 0949 ([facility]) Consulting Provider: Pablo Meehan truer pinion and wheel/MD group to consult: nephrology Reason for consultation: hyponatremia Has provider been notified: Yes 10/19/24 Consult to Physician Routine Comment: Consulting Provider: Sudhakar Kevin truer pinion and wheel/MD group to consult: [employer] Reason for consultation: hypotension, pneumonia Has provider been notified: Yes Consult to Physician Routine Comment: Consulting Provider: Sudhakar Kevin Reason for consultation: Need for higher level of care Has provider been notified: Yes 10/20/24 11:31 Consult to Physician Routine Comment: Spoke with exchange 10/20 @ 1501 Consulting Provider: Zander Zendejas truer pinion and wheel/MD group to consult: Surgery Reason for consultation: Ileus versus small-bowel obstruction Has provider been notified: Yes Consult to Physician Routine Comment: Spoke with provider 1510 @ 10/20 Consulting Provider: Fei Chávez truer pinion and wheel/MD group to consult: Gastroenterology Reason for consultation: Ileus vs small-bowel obstruction Has provider been notified: Yes 10/22/24 09:21 Consult to Physician Routine Comment: spoke with Dr. Davenport @0946([facility]) Consulting Provider: Enoc Davenport truer pinion and wheel/MD group to consult: Cardiology Reason for consultation: New onset AFib Has provider been notified: Yes DS: Admitting Diagnosis Discharge Date 10/22/2024 Admitting Diagnosis Hemoptysis DS: Discharge Diagnosis Discharge Diagnosis (1) Septic shock: Code(s): A41.9 - Sepsis, unspecified organism; R65.21 - Severe sepsis with septic shock Status: Acute Assessment and Plan: 10/19: Patient was transferred from the medical floor with hypotension, worsening respiratory distress, metabolic acidosis, hyperkalemia -chest x-ray showed bilateral infiltrates/pneumonia -patient was started on cefepime, vancomycin (10/19). Doxycycline (10/20), added Flagyl (10/22) -IV fluids were given cautiously given history of systolic and diastolic heart failure -received albumin for intravascular volume expansion -patient has been maxed out on Levophed, vasopressin, phenylephrine, maintain SBP > 90-100 mmHg -off epinephrine infusion -continue stress dose steroids -PICC line was inserted on 10/20 - -10/16: Blood cultures negative x2 -10/17: Sputum culture showed growth of normal oropharyngeal patricia -10/20: Preliminary repeat blood cultures are negative -urine output has been adequate, continue to monitor renal function and urine output -10/22: Continues to require 3 pressors, received bicarb, on stress dose steroids (2) Acute respiratory failure: Code(s): J96.00 - Acute respiratory failure, unspecified whether with hypoxia or hypercapnia Status: Acute Assessment and Plan: Acute respiratory failure likely related to pneumonia, COPD exacerbation, CHF exacerbation -10/20: Patient was on BiPAP, was tachypneic, short of breath, in impending respiratory failure -10/20: Intubated in the ICU -continue antibiotics as above -continue bronchodilators 10/22: Patient was desaturating with hypotension, peep was increased to 8 with adequate O2 sats. ABGs and chest x-ray reviewed this morning (3) Pneumonia: Code(s): J18.9 - Pneumonia, unspecified organism Status: Acute Assessment and Plan: Chest x-ray and ABGs reviewed, continue antibiotics -on stress dose steroids for septic shock, will also help the pneumonia (4) Hyponatremia: Code(s): E87.1 - Hypo-osmolality and hyponatremia Status: Acute Assessment and Plan: Hyponatremia is chronic, nephrology following -multifactorial, could be related to pneumonia, COPD, CHF, thyroid disease, SIADH -nephrology to monitor and treat -acute kidney injury likely related to septic shock, hypotension -low urine output, creatinine trending up -patient may require CRRT which is not offered at [facility] (5) Electrolyte abnormality: Code(s): E87.8 - Other disorders of electrolyte and fluid balance, not elsewhere classified Status: Acute Assessment and Plan: 10/21: Hyperkalemia likely related to metabolic acidosis -will treat with calcium, insulin, D50, albuterol nebulizer -potassium has normalized, will continue to monitor 10/22: Hyperkalemia, was treated (6) Paroxysmal atrial fibrillation: Code(s): I48.0 - Paroxysmal atrial fibrillation Status: Acute Assessment and Plan: History of paroxysmal AFib on rivaroxaban (Xarelto) at home -currently in sinus rhythm, slight tachycardia likely related to multiple vasopressors -patient presented with productive cough with specks of blood/hemoptysis on admission. 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 Left ventricular chamber dimension is normal. 2. Left ventricular systolic function is normal, estimated at 55-60%. 3. There is mild concentric increased left ventricular wall thickness. 4. The left ventricular diastolic function is abnormal. 5. Tissue doppler E/e' was not assessed. 6. Right ventricular chamber dimension is mildly enlarged. 7. Right ventricular systolic function is moderately reduced and with abnormal TAPSE 0.9 cm. 8. Left atrial chamber dimension is severely enlarged. 9. Right atrial chamber dimension is mildly enlarged. 10. There is trace aortic valve regurgitation. 11. The bioprosthetic mitral valve leaflets is not well seen. 12. Inadequate assessment of mitral valve stenosis as no valve area from continuity equation and no gradients provided. 13. Tricuspid valve repair with annuloplasty ring. 14. There is mild to moderate tricuspid valve regurgitation. 15. Severe pulmonary hypertension, estimated pulmonary arterial systolic pressure is 62 mmHg. 16. There is trace pulmonic regurgitation. (9) Ileus: Code(s): K56.7 - Ileus, unspecified Status: Acute Assessment and Plan: 10/20: Obstructive series: Persistently dilated small bowel, consistent with adynamic ileus versus small bowel obstruction. 10/21: Distended transverse colon, likely adynamic ileus 10/22: Dilated loops of colon and likely small bowel without visualization of the pelvis for further evaluation. -Bowel rest, IV fluids, maintain normal electrolytes -appreciate surgery evaluation and recommendation (10) Thrombocytopenia: Code(s): D69.6 - Thrombocytopenia, unspecified Status: Acute Assessment and Plan: Likely multifactorial, could be related to septic shock, patient also on Xarelto at home, consumptive thrombocytopenia -no acute bleeding noted -will check stool for occult blood -transfuse as needed -elevated INR, status post vitamin K Transfer Discharge Sum: Med Medications Active and Home Medications: Home Medications tiotropium 2.5 mcg-olodaterol 2.5 mcg/actuation mist for inhalation (Stiolto Respimat) 2 puff inhalation DAILY 10/06/22 [History Confirmed 10/16/24] alprazolam 0.5 mg tablet (Xanax) 0.5 mg PO QHS PRN anxiety] 07/28/23 [History Confirmed 10/16/24] omeprazole 20 mg capsule,delayed release 40 mg PO BID 01/06/24 [History Confirmed 10/16/24] propranolol 80 mg capsule,24 hr,extended release 20 mg PO BID 01/06/24 [History Confirmed 10/16/24] dronedarone 400 mg tablet (Multaq) See Rx Instructions .Route .COMPLEX #180 tabs 03/14/24 [Rx Confirmed 10/16/24] rivaroxaban 20 mg tablet (Xarelto) See Rx Instructions .Route .COMPLEX #90 tabs 08/17/24 [Rx Confirmed 10/16/24] methimazole 5 mg tablet See Rx Instructions .Route .COMPLEX 08/28/24 [History Confirmed 10/16/24] albuterol sulfate 2.5 mg/3 mL (0.083 %) solution for nebulization 2.5 mg inhalation QID PRN shortness of breath or wheezing 10/16/24 [History Confirmed 10/16/24] albuterol sulfate 90 mcg/actuation aerosol inhaler 2 puff inhalation Q6H PRN shortness of breath or wheezing 10/16/24 [History Confirmed 10/16/24] losartan 50 mg tablet 50 mg PO DAILY #90 tabs 10/16/24 [Rx Confirmed 10/16/24] prochlorperazine maleate 10 mg tablet 10 mg PO DAILY PRN nausea and vomiting 10/16/24 [History Confirmed 10/16/24] Active Medications Acetaminophen (Acetaminophen 325 Mg Tablet) 650 mg PO Q4H PRN PRN Reason: Mild Pain (1-3) or Fever Last Admin: 10/18/24 11:25 Dose: 650 mg Albuterol (Albuterol Sulfate Neb 2.5 Mg/3 Ml Inh) 2.5 mg INHALATION QID PRN PRN Reason: shortness of breath or wheezing Albuterol/Ipratropium (Ipratropium 0.5 Mg/Albuterol Sulfate 2.5 Mg Ampul.Neb 3 Ml) 3 ml INHALATION Q6HRT [facility] Last Admin: 10/22/24 08:11 Dose: 3 ml Alprazolam (Alprazolam (*Crx) 0.5 Mg Tablet) 0.5 mg PO DAILY PRN PRN Reason: anxiety] Last Admin: 10/18/24 11:25 Dose: 0.5 mg Alprazolam (Alprazolam (*Crx) 0.5 Mg Tablet) 0.5 mg PO [facility] Last Admin: 10/19/24 22:13 Dose: Not Given Dextrose (Dextrose 50% 25 Gm/50 Ml Syringe) 12.5 gm IV PUSH PRN PRN; Protocol PRN Reason: Hypoglycemia Dicyclomine HCl (Dicyclomine Hcl 10 Mg Capsule) 20 mg PO QID PRN PRN Reason: Abdominal Cramping Last Admin: 10/19/24 14:11 Dose: 20 mg Dronedarone (Dronedarone Hcl 400 Mg Tablet) 400 mg BY MOUTH Q12HR [facility] Last Admin: 10/21/24 08:00 Dose: Not Given Glucagon (Glucagon For Inj 1 Mg Vial) 1 mg IM PRN PRN; Protocol PRN Reason: Hypoglycemia Glucose (Glucose Oral Gel 15 Gm Of Glucse In 37.5 Gm Tube) 15 gm PO PRN PRN; Protocol PRN Reason: Hypoglycemia Hydrocortisone Sodium Succinate (Hydrocortisone Sodium Succinate 100 Mg/2 Ml Vial) 100 mg IV PUSH Q8HR [facility] Last Admin: 10/22/24 05:39 Dose: 100 mg Norepinephrine Bitartrate (Levophed 8 Mg/D5w 250 Ml) 8 mg in 250 mls @ 18.75 mls/hr IV CONT .[id number] CROW; Protocol Last Titration: 10/22/24 08:04 Dose: 10 mcg/min, 18.75 mls/hr Fentanyl Citrate (Fentanyl 2,500 Mcg/Ns 250 Ml) 2,500 mcg in 250 mls @ 5 mls/hr IV CONT .Q50H CROW; Protocol Last Admin: 10/22/24 10:32 Dose: Not Given Midazolam HCl (Versed 100 Mg/Ns 100 Ml) 100 mg in 100 mls @ 3 mls/hr IV CONT .[id number] CROW; Protocol Last Admin: 10/22/24 10:31 Dose: Not Given Phenylephrine HCl 50 mg/ (Sodium Chloride) 250 mls @ 54 mls/hr IV CONT .Q4H38M CROW; Protocol Last Admin: 10/22/24 10:27 Dose: 180 mcg/min, 54 mls/hr Vasopressin 100 units/ (Dextrose) 100 mls @ 1.8 mls/hr IV CONT .[id number] CROW; Protocol Last Titration: 10/22/24 08:00 Dose: 0.03 units/min, 1.8 mls/hr Epinephrine HCl 4 mg/ Dextrose 254 mls @ 7.62 mls/hr IV CONT .Q24H CROW; Protocol Last Admin: 10/22/24 07:41 Dose: Not Given Dextrose (Dextrose 5% 1,000 Ml) 1,000 mls @ 100 mls/hr IVPB PRN PRN; Protocol PRN Reason: Hypoglycemia Metronidazole (Flagyl 500 Mg/Iso Soln 100 Ml) 500 mg in 100 mls @ 100 mls/hr IVPB Q8H CROW Amiodarone HCl/Dextrose (Nexterone 360 Mg/D5w 200 Ml) 360 mg in 200 mls @ 33.333 mls/hr IV CONT .Q6H ONE; Protocol Stop: 10/22/24 15:39 Amiodarone HCl/Dextrose (Nexterone 360 Mg/D5w 200 Ml) 360 mg in 200 mls @ 16.667 mls/hr IV CONT .Q12H CROW; Protocol Stop: 10/23/24 15:39 Vancomycin HCl (Vancomycin 1,250 Mg/Ns 250 Ml) 1,250 mg in 250 mls @ 166.667 mls/hr IVPB Q18H CROW Cefepime HCl (Maxipime 2 Gm/Ns 50 Ml) 2 gm in 50 mls @ 100 mls/hr IVPB Q12H [facility] Insulin Aspart (Insulin Aspart (*Bkc) 100 Units/Ml) 3 - 6 units SUB-Q Q6HR [facility]; Protocol Losartan Potassium (Losartan Potassium 50 Mg Tablet) 50 mg PO DAILY [facility] Last Admin: 10/19/24 10:23 Dose: 50 mg Methimazole (Methimazole 5 Mg Tab) 5 mg BY MOUTH [email or web address] [facility] Last Admin: 10/21/24 08:01 Dose: Not Given Miscellaneous Information ( Ivs All In Ns If Possible ) 1 each XX CLARIFY [facility] Stop: 11/20/24 00:00 Last Admin: 10/22/24 07:41 Dose: Not Given Multi-Ingred Cream/Lotion/Oil/Oint (Mineral Oil/White Petrolatum Ointment) 1 applic EACH EYE Q12HR [facility] Last Admin: 10/22/24 08:18 Dose: 1 applic Ondansetron HCl (Ondansetron Inj 4 Mg/2 Ml Vial) 4 mg IV PUSH Q4H PRN PRN Reason: Nausea And Vomiting Pantoprazole Sodium (Pantoprazole Sodium Iv 40 Mg Vial) 40 mg IV PUSH Q12HR [facility] Last Admin: 10/22/24 08:18 Dose: 40 mg Polyethylene Glycol (Polyethylene Glycol 3350 17 Gm Powd.Pack) 17 gm PO QAM PRN PRN Reason: Constipation Sodium Chloride (Sodium Chloride 1 Gm Tablet) 1 gm PO BID [facility] Last Admin: 10/20/24 16:39 Dose: Not Given Sodium Chloride (Central Line Flush) 20 ml IV PUSH PRN PRN PRN Reason: after blood draws Sodium Chloride (Central Line Flush) 10 ml IV PUSH PRN PRN PRN Reason: with TPN bag changes Sodium Chloride (Central Line Flush) 10 ml IV PUSH Q8HR [facility] Last Admin: 10/22/24 05:38 Dose: 10 ml Umeclidinium/Vilanterol (Umeclidinium/Vilanterol 62.5-25 Mcg Ellipta) 1 puff INHALATION DAILYRT [facility] Last Admin: 10/21/24 14:12 Dose: Not Given Transfer Discharge Sum: Hosp Hospital Course Hospital course: Milton Minor is a 64 year old male with chronic obstructive pulmonary disease, paroxysmal atrial fibrillation on chronic anticoagulation, combined systolic and diastolic congestive heart failure with improved ejection fraction, hyperthyroidism, hypertension, bioprosthetic mitral valve replacement following endocarditis in 2013, and Darby esophagus who presented to the emergency department via private vehicle with complaints of coughing up blood. The patient provides the following history. He endorses a mostly nonproductive cough over the last few weeks however in the past 3 days he has been coughing up phlegm admixed with bright red blood. He is also feeling generally unwell with decrease in energy and appetite with a decrease in oral intake. He had diarrhea 1 day late last week in large quantities but that has since resolved. He has not had any nose bleeds and denies coughing with any force. He also denies Fever, headache, sore throat, vomiting, melena, hematochezia, chest pain, pleuritic pain, lower extremity edema, calf pain, and weight loss. In the ED: He was afebrile on arrival with a blood pressure of 99/54 and an SpO2 of 95% on room air. Labs are significant for WBC count of 6.8, hemoglobin 11.9, PT 25.5, INR 2.2, PTT 38.2, sodium 119, chloride 87, BUN 18, creatinine 0.80, lactic acid 2.1, CRP 4.3, proBNP 75122, troponin 0.018. He tested negative for influenza and COVID. Chest x-ray showed bilateral perihilar and lower lobe pneumonia (underlying pulmonary edema cannot be excluded) and minimal left pleural effusion. EKG showed sinus rhythm with first-degree AV block, mild depression or flattening of the ST segment in the lateral leads with T-wave inversion in V3. He received ceftriaxone 1 gm, azithromycin 500 mg, and 250 mL of normal saline. He is being admitted in this setting for further treatment and evaluation. 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 Sedated with fentanyl and Versed infusion. Opens eyes but does not follow simple commands. Patient had episode of acute hypotension with even doing an x-ray and also a right upper quadrant ultrasound. Levophed had to be briefly increased. Patient remains on vasopressin and phenylephrine. Remains off epinephrine at this time patient went to AFib RVR, given a bolus of amiodarone and started on amiodarone infusion. Low urine output,, febrile with a T-max of 100.8?. Lactic is 4.3 and potassium is 5.1. Patient is thrombocytopenic with platelets of 40 this morning. Patient will be transferred to tertiary care for further management. Poor prognosis. Time Spent with Patient Time attestation: Total time spent providing and/or coordinating transfer services:45 mins Exam Narrative: General: Intubated and sedated HEENT:? Pupils equal reactive, sclera is clear, ETT in place Neck:? Supple Respiratory:? Coarse breath sounds bilaterally, diffuse bilateral rales, no wheezing, adequate air entry Cardiac:? S1-S2 is normal, regular rate and rhythm Abdomen:? Soft, tympanic, distended, nontender, hypoactive bowel sounds Extremities:? Bilateral upper and lower extremity edema, right popliteal, posterior tibial and pedal pulses not dopplerable, left pedal pulses not dopplerable. Feet are cold bilaterally, otherwise bilateral lower extremities are warm up to the ankles Neuro:? Intubated, sedated, opens his eyes to name, does not follow simple commands Skin:? Warm and dry Psych:? Unable to assess at this time DS: Data Data Completed and Pending Labs on day of discharge: Labs from last 24 hours 10/22/24 10/22/24 10/22/24 08:52 05:06 00:00 WBC 13.8 H RBC 2.82 L Hgb 8.9 L Hct 26.5 L MCV 94.0 MCH 31.6 MCHC 33.6 RDW 15.1 H Plt Count 40 L MPV 11.0 H Immature Gran % (Auto) 0.9 H Neut % (Auto) 91.6 H Lymph % (Auto) 3.1 L [place] % (Auto) 4.3 Eos % (Auto) 0.0 Baso % (Auto) 0.1 L Lymph # (Auto) 0.43 L [place] # (Auto) 0.6 Eos # (Auto) 0.0 Baso # (Auto) 0.0 Abs Immat Gran (auto) 0.13 H Absolute Neuts (auto) 12.7 H Absolute Nucleated RBC 0.100 H Nucleated RBC % 0.7 H Platelet Estimate Decreased % Immature Plt Fraction 8.5 Poikilocytosis 1+ Anisocytosis 1+ Ovalocytes 1+ [place] Cells 1+ Schistocytes Rare Puncture Site Artline ABG pH 7.338 L ABG pCO2 32.2 L ABG pO2 96.1 ABG PO2/FiO2 Ratio 1.92 ABG HCO3 16.9 L ABG O2 Saturation 97.0 ABG O2 Content 12.7 L ABG Base Excess -8.0 A-a Gradient 224.2 Oxyhemoglobin 95.7 Carboxyhemoglobin 0.8 Methemoglobin 0.1 Reduced Hemoglobin 3.4 Total Hemoglobin 9.3 L O2 Delivery Device Ventilator O2 Liters/Min Not Reportable Minute Volume Not Reportable Vent Rate 20 Vent Mode Cmv FiO2 50 Tidal Volume 480 PEEP 5 Peak Inspir Pressure Not Reportable Pressure Support Not Reportable Sodium 131 L Potassium 5.1 H Chloride 101 Carbon Dioxide 21 L Anion Gap 9 BUN 49 H Creatinine 1.55 H Estim Creat Clear Calc 41 Estimated GFR 45 L Glucose 133 H POC Capillary Glucose 125 H Lactic Acid 4.9 H* 4.3 H* Calcium 7.3 L Phosphorus 4.7 H Magnesium 2.2 Total Bilirubin 3.8 H AST 4470 H ALT 3545 H Alkaline Phosphatase 76 Total Protein 5.0 L Albumin 2.9 L Vancomycin Trough 21.9 H Hepatitis A IgM Ab Negative Hep Bs Antigen Negative Hep B Core IgM Ab Negative Hepatitis C Ab Screen Negative 10/21/24 10/21/24 17:07 12:12 WBC RBC Hgb Hct MCV MCH MCHC RDW Plt Count MPV Immature Gran % (Auto) Neut % (Auto) Lymph % (Auto) [place] % (Auto) Eos % (Auto) Baso % (Auto) Lymph # (Auto) [place] # (Auto) Eos # (Auto) Baso # (Auto) Abs Immat Gran (auto) Absolute Neuts (auto) Absolute Nucleated RBC Nucleated RBC % Platelet Estimate % Immature Plt Fraction Poikilocytosis Anisocytosis Ovalocytes [place] Cells Schistocytes Puncture Site Right femoral ABG pH 7.295 L* ABG pCO2 37.4 ABG pO2 67.2 L ABG PO2/FiO2 Ratio 1.34 ABG HCO3 17.8 L ABG O2 Saturation 91.5 L ABG O2 Content 12.5 L ABG Base Excess -8.0 A-a Gradient 247.2 Oxyhemoglobin 88.4 L Carboxyhemoglobin Methemoglobin Reduced Hemoglobin Total Hemoglobin 10.0 L O2 Delivery Device Ventilator O2 Liters/Min Not Reportable Minute Volume Not Reportable Vent Rate 18 Vent Mode Cmv FiO2 50 Tidal Volume 480 PEEP 5 Peak Inspir Pressure Not Reportable Pressure Support Not Reportable Sodium Potassium Chloride Carbon Dioxide Anion Gap BUN Creatinine Estim Creat Clear Calc Estimated GFR Glucose POC Capillary Glucose 123 H Lactic Acid Calcium Phosphorus Magnesium Total Bilirubin AST ALT Alkaline Phosphatase Total Protein Albumin Vancomycin Trough Hepatitis A IgM Ab Hep Bs Antigen Hep B Core IgM Ab Hepatitis C Ab Screen Preliminary micro results at discharge 10/20/24 10:23 Blood Culture - Preliminary Blood 10/20/24 10:09 Blood Culture - Preliminary Blood
--- NOTE | 2024-10-22 10:39 | P.PNINT_ITS ---
Progress Note: A&P Assessment and Plan (1) Septic shock: Code(s): A41.9 - Sepsis, unspecified organism; R65.21 - Severe sepsis with septic shock Status: Acute Assessment and Plan: 10/19: Patient was transferred from the medical floor with hypotension, worsening respiratory distress, metabolic acidosis, hyperkalemia -chest x-ray showed bilateral infiltrates/pneumonia -patient was started on cefepime, vancomycin (10/19). Doxycycline (10/20), added Flagyl (10/22) -IV fluids were given cautiously given history of systolic and diastolic heart failure -received albumin for intravascular volume expansion -patient has been maxed out on Levophed, vasopressin, phenylephrine, maintain SBP > 90-100 mmHg -off epinephrine infusion -continue stress dose steroids -PICC line was inserted on 10/20 - -10/16: Blood cultures negative x2 -10/17: Sputum culture showed growth of normal oropharyngeal patricia -10/20: Preliminary repeat blood cultures are negative -urine output has been adequate, continue to monitor renal function and urine output -10/22: Continues to require 3 pressors, received bicarb, on stress dose steroids (2) Acute respiratory failure: Code(s): J96.00 - Acute respiratory failure, unspecified whether with hypoxia or hypercapnia Status: Acute Assessment and Plan: Acute respiratory failure likely related to pneumonia, COPD exacerbation, CHF exacerbation -10/20: Patient was on BiPAP, was tachypneic, short of breath, in impending re spiratory failure -10/20: Intubated in the ICU -continue antibiotics as above -continue bronchodilators 10/22: Patient was desaturating with hypotension, peep was increased to 8 with adequate O2 sats. ABGs and chest x-ray reviewed this morning (3) Pneumonia: Code(s): J18.9 - Pneumonia, unspecified organism Status: Acute Assessment and Plan: Chest x-ray and ABGs reviewed, continue antibiotics -on stress dose steroids for septic shock, will also help the pneumonia (4) Hyponatremia: Code(s): E87.1 - Hypo-osmolality and hyponatremia Status: Acute Assessment and Plan: Hyponatremia is chronic, nephrology following -multifactorial, could be related to pneumonia, COPD, CHF, thyroid disease, SI ADH -nephrology to monitor and treat -acute kidney injury likely related to septic shock, hypotension -low urine output, creatinine trending up -patient may require CRRT which is not offered at [facility] (5) Electrolyte abnormality: Code(s): E87.8 - Other disorders of electrolyte and fluid balance, not elsewhere classified Status: Acute Assessment and Plan: 10/21: Hyperkalemia likely related to metabolic acidosis -will treat with calcium, insulin, D50, albuterol nebulizer -potassium has normalized, will continue to monitor 10/22: Hyperkalemia, was treated (6) Paroxysmal atrial fibrillation: Code(s): I48.0 - Paroxysmal atrial fibrillation Status: Acute Assessment and Plan: History of paroxysmal AFib on rivaroxaban (Xarelto) at home -currently in sinus rhythm, slight tachycardia likely related to multiple vasopressors -patient presented with productive cough with specks of blood/hemoptysis on admission. 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 Left ventricular chamber dimension is normal. 2. Left ventricular systolic function is normal, estimated at 55-60%. 3. There is mild concentric increased left ventricular wall thickness. 4. The left ventricular diastolic function is abnormal. 5. Tissue doppler E/e' was not assessed. 6. Right ventricular chamber dimension is mildly enlarged. 7. Right ventricular systolic function is moderately reduced and with abnormal TAPSE 0.9 cm. 8. Left atrial chamber dimension is severely enlarged. 9. Right atrial chamber dimension is mildly enlarged. 10. There is trace aortic valve regurgitation. 11. The bioprosthetic mitral valve leaflets is not well seen. 12. Inadequate assessment of mitral valve stenosis as no valve area from continuity equation and no gradients provided. 13. Tricuspid valve repair with annuloplasty ring. 14. There is mild to moderate tricuspid valve regurgitation. 15. Severe pulmonary hypertension, estimated pulmonary arterial systolic pressure is 62 mmHg. 16. There is trace pulmonic regurgitation. (9) Ileus: Code(s): K56.7 - Ileus, unspecified Status: Acute Assessment and Plan: 10/20: Obstructive series: Persistently dilated small bowel, consistent with adynamic ileus versus small bowel obstruction. 10/21: Distended transverse colon, likely adynamic ileus 10/22: Dilated loops of colon and likely small bowel without visualization of the pelvis for further evaluation. -Bowel rest, IV fluids, maintain normal electrolytes -appreciate surgery evaluation and recommendation (10) Thrombocytopenia: Code(s): D69.6 - Thrombocytopenia, unspecified Status: Acute Assessment and Plan: Likely multifactorial, could be related to septic shock, patient also on Xarelto at home, consumptive thrombocytopenia -no acute bleeding noted -will check stool for occult blood -transfuse as needed -elevated INR, status post vitamin K Plan DVT prophylaxis: SCDs, no chemoprophylaxis due to hemoptysis and thrombocytopenia Stress ulcer prophylaxis: Protonix Nutrition: NPO for now as patient has ileus/small small-bowel obstruction Code Status: Full code Critical Care Time Spent: 44 minutes Patient was transferred to [facility] on 10/22/2024 Discussed with patient's spouse at bedside updated with patient's condition and plan of care. I answered all questions. They are aware that the patient is on 4 pressors, I also showed him the radiology films on the computer or in the rounds, updated them with culture results and lab results. Due to a high probability of clinically significant, life threatening deterioration, the patient required my highest level of preparedness to intervene emergently and I personally spent this critical care time directly and personally managing the patient. This critical care time included obtaining a history; examining the patient; pulse oximetry; ordering and review of studies; arranging urgent treatment with development of a management plan; evaluation of patient's response to treatment; frequent reassessment; and discussions with other providers. It was exclusive of separately billable procedures and treating other patients and teaching time. Please see Assessment and Plan section and the rest of the note for further information on patient assessment and treatment This dictation may have been done utilizing a voice recognition system. Attempts have been made to correct errors. However, there may be uncorrected grammatical, spelling, and recognitions errors present. Subjective Date/time seen: 10/22/24 10:39 Interval history: Reason for consult: Acute respiratory failure, septic shock, metabolic acidosis, pneumonia 10/20: Patient intubated in the ICU 10/22/2023: Patient seen examined the ICU, remains intubated on CMV mode of ventilation, peep of 5, 50% FiO2. Sedated with fentanyl and Versed infusion. Opens eyes but does not follow simple commands. Patient had episode of acute hypotension with even doing an x-ray and also a right upper quadrant ultrasound. Levophed had to be briefly increased. Patient remains on vasopressin and phenylephrine. Remains off epinephrine at this time patient went to [facility] RVR, given a bolus of amiodarone and started on amiodarone infusion. Low urine output,, febrile with a T-max of 100.8?. Lactic is 4.3 and potassium is 5.1. Patient is thrombocytopenic with platelets of 40 this morning Review of Systems Review of Systems: All systems reviewed & are unremarkable except as noted in HPI and below Exam Narrative: General: Intubated and sedated HEENT:? Pupils equal reactive, sclera is clear, ETT in place Neck:? Supple Respiratory:? Coarse breath sounds bilaterally, diffuse bilateral rales, no wheezing, adequate air entry Cardiac:? S1-S2 is normal, regular rate and rhythm Abdomen:? Soft, tympanic, distended, nontender, hypoactive bowel sounds Extremities:? Bilateral upper and lower extremity edema, right popliteal, posterior tibial and pedal pulses not dopplerable, left pedal pulses not dopplerable. Feet are cold bilaterally, otherwise bilateral lower extremities are warm up to the ankles Neuro:? Intubated, sedated, opens his eyes to name, does not follow simple commands Skin:? Warm and dry Psych:? Unable to assess at this time Objective Data Vital Signs Vital Signs: Vital Signs - 24 hr 10/21/24 11:06 10/21/24 11:10 10/21/24 11:15 Temperature Pulse Rate 105 H 106 H 105 H Respiratory Rate Blood Pressure 74/28 L 74/28 L Pulse Oximetry 96 Oxygen Delivery Mechanical Ventilation Fraction of Inspired Oxygen 50 10/21/24 11:17 10/21/24 11:47 10/21/24 11:47 Temperature Pulse Rate 105 H 108 H 108 H Respiratory Rate Blood Pressure 74/28 L 57/25 L Pulse Oximetry Oxygen Delivery Fraction of Inspired Oxygen 10/21/24 12:00 10/21/24 12:00 10/21/24 12:00 Temperature 100.8 F H Pulse Rate 108 H 108 H 108 H Respiratory Rate 19 Blood Pressure 88/75 L 88/75 L 88/75 L Pulse Oximetry 92 Oxygen Delivery Fraction of Inspired Oxygen 10/21/24 12:00 10/21/24 12:00 10/21/24 12:00 Temperature Pulse Rate 108 H 108 H Respiratory Rate 19 2 L Blood Pressure Pulse Oximetry 92 Oxygen Delivery Mechanical Ventilation Fraction of Inspired Oxygen 10/21/24 12:00 10/21/24 12:00 10/21/24 12:00 Temperature Pulse Rate 105 H 108 H Respiratory Rate Blood Pressure Pulse Oximetry Oxygen Delivery Fraction of Inspired Oxygen 50 10/21/24 12:04 10/21/24 12:11 10/21/24 12:11 Temperature Pulse Rate 105 H 105 H 104 H Respiratory Rate Blood Pressure 91/50 L 88/36 L 88/75 L Pulse Oximetry Oxygen Delivery Fraction of Inspired Oxygen 10/21/24 13:00 10/21/24 13:52 10/21/24 14:00 Temperature Pulse Rate 106 H 106 H 104 H Respiratory Rate 210 H Blood Pressure 117/60 Pulse Oximetry Oxygen Delivery Fraction of Inspired Oxygen 10/21/24 14:00 10/21/24 14:02 10/21/24 14:10 Temperature 100.6 F H Pulse Rate 103 H 106 H 105 H Respiratory Rate 18 Blood Pressure 131/74 121/65 Pulse Oximetry 94 93 Oxygen Delivery Mechanical Ventilation Fraction of Inspired Oxygen 50 10/21/24 14:10 10/21/24 14:21 10/21/24 14:26 Temperature Pulse Rate 105 H 104 H 104 H Respiratory Rate 20 20 Blood Pressure 129/70 Pulse Oximetry Oxygen Delivery Fraction of Inspired Oxygen 10/21/24 14:26 10/21/24 14:35 10/21/24 14:45 Temperature Pulse Rate 104 H 104 H 102 H Respiratory Rate 20 20 Blood Pressure Pulse Oximetry Oxygen Delivery Fraction of Inspired Oxygen 10/21/24 15:00 10/21/24 15:52 10/21/24 15:52 Temperature Pulse Rate 102 H 102 H 102 H Respiratory Rate Blood Pressure 122/66 106/58 L 106/58 L Pulse Oximetry Oxygen Delivery Fraction of Inspired Oxygen 10/21/24 15:55 10/21/24 16:00 10/21/24 16:00 Temperature 100.5 F H Pulse Rate 101 H 101 H 102 H Respiratory Rate 20 Blood Pressure 117/64 127/69 140/79 Pulse Oximetry 93 Oxygen Delivery Fraction of Inspired Oxygen 10/21/24 16:00 10/21/24 16:00 10/21/24 16:00 Temperature Pulse Rate 102 H 102 H 102 H Respiratory Rate 21 H 21 H Blood Pressure 140/79 Pulse Oximetry Oxygen Delivery Fraction of Inspired Oxygen 10/21/24 16:00 10/21/24 16:00 10/21/24 16:00 Temperature Pulse Rate 102 H Respiratory Rate Blood Pressure 140/79 Pulse Oximetry 94 Oxygen Delivery Mechanical Ventilation Fraction of Inspired Oxygen 50 10/21/24 16:00 10/21/24 16:05 10/21/24 16:10 Temperature Pulse Rate 101 H 101 H 101 H Respiratory Rate Blood Pressure 140/79 136/76 Pulse Oximetry Oxygen Delivery Fraction of Inspired Oxygen 10/21/24 16:15 10/21/24 16:20 10/21/24 16:31 Temperature Pulse Rate 102 H 102 H 101 H Respiratory Rate Blood Pressure 137/76 135/76 130/72 Pulse Oximetry Oxygen Delivery Fraction of Inspired Oxygen 10/21/24 16:31 10/21/24 16:32 10/21/24 17:05 Temperature Pulse Rate 101 H 101 H 98 Respiratory Rate Blood Pressure 130/72 128/71 118/65 Pulse Oximetry Oxygen Delivery Fraction of Inspired Oxygen 10/21/24 17:06 10/21/24 17:09 10/21/24 17:15 Temperature Pulse Rate 98 98 94 Respiratory Rate Blood Pressure 120/66 117/65 125/69 Pulse Oximetry Oxygen Delivery Fraction of Inspired Oxygen 10/21/24 17:18 10/21/24 18:00 10/21/24 18:00 Temperature 100.5 F H Pulse Rate 106 H 94 95 Respiratory Rate 20 Blood Pressure 126/69 Pulse Oximetry 93 98 Oxygen Delivery Mechanical Ventilation Fraction of Inspired Oxygen 50 10/21/24 18:01 10/21/24 18:03 10/21/24 18:03 Temperature Pulse Rate 94 94 94 Respiratory Rate 20 Blood Pressure 126/70 127/70 Pulse Oximetry Oxygen Delivery Fraction of Inspired Oxygen 10/21/24 18:04 10/21/24 18:04 10/21/24 18:32 Temperature Pulse Rate 94 95 Respiratory Rate 20 Blood Pressure 126/69 Pulse Oximetry Oxygen Delivery Fraction of Inspired Oxygen 60 10/21/24 18:32 10/21/24 19:00 10/21/24 19:00 Temperature 100.4 F H Pulse Rate 94 98 98 Respiratory Rate 20 Blood Pressure 121/65 113/61 113/61 Pulse Oximetry 90 Oxygen Delivery Fraction of Inspired Oxygen 10/21/24 19:00 10/21/24 19:30 10/21/24 20:00 Temperature Pulse Rate 98 86 95 Respiratory Rate Blood Pressure 113/61 88/50 L 110/60 Pulse Oximetry Oxygen Delivery Fraction of Inspired Oxygen 10/21/24 20:00 10/21/24 20:00 10/21/24 20:00 Temperature Pulse Rate 95 95 95 Respiratory Rate 20 20 Blood Pressure 110/60 Pulse Oximetry Oxygen Delivery Fraction of Inspired Oxygen 10/21/24 20:00 10/21/24 20:00 10/21/24 20:00 Temperature 100.1 F H Pulse Rate 95 95 Respiratory Rate 20 Blood Pressure 110/60 110/60 Pulse Oximetry 91 Oxygen Delivery Fraction of Inspired Oxygen 60 10/21/24 20:00 10/21/24 20:00 10/21/24 20:15 Temperature Pulse Rate 94 95 Respiratory Rate Blood Pressure 113/62 Pulse Oximetry 91 Oxygen Delivery Mechanical Ventilation Fraction of Inspired Oxygen 60 10/21/24 20:30 10/21/24 20:30 10/21/24 21:00 Temperature Pulse Rate 95 95 92 Respiratory Rate Blood Pressure 116/64 116/64 106/58 L Pulse Oximetry Oxygen Delivery Fraction of Inspired Oxygen 10/21/24 21:00 10/21/24 21:11 10/21/24 21:11 Temperature 99.7 F H Pulse Rate 92 95 95 Respiratory Rate 20 Blood Pressure 106/58 L 123/67 123/67 Pulse Oximetry 94 Oxygen Delivery Fraction of Inspired Oxygen 10/21/24 21:13 10/21/24 21:13 10/21/24 21:15 Temperature Pulse Rate 95 95 95 Respiratory Rate 20 20 Blood Pressure 123/68 Pulse Oximetry Oxygen Delivery Fraction of Inspired Oxygen 10/21/24 21:30 10/21/24 21:32 10/21/24 21:34 Temperature Pulse Rate 94 95 95 Respiratory Rate 20 Blood Pressure 124/69 Pulse Oximetry 91 Oxygen Delivery Mechanical Ventilation Fraction of Inspired Oxygen 60 10/21/24 21:38 10/21/24 21:43 10/21/24 22:00 Temperature Pulse Rate 95 94 94 Respiratory Rate 20 Blood Pressure 145/80 H 115/64 Pulse Oximetry Oxygen Delivery Fraction of Inspired Oxygen 10/21/24 22:00 10/21/24 22:00 10/21/24 22:00 Temperature Pulse Rate 94 94 94 Respiratory Rate 20 20 Blood Pressure 115/64 Pulse Oximetry Oxygen Delivery Fraction of Inspired Oxygen 10/21/24 22:00 10/21/24 22:00 10/21/24 22:00 Temperature 99.6 F Pulse Rate 94 94 94 Respiratory Rate 20 Blood Pressure 115/64 115/64 Pulse Oximetry 90 Oxygen Delivery Fraction of Inspired Oxygen 10/21/24 22:15 10/21/24 22:23 10/21/24 22:23 Temperature Pulse Rate 94 95 95 Respiratory Rate Blood Pressure 113/63 109/60 109/60 Pulse Oximetry Oxygen Delivery Fraction of Inspired Oxygen 10/21/24 22:30 10/21/24 22:45 10/21/24 22:49 Temperature Pulse Rate 95 106 H Respiratory Rate Blood Pressure 109/61 104/61 Pulse Oximetry Oxygen Delivery Fraction of Inspired Oxygen 70 10/21/24 23:00 10/21/24 23:00 10/21/24 23:00 Temperature 99.6 F Pulse Rate 113 H 113 H 113 H Respiratory Rate 20 Blood Pressure 102/62 102/62 103/63 Pulse Oximetry 92 Oxygen Delivery Fraction of Inspired Oxygen 10/21/24 23:00 10/21/24 23:15 10/21/24 23:18 Temperature Pulse Rate 113 H 114 H 112 H Respiratory Rate Blood Pressure 102/62 102/63 Pulse Oximetry 92 Oxygen Delivery Mechanical Ventilation Fraction of Inspired Oxygen 70 10/21/24 23:30 10/21/24 23:48 10/22/24 00:00 Temperature Pulse Rate 113 H 109 H Respiratory Rate Blood Pressure 103/63 91/53 L Pulse Oximetry 97 Oxygen Delivery Mechanical Ventilation Fraction of Inspired Oxygen 60 10/22/24 00:00 10/22/24 00:00 10/22/24 00:00 Temperature 99.6 F Pulse Rate 96 96 Respiratory Rate 20 Blood Pressure 85/47 L 85/47 L Pulse Oximetry 97 Oxygen Delivery Fraction of Inspired Oxygen 70 10/22/24 00:00 10/22/24 00:00 10/22/24 00:00 Temperature Pulse Rate 96 96 96 Respiratory Rate 20 Blood Pressure 85/47 L 85/47 L Pulse Oximetry Oxygen Delivery Fraction of Inspired Oxygen 10/22/24 00:00 10/22/24 00:00 10/22/24 00:15 Temperature Pulse Rate 96 90 93 Respiratory Rate 20 Blood Pressure 124/71 Pulse Oximetry Oxygen Delivery Fraction of Inspired Oxygen 10/22/24 00:15 10/22/24 00:15 10/22/24 00:57 Temperature Pulse Rate 92 92 90 Respiratory Rate 20 Blood Pressure 118/68 118/68 122/70 Pulse Oximetry 93 Oxygen Delivery Fraction of Inspired Oxygen 10/22/24 00:57 10/22/24 01:00 10/22/24 01:00 Temperature Pulse Rate 90 89 89 Respiratory Rate Blood Pressure 122/70 122/70 122/70 Pulse Oximetry Oxygen Delivery Fraction of Inspired Oxygen 10/22/24 01:00 10/22/24 01:00 10/22/24 01:15 Temperature 99.5 F Pulse Rate 89 90 89 Respiratory Rate 20 Blood Pressure 122/70 122/70 120/68 Pulse Oximetry 94 Oxygen Delivery Fraction of Inspired Oxygen 10/22/24 01:15 10/22/24 02:00 10/22/24 02:00 Temperature Pulse Rate 89 88 88 Respiratory Rate Blood Pressure 120/68 123/70 123/70 Pulse Oximetry Oxygen Delivery Fraction of Inspired Oxygen 10/22/24 02:00 10/22/24 02:00 10/22/24 02:00 Temperature Pulse Rate 88 88 88 Respiratory Rate 20 20 Blood Pressure 123/70 Pulse Oximetry Oxygen Delivery Fraction of Inspired Oxygen 10/22/24 02:00 10/22/24 02:00 10/22/24 02:08 Temperature 99.5 F Pulse Rate 88 88 Respiratory Rate 20 Blood Pressure 123/70 Pulse Oximetry 99 Oxygen Delivery Fraction of Inspired Oxygen 60 10/22/24 02:13 10/22/24 02:15 10/22/24 02:15 Temperature Pulse Rate 87 87 86 Respiratory Rate 20 Blood Pressure 124/70 Pulse Oximetry 99 Oxygen Delivery Mechanical Ventilation Fraction of Inspired Oxygen 60 10/22/24 02:20 10/22/24 02:30 10/22/24 02:45 Temperature Pulse Rate 86 88 85 Respiratory Rate 20 Blood Pressure 118/66 114/65 Pulse Oximetry Oxygen Delivery Fraction of Inspired Oxygen 10/22/24 03:00 10/22/24 03:00 10/22/24 03:00 Temperature Pulse Rate 85 85 85 Respiratory Rate Blood Pressure 108/62 109/61 105/61 Pulse Oximetry Oxygen Delivery Fraction of Inspired Oxygen 10/22/24 03:15 10/22/24 03:30 10/22/24 03:45 Temperature Pulse Rate 84 84 83 Respiratory Rate Blood Pressure 106/60 108/61 105/61 Pulse Oximetry Oxygen Delivery Fraction of Inspired Oxygen 10/22/24 04:00 10/22/24 04:00 10/22/24 04:00 Temperature Pulse Rate 83 83 83 Respiratory Rate 20 Blood Pressure 108/62 108/62 Pulse Oximetry Oxygen Delivery Fraction of Inspired Oxygen 10/22/24 04:00 10/22/24 04:00 10/22/24 04:00 Temperature Pulse Rate 83 83 Respiratory Rate 20 Blood Pressure 108/62 Pulse Oximetry Oxygen Delivery Fraction of Inspired Oxygen 50 10/22/24 04:00 10/22/24 04:00 10/22/24 04:00 Temperature 99.3 F Pulse Rate 83 85 Respiratory Rate 20 Blood Pressure 108/62 Pulse Oximetry 99 99 Oxygen Delivery Mechanical Ventilation Fraction of Inspired Oxygen 50 10/22/24 04:06 10/22/24 04:15 10/22/24 04:15 Temperature Pulse Rate 81 81 Respiratory Rate Blood Pressure 95/54 L 95/54 L Pulse Oximetry Oxygen Delivery Mechanical Ventilation Fraction of Inspired Oxygen 50 10/22/24 04:45 10/22/24 05:00 10/22/24 05:00 Temperature Pulse Rate 80 86 81 Respiratory Rate Blood Pressure 75/44 L 94/53 L 94/53 L Pulse Oximetry Oxygen Delivery Fraction of Inspired Oxygen 10/22/24 05:00 10/22/24 05:00 10/22/24 05:20 Temperature 99.2 F Pulse Rate 81 81 82 Respiratory Rate 20 Blood Pressure 94/53 L 94/53 L 70/40 L Pulse Oximetry 96 Oxygen Delivery Fraction of Inspired Oxygen 10/22/24 05:30 10/22/24 05:37 10/22/24 05:37 Temperature Pulse Rate 81 83 83 Respiratory Rate Blood Pressure 104/62 104/62 Pulse Oximetry 96 Oxygen Delivery Mechanical Ventilation Fraction of Inspired Oxygen 45 10/22/24 05:42 10/22/24 06:00 10/22/24 06:00 Temperature Pulse Rate 83 83 Respiratory Rate Blood Pressure 97/56 L 97/56 L Pulse Oximetry Oxygen Delivery Fraction of Inspired Oxygen 45 10/22/24 06:00 10/22/24 06:00 10/22/24 06:00 Temperature Pulse Rate 83 83 83 Respiratory Rate 20 20 Blood Pressure 97/56 L Pulse Oximetry Oxygen Delivery Fraction of Inspired Oxygen 10/22/24 06:00 10/22/24 06:00 10/22/24 08:00 Temperature 99.3 F Pulse Rate 83 83 81 Respiratory Rate 20 Blood Pressure 97/56 L 98/55 L Pulse Oximetry 96 Oxygen Delivery Fraction of Inspired Oxygen 10/22/24 08:00 10/22/24 08:00 10/22/24 08:00 Temperature Pulse Rate 81 81 81 Respiratory Rate 20 20 Blood Pressure 98/55 L Pulse Oximetry Oxygen Delivery Fraction of Inspired Oxygen 10/22/24 08:00 10/22/24 08:04 10/22/24 08:12 Temperature Pulse Rate 81 81 83 Respiratory Rate 20 Blood Pressure 98/55 L 85/48 L Pulse Oximetry Oxygen Delivery Fraction of Inspired Oxygen 10/22/24 08:13 10/22/24 08:21 10/22/24 08:22 Temperature Pulse Rate 83 84 Respiratory Rate 20 Blood Pressure Pulse Oximetry 95 95 Oxygen Delivery Mechanical Ventilation Mechanical Ventilation Fraction of Inspired Oxygen 45 45 10/22/24 08:35 10/22/24 10:00 10/22/24 10:15 Temperature Pulse Rate 117 H 112 H Respiratory Rate Blood Pressure 121/75 126/77 Pulse Oximetry Oxygen Delivery Mechanical Ventilation Fraction of Inspired Oxygen 100 10/22/24 10:27 Temperature Pulse Rate 112 H Respiratory Rate Blood Pressure 126/77 Pulse Oximetry Oxygen Delivery Fraction of Inspired Oxygen Intake/Output Intake/Output: Intake & Output 10/19/24 10/20/24 10/21/24 10/22/24 23:59 23:59 23:59 23:59 Intake Total 3151.3 3695.5 3632.3 967.6 Output Total 1 850 800 250 Balance 3150.3 2845.5 2832.3 717.6 Meds/Results Medications: Active Medications Generic Name Dose Route Start Last Admin Trade Name Freq PRN Reason Stop Dose Admin Acetaminophen 650 mg 10/16/24 12:34 10/18/24 11:25 Acetaminophen 325 Mg Tablet PO 650 mg Q4H PRN Administration Mild Pain (1-3) or Fever Albuterol 2.5 mg 10/18/24 14:45 Albuterol Sulfate Neb 2.5 Mg/3 Ml Inh INHALATION QID PRN shortness of breath or wheezing Albuterol/Ipratropium 3 ml 10/16/24 14:00 10/22/24 08:11 Ipratropium 0.5 Mg/Albuterol Sulfate 2.5 Mg Ampul.Neb 3 Ml INHALATION 3 ml Q6HRT CROW Administration Alprazolam 0.5 mg 10/16/24 21:47 10/18/24 11:25 Alprazolam (*Crx) 0.5 Mg Tablet PO 0.5 mg DAILY PRN Administration anxiety] Alprazolam 0.5 mg 10/17/24 21:00 10/19/24 22:13 Alprazolam (*Crx) 0.5 Mg Tablet PO Not Given HS CROW Dextrose 12.5 gm 10/22/24 07:51 Dextrose 50% 25 Gm/50 Ml Syringe IV PUSH PRN PRN Hypoglycemia Protocol Dicyclomine HCl 20 mg 10/19/24 14:03 10/19/24 14:11 Dicyclomine Hcl 10 Mg Capsule PO 20 mg QID PRN Administration Abdominal Cramping Dronedarone 400 mg 10/16/24 09:00 10/21/24 08:00 Dronedarone Hcl 400 Mg Tablet BY MOUTH Not Given Q12HR [facility] Glucagon 1 mg 10/22/24 07:51 Glucagon For Inj 1 Mg Vial IM PRN PRN Hypoglycemia Protocol Glucose 15 gm 10/22/24 07:51 Glucose Oral Gel 15 Gm Of Glucse In 37.5 Gm Tube PO PRN PRN Hypoglycemia Protocol Hydrocortisone Sodium Succinate 100 mg 10/21/24 11:10 10/22/24 05:39 Hydrocortisone Sodium Succinate 100 Mg/2 Ml Vial IV PUSH 100 mg Q8HR CROW Administration Norepinephrine Bitartrate 8 mg in 250 mls @ 18.75 mls/hr 10/20/24 09:00 10/22/24 08:04 Levophed 8 Mg/D5w 250 Ml IV CONT 10 mcg/min .[id number] CROW 18.75 mls/hr Titration Protocol 10 MCG/MIN Fentanyl Citrate 2,500 mcg in 250 mls @ 5 mls/hr 10/20/24 10:20 10/22/24 10:32 Fentanyl 2,500 Mcg/Ns 250 Ml IV CONT Not Given .Q50H CROW Protocol 50 MCG/HR Midazolam HCl 100 mg in 100 mls @ 3 mls/hr 10/20/24 10:20 10/22/24 10:31 Versed 100 Mg/Ns 100 Ml IV CONT Not Given .[id number] CROW Protocol 3 MG/HR Phenylephrine HCl 50 mg/ 250 mls @ 54 mls/hr 10/20/24 22:35 10/22/24 10:27 Sodium Chloride IV CONT 180 mcg/min .[id number] CROW 54 mls/hr Administration Protocol 180 MCG/MIN Vasopressin 100 units/ 100 mls @ 1.8 mls/hr 10/21/24 06:05 10/22/24 08:00 Dextrose IV CONT 0.03 units/min .[id number] CROW 1.8 mls/hr Titration Protocol 0.03 UNITS/MIN Epinephrine HCl 4 mg/ Dextrose 254 mls @ 7.62 mls/hr 10/21/24 14:00 10/22/24 07:41 IV CONT Not Given .Q24H CROW Protocol 2 MCG/MIN Dextrose 1,000 mls @ 100 mls/hr 10/22/24 07:51 Dextrose 5% 1,000 Ml IVPB PRN PRN Hypoglycemia Protocol Metronidazole 500 mg in 100 mls @ 100 mls/hr 10/22/24 10:00 Flagyl 500 Mg/Iso Soln 100 Ml IVPB Q8H CROW Amiodarone HCl/Dextrose 360 mg in 200 mls @ 33.333 mls/hr 10/22/24 09:40 Nexterone 360 Mg/D5w 200 Ml IV CONT 10/22/24 15:39 .Q6H ONE Protocol 1 MG/MIN Amiodarone HCl/Dextrose 360 mg in 200 mls @ 16.667 mls/hr 10/22/24 15:40 Nexterone 360 Mg/D5w 200 Ml IV CONT 10/23/24 15:39 .Q12H CROW Protocol 0.5 MG/MIN Vancomycin HCl 1,250 mg in 250 mls @ 166.667 mls/hr 10/22/24 18:00 Vancomycin 1,250 Mg/Ns 250 Ml IVPB Q18H [facility] Cefepime HCl 2 gm in 50 mls @ 100 mls/hr 10/22/24 16:00 Maxipime 2 Gm/Ns 50 Ml IVPB Q12H [facility] Insulin Aspart 3 - 6 units 10/22/24 12:00 Insulin Aspart (*Bkc) 100 Units/Ml SUB-Q Q6HR [facility] Protocol Losartan Potassium 50 mg 10/19/24 09:00 10/19/24 10:23 Losartan Potassium 50 Mg Tablet PO 50 mg DAILY CROW Administration Methimazole 5 mg 10/17/24 09:00 10/21/24 08:01 Methimazole 5 Mg Tab BY MOUTH Not Given [email or web address] [facility] Miscellaneous Information 1 each 10/21/24 00:01 10/22/24 07:41 Ivs All In Ns If Possible XX 11/20/24 00:00 Not Given CLARIFY CROW Multi-Ingred Cream/Lotion/Oil/Oint 1 applic 10/20/24 21:00 10/22/24 08:18 Mineral Oil/White Petrolatum Ointment EACH EYE 1 applic Q12HR [facility] Administration Ondansetron HCl 4 mg 10/20/24 07:35 Ondansetron Inj 4 Mg/2 Ml Vial IV PUSH Q4H PRN Nausea And Vomiting Pantoprazole Sodium 40 mg 10/20/24 21:00 10/22/24 08:18 Pantoprazole Sodium Iv 40 Mg Vial IV PUSH 40 mg Q12HR CROW Administration Polyethylene Glycol 17 gm 10/19/24 12:20 Polyethylene Glycol 3350 17 Gm Powd.Pack PO QAM PRN Constipation Sodium Chloride 1 gm 10/18/24 18:15 10/20/24 16:39 Sodium Chloride 1 Gm Tablet PO Not Given BID CROW Sodium Chloride 20 ml 10/20/24 08:59 Central Line Flush IV PUSH PRN PRN after blood draws Sodium Chloride 10 ml 10/20/24 08:59 Central Line Flush IV PUSH PRN PRN with TPN bag changes Sodium Chloride 10 ml 10/20/24 14:00 10/22/24 05:38 Central Line Flush IV PUSH 10 ml Q8HR [facility] Administration Umeclidinium/Vilanterol 1 puff 10/17/24 08:00 10/21/24 14:12 Umeclidinium/Vilanterol 62.5-25 Mcg Ellipta INHALATION Not Given DAILYRT [facility] Radiology Results: ITS Impressions Venous Doppler Study 10/20/24 08:31 IMPRESSION: 1: No lower extremity deep venous thrombosis. Abdomen Ultrasound 10/22/24 09:45 IMPRESSION: Limited examination (secondary to patient's condition) demonstrating fatty infiltration of the liver, with likely pericholecystic fluid and gallbladder wall thickening. Abdomen X-Ray 10/22/24 10:00 IMPRESSION: Limited view of the abdomen for which cross-sectional imaging is recommended, IV contrast enhanced (if patient is clinically able) evaluation of the abdomen and pelvis. Labs Labs: Laboratory Results - last 24 hr 10/21/24 10/21/24 10/22/24 12:12 17:07 00:00 WBC RBC Hgb Hct MCV MCH MCHC RDW Plt Count MPV Immature Gran % (Auto) Neut % (Auto) Lymph % (Auto) Henry % (Auto) Eos % (Auto) Baso % (Auto) Lymph # (Auto) Henry # (Auto) Eos # (Auto) Baso # (Auto) Abs Immat Gran (auto) Absolute Neuts (auto) Absolute Nucleated RBC Nucleated RBC % Platelet Estimate % Immature Plt Fraction Poikilocytosis Anisocytosis Ovalocytes [place] Cells Schistocytes Puncture Site Right femoral ABG pH 7.295 L* ABG pCO2 37.4 ABG pO2 67.2 L ABG PO2/FiO2 Ratio 1.34 ABG HCO3 17.8 L ABG O2 Saturation 91.5 L ABG O2 Content 12.5 L ABG Base Excess -8.0 A-a Gradient 247.2 Oxyhemoglobin 88.4 L Carboxyhemoglobin Methemoglobin Reduced Hemoglobin Total Hemoglobin 10.0 L O2 Delivery Device Ventilator O2 Liters/Min Not Reportable Minute Volume Not Reportable Vent Rate 18 Vent Mode Cmv FiO2 50 Tidal Volume 480 PEEP 5 Peak Inspir Pressure Not Reportable Pressure Support Not Reportable Sodium Potassium Chloride Carbon Dioxide Anion Gap BUN Creatinine Estim Creat Clear Calc Estimated GFR Glucose POC Capillary Glucose 123 H 125 H Lactic Acid Calcium Phosphorus Magnesium Total Bilirubin AST ALT Alkaline Phosphatase Total Protein Albumin Vancomycin Trough Hepatitis A IgM Ab Hep Bs Antigen Hep B Core IgM Ab Hepatitis C Ab Screen 10/22/24 10/22/24 05:06 08:52 WBC 13.8 H RBC 2.82 L Hgb 8.9 L Hct 26.5 L MCV 94.0 MCH 31.6 MCHC 33.6 RDW 15.1 H Plt Count 40 L MPV 11.0 H Immature Gran % (Auto) 0.9 H Neut % (Auto) 91.6 H Lymph % (Auto) 3.1 L Henry % (Auto) 4.3 Eos % (Auto) 0.0 Baso % (Auto) 0.1 L Lymph # (Auto) 0.43 L Henry # (Auto) 0.6 Eos # (Auto) 0.0 Baso # (Auto) 0.0 Abs Immat Gran (auto) 0.13 H Absolute Neuts (auto) 12.7 H Absolute Nucleated RBC 0.100 H Nucleated RBC % 0.7 H Platelet Estimate Decreased % Immature Plt Fraction 8.5 Poikilocytosis 1+ Anisocytosis 1+ Ovalocytes 1+ [place] Cells 1+ Schistocytes Rare Puncture Site Artline ABG pH 7.338 L ABG pCO2 32.2 L ABG pO2 96.1 ABG PO2/FiO2 Ratio 1.92 ABG HCO3 16.9 L ABG O2 Saturation 97.0 ABG O2 Content 12.7 L ABG Base Excess -8.0 A-a Gradient 224.2 Oxyhemoglobin 95.7 Carboxyhemoglobin 0.8 Methemoglobin 0.1 Reduced Hemoglobin 3.4 Total Hemoglobin 9.3 L O2 Delivery Device Ventilator O2 Liters/Min Not Reportable Minute Volume Not Reportable Vent Rate 20 Vent Mode Cmv FiO2 50 Tidal Volume 480 PEEP 5 Peak Inspir Pressure Not Reportable Pressure Support Not Reportable Sodium 131 L Potassium 5.1 H Chloride 101 Carbon Dioxide 21 L Anion Gap 9 BUN 49 H Creatinine 1.55 H Estim Creat Clear Calc 41 Estimated GFR 45 L Glucose 133 H POC Capillary Glucose Lactic Acid 4.3 H* 4.9 H* Calcium 7.3 L Phosphorus 4.7 H Magnesium 2.2 Total Bilirubin 3.8 H AST 4470 H ALT 3545 H Alkaline Phosphatase 76 Total Protein 5.0 L Albumin 2.9 L Vancomycin Trough 21.9 H Hepatitis A IgM Ab Negative Hep Bs Antigen Negative Hep B Core IgM Ab Negative Hepatitis C Ab Screen Negative Quality VTE Prophylaxis VTE prophylaxis: mechanical ordered
[2024-10-22] MEDS: MIDAZOLAM 100MG/NS 100ML(*CRX) 100 MG/100 ML BAG IV CONT (10:57)
[2024-10-23 11:39] LABS: Kappa\\Lambda Light Chains 1.61 (0.26-1.65); Lambda Light Chain 18.5 mg/L (5.7-26.3)
[2024-10-27 05:14] LABS: Legionella pneumophila Ag Ur NOT DETECTED
== END 2024-10-22 11:20 | disposition short-term general hospital (02) | DRG 208 ==
LOC: ANHED 11:45 → ANH3MEDSUR 14:07 → ANH2MED 23:09 → ANHICU 10-19 18:05
PROVIDERS: Hospitalist; Internal Medicine; Internal Medicine Nephrology; Physician Assistant; Student in an Organized Health Care Education/Training Program; Admitting Provider Internal Medicine; Emergency Provider Emergency Medicine; Visit Provider General Practice
DX: J18.9 Pneumonia, unspecified organism (principal); A41.9 Sepsis, unspecified organism; R65.21 Severe sepsis with septic shock; J96.00 Acute respiratory failure, unspecified whether with hypoxia or hypercapnia; K72.00 Acute and subacute hepatic failure without coma; E22.2 Syndrome of inappropriate secretion of antidiuretic hormone; I50.42 Chronic combined systolic (congestive) and diastolic (congestive) heart failure; J44.0 Chronic obstructive pulmonary disease with (acute) lower respiratory infection; K56.0 Paralytic ileus; E87.20 Acidosis, unspecified; I11.0 Hypertensive heart disease with heart failure; I48.0 Paroxysmal atrial fibrillation; I71.20 Thoracic aortic aneurysm, without rupture, unspecified; D69.6 Thrombocytopenia, unspecified; E87.5 Hyperkalemia; E03.9 Hypothyroidism, unspecified; E05.90 Thyrotoxicosis, unspecified without thyrotoxic crisis or storm; E78.5 Hyperlipidemia, unspecified; K22.70 Barrett's esophagus without dysplasia; F41.9 Anxiety disorder, unspecified; Z20.822 Contact with and (suspected) exposure to COVID-19; Z79.01 Long term (current) use of anticoagulants; Z86.0101 Personal history of adenomatous and serrated colon polyps; Z95.2 Presence of prosthetic heart valve; Z87.891 Personal history of nicotine dependence
CPT/HCPCS: 36415; 36569; 36600; 71045; 71046; 74018; 74019; 76705; 80048; 80053; 80074; 80202; 82375; 82533; 82565; 82570; 82805; 82948; 83050; 83605; 83735; 83880; 83883; 83930; 83935; 84100; 84145; 84155; 84156; 84165; 84166; 84295; 84300; 84439; 84443; 84480; 84484; 84540; 85018; 85025; 85055; 85610; 85730; 86140; 86738; 87040; 87070; 87205; 87449; 87636; 87641; 87899; 93005; 93308; 93970; 94002; 94003; 94640; 96361; 96365; 96375; 96376; 99285; A9270; C8929; G0378; J0171; J0282; J0456; J0612; J0692; J0696; J1720; J1815; J2003; J2250; J2371; J2470; J3010; J3370; J3430; J7030; J7050; J7060; J7070; J7120; P9047; Q9957